=== PATIENT | male | born 1940 | race Caucasian/White ===

== ENCOUNTER 2018-03-11 15:58 | Emergency (ER) | payer OTHER ==
--- OUTSIDE RECORDS SUMMARY | 2018-03-11 16:00 | XMS REPORT | Clinical Summary ---
:1940 Author Organization [facility] Address [address] [place] [address] Care Team Providers Name Role Phone New Leong MD Primary Care Provider Allergies Active Allergy Reactions Severity Noted Date Comments Codeine GI Intolerance 09/21/2017 vomitting Current Medications Prescription Sig. Disp. Refills Start Date End Date Status finasteride Take 5 mg by 3 10/06/2016 Active (PROSCAR) 5 mg mouth daily. tablet therapeutic Take 1 tablet Active multivitamin by mouth (THERAGRAN) tablet daily. ZINC ACETATE ORAL Take 50 mg by Active mouth. ASCORBATE CALCIUM Take 1,000 mg Active (VITAMIN C ORAL) by mouth. ANTIOX.MV Take by Active NO.10/OMEG3S/LUT/AIMEE mouth. (I-CAPS ORAL) metoprolol succinate Take 1 tablet 90 tablet 3 05/15/2017 Active XL (TOPROL-XL) 50 mg (50 mg total) 24 hr tablet by mouth daily. pravastatin Take 1 tablet 90 tablet 3 05/15/2017 Active (PRAVACHOL) 20 MG (20 mg total) tablet by mouth daily. ZETIA 10 mg tablet Take 1 tablet 90 tablet 3 08/14/2017 Active (10 mg total) by mouth daily. tamsulosin (FLOMAX) Take 0.4 mg Active 0.4 mg by mouth capsule,extended daily. release 24hr ALPRAZolam (XANAX) 1 09/22/2017 Active MG tablet metoprolol succinate 10/12/2016 05/15/2017 Discontinued XL (TOPROL-XL) 50 mg 24 hr tablet pravastatin TAKE 1 3 07/31/2016 05/15/2017 Discontinued (PRAVACHOL) 20 MG TABLET(S) tablet EVERY DAY BY ORAL ROUTE. ZETIA 10 mg tablet TAKE 1 TABLET 3 10/06/2016 08/14/2017 Discontinued BY MOUTH EVERY DAY FOR 90 DAYS aspirin (ECOTRIN) 81 Take 81 mg by 10/18/2017 Discontinued MG enteric coated mouth 2 (two) tablet times a day. metroNIDAZOLE TAKE 1 TABLET 0 09/12/2017 10/18/2017 Discontinued (FLAGYL) 500 MG BY MOUTH tablet EVERY 6 HOURS. traMADol (ULTRAM) 50 Take 50 mg by 0 09/08/2017 10/18/2017 Discontinued mg tablet mouth every 4 (four) hours as needed. for pain traMADol (ULTRAM) 50 Take 1 tablet 60 tablet 0 10/18/2017 11/01/2017 mg tablet (50 mg total) by mouth every 4 (four) hours as needed (pain) for up to 14 days. for pain HYDROcodone-acetamin Take 2 10/18/2017 11/01/2017 ophen (NORCO) 10-325 tablets by mg per tablet mouth every 4 (four) hours as needed (pain) for up to 14 days. Max Daily Amount: 12 tablets carisoprodol (SOMA) Take 1 tablet 10/18/2017 11/01/2017 350 MG tablet (350 mg total) by mouth 4 (four) times a day as needed for muscle spasms for up to 14 days. Active Problems Problem Noted Date S/P laminectomy (T4-7) 10/17/2017 Anemia due to blood loss, acute 10/17/2017 Essential hypertension 10/17/2017 Type 2 diabetes mellitus with complication, without long-term current use 07/2017 of insulin Thrombocytopenia 10/17/2017 Thoracic spine tumor 10/16/2017 Schwannoma of spinal cord (S/P resection) 09/21/2017 Cervical spondylosis with myelopathy 09/21/2017 Spermatocele 09/21/2017 Paroxysmal atrial fibrillation 09/18/2017 Coronary artery disease involving little shell tribe coronary artery of little shell tribe heart 04/14 without angina pectoris Chronic coronary artery disease 10/14/2016 Dyspnea 10/14/2016 S/P CABG (coronary artery bypass graft) 10/14/2016 Encounters Date Type Specialty Care Team Description 10/29/2017 Office Visit Neurosurgery Oliver Eng Thoracic spine tumor ( Primary Dx); MD Brianna S/P laminectomy (T4-7); Encounter for removal of sutures 10/16/2017 - Hospital Encounter Neurosurgery Oliver Eng 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 Procedure Pass General Surgery 10/16/2017 Surgery General Surgery Oliver Eng THORACIC LAMINECTOMY MD Brianna FOR EXCISION OF TUMOR THORACIC 4 - THORACIC 7 10/15/2017 Anesthesia Event General Surgery Rosa Davis, PROCEDURES TECH 10/13/2017 Office Visit Cardiology Anish Garcia S/P CABG (coronary artery bypass graft) (Primary Dx); MD Talita Paroxysmal atrial fibrillation 10/07/2017 Orders Only Neurosurgery Franci Boyd, Spinal cord tumor SEA SHELL GATHERER (Primary Dx) 10/06/2017 Telephone Neurosurgery Franci Boyd, SEA SHELL GATHERER 09/30/2017 Hospital Encounter Radiology Oliver Eng Spinal cord tumor; MD Brianna Cervical spondylosis with myelopathy; Spermatocele 09/30/2017 Hospital Encounter Radiology Oliver Eng Spinal cord tumor; MD Brianna Cervical spondylosis with myelopathy; Spermatocele 09/22/2017 Procedure Pass Radiology 09/22/2017 Procedure Pass Radiology 09/22/2017 Orders Only Neurosurgery Linda Arreola Spinal cord tumor (Primary Dx); Cervical spondylosis with myelopathy; Spermatocele 09/21/2017 Hospital Encounter Radiology Oliver Eng MD 09/21/2017 Hospital Encounter Oliver Spear MD 09/21/2017 Pre-Admit Testing Pre-Admission Oliver Eng Preoperative testing Appointment Testing MD Brianna (Primary Dx) 09/21/2017 Hospital Encounter Radiology Olvier Eng Chronic coronary artery disease; MD Brianna Coronary artery disease involving little shell tribe coronary artery of little shell tribe heart without angina pectoris; Paroxysmal atrial fibrillation; Dyspnea, unspecified type; Spinal cord tumor; Cervical spondylosis with myelopathy; Spermatocele; S/P CABG (coronary artery bypass graft) 09/21/2017 Hospital Encounter Oliver Spear Chronic coronary artery disease; MD Brianna Coronary artery disease involving little shell tribe coronary artery of little shell tribe heart without angina pectoris; Paroxysmal atrial fibrillation; Dyspnea, unspecified type; Spinal cord tumor; Cervical spondylosis with myelopathy; Spermatocele; S/P CABG (coronary artery bypass graft) 09/21/2017 Hospital Encounter Radiology Oliver Eng Chronic coronary artery disease; MD Brianna Coronary artery disease involving little shell tribe coronary artery of little shell tribe heart without angina pectoris; Paroxysmal atrial fibrillation; Dyspnea, unspecified type; Spinal cord tumor; Cervical spondylosis with myelopathy; Spermatocele; S/P CABG (coronary artery bypass graft) 09/21/2017 Office Visit Neurosurgery Oliver Eng Cervical spondylosis with myelopathy (Primary Dx); MD Brianna Spinal cord tumor; Spermatocele 09/21/2017 Procedure Pass Radiology 09/21/2017 Procedure Pass Radiology 09/21/2017 Ancillary Orders Radiology Oliver Eng MD 09/21/2017 Orders Only Neurosurgery Linda Arreola Chronic coronary artery disease (Primary Dx); Coronary artery disease involving little shell tribe coronary artery of little shell tribe heart without angina pectoris; Paroxysmal atrial fibrillation; Dyspnea, unspecified type; Spinal cord tumor; Cervical spondylosis with myelopathy; Spermatocele; S/P CABG (coronary artery bypass graft) 08/14/2017 Refill Cardiology Mihir Farmer MA 05/15/2017 Orders Only Cardiology Janet Ziegler MA 05/15/2017 Orders Only Cardiology Janet Ziegler MA 04/14/2017 Office Visit Cardiology Anish Garcia Coronary artery disease involving little shell tribe coronary artery of little shell tribe heart without angina pectoris ( Primary Dx); MD Talita S/P CABG (coronary artery bypass graft) after 03/10/2017 Family History Medical History Relation Name Comments No Known Problems Father No Known Problems Mother Relation Name Status Comments Father Mother Social History Tobacco Use Types Packs/Day Years Used Date Former Smoker Smokeless Tobacco: Never Used Comments: 2 years in college Alcohol Use Drinks/Week oz/Week Comments Yes rarely Sex Assigned at Date Recorded Not on file Last Filed Vital Signs Vital Sign Reading Time Taken Blood Pressure 90/53 10/18/2017 8:05 AM CUPOLA REPAIRER Pulse 60 10/18/2017 8:05 AM CUPOLA REPAIRER Temperature 36 C (96.8 F) 10/18/2017 8:05 AM CUPOLA REPAIRER Respiratory Rate 19 10/18/2017 8:05 AM CUPOLA REPAIRER Oxygen Saturation 94% 10/18/2017 8:05 AM CUPOLA REPAIRER Inhaled Oxygen Concentration - - Weight 90.3 kg (199 lb) 10/13/2017 8:41 AM CUPOLA REPAIRER Height 185.4 cm (6' 1") 10/16/2017 10:36 AM CUPOLA REPAIRER Body Mass Index 26.25 10/13/2017 8:41 AM CUPOLA REPAIRER Plan of Treatment Date Type Specialty Care Team Description 04/13/2018 Office Visit Cardiology Anish Garcia MD [address] [employer] [address] [place] [address] Health Maintenance Due Date Last Done Comments FOOT EXAM 1951 OPHTHALMOLOGY EXAM 1950 URINE MICROALBUMIN 1951 SHINGRIX VACCINE (#1) 1991 ZOSTER VACCINE 2001 PNEUMOCOCCAL POLYSACCHARIDE VACCINE AGE 65 AND OVER 2006 PNEUMOCOCCAL-13 2006 INFLUENZA VACCINE 06/09/2018 Implants Implanted Type Area Director Oracle Database Device Expiration Model / Identifier Date Serial / Lot System Spine Selnt For Dural Selng Exact 5ml Duraseal - [id number] Cardiovascular N/A: INTEGRA 01/06/2019 [id number] / Implanted: Qty: 1 on 10/16/2017 by Oliver Eng MD Implants N/A LIFESCIENCE / NEURO [id number] Home Office Claims Examiner Clip Anastoclip Ves Clsr Sys 1.4mm Med - [id number] Medical Clips for N/A: LEMAITRE 10/06/2021 [id number] / Implanted: 10/16/2017 (Quantity not on file) Internal Use N/A VASCULAR / [id number] Kit Hemostatic Matrix W/Thrombin 8ml Surgiflo - [id number] Surgical N/A: ETHICON US-EH 01/06/2019 [id number] / Implanted: 10/16/2017 (Quantity not on file) Implants; N/A / Expanders; [id number] Extenders; Surgical Wires Matrix Hmstc Floseal 10ml W/ Humn F2 - [id number] Surgical N/A: AMBRIZ 04/2019 [id number] / Implanted: 10/16/2017 (Quantity not on file) Implants; N/A BIOSCIENCE / Expanders; [id number] Extenders; Surgical Wires Procedures Procedure Name Priority Date/Time Associated Diagnosis Comments INTRAOPERATIVE MONITORING Routine 10/19/2017 8:08 AM CUPOLA REPAIRER WI AN ELECTIVE Routine 10/16/2017 4:58 PM ENDOTRACHEAL AIRWAY CUPOLA REPAIRER Procedure Note - Aminah Staton, SENIOR GAME DEVELOPER - 10/16/2017 4:31 PM CUPOLA REPAIRER Airway Date/Time: 10/16/2017 4:31 PM Performed by: AMINAH STATON Authorized by: AMINAH STATON Location: OR Urgency: Elective Difficult Airway: No Resident/SENIOR GAME DEVELOPER/AA: AMINAH STATON Preoxygenated with 100% O2: Yes C-spine Precautions Maintained Throughout: Yes Mask Ventilation: Easy mask Final Airway Type: Endotracheal airway Final Endotracheal Airway: ETT Cuffed: Yes Technique Used: Direct laryngoscopy Devices/Methods Used in Placement: Intubating stylet Insertion Site: Oral Blade Type: Coffey Laryngoscope Blade/Videolaryngoscope Blade Size: 2 ETT Size (mm): 8.0 Cuff at minimum occlusion pressure: Yes Measured from: Teeth ETT to Teeth (cm): 23 Placement Verified by: CO2 detection, direct visualization and equal breath sounds Laryngoscopic view: Grade I - full view of glottis Rapid Sequence Induction (RSI): No Modified RSI: Yes Number of Attempts at Approach: 1 Atraumatic, lips and teeth intact and unchanged ARTERIAL LINE Routine 10/16/2017 4:33 PM CUPOLA REPAIRER Procedure Note - Aminah Staton SENIOR GAME DEVELOPER - 10/16/2017 4:32 PM CUPOLA REPAIRER Arterial line Performed by: EDER KRISHNAMURTHY Authorized by: EDER KRISHNAMURTHY Staff: Anesthesiologist: EDER KRISHNAMURTHY Pre-procedure: patient identified, IV checked, site and side verified, risks and benefits discussed, procedure verified, surgical consent complete, patient position confirmed, monitors and equipment checked and pre-op evaluation complete MSBT: antiseptic used, all elements of maximal sterile barrier technique followed, hand hygiene performed, cap/gown used by other personnel and solutions labeled Indications: Indications: hemodynamic monitoring Anesthesia: Anesthesia: General Procedure Details: Arterial Line placement: Placed post induction Line placement site: Radial Line placement side: Right Arterial line gauge: 20 G Number of attempts: 2 Post-procedure: Post procedure circulation, sensation, movement: Unchanged Patient tolerance: Patient tolerated the procedure well with no immediate complications THORACIC LAMINECTOMY FOR EXCISION 10/16/2017 12:00 PM CUPOLA REPAIRER 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 Component Value Ref Range POC glucose 153 (H) 65 - 99 mg/dL Comment: [facility] Notified RN Meter ID: [id number] Corporate Trainer: Jean Hopkins Specimen Performing Laboratory [facility] DEPARTMENT OF PATHOLOGY AND GENOMIC MEDICINE [address] [place] [id number] CBC hemogram (10/18/2017 3:50 AM) Component Value Ref Range WBC 18.49 (H) 4.50 - 11.00 k/uL RBC 4.58 4.40 - 6.00 m/uL HGB 13.4 (L) 14.0 - 18.0 g/dL HCT 40.7 (L) 41.0 - 51.0 % MCV 88.9 82.0 - 100.0 fL MCH 29.3 27.0 - 34.0 pg MCHC 32.9 31.0 - 37.0 g/dL RDW - SD 50.5 37.0 - 55.0 fL MPV 14.6 (H) 8.8 - 13.2 fL Platelet count 125 (L) 150 - 400 k/uL Nucleated RBC 0.00 /100 WBC Specimen Performing Laboratory Blood [facility] DEPARTMENT OF PATHOLOGY AND GENOMIC MEDICINE [address] [place] [id number] Estimated GFR (10/18/2017)Only the most recent of3 resultswithin the time period is included. Component Value Ref Range GFR Non Af Amer 82 mL/min/1.73 m2 GFR Af Amer >90 mL/min/1.73 m2 Comment: Chronic kidney disease: <60 mL/min/1.73m2 Kidney failure: <15 mL/min/1.73m2 The estimated GFR is calculated from the IDMS-traceable Modification of Diet in Renal Disease Equation. The accuracy of the calculation is poor when the creatinine is normal. Calculated values >90 mL/min/1.73m2 are not reported. This equation has not been validated in children (<18 years), women, the elderly (>70 years), or ethnic groups other than Caucasians and Americans. Specimen Performing Laboratory Plasma specimen [facility] DEPARTMENT OF PATHOLOGY AND GENOMIC MEDICINE [address] [place] [address] Phosphorus level (10/18/2017)Only the most recent of2 resultswithin the time period is included. Component Value Ref Range Phosphorus 2.6 2.4 - 4.5 mg/dL Specimen Performing Laboratory Plasma specimen [facility] DEPARTMENT OF PATHOLOGY AND [address] [address] Magnesium level (10/18/2017)Only the most recent of3 resultswithin the time period is included. Component Value Ref Range Magnesium 2.1 1.6 - 2.4 mg/dL Specimen Performing Laboratory Plasma specimen [address] [address] Ionized calcium (10/18/2017)Only the most recent of2 resultswithin the time period is included. Component Value Ref Range pH 7.54 Ionized calcium 1.10 (L) 1.11 - 1.32 mmol/L Specimen Performing Laboratory Plasma specimen [address] [address] Basic metabolic panel (10/18/2017)Only the most recent of3 resultswithin the time period is included. Component Value Ref Range Sodium 141 135 - 148 mEq/L Potassium 3.9 3.5 - 5.0 mEq/L Chloride 99 98 - 112 mEq/L CO2 22 (L) 24 - 31 mEq/L Anion gap 20 (H) 7 - 15 mEq/L Comment: Starting from February , anion gap calculation no longer incorporates potassium. Please note the change. BUN 20 8 - 23 mg/dL Creatinine 0.9 0.7 - 1.2 mg/dL Glucose 152 (H) 65 - 99 mg/dL Calcium 9.6 8.8 - 10.2 mg/dL Specimen Performing Laboratory Plasma specimen [facility] PATH[facility] [address] [address] ECG 12 lead (10/17/2017 5:15 AM)Only the most recent of3 resultswithin the time period is included. Component Value Ref Range Ventricular rate 57 Atrial rate 57 WI interval 200 QRSD interval 138 QT interval 490 QTC interval 476 P axis 1 19 QRS axis 1 14 T wave axis 28 EKG impression Sinus bradycardia with occasional and consecutive premature ventricular complexes-Right bundle branch block-Possible Inferior infarct , age undetermined-Abnormal ECG-In automated comparison with ECG of 21-SEP-2017 19:07,-fusion complexes are no longer present-Borderline criteria for Inferior infarct are now present- Specimen Performing Laboratory [facility] MUSE [address] [place] [address] XR Chest 1 Vw Portable (10/17/2017 5:03 AM) Specimen Performing Laboratory [facility] [address] [place] [address] Narrative EXAMINATION:XR CHEST 1 VW PORTABLE CLINICAL HISTORY: 76 years Male UVC line placementPost Operative [facility] COMPARISON: 05/23/2004 IMPRESSION: 1.Midline sternotomy wires. There is no central venous line visualized. Clinical correlation is necessary. 2.Cardiomediastinal silhouette is prominent with some broadening of the superior mediastinum, stable. Thoracic aorta tortuous. Central vasculature normal. 3.Lungs are hypoinflated. There is bibasilar atelectasis. They're otherwise clear. No pneumothorax. 4.Degenerative and postsurgical changes in the spine [facility]-[id number] Procedure Note Interface, Radiology Results Incoming - 10/17/2017 6:44 AM CUPOLA REPAIRER EXAMINATION: XR CHEST 1 VW PORTABLE CLINICAL HISTORY: 76 years Male UVC line placement Post Operative [facility] COMPARISON: 05/23/2004 IMPRESSION: 1. Midline sternotomy wires. There is no central venous line visualized. Clinical correlation is necessary. 2. Cardiomediastinal silhouette is prominent with some broadening of the superior mediastinum, stable. Thoracic aorta tortuous. Central vasculature normal. 3. Lungs are hypoinflated. There is bibasilar atelectasis. They're otherwise clear. No pneumothorax. 4. Degenerative and postsurgical changes in the spine [facility]-[id number] Partial thromboplastin time, activated (10/17/2017 2:25 AM) Component Value Ref Range PTT 27.0 23.0 - 36.0 sec Comment: PTT therapeutic range for unfractionated heparin is 61.0-112.0 seconds which corresponds to Anti-Xa 0.3-0.7 U/ml. Specimen Performing Laboratory Blood [facility] DEPARTMENT OF PATHOLOGY AND GENOMIC MEDICINE [address] [place] [address] Prothrombin time with INR (10/17/2017 2:25 AM) Component Value Ref Range Prothrombin time 15.2 (H) 12.0 - 15.0 sec INR 1.2 Comment: The International Normalized Ratio (INR) is a therapeutic monitoring tool for patients who are stable on oral anticoagulant therapy. An INR of 2.0-3.0 is suggested for deep vein thrombosis/pulmonary embolism. Specimen Performing Laboratory Blood [facility] DEPARTMENT OF PATHOLOGY AND GENOMIC MEDICINE [address] [place] [address] CBC with platelet and differential (10/17/2017 2:25 AM)Only the most recent of2 resultswithin the time period is included. Component Value Ref Range WBC 12.49 (H) 4.50 - 11.00 k/uL RBC 4.43 4.40 - 6.00 m/uL HGB 12.8 (L) 14.0 - 18.0 g/dL HCT 38.7 (L) 41.0 - 51.0 % MCV 87.4 82.0 - 100.0 fL MCH 28.9 27.0 - 34.0 pg MCHC 33.1 31.0 - 37.0 g/dL RDW - SD 49.3 37.0 - 55.0 fL MPV 13.5 (H) 8.8 - 13.2 fL Platelet count 94 (L) 150 - 400 k/uL Nucleated RBC 0.00 /100 WBC Neutrophils 89.8 (H) 39.0 - 69.0 % Lymphocytes 7.4 (L) 25.0 - 45.0 % Monocytes 2.1 0.0 - 10.0 % Eosinophils 0.0 0.0 - 5.0 % Basophils 0.2 0.0 - 1.0 % Immature granulocytes 0.5Comment: "Immature granulocytes" 0.0 - 1.0 % (promyelocytes, myelocytes, metamyelocytes) Specimen Performing Laboratory Blood [facility] DEPARTMENT OF PATHOLOGY AND GENOMIC MEDICINE [address] [place] [address] Surgical pathology request (10/16/2017 6:17 PM) Component Value Ref Range Surgical pathology report See link below for PDF Lab Report Result status This is Final Report to [id number] Specimen Performing Laboratory [facility] DEPARTMENT OF PATHOLOGY AND GENOMIC MEDICINE [address] [place] [address] XR Thoracic Spine 1 Vw (10/16/2017 5:19 PM) Specimen Performing Laboratory [address] [address] Narrative EXAMINATION: XR THORACIC SPINE 1 VW CLINICAL HISTORY: Intraoperative exam for localization COMPARISON:None IMPRESSION: Single intraoperative view of the chest shows an intubated patient. Hemostats is noted overlying the patient with the hemostat noted overlying the superior T5 vertebral body level. The tip of the hemostat is just under the fifth rib. The localization of the hemostat findings were discussed over the phone Dr. Eng at time of dictation. [facility]-[id number] Procedure Note Hm Interface, Radiology Results Incoming - 10/16/2017 5:29 PM CUPOLA REPAIRER EXAMINATION: XR THORACIC SPINE 1 VW CLINICAL HISTORY: Intraoperative exam for localization COMPARISON: None IMPRESSION: Single intraoperative view of the chest shows an intubated patient. Hemostats is noted overlying the patient with the hemostat noted overlying the superior T5 vertebral body level. The tip of the hemostat is just under the fifth rib. The localization of the hemostat findings were discussed over the phone Dr. Eng at time of dictation. [facility]-[id number] Type and screen (10/16/2017 3:40 PM) Component Value Ref Range ABO grouping O Rh type POS Antibody screen (gel) NEG Specimen Performing Laboratory [facility] DEPARTMENT OF PATHOLOGY [facility] [address] [place] [address] Sodium level, syringe (10/16/2017 3:35 PM) Component Value Ref Range Sodium, syringe 140 135 - 148 mEq/L Specimen Performing Laboratory Blood [facility] DEPARTMENT OF PATHOLOGY [address] [address] Potassium, syringe (10/16/2017 3:35 PM) Component Value Ref Range Potassium, syringe 3.9 3.5 - 5.0 mEq/L Specimen Performing Laboratory Blood [facility] DEPARTMENT OF PATHOLOGY [address] [address] Lactic acid, syringe (10/16/2017 3:35 PM) Component Value Ref Range Lactic acid, syringe 1.0 0.5 - 2.2 mmol/L Specimen Performing Laboratory Blood [facility] DEPARTMENT OF PATHOLOGY [facility] [address] [place] [address] Ionized calcium, arterial (10/16/2017 3:35 PM) Component Value Ref Range Ionized calcium, arterial 1.14 1.11 - 1.32 mmol/L Specimen Performing Laboratory Blood [facility] DEPARTMENT PATHOLOGY [address] [address] Hemoglobin, syringe (10/16/2017 3:35 PM) Component Value Ref Range Hemoglobin, syringe 13.9 (L) 14.0 - 18.0 g/dL Specimen Performing Laboratory Blood [facility] DEPARTMENT PATHOLOGY [facility] [address] [place] [address] Glucose level, syringe (10/16/2017 3:35 PM) Component Value Ref Range Glucose, syringe 102 (H) 65 - 99 mg/dL Specimen Performing Laboratory Blood [facility] DEPARTMENT OF PATHOLOGY AND GENOMIC MEDICINE [address] [place] [address] Arterial blood gas, corrected (10/16/2017 3:35 PM) Component Value Ref Range pH, arterial 7.40 7.35 - 7.45 pCO2, arterial 42 35 - 45 mmHg pO2, arterial 328 (H) 80 - 90 mmHg Temperature, Celsius 36.0 Degrees C O2 saturation, arterial 100 95 - 100 % pH, arterial corrected 7.42 pCO2, arterial corrected 40 mmHg pO2, arterial corrected 323 mmHg Base excess, arterial 1 -2 - 2 mEq/L Specimen Performing Laboratory Blood [facility] DEPARTMENT OF PATHOLOGY AND GENOMIC MEDICINE [address] [place] [address] MRI Cervical Spine W Wo Contrast (09/30/2017 9:23 AM) Specimen Performing Laboratory [facility] [address] [place] [address] Narrative EXAMINATION:MRI CERVICAL SPINE W WO CONTRAST CLINICAL HISTORY: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 Mild grade 1 anterolisthesis at C6-7, C7-T1 and T1-2. No suspicious focal bone marrow lesions. Visualized spinal cord is normal in appearance. No abnormal postcontrast enhancement. 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 Abnormal flow void in cervical left vertebral artery may be due to narrowing or occlusion. Correlate with vascular imaging. No definite abnormal postcontrast enhancement. C3-C6 anterior fusion with vertebral body screws, surgical plate and disc graft. C2-3: Posterior osteophyte disc complex causes moderate canal narrowing with some flattening of the ventricular surface of the cord. There is left greater than right foraminal narrowing. C3-4: No canal narrowing. Bilateral facet arthropathy and uncal arthrosis causes prominent bilateral foraminal narrowing. C4-5: No canal narrowing. Facet and uncal arthrosis causes mild left foraminal narrowing. C5-C6: No canal narrowing. Facet and uncal arthrosis causes mild left foraminal narrowing. C6-C7: No canal narrowing. Facet and uncal arthrosis causes mild left foraminal narrowing. C7-T1: No canal narrowing. Facet and uncal arthrosis causes moderate right foraminal narrowing. IMPRESSION: Motion artifact degrades evaluation especially of the foramina. C3-C6 anterior fusion. Moderate canal narrowing above the level of fusion of C2-3. Multilevel spondylotic foraminal narrowing. Abnormal left vertebral artery flow void may be due to narrowing or occlusion. Correlate with vascular imaging. 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 Mild grade 1 anterolisthesis at C6-7, C7-T1 and T1-2. No suspicious focal bone marrow lesions. Visualized spinal cord is normal in appearance. No abnormal postcontrast enhancement. 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 Abnormal flow void in cervical left vertebral artery may be due to narrowing or occlusion. Correlate with vascular imaging. No definite abnormal postcontrast enhancement. C3-C6 anterior fusion with vertebral body screws, surgical plate and disc graft. C2-3: Posterior osteophyte disc complex causes moderate canal narrowing with some flattening of the ventricular surface of the cord. There is left greater than right foraminal narrowing. C3-4: No canal narrowing. Bilateral facet arthropathy and uncal arthrosis causes prominent bilateral foraminal narrowing. C4-5: No canal narrowing. Facet and uncal arthrosis causes mild left foraminal narrowing. C5-C6: No canal narrowing. Facet and uncal arthrosis causes mild left foraminal narrowing. C6-C7: No canal narrowing. Facet and uncal arthrosis causes mild left foraminal narrowing. C7-T1: No canal narrowing. Facet and uncal arthrosis causes moderate right foraminal narrowing. IMPRESSION: Motion artifact degrades evaluation especially of the foramina. C3-C6 anterior fusion. Moderate canal narrowing above the level of fusion of C2-3. Multilevel spondylotic foraminal narrowing. Abnormal left vertebral artery flow void may be due to narrowing or occlusion. Correlate with vascular imaging. 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 FINDINGS: For the purposes of this report, 5 lumbar type vertebral bodies are assumed and numbered according to the lumbosacral and vertebral morphology. Vertebral body heights are maintained. Marked intervertebral disc space narrowing at L1-L2 and L5-S1 with mixed Modic type I and 2 endplate changes. Minimal retrolisthesis L1 on L2 and L3 on L4 measuring 2 to 3 mm. Grade 1 anterolisthesis L4 on L5 measuring 4 mm. Conus medullaris terminates at L1-L2. T2 hyperintense simple appearing renal cysts in the right kidney measuring 1.2 cm in transverse diameter. No pathologic enhancement. Axial images through the disc spaces demonstrate the following: L1-L2: No significant posterior disc disease or spinal canal stenosis. Mild bilateral facet arthrosis and endplate spurring resulting and mild left and severe right neural foraminal stenosis. Moderate right lateral recess stenosis. L2-L3: No significant posterior disc disease, spinal canal or neural foraminal stenosis. Mild bilateral facet hypertrophy with tiny left facet effusion. L3-L4: Mild posterior disc bulge and mild bilateral facet hypertrophy contributes to mild spinal canal narrowing and mild bilateral neural foraminal stenosis. L4-L5: Diffuse posterior pseudodisc bulge and severe bilateral facet arthrosis without significant spinal canal narrowing. Moderate right facet effusion. Moderate bilateral neural foraminal stenosis. L5-S1: Diffuse posterior disc bulge with possible superimposed small disc protrusion without significant spinal canal stenosis. Moderate left and mild right facet arthrosis with moderate left neural foraminal narrowing. Patent right neural foramen. No significant posterior disc disease, spinal canal or neural foraminal stenosis at other visualized levels. IMPRESSION: Overall no significant change compared with 09/16/2017. Multilevel degenerative changes of the lumbar spine with grade 1 anterolisthesis at L4-L5 and severe bilateral facet arthrosis at this level. No high-grade spinal canal stenosis. Severe right neural foraminal stenosis at L1-L2. Additional degenerative changes are detailed above. 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 FINDINGS: For the purposes of this report, 5 lumbar type vertebral bodies are assumed and numbered according to the lumbosacral and vertebral morphology. Vertebral body heights are maintained. Marked intervertebral disc space narrowing at L1-L2 and L5-S1 with mixed Modic type I and 2 endplate changes. Minimal retrolisthesis L1 on L2 and L3 on L4 measuring 2 to 3 mm. Grade 1 anterolisthesis L4 on L5 measuring 4 mm. Conus medullaris terminates at L1-L2. T2 hyperintense simple appearing renal cysts in the right kidney measuring 1.2 cm in transverse diameter. No pathologic enhancement. Axial images through the disc spaces demonstrate the following: L1-L2: No significant posterior disc disease or spinal canal stenosis. Mild bilateral facet arthrosis and endplate spurring resulting and mild left and severe right neural foraminal stenosis. Moderate right lateral recess stenosis. L2-L3: No significant posterior disc disease, spinal canal or neural foraminal stenosis. Mild bilateral facet hypertrophy with tiny left facet effusion. L3-L4: Mild posterior disc bulge and mild bilateral facet hypertrophy contributes to mild spinal canal narrowing and mild bilateral neural foraminal stenosis. L4-L5: Diffuse posterior pseudodisc bulge and severe bilateral facet arthrosis without significant spinal canal narrowing. Moderate right facet effusion. Moderate bilateral neural foraminal stenosis. L5-S1: Diffuse posterior disc bulge with possible superimposed small disc protrusion without significant spinal canal stenosis. Moderate left and mild right facet arthrosis with moderate left neural foraminal narrowing. Patent right neural foramen. No significant posterior disc disease, spinal canal or neural foraminal stenosis at other visualized levels. IMPRESSION: Overall no significant change compared with 09/16/2017. Multilevel degenerative changes of the lumbar spine with grade 1 anterolisthesis at L4-L5 and severe bilateral facet arthrosis at this level. No high-grade spinal canal stenosis. Severe right neural foraminal stenosis at L1-L2. Additional degenerative changes are detailed above. [id number] Smear review (09/21/2017 6:07 PM) Component Value Ref Range Platelet slide review Helen slt decr Anisocytosis Moderate Ovalocytes Moderate [place] cells Moderate (A) Enlarged platelets Moderate (A) Specimen Performing Laboratory [facility] DEPARTMENT OF PATHOLOGY AND GENOMIC MEDICINE [address] [place] [id number] Hemoglobin A1c (09/21/2017 6:07 PM) Component Value Ref Range Hemoglobin A1C 6.6 (H) 4.0 - 5.6 % Comment: HbA1c cutoffs for diagnosing diabetes: 4.0% - 5.6%=normal 5.7% - 6.4%=increased risk for diabetes (prediabetes) >=6.5%=diabetes Goals for glycemic control (ADA 2016) < 7.0%Target for non adults with diabetes. More or less stringent targets may be appropriate for individual patients. <7.5% Target for Children and adolescents with type 1 diabetes. Specimen Performing Laboratory [facility] DEPARTMENT OF PATHOLOGY AND GENOMIC MEDICINE [address] [place] [id number] XR Spine [place] 2-3 Views (09/21/2017 5:30 PM) [facility] [address] [place] [id number] Narrative EXAMINATION:XR SPINE SCOLIOSIS 2-3 VIEWS CLINICAL HISTORY:I25.10 Atherosclerotic heart disease of [place] coronary artery without angina pectoris, I25.10 Atherosclerotic heart disease of [place] coronary artery without angina pectoris, BACK PAINUNSPECIFIED, MYELOPATHYPAINFUL COMPARISON:None. Frontal and lateral views of entire spine was performed for scoliosis protocol. IMPRESSION: Fusion hardware is noted in the cervical spine from C3 through C6. There is broad-based leftward curvature measuring 13 degrees at T6. There is 16 degree rightward curvature at T11. There is 19 degrees leftward curvature L3: Mild leftward listhesis of L3. The femoral head heights are roughly symmetric. Lateral imaging shows exaggeration of thoracic kyphosis in the mid lower thoracic spine. Bones are osteopenic. There is anterolisthesis of L4. There is 11 cm positive sagittal balance. Soft tissues show calcifications throughout the abdominal aorta. Bowel gas pattern shows scattered air-fluid levels with no evidence of obstruction. There are some calcifications in the right abdomen which could represent gallstones. Median sternotomy wires are noted in the chest. Cardiac silhouette is upper normal. Lungs are clear. There are some degenerative changes of the bilateral hip joints. The bones are osteopenic with no definite acute compression deformity. [id number] Procedure Note Hm Interface, Radiology Results Incoming - 09/21/2017 6:21 PM [employer]A REPAIRER EXAMINATION: XR SPINE SCOLIOSIS 2-3 VIEWS CLINICAL HISTORY: I25.10 Atherosclerotic heart disease of [place] coronary artery without angina pectoris, I25.10 Atherosclerotic heart disease of [place] coronary artery without angina pectoris, BACK PAIN UNSPECIFIED, MYELOPATHY PAINFUL COMPARISON: None. Frontal and lateral views of entire spine was performed for scoliosis protocol. IMPRESSION: Fusion hardware is noted in the cervical spine from C3 through C6. There is broad-based leftward curvature measuring 13 degrees at T6. There is 16 degree rightward curvature at T11. There is 19 degrees leftward curvature L3: Mild leftward listhesis of L3. The femoral head heights are roughly symmetric. Lateral imaging shows exaggeration of thoracic kyphosis in the mid lower thoracic spine. Bones are osteopenic. There is anterolisthesis of L4. There is 11 cm positive sagittal balance. Soft tissues show calcifications throughout the abdominal aorta. Bowel gas pattern shows scattered air-fluid levels with no evidence of obstruction. There are some calcifications in the right abdomen which could represent gallstones. Median sternotomy wires are noted in the chest. Cardiac silhouette is upper normal. Lungs are clear. There are some degenerative changes of the bilateral hip joints. The bones are osteopenic with no definite acute compression deformity. [facility]-[id number] XR Lumbar Spine Complete W Flex and Ext (09/21/2017 5:30 PM) Specimen Performing Laboratory [facility] [address] [place] [address] Narrative Study:XR LUMBAR SPINE COMPLETE W FLEX & EXTEND History:I25.10 Atherosclerotic heart disease of [place] coronary artery without angina pectoris, I25.10 Atherosclerotic heart disease of [place] coronary artery without angina pectoris, BACK PAINUNSPECIFIED, LOW BACK PAIN AND OR RADICULOPATHYPATIENT CAN HAVE SURGERY INTERVENTION COMPARISON:None. IMPRESSION: 6 views of the lumbar spine performed to include flexion and extension. A focal left convex curvature of the lumbar spine is centered at L1 to. There is an approximately 8 and left lateral listhesis at L2-3. The lumbar lordosis is maintained. There is trace 6 murmur anterolisthesis at L4-5 stable on all views. No induced listhesis seen on flexion and extension. Severe disc space loss present at L5/ S1 and L1 to with some mild disc space loss in the remaining levels. Atherosclerotic calcifications of the abdominal aorta. Gallstones are seen layering in the right upper quadrant of the abdomen. [facility]-[id number] Procedure Note Interface, Radiology Results Incoming - 09/21/2017 6:45 PM CUPOLA REPAIRER Study:XR LUMBAR SPINE COMPLETE W FLEX & EXTEND History:I25.10 Atherosclerotic heart disease of [place] coronary artery without angina pectoris, I25.10 Atherosclerotic heart disease of [place] coronary artery without angina pectoris, BACK PAIN UNSPECIFIED, LOW BACK PAIN AND OR RADICULOPATHY PATIENT CAN HAVE SURGERY INTERVENTION COMPARISON:None. IMPRESSION: 6 views of the lumbar spine performed to include flexion and extension. A focal left convex curvature of the lumbar spine is centered at L1 to. There is an approximately 8 and left lateral listhesis at L2-3. The lumbar lordosis is maintained. There is trace 6 murmur anterolisthesis at L4-5 stable on all views. No induced listhesis seen on flexion and extension. Severe disc space loss present at L5/ S1 and L1 to with some mild disc space loss in the remaining levels. Atherosclerotic calcifications of the abdominal aorta. Gallstones are seen layering in the right upper quadrant of the abdomen. [facility]-[id number] XR Cervical Spine Complete w flex/ext (09/21/2017 5:30 PM) Specimen Performing Laboratory [facility] [address] [place] [address] Narrative EXAMINATION: XR CERVICAL SPINE COMPLETE W FLEX EXT CLINICAL HISTORY: I25.10 Atherosclerotic heart disease of [place] coronary artery without angina pectoris, I25.10 Atherosclerotic heart disease of [place] coronary artery without angina pectoris, C-SPINE TRAUMANEXUS CCR POSITIVE MYELOPATHY, NECK PAIN CERVICAL SPINE COMPARISON:None IMPRESSION: 7 views of cervical spine were obtained. Anterior plate and screws are noted from C3 through C7 with no evidence of hardware failure. Flexion-extension imaging shows widening of the anterior disc space at C2-3 on extension which narrows with flexion. Oblique images shows multilevel osseous foraminal stenosis most prominent on the right at C5-C6 and C7-T1 and on the left that C2-3, C4-5 and C5-6. Correlate for associated radiculopathies to determine clinical significance. C7 is not well-visualized on the lateral view due to shoulder attenuation. No acute osseous abnormality identified. Prevertebral soft tissues are within normal limits. Calcification are noted in the carotid bifurcations, bilaterally. [facility]-[id number] Procedure Note Hm Interface, Radiology Results Incoming - 09/21/2017 6:23 PM CUPOLA REPAIRER EXAMINATION: XR CERVICAL SPINE COMPLETE W FLEX EXT CLINICAL HISTORY: I25.10 Atherosclerotic heart disease of [place] coronary artery without angina pectoris, I25.10 Atherosclerotic heart disease of [place] coronary artery without angina pectoris, C-SPINE TRAUMA NEXUS CCR POSITIVE MYELOPATHY, NECK PAIN CERVICAL SPINE COMPARISON: None IMPRESSION: 7 views of cervical spine were obtained. Anterior plate and screws are noted from C3 through C7 with no evidence of hardware failure. Flexion-extension imaging shows widening of the anterior disc space at C2-3 on extension which narrows with flexion. Oblique images shows multilevel osseous foraminal stenosis most prominent on the right at C5-C6 and C7-T1 and on the left that C2-3, C4-5 and C5-6. Correlate for associated radiculopathies to determine clinical significance. C7 is not well-visualized on the lateral view due to shoulder attenuation. No acute osseous abnormality identified. Prevertebral soft tissues are within normal limits. Calcification are noted in the carotid bifurcations, bilaterally. [facility]-[id number] MRI Spine External Study (09/16/2017 8:12 AM)Only the most recent of2 resultswithin the time period is included. Specimen Performing Laboratory [facility] [address] [facility] [place] [address] Narrative This exam was not acquired at a [employer] facility and has not been interpreted by a [employer] Provider.The exam was imported into our imaging system for comparisons purposes. after 03/10/2017 Insurance Payer Benefit Plan / Group Subscriber ID Type Phone Address [employer] MED[employer]ARE AETNA MEDICARE HMO/PPO [facility] xxxxxxxx HMO Home: [address] [phone] [place], [place] [phone]
[2018-03-11] MEDS ORDERED: FENTANYL CITR 100 MCG/2 ML ONE (16:34)
[2018-03-11] MEDS ORDERED: ONDANSETRON 4 MG/2 ML VIAL ONE (16:34)
[2018-03-11] MEDS ORDERED: KETOROLAC 30 MG/ML INJ ONE (16:36)
[2018-03-11 16:52] LABS: Absolute Lymphocytes (CBC) 1.3 K/uL (0.7-4.9); Absolute Monocytes 1.4 K/uL (0.1-1.3); Absolute Neutrophil 9.7 K/uL (1.8-8.0); Basophils % 0.5 % (0-1.3); Eosinophils % 0.7 % (0-4.4); Hematocrit 48.2 % (39.6-49.0); Lymphocytes % 10.6 % (15.3-44.8); MCH 28.9 pg (27.0-35.0); Monocytes % 11.1 % (3.3-12.3); RBC Red Blood Cell Count 5.54 M/uL (4.33-5.43)
[2018-03-11 17:01] LABS: Potassium 4.3 mEq/L (3.6-5.0)
[2018-03-11 17:07] LABS: Albumin 4.4 g/dL (3.2-5.5); Bilirubin Direct 0.2 mg/dL (0-0.2); Bilirubin Total 1.5 mg/dL (0.3-1.2); Protein, Total 7.1 g/dL (6.0-8.3)
--- NOTE | 2018-03-11 17:08 | RAD REPORT ---
EXAM DESCRIPTION: CT - Abdomen Pelvis Wo Contrast - 03/11/2018 4:47 pm CLINICAL HISTORY: Abdominal pain. COMPARISON: 09/10/2017 TECHNIQUE: CT imaging of the abdomen and pelvis was performed without contrast. Solid organ, bowel a nd vascular assessment is limited due to lack of IV and oral contrast. All CT scans are performed using dose optimization technique as appropriate and may include automated exposure control or mA/KV adjustment according to patient size. FINDINGS: Linear subsegmental atelectasis is present in the lung bases. Noncontrast imaging of the liver demonstrates no focal mass or biliary dilatation. Small hiatal herni a is seen. The spleen, pancreas, adrenal glands are normal. Several gallstones are present in the gal lbladder. Mild right-sided hydronephrosis and hydroureter is present caused by a 4 mm calculus (550 HU) at the level of the right pelvic inlet. The mild left-sided hydronephrosis is also seen, without a stone vis ible. No bowel obstruction, free air, free fluid or abscess. Prominent diverticulosis of the distal descend ing colon and sigmoid colon is seen without evidence of acute diverticulitis. The appendix is normal. Mild to moderate lumbar degenerative changes. IMPRESSION: 4 mm calculus at the level the right pelvic inlet resulting mild right hydronephrosis. Mild left hydronephrosis is also present without obstructing calculus. Cholelithiasis. Sigmoid diverticulosis coli. No evidence of diverticulitis. A limited non-contrast examination was performed as detailed.
[2018-03-11] MEDS ORDERED: NA CHLORIDE 0.9% 500 ML ONE (17:45)
--- NOTE | 2018-03-11 18:10 | EDPHYS ---
Physician Documentation [facility] Name: Quintin Stauffer Age: 77 yrs Sex: Male : 1940 Arrival Date: 03/11/2018 Time: 16:01 Bed 15 Private MD: [place] ED Physician Jd Adams HPI: 03/11 17:47 This 77 yrs old Male presents to ER via Ambulatory with complaints of wa Abdominal Pain, Testicular Pain. 17:47 The patient presents with flank pain, of the right flank. Onset: The symptoms/episode wa began/occurred 3 day(s) ago. Modifying factors: The symptoms are alleviated by nothing, the symptoms are aggravated by nothing. Associated signs and symptoms: Pertinent positives: nausea, Pertinent negatives: diarrhea, dysuria, fever, vomiting. Severity of symptoms: At their worst the symptoms were moderate, in the emergency department the symptoms are actually worse, markedly. The patient has experienced similar episodes in the past, several times, h/o kidney stones. The patient has not recently seen a physician. c/o severe R flank pain that radiates to R testicle. denies vomit. admits to nausea. h/o kidney stones in the past. worse suddenly today. Historical: - Allergies: 16:17 Codeine; hj - Home Meds: 16:17 aspirin 81 mg Oral TbEC 1 tab once daily [Active]; pravastatin 20 mg oral tab 1 tab hj once daily [Active]; Zetia 10 mg Oral tab 1 tab once daily [Active]; Toprol XL 50 mg Oral Tb24 1 tab once daily [Active]; finasteride 5 mg oral tab 1 tab once daily [Active]; tamsulosin 0.4 mg oral cp24 1 cap once daily [Active]; - PMHx: 16:17 Hypertension; Hyperlipidemia; hj - PSHx: 16:17 hand; bypass; hj - Immunization history:: Adult Immunizations up to date. - Social history:: Smoking status: Patient/guardian denies using tobacco. ROS: 18:00 Constitutional: Negative for fever, chills, and weight loss, Eyes: Negative for injury, wa pain, redness, and discharge, ENT: Negative for injury, pain, and discharge, Neck: Negative for injury, pain, and swelling, Cardiovascular: Negative for chest pain, palpitations, and edema, Respiratory: Negative for shortness of breath, cough, wheezing, and pleuritic chest pain, Back: Negative for injury and pain, MS/Extremity: Negative for injury and deformity, Skin: Negative for injury, rash, and discoloration, Neuro: Negative for headache, weakness, numbness, tingling, and seizure, Psych: Negative for depression, anxiety, suicide ideation, homicidal ideation, and hallucinations. 18:00 Abdomen/GI: Positive for abdominal pain, nausea, of the R flank. 18:00 : Positive for flank pain, of the R flank. radiates to R testicle. 18:00 All other systems are negative. Exam: 18:02 Head/Face: Normocephalic, atraumatic. Eyes: Pupils equal round and reactive to light, wa extra-ocular motions intact. Lids and lashes normal. Conjunctiva and sclera are non-icteric and not injected. Cornea within normal limits. Periorbital areas with no swelling, redness, or edema. ENT: Nares patent. No nasal discharge, no septal abnormalities noted. Tympanic membranes are normal and external auditory canals are clear. Oropharynx with no redness, swelling, or masses, exudates, or evidence of obstruction, uvula midline. Mucous membranes moist. Neck: Trachea midline, no thyromegaly or masses palpated, and no cervical lymphadenopathy. Supple, full range of motion without nuchal rigidity, or vertebral point tenderness. No Meningismus. Chest/axilla: Normal chest wall appearance and motion. Nontender with no deformity. No lesions are appreciated. Cardiovascular: Regular rate and rhythm with a normal S1 and S2. No gallops, murmurs, or rubs. Normal PMI, no JVD. No pulse deficits. Respiratory: Lungs have equal breath sounds bilaterally, clear to auscultation and percussion. No rales, rhonchi or wheezes noted. No increased work of breathing, no retractions or nasal flaring. Back: No spinal tenderness. No costovertebral tenderness. Full range of motion. Male : Normal genitalia with no discharge or lesions. Skin: Warm, dry with normal turgor. Normal color with no rashes, no lesions, and no evidence of cellulitis. MS/ Extremity: Pulses equal, no cyanosis. Neurovascular intact. Full, normal range of motion. 18:02 Constitutional: The patient appears restless, uncomfortable, maoning with pain. distressed 18:02 Abdomen/GI: Inspection: abdomen appears normal, Bowel sounds: normal, in all quadrants, Palpation: abdomen is soft and non-tender, in all quadrants. 18:02 : CVA tenderness, is absent, Male external genitalia: normal. Vital Signs: 16:18 BP 137 / 75; Pulse 83; Resp 18; Temp 97.2(TE); Pulse Ox 99% on R/A; Weight 90.72 kg; hj Height 6 ft. 2 in. (187.96 cm); Pain 10/10; 16:50 BP 150 / 97; Pulse 79; Resp 20; Pulse Ox 99% on R/A; em 17:31 BP 141 / 96; Pulse 76; Resp 18; Pulse Ox 99% on R/A; em 18:10 BP 119 / 82; Pulse 84; Resp 16; Pulse Ox 99% on R/A; Pain 0/10; em 16:18 Body Mass Index 25.68 (90.72 kg, 187.96 cm) MDM: 16:25 Patient medically screened. cp 18:03 Differential diagnosis: pt in extremis with severe pain. suspect renal colic,. r/o AAA. wa r/o urinary retention. Data reviewed: vital signs, nurses notes. Test interpretation: by ED physician or midlevel provider: CT abd/pelvis: 4 mm R distal ureter stone with assoc hydronephrosis. UA noted for ketonuria. blood and LE. noted renal insufficiency. Response to treatment: the patient's symptoms have markedly improved after treatment. ED course: improved. will d/c with meds and f/u with urology. 03/11 16:26 Order name: Basic Metabolic Panel; Complete Time: 17:16 mi 03/11 16:26 Order name: CBC with Diff mi 03/11 16: Order name: Hepatic Function; Complete Time: 17:16 mi 03/11 16:26 Order name: Lipase; Complete Time: 17:03/11 16:26 Order name: Urine Microscopic Only mi 03/11 17:43 Order name: Urine Dipstick--Ancillary (enter results) 03/11 16:26 Order name: IV Saline Lock; Complete Time: 17:03/11 16:26 Order name: Labs collected and sent; Complete Time: 17: mi 03/11 16:26 Order name: Urine Dipstick-Ancillary (obtain specimen); Complete Time: 17:54 mi 03/11 16:28 Order name: CT Abd/Pelvis - Without Cont; Complete Time: 17:15 mi Administered Medications: 16:42 Drug: fentaNYL (PF) 100 mcg Route: IVP; Site: right forearm; iw 17:54 Follow up: Response: No adverse reaction; Pain is decreased em 16:42 Drug: Zofran 4 mg Route: IVP; Site: right forearm; iw 17:54 Follow up: Response: No adverse reaction; Nausea is decreased em 16:42 Drug: TORadol 30 mg Route: IVP; Site: right forearm; iw 17:54 Follow up: Response: No adverse reaction; Pain is decreased em 17:50 Drug: NS 0.9% 500 ml Route: IV; Rate: bolus; Site: right antecubital; em 18:39 Follow up: IV Status: Completed infusion; IV Intake: 500ml em Disposition: 03/11/18 18:09 Discharged to Home. Impression: Acute ureteral colic, renal insufficiency, dehydration. - Condition is Stable. - Discharge Instructions: Kidney Stones, [id number]. - Prescriptions for Augmentin 875- 125 mg Oral Tablet - take 1 tablet by ORAL route every 12 hours for 3 days; 6 tablet. ketorolac 10 mg Oral tablet - take 1 tablet by ORAL route every 8 hours As needed not to exceed 40 mg in 24hrs; 10 tablet. Zofran 4 mg Oral Tablet - take 1 tablet by ORAL route every 12 hours As needed; 20 tablet. - Medication Reconciliation Form, Thank You Letter, Antibiotic Education, Prescription Opioid Use form. - Follow up: Kt Encarnacion MD; When: 2 - 3 days; Reason: Re-evaluation by your physician. - Problem is new. - Symptoms have improved. - Notes: take your flomax as prescribed. return for severe pain. see the urologist for follow up was discussed Signatures: Dispatcher [employer] Rolando Naylor, OCCUPATIONAL THERAPY SUPERVISOR OCCUPATIONAL THERAPY SUPERVISOR em Jeanette Whitt RN RN iw Jorge Phelps RN RN hj Page, Corey, PA PA cp Appiah, William, MD MD wa Corrections: (The following items were deleted from the chart) 18:40 18:09 03/11/2018 18:09 Discharged to Home. Impression: Acute ureteral colic; renal em insufficiency; dehydration. Condition is Stable. Forms are Medication Reconciliation Form, Thank You Letter, Antibiotic Education, Prescription Opioid Use. Follow up: Kt Encarnacion; When: 2 - 3 days; Reason: Re-evaluation by your physician. Problem is new. Symptoms have improved. wa
--- NOTE | 2018-03-11 18:10 | ER ---
Nurse's Notes [facility] Name: Quintin Stauffer Age: 77 yrs Sex: Male : 1940 Arrival Date: 03/11/2018 Time: 16:01 Bed 15 Private MD: New Leong Diagnosis: Acute ureteral colic;renal insufficiency;dehydration Presentation: 03/11 16:13 Presenting complaint: states: he started hurting on my R lower flank pain, and now hj the pain moves to his testicle, hx of kidney stones; reports nausea and vomiting; denies blood in urine;. Transition of care: patient was not received from another setting of care. Onset of symptoms was March 11, 2018. Initial Sepsis Screen: Does the patient meet any 2 criteria? No. Patient's initial sepsis screen is negative. Does the patient have a suspected source of infection? No. Patient's initial sepsis screen is negative. Care prior to arrival: None. 16:13 Method Of Arrival: Ambulatory 16:13 Acuity: JIMMY 3 hj Triage Assessment: 16:17 General: Appears in no apparent distress. uncomfortable, Behavior is cooperative, hj appropriate for age, anxious, crying. Pain: Complains of pain in posterior aspect of right lateral abdomen. GI: Reports vomiting. Historical: - Allergies: 16:17 Codeine; hj - Home Meds: 16:17 aspirin 81 mg Oral TbEC 1 tab once daily [Active]; pravastatin 20 mg oral tab 1 tab hj once daily [Active]; Zetia 10 mg Oral tab 1 tab once daily [Active]; Toprol XL 50 mg Oral Tb24 1 tab once daily [Active]; finasteride 5 mg oral tab 1 tab once daily [Active]; tamsulosin 0.4 mg oral cp24 1 cap once daily [Active]; - PMHx: 16:17 Hypertension; Hyperlipidemia; hj - PSHx: 16:17 hand; bypass; hj - Immunization history:: Adult Immunizations up to date. - Social history:: Smoking status: Patient/guardian denies using tobacco. Screenin:55 Abuse screen: Denies threats or abuse. Nutritional screening: No deficits noted. em Tuberculosis screening: No symptoms or risk factors identified. Fall Risk None identified. Assessment: 16:18 GI: Bowel sounds present X 4 quads. Abd is soft Abdomen is tender to palpation. hj 16:25 General: Appears uncomfortable, Behavior is anxious. General:. General: Appears pt em lying on floor, denies falling, assisted back to bed, reports "It feels better on the cold floor." pt appears uncomfortable, at bedside. Pain: Complains of pain in posterior aspect of right lateral abdomen Pain currently is 10 out of 10 on a pain scale. Neuro: Level of Consciousness is awake, alert, Oriented to person, place, time, situation. Cardiovascular: Capillary refill < 3 seconds. Respiratory: Airway is patent Respiratory effort is even, unlabored, Respiratory pattern is regular, symmetrical. : Reports pain in testicles. EENT: No signs and/or symptoms were reported regarding the EENT system. Derm: Skin is intact, Skin is pink, warm \\T\\ dry. Musculoskeletal: Range of motion: intact in all extremities. 16:25 GI: Bowel sounds present X 4 quads. Abd is soft Abdomen is tender to palpation Reports em nausea, vomiting. 16:50 Reassessment: Patient appears in no apparent distress at this time. appears relaxed and em comfortable, pain level reports pain "on the lower end" Patient states feeling better. 17:00 Reassessment: Patient appears in no apparent distress at this time. I agree with the iw above assessment by Rolando Carter LVN. 17:27 Reassessment: Patient appears in no apparent distress at this time. pt ambulated to em restroom. 18:20 Reassessment: Patient appears in no apparent distress at this time. Patient and/or em family updated on plan of care and expected duration. Pain level reassessed. Patient is alert, oriented x 3, equal unlabored respirations, skin warm/dry/pink. Patient states feeling better. Patient states symptoms have improved. Vital Signs: 16:18 BP 137 / 75; Pulse 83; Resp 18; Temp 97.2(TE); Pulse Ox 99% on R/A; Weight 90.72 kg; hj Height 6 ft. 2 in. (187.96 cm); Pain 10/10; 16:50 BP 150 / 97; Pulse 79; Resp 20; Pulse Ox 99% on R/A; em 17:31 BP 141 / 96; Pulse 76; Resp 18; Pulse Ox 99% on R/A; em 18:10 BP 119 / 82; Pulse 84; Resp 16; Pulse Ox 99% on R/A; Pain 0/10; em 16:18 Body Mass Index 25.68 (90.72 kg, 187.96 cm) ED Course: 16:01 Patient arrived in ED. mr 16:01 eNw Leong MD is Private Physician. mr 16:15 Triage completed. hj 16:18 Arm band placed on right wrist. hj 16:24 Jorge L Garcia PA is PHCP. cp 16:24 Jd Adams MD is Attending Physician. cp 16:30 No provider procedures requiring assistance completed. Initial lab(s) drawn, by me, em sent to lab. Inserted saline lock: 20 gauge in right antecubital area, using aseptic technique. Blood collected. 16:37 Radiology exam delayed due to Pt wants meds prior to CT scan. vr 16:[address] via stretcher. nj 16:46 CT completed. Patient tolerated procedure well. Patient moved back from CT. nj 16:47 CT Abd/Pelvis - Without Cont In Process Unspecified. EDMS 16:50 Patient has correct armband on for positive identification. Placed in gown. Bed in low em position. Call light in reach. Side rails up X2. Adult w/ patient. 16:54 Rolando Carter LVN is Primary Nurse. em 18:07 Kt Encarnacion MD is Referral Physician. wa 18:38 IV discontinued, intact, bleeding controlled, No redness/swelling at site. Pressure em dressing applied. Administered Medications: 16:42 Drug: fentaNYL (PF) 100 mcg Route: IVP; Site: right forearm; iw 17:54 Follow up: Response: No adverse reaction; Pain is decreased em 16:42 Drug: Zofran 4 mg Route: IVP; Site: right forearm; iw 17:54 Follow up: Response: No adverse reaction; Nausea is decreased em 16:42 Drug: TORadol 30 mg Route: IVP; Site: right forearm; iw 17:54 Follow up: Response: No adverse reaction; Pain is decreased em 17:50 Drug: NS 0.9% 500 ml Route: IV; Rate: bolus; Site: right antecubital; em 18:39 Follow up: IV Status: Completed infusion; IV Intake: 500ml em Intake: 18:39 IV: 500ml; Total: 500ml. em Outcome: 18:09 Discharge ordered by . wa 18:38 Discharged to home ambulatory. em 18:38 Condition: good 18:38 Discharge instructions given to patient, Instructed on discharge instructions, follow up and referral plans. medication usage, Demonstrated understanding of instructions, follow-up care, medications, Prescriptions given X 4. 18:40 Patient left the ED. em Signatures: Dispatcher [employer] EDTN Jennifer Wolff, Rolando, LEGAL WRITING PROFESSOR LEGAL WRITING PROFESSOR em Jeanette Whitt, RN Cynthia Castaneda Henry, RN RN hj Page, Corey, Ayush Larsen cp, William, MD MD wa Corrections: (The following items were deleted from the chart) 16:22 16:18 Pulse 83bpm; Resp 18bpm; Pulse Ox 99% RA; Temp 97.2F Temporal; 90.72 kg; Height 6 hj ft. 2 in.; BMI: 25.6; Pain 10/10; 17:02 16:25 : No signs and/or symptoms were reported regarding the genitourinary system. em em 17:02 16:25 : Reports pain em em
[2018-03-11 19:07] LABS: Urine Amorphous Sediment 1+ /HPF (NONE SEEN); Urine Bacteria <20 /HPF (NONE SEEN); Urine Culture Reflex Order REFLEXED; Urine RBC <5 /HPF (NONE SEEN)
[2018-03-11 19:08] LABS: Urine Blood TRACE (NEG); Urine Glucose NEGATIVE (NEG); Urine Protein 1+ (NEG); Urine Specific Gravity 1.025 (1.005-1.030); Urine pH 5.5 (5.0-7.0)
[2018-03-11 20:38] LABS: Blood Morphology Comment NOT SEEN (NOT SEEN); Platelet Estimate DECR; Urine White Blood Cell Casts OK
== END 2018-03-11 18:40 | disposition home or self-care (01) ==
LOC: ER 15:58
DX: N23 Unspecified renal colic (principal); E86.0 Dehydration; N28.9 Disorder of kidney and ureter, unspecified; I10 Essential (primary) hypertension; E78.5 Hyperlipidemia, unspecified; Z79.82 Long term (current) use of aspirin; Z88.5 Allergy status to narcotic agent
CPT/HCPCS: 36415; 74176; 80048; 80076; 83690; 85025; 87086; 87088; 96361; 96374; 96375; 99284; J2405; J3010; 81003; 81015

== ENCOUNTER 2020-07-23 11:59 | Emergency (ER) | payer OTHER ==
--- OUTSIDE RECORDS SUMMARY | 2020-07-23 12:01 | XMS REPORT | Clinical Summary ---
:1940 Author Organization [facility] Address [address] [place] [address] Care Team Providers Name Role Phone MD Dang Primary Care Provider Allergies Active Allergy Reactions Severity Noted Date Comments Codeine GI Intolerance 09/21/2017 vomitting Medications Medication Sig Dispensed Refills Start Date End Date Status finasteride Take 5 mg by 3 10/06/2016 Acti ve (PROSCAR) 5 mg mouth daily. tablet therapeutic Take 1 0 Active multivitamin tablet by (THERAGRAN) tablet mouth daily. ZINC ACETATE ORAL Take 50 mg 0 A ctive by mouth. ASCORBATE CALCIUM Take 1,000 0 A ctive (VITAMIN C ORAL) mg by mouth. ANTIOX.MV Take by 0 Active NO.10/OMEG3S/LUT/Z mouth. EA (I-CAPS ORAL) tamsulosin Take 0.4 mg 0 Active (FLOMAX) 0.4 mg by mouth capsule,extended daily. release 24hr ALPRAZolam (XANAX) 0 09/22/2017 Active 1 MG tablet rivaroxaban Take 1 90 tablet 3 07/27/2019 Active (XARELTO) 20 mg tablet (20 tablet mg total) by mouth daily. amitriptyline Take 25 mg 0 01/24/2020 Acti ve (ELAVIL) 25 MG by mouth tablet nightly. vit A/C/E Take by 0 Active ac/ZnOx/cupric mouth. oxide (EYE VITAMIN AND MINERALS ORAL) metoprolol Take 1.5 135 tablet 3 04/03/2020 Active succinate XL tablets (75 (TOPROL-XL) 50 mg mg total) by 24 hr mouth daily. tabletIndications: Atrial fibrillation, unspecified type (HCC) pravastatin TAKE 1 90 tablet 0 05/24/2020 Active (PRAVACHOL) 20 MG TABLET BY tablet MOUTH EVERY DAY ezetimibe (ZETIA) TAKE 1 90 tablet 0 07/04/2020 A ctive 10 mg tablet TABLET BY MOUTH EVERY DAY metoprolol Take 1 90 tablet 3 09/21/2018 Disconti nued succinate XL tablet (50 9 (Reord er) (TOPROL-XL) 50 mg mg total) by 24 hr tablet mouth daily. ezetimibe (ZETIA) Take 1 90 tablet 3 01/31/2019 D iscontinued 10 mg tablet tablet (10 0 (Reord er) mg total) by mouth daily. pravastatin TAKE 1 90 tablet 0 04/08/2019 Discont inued (PRAVACHOL) 20 MG TABLET BY 9 (R eorder) tablet MOUTH EVERY DAY rivaroxaban Take 1 90 tablet 0 07/22/2019 Discont inued (XARELTO) 20 mg tablet (20 9 (Re order) tablet mg total) by mouth daily. rivaroxaban Take 1 90 tablet 3 07/27/2019 Discont inued (XARELTO) 20 mg tablet (20 9 (Re order) tablet mg total) by mouth daily. metoprolol TAKE 1 90 tablet 3 09/14/2019 Disconti nued succinate XL TABLET BY 0 (TOPROL-XL) 50 mg MOUTH EVERY 24 hr tablet DAY pravastatin TAKE 1 90 tablet 0 09/15/2019 Discont inued (PRAVACHOL) 20 MG TABLET BY 0 tablet MOUTH EVERY DAY pravastatin TAKE 1 90 tablet 0 12/08/2019 Discont inued (PRAVACHOL) 20 MG TABLET BY 0 tablet MOUTH EVERY DAY ezetimibe (ZETIA) Take 1 90 tablet 0 01/18/2020 D iscontinued 10 mg tablet tablet (10 0 mg total) by mouth daily. 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 09/02/2018 S/P laminectomy (T4-7) 10/17/2017 Anemia due to blood loss, acute 10/17/2017 Essential hypertension 10/17/2017 Type 2 diabetes mellitus with complication, without lo ng-term current use 10/17/2017 of insulin Thrombocytopenia 10/17/2017 Thoracic spine tumor 10/16/2017 Schwannoma of spinal cord (S/P resection) 09/21/2017 Cervical spondylosis with myelopathy 09/21/2017 Spermatocele 09/21/2017 Atrial fibrillation 09/18/2017 Coronary artery disease involving [place] coronary tommy ry of [place] heart 04/14/2017 without angina pectoris Chronic coronary artery disease 10/14/2016 SOB (shortness of breath) 10/14/2016 S/P CABG (coronary artery bypass graft) 10/14/2016 Encounters Date Type Specialty Care Team Description 07/04/2020 Refill Cardiology Anish Garcia MD Med Refi ll 05/24/2020 Refill Cardiology Anish Garcia MD Med Refi ll 04/12/2020 Refill Cardiology Anish Garcia MD Med Refi ll 04/03/2020 Office Visit Cardiology Anish Garcia MD Atrial f ibrillation, unspecified type (HCC) (Primary Dx); S/P CABG (coron leidy artery bypass graft) 04/03/2020 Travel 03/26/2020 Travel 03/02/2020 Refill Cardiology Anish Garcia MD Med Refi ll 01/18/2020 Orders Only Cardiology Zeus Mistry MA 12/08/2019 Refill Cardiology Anish Garcia MD Med Refi ll 09/27/2019 Office Visit Cardiology Anish Garcia MD S/P CABG (coronary artery bypass graft) (Primary Dx); Atrial fibrilla tion, unspecified type (HCC) 09/15/2019 Refill Cardiology Anish Garcia MD Med Refi ll 09/14/2019 Refill Cardiology Anish Garcia MD Med Refi ll 07/27/2019 Orders Only Cardiology Zeus Mistry MA 07/27/2019 Refill Cardiology Hannah Farmer MA Med Ref ill after 07/23/2019 Family History Medical History Relation Name Comments No Known Problems Father No Known Problems Mother Relation Name Status Comments Father Mother Social History Tobacco Use Types Packs/Day Years Used Date Former Smoker Smokeless Tobacco: Never Used Comments: 2 years in college Alcohol Use Drinks/Week oz/Week Comments Yes rarely Sex Assigned at Date Recorded Not on file Job Start Date Occupation Industry Not on file Not on file Not on file Travel History Travel Start Travel End No recent travel history available. Last Filed Vital Signs Vital Sign Reading Time Taken Comments Blood Pressure 128/67 04/03/2020 2:38 PM CDT Pulse 104 04/03/2020 2:38 PM CDT Temperature - - Respiratory Rate - - Oxygen Saturation - - Inhaled Oxygen Concentration - - Weight 102 kg (225 lb) 04/03/2020 2:38 PM CDT Height 185.4 cm (6' 1") 04/03/2020 2:38 PM CDT Body Mass Index 29.69 04/03/2020 2:38 PM CDT Plan of Treatment Date Type Specialty Care Team Description 09/25/2020 Office Visit Cardiology Anish Garcia MD [address] [facility] [address] [place], [place] [address] [phone] Health Maintenance Due Date Last Done Comments DIABETIC RETINAL EYE EXAM 1940 DIABETIC FOOT EXAM 1950 URINE MICROALBUMIN 1951 SHINGLES VACCINES (#1) 1991 65+ PNEUMOCOCCAL VACCINE (1 of 2 - PCV13) 2006 INFLUENZA VACCINE 08/09/2020 Implants Implanted Type Area Lipcoat Sprayer Device Shelf Model / Identifier Expiration Serial / Date Lot System Spine Selnt For Dural Selng Exact 5ml Duraseal - [id number] Cardiovascular N/A: INTEGRA [id number]/06/[id number] / Implanted: Qty: 1 on 10/16/2017 by Oliver Eng MD at [facility] Implants N/A LIFESCIENCE / NEURO [id number] Grounds Keeper Clip Anastoclip Ves Clsr Sys 1.4mm Med - [id number] M edical Clips for N/A: LEMAITRE 10/06/2021 [id number] / Implanted: 10/16/2017 at [facility] (Quantity not on file) Int ernal Use N/A VASCULAR / [id number] Kit Hemostatic Matrix W/Thrombin 8ml Surgiflo - [id number] Surgic al N/A: ETHICON US-EH 01/06/2019 [id number] / Implanted: 10/16/2017 at [facility] (Quantity not on file) Implants; N/A / Expanders; [id number] Extenders; Surgical Wires Matrix Hmstc Floseal 10ml W/ Humn F2 - [id number] Surgical N/A: AMBRIZ 12/15/2018 [id number] / Implanted: 10/16/2017 at [facility] (Quantity not on file) Imp lants; N/A BIOSCIENCE / Expanders; [id number] Extenders; Surgical Wires Procedures Procedure Name Priority Date/Time Associated Diagnosis Comme nts ECG 12-LEAD Routine 04/03/2020 1:34 PM Atrial fibrillation, Results for this CDT unspecified type (HCC) proce dure are in the results section. after 07/23/2019 Results ECG 12 lead (04/03/2020 1:34 PM CDT) Pathologist Sig nature Ventricular rate 86 [facility] Atrial rate 102 [facility] QRSD interval 152 [facility] QT interval 404 [facility] QTC interval 483 [facility] QRS axis 1 183 [facility] T wave axis 27 [facility] EKG impression Atrial [facility] fibrillation-Right bundle branch block-Abnormal ECG-In automated comparison with ECG of 31-AUG-2018 12:43,-No significant change was found- Specimen Narrative Performed At This result has an attachment that is no t available. Performing Organization Address City/State/Zipcode Phone Number [facility] [address] [place] [address] after 07/23/2019 Advance Directives For more information, please contact: [phone] Type Date Recorded Patient Nursery Hand Explanati on Advance Directives, Living Will and Medical Power of Electromechanical Equipment Assembler Code Status Date Activated Date Inactivated Comments Full Code 10/16/2017 8:04 PM 10/18/2017 3:23 PM Code Status decision reached by: Patient
--- OUTSIDE RECORDS SUMMARY | 2020-07-23 12:02 | XMS REPORT | Continuity of Care Document ---
:1940 Author Organization Formerly [facility] t Address [address] [place] [address] Care Team Providers Name Role Phone Dang BELTRAN Primary Care Physician Radha BELTRAN R. Attending Clinician Fidelia BELL Attending Clinician Unavailable Marleny BELL Attending Clinician Unavailable Payers Payer Name Policy Type Policy Number Effective Date Expiration Date S ource AETNA xxxxxxxx 2013 [place] MEDICAREAETNA 00:00:00 [place] MEDIC[facility] HMO[facility] Problems Condition Condition Condition Status Onset Resolution Last Treating Co mments Source Name Details Category Date Date Treatment Clinician Date Hyperlipid Hyperlipid Disease Active [place] emia emia 5-28 [facility] 00:00: st 00 Bilateral Bilateral Disease Active 2017-11 [facility] carotid carotid 0-29 [facility] bruits bruits 00:00: st 00 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 0-25 [facility] [place] itis of itis of 00:00: st right right 00 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 y y S/P S/P Disease Active 2016-11 [place] laminectom laminectom 2-09 [facility] y (T4-7) y (T4-7) 00:00: st 00 Anemia due Anemia due Disease Active 2016-11 [place] to blood to blood 2-09 [facility] i loss, loss, 00:00: st acute acute 00 Essential Essential Disease Active 2016-11 [facility] [facility] hypertensi hypertensi 2-09 [facility] [place] on on 00:00: st 00 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 2-09 [facility] i mellitus mellitus 00:00: st with with 00 complicati complicati on, on, without without long-term long-term current current use of use of insulin insulin Thrombocyt Thrombocyt Disease Active 2016-11 [place] openia openia 2 [facility] 00:00: st 00 Thoracic Thoracic Disease Active 2016-11 [place] spine spine 2 [facility] tumor tumor 00:00: st 00 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 [facility] 11-21 Meth katarzyna cord (S/P cord (S/P 00:00: st resection) resection) 00 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 [place] 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-21 [facility] s with s with 00:00: st myelopathy myelopathy 00 Spermatoce Spermatoce Disease Active 2016-11 [facility] [place] le le 11-21 Method[facility] 00:00: st 00 Atrial Atrial Disease Active 2016-11 [place] fibrillati fibrillati 1-10 [facility] on on 00:00: st 00 Coronary Coronary Disease Active [place] artery artery 6-06 [facility] disease disease 00:00: st involving involving 00 asa'[place] asa'[place] coronary coronary artery of artery of asa[place] asa[place] heart heart without without angina angina pectoris pectoris Chronic Chronic Disease Active 2015-11 [place] coronary coronary 2-06 [facility] i artery artery 00:00: st disease disease 00 SOB SOB Disease Active 2015-11 [place] (shortness (shortness 2-06 Me [facility] of breath) of breath) 00:00: st 00 S/P CABG S/P CABG Disease Active 2015-11 [place] (coronary (coronary 2-06 Meth katarzyna artery artery 00:00: st bypass bypass 00 graft) graft) Allergies, Adverse Reactions, Alerts Allergy Allergy Status Severity Reaction(s) Onset Inactive Treating Comm ents Source Name Type Date Date Clinician Tamy Zamora Active GI 2016-11 vomitting [place] to Intolerance 11-21 Meth[facility] di adverse 00:00: st reaction 00 s to drug Family History Family Member Diagnosis Comments Start Date Stop Date Source Natural father No Known Problems Rufino Vanegas Natural mother No Known Problems Rufino Vanegas Social History Social Habit Start Date Stop Date Quantity Comments Source Sex Assigned At [facility] ethodi Alcohol intake 2019-04-05 2019-04-05 Current drinker [place] 00:00:00 00:00:00 of alcohol (finding) Tobacco Comment 2017-09-21 2017-09-21 [facility] Alcohol Comment 2017-09-21 2017-09-21 [facility] Smoking Status Start Date Stop Date Source Former smoker 2019-04-05 00:00:00 2019-04-05 00:00:00 [place] Medications Ordered Filled Start Stop Current Ordering Indication Dosage Frequency Signature Comments Components Source Medication Medication Date Date Medication? Clinician (SIG) Name Name ezetimibe 2020-0 Yes TAKE 1 [place] (ZETIA) 10 8-26 TABLET BY [facility] katar[place]yna mg tablet 00:00: MOUTH st 00 EVERY DAY pravastatin 2020-0 Yes TAKE 1 [place] (PRAVACHOL) 7-16 TABLET BY Met hodi 20 MG 00:00: MOUTH st tablet 00 EVERY DAY ezetimibe 2020-0 2020- No TAKE 1 [place] (ZETIA) 10 6-04 08-26 TABLET BY Met hodi mg tablet 00:00: 00:[address] 00 :00 EVERY DAY vit A/C/E 2020-0 Yes Take by [place] ac/ZnOx/cup 5-26 mouth. Method i irene oxide 14:46: st (EYE 15 VITAMIN AND MINERALS ORAL) therapeutic 2020-0 Yes 1{tbl} QD Take 1 [place] multivitami 5-26 tablet by Met hodi n 14:39: mouth st (THERAGRAN) 34 daily. tablet ZINC 2020-0 Yes 50mg Take 50 mg [place] ACETATE 5-26 by mouth. [facility] ORAL 14:39: st 34 ASCORBATE 2020-0 Yes 1000mg Take 1,000 [place] CALCIUM 5-26 mg by [facility] (VITAMIN C 14:39: mouth. st ORAL) 34 ANTIOX.MV 2020-0 Yes Take by [place] NO.10/OMEG3 5-26 mouth. Method i S/LUT/AIMEE 14:39: st (I-CAPS 34 ORAL) tamsulosin 2020-0 Yes .4mg QD Take 0.4 [place] [facility] (FLOMAX) 5-26 mg by Methodi 0.4 mg 14:39: mouth st capsule,ext 34 daily. ended release 24hr metoprolol Yes Atrial 75mg QD Take 1.5 [place] succinate 5-26 fibrillatio tablets Methodi XL 00:00: n, ([address] (TOPROL-XL) 00 unspecified total) by 50 mg 24 hr type (HCC) mouth tablet daily. pravastatin 2019- No TAKE 1 [place] (PRAVACHOL) 4-24 07-16 TABLET BY Me thodi 20 MG 00:00: 00:[address] tablet 00 :00 EVERY DAY amitriptyli 2019- Yes 25mg QD Take 25 mg [place] ne (ELAVIL) 3-17 by mouth Meth katarzyna 25 MG 00:00: nightly. st tablet 00 ezetimibe 2019- No 10mg QD Take 1 [place] (ZETIA) 10 3-11 06-04 tablet (10 Me [facility] mg tablet 00:00: 00:00 mg total) st 00 :00 by mouth daily. pravastatin 2019- No TAKE 1 [place] (PRAVACHOL) 1-30 04-24 TABLET BY Me thodi 20 MG 00:00: 00:[address] tablet 00 :00 EVERY DAY pravastatin 2018-11- No TAKE 1 [place] (PRAVACHOL) 1-07 -30 TABLET BY Me th[facility] 20 MG 00:00: 00:[address] tablet 00 :00 EVERY DAY metoprolol 2018-11- No TAKE 1 [place] succinate 1-06 05-26 TABLET BY Meth k[place] XL 00:00: 00:[address] (TOPROL-XL) 00 :00 EVERY DAY 50 mg 24 hr tablet rivaroxaban Yes 20mg QD Take 1 [place] (XARELTO) 9-18 tablet (20 Meth katarzyna 20 mg 00:00: mg total) st tablet 00 by mouth daily. rivaroxaban 2018- No 20mg QD Take 1 [place] (XARELTO) 07-27-18 tablet (20 Met hodi 20 mg 00:00: 00:00 mg total) st tablet 00 :00 by mouth daily. rivaroxaban 2018- No 20mg QD Take 1 [place] (XARELTO) 07-22-18 tablet (20 Met hodi 20 mg 00:00: 00:00 mg total) st tablet 00 :00 by mouth daily. pravastatin 2018- No TAKE 1 [place] (PRAVACHOL) 04-08- TABLET BY Me thodi 20 MG 00:00: 00:[address] tablet 00 :00 EVERY DAY ezetimibe 2019- No 10mg QD Take 1 [place] (ZETIA) 10 01-31 03-11 tablet (10 Me [facility] mg tablet 00:00: 00:00 mg total) st 00 :00 by mouth daily. metoprolol 2017-11- No 50mg QD Take 1 [place] succinate 11-21 tablet (50 Met hodi XL 00:00: 00:00 mg total) st (TOPROL-XL) 00 :00 by mouth 50 mg 24 hr daily. tablet ALPRAZolam 2016-11 Yes [facility] (XANAX) 1 -14 Method[facility] MG tablet 00:00: st 00 finasteride 2015-11 Yes 5mg QD Take 5 mg [place] (PROSCAR) 5 12-06 by mouth Meth katarzyna mg tablet 00:00: daily. st 00 Vital Signs Vital Name Observation Time Observation Value Comments Source Systolic blood 2020-04-03 14:38:00 128 mm[Hg] [facility] [facility] pressure Diastolic blood 2020-04-03 14:38:00 67 mm[Hg] [place] pressure Heart rate 2020-04-03 14:38:00 104 /min Magan Vanegas Body height 2020-04-03 14:38:00 185.4 cm Magan Vanegas Body weight 2020-04-03 14:38:00 102.059 kg Magan Vanegas BMI 2020-04-03 14:38:00 29.69 kg/m2 Magan Vanegas Procedures Procedure Date / Time Performed Performing Clinician [facility] e ECG 12-LEAD 2020-04-03 13:34:59 Anish Garcia Meth odist Plan of Care Planned Activity Planned Date Details Comments Source Future Scheduled 2020-08-09 INFLUENZA VACCINE [facility] Test 00:00:00 [code = INFLUENZA VACCINE] Future Scheduled 2006 65+ PNEUMOCOCCAL [facility] Test 00:00:00 VACCINE (1 of 2 - PCV13) [code = 65+ PNEUMOCOCCAL VACCINE (1 of 2 - PCV13)] Future Scheduled 1991 SHINGLES VACCINES (#1) [place] [facility] Test 00:00:00 [code = SHINGLES VACCINES (#1)] Future Scheduled 1951 DIABETIC FOOT EXAM [place] [facility] Test 00:00:00 [code = DIABETIC FOOT EXAM] Future Scheduled 1951 URINE MICROALBUMIN [place] [facility] Test 00:00:00 [code = URINE MICROALBUMIN] Future Scheduled 1940 DIABETIC RETINAL EYE [facility] st[facility] Test 00:00:00 EXAM [code = DIABETIC RETINAL EYE EXAM] Encounters Start End Encounter Admission Attending Care Care Encounter Source Date/Time Date/Time Type Type Clinicians Facility Department ID 2020-04-03 2020-04-03 Outpatient [facility] [id number] Magan 00:00:00 00:00:[address] ANISH [address] Results Test Description Test Time Test Comments Results Result Comments Source ECG 12 lead 2020-04-03 20:13:04 Test Item Value Reference Range Interpretation Comme nts Ventricular rate (test code = 253) 86 Atrial rate (test code = 255) 102 QRSD interval (test code = 260) 152 QT interval (test code = 264) 404 QTC interval (test code = 265) 483 QRS axis 1 (test code = 268) 183 T wave axis (test code = 270) 27 EKG impression (test code = 273) Atrial fibrillation-Right bundle b ranch block-Abnormal ECG-In automated comparison with ECG of 31-AUG-2018 12:43,-No significant change was found- Magan Vanegas
[2020-07-23 12:59] LABS: Hematocrit 43.5 % (39.6-49.0); MPV 11.2 fL (7.6-11.3); RBC Red Blood Cell Count 5.08 M/uL (4.33-5.43)
[2020-07-23 13:00] LABS: Absolute Lymphocytes (CBC) 1.9 K/uL (0.7-4.9); Basophils % 0.6 % (0-1.3)
[2020-07-23 13:20] LABS: Albumin 3.8 g/dL (3.4-5.0); Bilirubin Total 1.7 mg/dL (0.2-1.0); Potassium 4.4 mmol/L (3.5-5.1); Protein, Total 7.3 g/dL (6.4-8.2)
[2020-07-23 13:22] LABS: Platelet Estimate DECR; Platelets, Giant NOTED; White Blood Cell Scan OK (OK)
[2020-07-23 13:23] LABS: Blood Morphology Comment NOT SEEN (NOT SEEN)
--- NOTE | 2020-07-23 13:25 | RAD REPORT ---
EXAM DESCRIPTION: RAD - Ankle Left 3 View - 07/23/2020 1:07 pm CLINICAL HISTORY: Pain;Swelling COMPARISON: Ankle Left 3 View dated 07/18/2020 FINDINGS: Soft tissue swelling is seen along the medial aspect of the ankle. No radiographic evidenc e of osteomyelitis. No acute fracture is present. Vascular calcification is evident.
[2020-07-23] MEDS ORDERED: TETANUS & DIPHTHERIA TOX,ADULT 0.5 ML VIAL ONE (13:44)
--- NOTE | 2020-07-23 13:45 | EDPHYS ---
Physician Documentation [facility] Name: Quintin Stauffer Age: 79 yrs Sex: Male : 1940 Arrival Date: 07/23/2020 Time: 12:00 Bed 20 Private MD: New Leong ED Physician Jorge L Valera HPI: 07/23 12:26 This 79 yrs old Male presents to ER via Wheelchair with complaints of Leg pm1 Pain. 12:26 The patient presents with pain, swelling. The complaints affect the left medial ankle. pm1 Context: resulted from laceration to left medial ankle and abrasion to lateral left knee, the patient can fully bear weight. Onset: The symptoms/episode began/occurred 1 week(s) ago. Modifying factors: The symptoms are alleviated by nothing. the symptoms are aggravated by weight bearing. Associated signs and symptoms: Pertinent negatives calf tenderness, fever, nausea, vomiting. Treatment prior to arrival includes: prescription medications, keflex, started by his PCP on 07/18/2020. Severity of symptoms: in the emergency department the symptoms are actually worse. Historical: - Allergies: 12:14 Codeine; ca1 - PMHx: 12:14 Hyperlipidemia; Hypertension; CAD; ca1 - PSHx: 12:14 hand; bypass; ca1 - Immunization history:: Adult Immunizations up to date, Last tetanus immunization: unknown. - Social history:: Smoking status: Patient denies any tobacco usage or history of. ROS: 12:26 Constitutional: Negative for fever, chills, and weight loss, Cardiovascular: Negative pm1 for chest pain, palpitations, and edema, Respiratory: Negative for shortness of breath, cough, wheezing, and pleuritic chest pain, Abdomen/GI: Negative for abdominal pain, nausea, vomiting, diarrhea, and constipation, Back: Negative for injury and pain. 12:26 Neuro: Negative for headache, weakness, numbness, tingling, and seizure. 12:26 MS/extremity: Positive for pain, swelling, of the left medial ankle. 12:26 Skin: Positive for cellulitis, swelling, of the left medial ankle. Exam: 12:26 Constitutional: This is a well developed, well nourished patient who is awake, alert, pm1 and in no acute distress. Head/Face: Normocephalic, atraumatic. 12:26 Cardiovascular: Exam negative for acute changes, Rate: normal, Rhythm: regular, Pulses: no pulse deficits are appreciated. 12:26 Respiratory: Exam negative for acute changes, respiratory distress, shortness of breath. 12:26 Skin: Appearance: normal except for affected area, cellulitis, that is moderate, on the left medial ankle. 12:26 Neuro: Exam negative for acute changes, Orientation: is normal, Mentation: is normal, Motor: is normal, moves all fours. Vital Signs: 12:09 BP 142 / 76; Pulse 86; Resp 19 S; Temp 97.5(TE); Pulse Ox 96% on R/A; Weight 106.59 kg; ca1 Height 6 ft. 1 in. (185.42 cm) (R); Pain 8/10; 12:09 Body Mass Index 31.00 (106.59 kg, 185.42 cm) ca1 MDM: 12:21 Patient medically screened. [facility] 12:50 Data reviewed: vital signs. Data interpreted: Pulse oximetry: on room air is 96 %. pm1 Interpretation: normal. 13:45 Refusal of service: The patient/guardian displays adequate decision making capability pm1 and despite a detailed discussion of alternatives, benefits, risks, and consequences refuses: Admission to the hospital for further work-up and treatment, Patient does not feel we are doing anything for him. Informed him that we are waiting for the results of the blood work and x-rays. I was planning to admit the patient for cellulitis, failed antibiotic therapy but the patient wants to go home against medical advice and walked out of the ER. 13:57 Physician consultation: Nwe Leong MD was contacted at 13:57, regarding patient's pm1 condition, and the patients decision to go home AMA. He is not surprised by the patient's behavior. He wanted the patient to get vancomyin IV prior to leaving but informed that the patient already left the building. his called me to see if I could give him any prescriptions. Dr. Leong and I decided that clindamycin 450mg QID would be best for the patient, given his AMA, and to follow up in the office tomorrow morning. I called the and informed her of the discussion with Dang. She will get him to the office tomorrow. 07/23 12:25 Order name: CBC with Diff; Complete Time: 13:31 pm1 07/23 12:25 Order name: CMP; Complete Time: 13:31 pm1 07/23 12:25 Order name: Procalcitonin; Complete Time: 13:54 pm1 07/23 12:25 Order name: Lactate; Complete Time: 13:31 pm1 07/23 12:25 Order name: Blood Culture Adult (2) pm1 07/23 13:02 Order name: CBC Smear Scan; Complete Time: 13:31 EDMN 07/23 12:25 Order name: IV Saline Lock; Complete Time: 13:42 pm1 07/23 12:26 Order name: Ankle Left 3 View XRAY; Complete Time: 13:31 pm1 Administered Medications: 13:20 Drug: Tetanus-Diphtheria Toxoid Adult 0.5 ml {Drug And Alcohol Treatment Specialist: ProZyme. Exp: aa5 12/29/2022. Lot #: [id number]. } Route: IM; Site: right deltoid; 13:30 Follow up: Response: No adverse reaction aa5 13:30 Follow up: Response: No adverse reaction aa5 Disposition: 07/24 08:21 Co-signature as Attending Physician, Jorge L Valera MD I agree with the assessment and [facility] plan of care. Disposition: 07/23/20 14:07 Patient has left against medical advice. - Patients states they are going to Home. - Condition is Stable. - Discharge Instructions: Cellulitis, Adult. - Prescriptions for clindamycin HCl 150 mg Oral capsule - take 3 capsules by ORAL route 4 times per day for 10 days; 120 capsule. Tramadol 50 mg Oral Tablet - take 1 tablet by ORAL route every 8 hours as needed; 12 tablet. - Problem is new. - Symptoms are unchanged. Signatures: Dispatcher [employer] Jorge L Limon MD MD cha Calderon, Audri RN RN aa5 Antony Beaver, ELECTRONIC GLUER ELECTRONIC GLUER pm1 Joelle Florez RN RN ca1 Corrections: (The following items were deleted from the chart) 07/23 14:07 13:44 07/23/2020 13:44 Patient left the facility after being seen by provider. Reason aa5 stated they are leaving due to (see nurse's notes). aa5 14:33 14:07 07/23/2020 14:07 Patients has left against medical advice. Patient states they pm1 are going to Home. Condition is Stable. aa5
--- NOTE | 2020-07-23 13:45 | ER ---
Nurse's Notes [facility] Name: Quintin Stauffer Age: 79 yrs Sex: Male : 1940 Arrival Date: 07/23/2020 Time: 12:00 Bed 20 Private MD: New Leong Diagnosis: Presentation: 07/23 12:09 Chief complaint: Spouse and/or significant other states: : On July 16, the deck ca1 of the tractor hit his L lower leg and created a laceration. Did not seek medical consult. On the , abx Cephalexin was started by his doctor. But he still having a lot of pain, drainage from the wound, redness, swelling. Denies fever. Coronavirus screen: Client denies travel out of the [place] in the last 14 days. At this time, the client does not indicate any symptoms associated with coronavirus-19. Ebola Screen: Patient negative for fever greater than or equal to 101.5 degrees Fahrenheit, and additional compatible Ebola Virus Disease symptoms Patient denies exposure to infectious person. Patient denies travel to an Ebola-affected area in the 21 days before illness onset. No symptoms or risks identified at this time. Initial Sepsis Screen: Does the patient meet any 2 criteria? No. Patient's initial sepsis screen is negative. Does the patient have a suspected source of infection? No. Patient's initial sepsis screen is negative. Risk Assessment: Do you want to hurt yourself or someone else? Patient reports no desire to harm self or others. Onset of symptoms was July 23, 2020. 12:09 Method Of Arrival: Wheelchair ca1 12:09 Acuity: JIMMY 3 ca1 Historical: - Allergies: 12:14 Codeine; ca1 - PMHx: 12:14 Hyperlipidemia; Hypertension; CAD; ca1 - PSHx: 12:14 hand; bypass; ca1 - Immunization history:: Adult Immunizations up to date, Last tetanus immunization: unknown. - Social history:: Smoking status: Patient denies any tobacco usage or history of. Assessment: 12:30 General: Appears comfortable, Behavior is calm, cooperative. Pain: Complains of pain in aa5 left medial ankle Pain currently is 8 out of 10 on a pain scale. Neuro: Level of Consciousness is awake, alert, obeys commands, Oriented to person, place, time, situation. Cardiovascular: Patient's skin is warm and dry. Respiratory: Airway is patent Respiratory effort is even, unlabored, Respiratory pattern is regular, symmetrical. GI: No signs and/or symptoms were reported involving the gastrointestinal system. : No signs and/or symptoms were reported regarding the genitourinary system. EENT: No signs and/or symptoms were reported regarding the EENT system. Derm: Skin is pink, warm \\T\\ dry. Redness noted to left medial ankle with healing wound that is scabbed. Abrasion noted to left lower leg. Musculoskeletal: Range of motion: intact in all extremities. 13:20 Reassessment: Pt came out of ER room 20 stating that he wants to go home, pt agrees to aa5 wait until I speak with provider about wanting to leave AMA. . 13:30 Reassessment: Patient is alert, oriented x 3, equal unlabored respirations, skin aa5 warm/dry/pink. Pt found in ER lobby with IV in. Pt states he wants to go home now. Pt's was contacted by ER registration for ride home, pt notified. . 13:30 Reassessment: Abrasion to left lower leg cleaned with saline and dressed with aa5 nonadherent dressing and Tegaderm. Encouraged pt to go back to ER room 20 and speak with provider before he leaves the ER, pt declined. Pt states "I just want to leave right now, I don't want to wait on the results" . 14:25 Reassessment: Provider spoke to Dr. Leong (pt's PCP) and pt is to follow-up tomorrow aa5 with him at the office. Clindamycin prescription and Tramadol prescription given to pt's . . Vital Signs: 12:09 BP 142 / 76; Pulse 86; Resp 19 S; Temp 97.5(TE); Pulse Ox 96% on R/A; Weight 106.59 kg; ca1 Height 6 ft. 1 in. (185.42 cm) (R); Pain 8/10; 12:09 Body Mass Index 31.00 (106.59 kg, 185.42 cm) ca1 ED Course: 12:00 Patient arrived in ED. ag5 12:01 New Leong MD is Private Physician. ag5 12:13 Triage completed. ca1 12:14 Arm band placed on right wrist. ca1 12:18 Antony Beaver NP is PHCP. pm1 12:18 Jorge L Valera MD is Attending Physician. pm1 12:18 Sandra Mtz, RN is Primary Nurse. aa5 12:30 Patient has correct armband on for positive identification. Bed in low position. Call aa5 light in reach. Side rails up X 1. 13:00 Inserted saline lock: 20 gauge in right antecubital area, using aseptic technique. dh4 Blood collected. 13:08 Ankle Left 3 View XRAY In Process Unspecified. EDMS 13:25 No provider procedures requiring assistance completed. aa5 13:30 IV discontinued, intact, bleeding controlled, No redness/swelling at site. Pressure aa5 dressing applied. 14:03 Primary Nurse role handed off by Sandra Mtz, RAFA pm1 Administered Medications: 13:20 Drug: Tetanus-Diphtheria Toxoid Adult 0.5 ml {Hardware Assembler: Adyen. Exp: aa5 12/29/2022. Lot #: [id number]. } Route: IM; Site: right deltoid; 13:30 Follow up: Response: No adverse reaction aa5 13:30 Follow up: Response: No adverse reaction aa5 Outcome: 13:30 Patient left the ED. aa5 13:30 AMA Left before signing form. aa5 13:30 Condition: unchanged aa5 Signatures: Dispatcher [employer] EDMS Sandra Mtz RN RN aa5 Antony Beaver NP ANIMAL PATHOLOGIST pm1 Joelle Florez RN RN ca1 Brent, Deepak Hugh Ron 4 Corrections: (The following items were deleted from the chart) 12:32 12:09 Acuity: JIMMY 4 ca1 ca1 14:50 13:44 Patient left the ED. aa5 aa5 14:50 14:07 Patient left the ED. aa5 aa5 14:50 14:33 Patient left the ED. pm1 aa5 19:28 13:25 IV discontinued, intact, bleeding controlled, No redness/swelling at site. aa5 Pressure dressing applied, aa5 19:29 13:40 Response: No adverse reaction aa5 aa5
[2020-07-23 14:10] VITALS: BP 142/76; TEMP 97.5; O2SAT 96
== END 2020-07-23 14:33 | disposition left against medical advice (07) ==
LOC: ER 11:59
DX: L03.116 Cellulitis of left lower limb (principal); I10 Essential (primary) hypertension; Z23 Encounter for immunization; Z88.5 Allergy status to narcotic agent
CPT/HCPCS: 36415; 80053; 83605; 84145; 85025; 87040; 90471; 90714; 99284

== ENCOUNTER 2021-02-18 17:09 | Emergency (ER) | payer OTHER ==
--- OUTSIDE RECORDS SUMMARY | 2021-02-18 17:12 | XMS REPORT | Continuity of Care Document ---
:1940 Author Organization [facility] t Address [address] [place] [address] Care Team Providers Name Role Phone Dang BELTRAN Primary Care Physician Radha BELTRAN R. Attending Clinician Marleny BELL Attending Clinician Unavailable Fidelia BELL Attending Clinician Unavailable Payers Payer Name Policy Type Policy Effective Date Expiration Date Sour ce Number AETNA MEDICAREAETNA [id number] 2013 [place] MEDICARE HMO/PPO 00:00:00 Methodis t [id number] -PresentHMO Problems Condition Condition Condition Status Onset Resolution Last Treating Co mments Source Name Details Category Date Date Treatment Clinician Date Hyperlipid Hyperlipid Disease Active [place] emia emia 5-28 [facility] 00:00: st 00 Bilateral Bilateral Disease Active 2017-11 Rufino orozco carotid carotid 0-29 [facility] bruits bruits 00:00: st 00 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 0-25 [facility] [place] itis of itis of 00:00: st right right 00 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 y y S/P S/P Disease Active 2016-11 [place] laminectom laminectom 2-09 [facility] y (T4-7) y (T4-7) 00:00: st 00 Anemia due Anemia due Disease Active 2016-11 [place] to blood to blood 2-09 Method i loss, loss, 00:00: st acute acute 00 Essential Essential Disease Active 2016-11 Rufino orozco hypertensi hypertensi 2-09 [facility] on on 00:00: st 00 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 2-09 [facility] i mellitus mellitus 00:00: st with with 00 complicati complicati on, on, without without long-term long-term current current use of use of insulin insulin Thrombocyt Thrombocyt Disease Active 2016-11 [facility] openia openia 2 [facility] 00:00: st 00 Thoracic Thoracic Disease Active 2016-11 [place] spine spine 208 [facility] tumor tumor 00:00: st 00 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 Active 2016-11 [place] of spinal of spinal 11-21 Meth katarzyna cord (S/P cord (S/P 00:00: st resection) resection) 00 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 [place] 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-21 [facility] s with s with 00:00: st myelopathy myelopathy 00 Spermatoce Spermatoce Disease Active 2016-11 [facility] le le 11-21 [facility] 00:00: st 00 Atrial Atrial Disease Active 2016-11 [place] fibrillati fibrillati 1-10 [facility] on on 00:00: st 00 Coronary Coronary Disease Active [place] artery artery 6-06 [facility] disease disease 00:00: st involving involving 00 [place] coronary coronary artery of artery of [place] heart heart without without angina angina pectoris pectoris Chronic Chronic Disease Active 2015-11 [place] coronary coronary 2-06 Method i artery artery 00:00: st disease disease 00 SOB SOB Disease Active 2015-11 [place] (shortness (shortness 2-06 Me [facility] of breath) [...] Start Date Stop Date Quantity Comments Source Tobacco use and 2019-04-05 2019-04-05 Never used [facility] ethodist exposure 00:00:00 00:00:00 Alcohol intake 2019-04-05 2019-04-05 Current drinker [place] [facility] 00:00:00 00:00:00 of alcohol (finding) Tobacco Comment 2017-09-21 2017-09-21 2 years in [facility] ethodist 00:00:00 00:00:00 college Alcohol Comment 2017-09-21 2017-09-21 rarely [facility] ethodist 00:00:00 00:00:00 Sex Ass[birth year] At [birth year] [facility] ethodist 00:00:00 00:00:00 Smoking Status Start Date Stop Date Source Former smoker 2019-04-05 00:00:00 2019-04-05 00:00:00 [place] [facility] Medications Ordered Filled Start Stop Current Ordering Indication Dosage Frequency Signature Comments Components Source Medication Medication Date Date Medication? Clinician (SIG) Name Name ezetimibe Yes TAKE 1 [place] (ZETIA) 10 3-15 TABLET BY Meth katarzyna mg tablet 00:00: MOUTH st 00 EVERY DAY pravastatin Yes TAKE 1 [place] (PRAVACHOL) 1-04 TABLET BY Met hodi 20 MG 00:00: MOUTH st tablet 00 EVERY DAY ezetimibe 2019-11- No TAKE 1 [place] (ZETIA) 10 2-22 03-15 TABLET BY Met hodi mg tablet 00:00: 00:[address] 00 :00 EVERY DAY metoprolol 2019-11 Yes 50mg QD Take 50 mg [place] succinate 1-17 by mouth Method i XL 13:16: daily. st (TOPROL-XL) 38 50 mg 24 hr tablet ANTIOX.MV 2019-11 Yes Take by [place] on NO.10/OMEG3 1-17 mouth. Method i S/LUT/AIMEE 13:12: st (I-CAPS 28 ORAL) tamsulosin 2019-11 Yes .4mg QD Take 0.4 [facility] ston (FLOMAX) 1-17 mg by Method[facility] 0.4 mg 13:12: mouth st capsule,ext 28 daily. ended release 24hr vit A/C/E 2019-11 Yes Take by [place] ac/ZnOx/cup 1-17 mouth. Method i irene oxide 13:12: st (EYE 28 VITAMIN AND MINERALS ORAL) therapeutic 2019-11 Yes 1{tbl} QD Take 1 [place] multivitami 1-17 tablet by Met hodi n 13:12: mouth st (THERAGRAN) 27 daily. tablet ZINC 2019-11 Yes 50mg Take 50 mg [place] ACETATE 1-17 by mouth. [facility] ORAL 13:12: st 27 ASCORBATE 2019-11 Yes 1000mg Take 1,000 [place] CALCIUM 1-17 mg by [facility] (VITAMIN C 13:12: mouth. st ORAL) 27 Xarelto 20 2019-11 Yes TAKE 1 [place] mg tablet 117 TABLET BY Metho di 00:00: MOUTH st 00 EVERY DAY rivaroxaban 2019-11- No 20mg QD Take 1 [facility] ston (Xarelto) 1-17 -17 tablet (20 Met hodi 20 mg 00:00: 00:00 mg total) st tablet 00 :00 by mouth daily. rivaroxaban 2019-11- No 20mg QD Take 1 [facility] ston (Xarelto) 1-02 -17 tablet (20 Met hodi 20 mg 00:00: 00:00 mg total) st tablet 00 :00 by mouth daily. metoprolol 2019-11- No Atrial 75mg QD Take 1.5 [place] succinate 0-04 10-17 fibrillatio tablets Methodi XL 00:00: 00:00 n, ([address] (TOPROL-XL) 00 :00 unspecified total) by 50 mg 24 hr type (HCC) mouth tablet daily. pravastatin 2019-11- No TAKE 1 [facility] ston (PRAVACHOL) 0-07 01-04 TABLET BY Me thodi 20 MG 00:00: 00:[address] tablet 00 :00 EVERY DAY ezetimibe 2019- No TAKE 1 [place] (ZETIA) 10 8- 12-22 TABLET BY Met hodi mg tablet 00:00: 00:[address] 00 :00 EVERY DAY pravastatin 2019- No TAKE 1 R[place] ston (PRAVACHOL) 7-16 10-07 TABLET BY Me thodi 20 MG 00:00: 00:[address] tablet 00 :00 EVERY DAY ezetimibe 2019- No TAKE 1 [place] (ZETIA) 10 6-04 08-26 TABLET BY Met hodi mg tablet 00:00: 00:[address] 00 :00 EVERY DAY metoprolol 2020- No Atrial 75mg QD Take 1.5 [place] succinate 5-26 10-26 fibrillatio tablets Method[facility] XL 00:00: 00:00 n, ([address] (TOPROL-XL) 00 :00 unspecified total) by 50 mg 24 hr type (HCC) mouth tablet daily. pravastatin 2019- No TAKE 1 [facility] ston (PRAVACHOL) 4-24 07-16 TABLET BY Me th[facility] 20 MG 00:00: 00:[address] tablet 00 :00 EVERY DAY amitriptyli Yes 25mg QD Take 25 mg [facility] [...] st tablet 00 :00 EVERY DAY metoprolol 2018-11 2020- No TAKE 1 [place] succinate 1-06 05-26 TABLET BY Meth katarzyna XL 00:00: 00:[address] (TOPROL-XL) 00 :00 EVERY DAY 50 mg 24 hr tablet rivaroxaban 2019- No 20mg QD Take 1 [facility] st[place] (XARELTO) 9-18 11-02 tablet (20 Met hodi 20 mg 00:00: 00:00 mg total) st tablet 00 :00 by mouth daily. ALPRAZolam 2016-11 Yes [place] (XANAX) 1 1-14 [facility] MG tablet 00:00: st 00 finasteride 2015-11 Yes 5mg QD Take 5 mg [facility] [place] (PROSCAR) 5 1-28 by mouth Meth katarzyna mg tablet 00:00: daily. st 00 Vital Signs Vital Name Observation Time Observation Value Comments Source Systolic blood 2020-09-25 13:10:00 168 mm[Hg] [place] [facility] pressure Diastolic blood 2020-09-25 13:10:00 82 mm[Hg] [place] [facility] pressure Body height 2020-09-25 13:10:00 185.4 cm Magan Vanegas Body weight 2020-09-25 13:10:00 103.42 kg Magan Vanegas BMI 2020-09-25 13:10:00 30.08 kg/m2 Magan Vanegas Heart rate 2020-04-03 14:38:00 104 /min Magan Vanegas Procedures Procedure Date / Time Performed Performing Clinician [facility] e ECG 12-LEAD 2020-04-03 13:34:59 Sonia Streeter Meth odist Plan of Care Planned Activity Planned Date Details Comments Source Future Scheduled 2021-06-09 INFLUENZA VACCINE [place] [facility] Test 00:00:00 [code = INFLUENZA VACCINE] Future Scheduled 1991 SHINGLES VACCINES (#1) [place] [facility] Test 00:00:00 [code = SHINGLES VACCINES (#1)] Future Scheduled 1959 Hepatitis C screening [place] [facility] Test 00:00:00 (procedure) [code = 305677473] Future Scheduled 1951 DIABETES: RETINAL EYE [place] [facility] Test 00:00:00 EXAM [code = DIABETES: RETINAL EYE EXAM] Future Scheduled 1951 DIABETIC FOOT EXAM [place] [facility] Test 00:00:00 [code = DIABETIC FOOT EXAM] Future Scheduled 1951 URINE MICROALBUMIN [place] [facility] Test 00:00:00 [code = URINE MICROALBUMIN] Future Scheduled 1947 65+ PNEUMOCOCCAL [place] [facility] Test 00:00:00 VACCINE (1 of 2 - PPSV23) [code = 65+ PNEUMOCOCCAL VACCINE (1 of 2 - PPSV23)] Encounters Start End Encounter Admission Attending Care Care Encounter Source Date/Time Date/Time Type Type Clinicians Facility Department ID 2020-09-25 [facility] [id number] [place] 00:00:00 00:00:[address] SONIA [address] 2020-04-03 2020[facility]04[facility] [facility] [facility] [id number] [place] 00:00:00 00:00:00 SONIA Simental[address] [facility] Results Test Description Test [...]
--- NOTE | 2021-02-18 18:31 | RAD REPORT ---
EXAM DESCRIPTION: Shoulder Right 2 View - 02/18/2021 6:18 pm CLINICAL HISTORY: PAIN, fall COMPARISON: Shoulder Right 2 View dated 08/17/2018 TECHNIQUE: Internal and external rotation views of the right shoulder were obtained. FINDINGS: There is no fracture or dislocation. AC joint degenerative changes are present. Spurring is seen along the superior margin of the AC joint. Acromial humeral joint space is slightly narrowed. Punctate calcification near the greater tuberosity could be degenerative tendon calcification. No pa thologic or destructive finding. IMPRESSION: Right shoulder degenerative change as detailed. No acute finding. No significant changes from the 2018 study.
--- NOTE | 2021-02-18 18:42 | EDPHYS ---
Physician Documentation [facility] Name: Quintin Stauffer Age: 80 yrs Sex: Male : 1940 Arrival Date: 02/18/2021 Time: 17:10 Bed 12 Private MD: [place] ED Physician Jorge L Valera HPI: 02/18 18:40 This 80 yrs old Male presents to ER via Ambulatory with complaints of Fall pm1 Injury, Shoulder Pain. 18:40 Details of fall: The patient fell from seated position, . Onset: The symptoms/episode pm1 began/occurred 2 hour(s) ago. Associated injuries: The patient sustained right shoulder, pain. Severity of symptoms: in the emergency department the symptoms are unchanged. It is unknown whether or not the patient has recently seen a physician. Patient was trying to sit on an uneven rock and then he lost his balance and fell on his right shoulder. No head injury, LOC, headache, neck pain. Historical: - Allergies: 17:50 Codeine; ca1 - Home Meds: 17:50 metoprolol succinate 50 mg oral Tb24 1 tab once daily [Active]; ezetimibe oral 10 mg ca1 oral 1 tab once daily [Active]; finasteride 5 mg Oral tab 1 tab once daily [Active]; Xarelto 20 mg oral tab 1 tab once daily [Active]; pravastatin 20 mg oral tab 1 tab once daily [Active]; tamsulosin 0.4 mg Oral cp24 1 cap once daily [Active]; amitriptyline 25 mg Oral tab 1 tab once daily [Active]; - PMHx: 17:50 CAD; Hyperlipidemia; Hypertension; Diabetes - NIDDM; ca1 - PSHx: 17:50 hand; bypass; CABG; ca1 - Immunization history:: Client reports receiving the 2nd dose of the Covid vaccine, Client reports receiving the 1st dose of the Covid vaccine, Flu vaccine is not up to date. - Social history:: Smoking status: Patient denies any tobacco usage or history of. ROS: 18:40 Constitutional: Negative for fever, chills, and weight loss, Neck: Negative for injury, pm1 pain, and swelling, Cardiovascular: Negative for chest pain, palpitations, and edema, Respiratory: Negative for shortness of breath, cough, wheezing, and pleuritic chest pain, Back: Negative for injury and pain. 18:40 Skin: Negative for injury, rash, and discoloration, Neuro: Negative for headache, weakness, numbness, tingling, and seizure. 18:40 MS/extremity: Positive for pain, of the right shoulder, Negative for deformity. Exam: 18:40 Constitutional: This is a well developed, well nourished patient who is awake, alert, pm1 and in no acute distress. Head/Face: Normocephalic, atraumatic. 18:40 Back: No spinal tenderness. No costovertebral tenderness. Full range of motion. Skin: Warm, dry with normal turgor. Normal color with no rashes, no lesions, and no evidence of cellulitis. 18:40 Cardiovascular: Exam negative for acute changes, Rate: normal, Rhythm: regular, Pulses: no pulse deficits are appreciated. 18:40 Respiratory: Exam negative for acute changes, respiratory distress, shortness of breath. 18:40 Musculoskeletal/extremity: Extremities: grossly normal except: noted in the right shoulder: 18:40 Neuro: Orientation: is normal, Motor: is normal, moves all fours. Vital Signs: 17:44 BP 137 / 88; Pulse 67; Resp 16 S; Temp 97.6(TE); Pulse Ox 96% on R/A; Weight 107.95 kg ca1 (R); Height 6 ft. 1 in. (185.42 cm) (R); Pain 8/10; 18:54 BP 126 / 81; Pulse 71; Resp 16 S; Pulse Ox 98% on R/A; ca1 17:44 Body Mass Index 31.40 (107.95 kg, 185.42 cm) ca1 MDM: 18:37 Patient medically screened. pm1 18:40 Data reviewed: vital signs. Data interpreted: Pulse oximetry: on room air is 96 %. pm1 Interpretation: normal. Counseling: I had a detailed discussion with the patient and/or guardian regarding: the historical points, exam findings, and any diagnostic results supporting the discharge/admit diagnosis, radiology results, the need for outpatient follow up, a orthopedic surgeon, to return to the emergency department if symptoms worsen or persist or if there are any questions or concerns that arise at home. 02/18 17:51 Order name: Shoulder Right (2 View) XRAY; Complete Time: 18:37 ca1 02/18 18:42 Order name: Sling; Complete Time: 18:54 pm1 Administered Medications: 18:42 Drug: traMADol 50 mg {Note: rass 0.} Route: PO; ca1 18:53 Follow up: Response: Medication administered at discharge. ca1 Disposition: 02/18/21 18:41 Discharged to Home. Impression: Contusion of right shoulder. - Condition is Stable. - Discharge Instructions: Shoulder Pain, How to Use a Sling. - Prescriptions for Tramadol 50 mg Oral Tablet - take 1 tablet by ORAL route every 8 hours as needed; 12 tablet. Diclofenac Sodium 75 mg Oral Tablet, Delayed Release (E.C.) - take 1 tablet by ORAL route 2 times per day As needed; 30 tablet. - Medication Reconciliation Form, Thank You Letter, Antibiotic Education, Prescription Opioid Use form. - Follow up: Emergency Department; When: As needed; Reason: Worsening of condition. Follow up: Private Physician; When: 2 - 3 days; Reason: Recheck today's complaints, Continuance of care, Re-evaluation by your physician. - Problem is new. - Symptoms have improved. Addendum: 02/20/2021 06:52 Co-signature as Attending Physician, Jorge L Valera MD I agree with the assessment and [place] plan of care. Signatures: Dispatcher [employer] EDMS Jorge L Valera MD MD cha Marinas, Patrick, WASHER OPERATOR WASHER OPERATOR pm1 Joelle Florez RN RN ca1 Corrections: (The following items were deleted from the chart) 02/18 18:55 18:41 02/18/2021 18:41 Discharged to Home. Impression: Contusion of right shoulder. ca1 Condition is Stable. Forms are Medication Reconciliation Form, Thank You Letter, Antibiotic Education, Prescription Opioid Use. Follow up: Emergency Department; When: As needed; Reason: Worsening of condition. Follow up: Private Physician; When: 2 - 3 days; Reason: Recheck today's complaints, Continuance of care, Re-evaluation by your physician. Problem is new. Symptoms have improved. pm1
--- NOTE | 2021-02-18 18:42 | ER ---
Nurse's Notes 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 Denies LOC. Coronavirus screen: Client denies travel out of the [place] in the last 14 days. At this time, the client does not indicate any symptoms associated with coronavirus-19. Ebola Screen: Patient negative for fever greater than or equal to 101.5 degrees Fahrenheit, and additional compatible Ebola Virus Disease symptoms Patient denies exposure to infectious person. Patient denies travel to an Ebola-affected area in the 21 days before illness onset. No symptoms or risks identified at this time. Initial Sepsis Screen: Does the patient meet any 2 criteria? No. Patient's initial sepsis screen is negative. Does the patient have a suspected source of infection? No. Patient's initial sepsis screen is negative. Risk Assessment: Do you want to hurt yourself or someone else? Patient reports no desire to harm self or others. Onset of symptoms was February 18, 2021. 17:44 Method Of Arrival: Ambulatory ca1 17:44 Acuity: JIMMY 4 ca1 Historical: - Allergies: 17:50 Codeine; ca1 - Home Meds: 17:50 metoprolol succinate 50 mg oral Tb24 1 tab once daily [Active]; ezetimibe oral 10 mg ca1 oral 1 tab once daily [Active]; finasteride 5 mg Oral tab 1 tab once daily [Active]; Xarelto 20 mg oral tab 1 tab once daily [Active]; pravastatin 20 mg oral tab 1 tab once daily [Active]; tamsulosin 0.4 mg Oral cp24 1 cap once daily [Active]; amitriptyline 25 mg Oral tab 1 tab once daily [Active]; - PMHx: 17:50 CAD; Hyperlipidemia; Hypertension; Diabetes - NIDDM; ca1 - PSHx: 17:50 hand; bypass; CABG; ca1 - Immunization history:: Client reports receiving the 2nd dose of the Covid vaccine, Client reports receiving the 1st dose of the Covid vaccine, Flu vaccine is not up to date. - Social history:: Smoking status: Patient denies any tobacco usage or history of. Screenin:38 Abuse screen: Denies threats or abuse. Denies injuries from another. Nutritional ca1 screening: No deficits noted. Tuberculosis screening: No symptoms or risk factors identified. Fall Risk Fall in past 12 months (25 points). Secondary diagnosis (15 points) dementia, Total Valle[place]illo Fall Scale indicates Low Risk Score (25-44 pts). Fall prevention measures have been instituted. Side Rails Up X 2. Assessment: 18:38 General: Appears in no apparent distress. comfortable, Behavior is calm, cooperative, ca1 appropriate for age. Pain: Complains of pain in anterior aspect of right shoulder Pain currently is 8 out of 10 on a pain scale. Pain began 3 hours ago. Neuro: Level of Consciousness is awake, alert, obeys commands, Oriented to person, place, time, situation, Appropriate for age. Derm: Skin is intact, is healthy with good turgor, Skin is pink, warm \T\ dry. Musculoskeletal: Circulation, motion, and sensation intact. Capillary refill < 3 seconds. Vital Signs: 17:44 BP 137 / 88; Pulse 67; Resp 16 S; Temp 97.6(TE); Pulse Ox 96% on R/A; Weight 107.95 kg ca1 (R); Height 6 ft. 1 in. (185.42 cm) (R); Pain 8/10; 18:54 BP 126 / 81; Pulse 71; Resp 16 S; Pulse Ox 98% on R/A; ca1 17:44 Body Mass Index 31.40 (107.95 kg, 185.42 cm) ca1 ED Course: 17:10 Patient arrived in ED. am2 17:10 New [place] MD is Private Physician. am2 17:47 Triage completed. ca1 17:50 Arm band placed on right wrist. ca1 18:18 Shoulder Right (2 View) XRAY In Process Unspecified. EDMS 18:37 Antony Beaver NP is PHCP. pm1 18:37 Jorge L Valera MD is Attending Physician. pm1 18:38 Joelle Florez, RN is Primary Nurse. ca1 18:38 Patient has correct armband on for positive identification. Call light in reach. Side ca1 rails up X 1. 18:38 No provider procedures requiring assistance completed. Patient did not have IV access ca1 during this emergency room visit. 18:54 Sling applied to right arm. ca1 Administered Medications: 18:42 Drug: traMADol 50 mg {Note: rass 0.} Route: PO; ca1 18:53 Follow up: Response: Medication administered at discharge. ca1 Outcome: 18:41 Discharge ordered by MD. pm1 18:54 Discharged to home ambulatory, with significant other. ca1 18:54 Condition: stable 18:54 Discharge instructions given to patient, significant other, Instructed on discharge instructions, follow up and referral plans. no drinking with medication, no driving heavy equipment, medication usage, Demonstrated understanding of instructions, follow-up care, medications, Prescriptions given X 2. 18:55 Patient left the ED. 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
[2021-02-18 19:00] VITALS: TEMP 97.6
[2021-02-18 19:01] VITALS: BP 126/81; O2SAT 98
[2021-02-18] MEDS ORDERED: TRAMADOL HCL 50 MG TAB ONE (19:01)
== END 2021-02-18 18:55 | disposition home or self-care (01) ==
LOC: ER 17:09
DX: S40.011A Contusion of right shoulder, initial encounter (principal); W18.39XA Other fall on same level, initial encounter; Y93.89 Activity, other specified; Y92.89 Other specified places as the place of occurrence of the external cause; Z79.01 Long term (current) use of anticoagulants; Z88.5 Allergy status to narcotic agent; Z95.1 Presence of aortocoronary bypass graft; I10 Essential (primary) hypertension; E78.5 Hyperlipidemia, unspecified; E11.9 Type 2 diabetes mellitus without complications
CPT/HCPCS: 99284

== ENCOUNTER 2021-09-03 09:58 | Day surgery (SDC) | payer OTHER ==
[2021-08-29 11:19] LABS: Protime INR 1.29
[2021-08-29 11:20] LABS: Absolute Lymphocytes (CBC) 1.8 K/uL (0.7-4.9); Basophils % 0.7 % (0-1.3); Hematocrit 43.4 % (39.6-49.0); Lymphocytes % 27.2 % (15.3-44.8); MPV 11.3 fL (7.6-11.3); RBC Red Blood Cell Count 5.07 M/uL (4.33-5.43)
[2021-08-29 11:24] LABS: Potassium 4.4 mmol/L (3.5-5.1)
--- NOTE | 2021-08-29 11:43 | RAD REPORT ---
EXAM DESCRIPTION: Alycia Argueta (2 Views)08/29/2021 11:23 am CLINICAL HISTORY: Preop for prostate surgery COMPARISON: None FINDINGS: The lungs appear clear of acute infiltrate. The heart is mildly enlarged. Postsurgical changes involve the chest IMPRESSION: No acute abnormalities displayed
[2021-08-29 12:01] LABS: Blood Morphology Comment NOT SEEN (NOT SEEN); Platelet Estimate DECR; Platelets, Giant FEW; White Blood Cell Scan OK (OK)
[2021-09-03] MEDS ORDERED: Gentamicin Inj 220 MG in NA CHLORIDE 0.9% 100 ML IVPB ONE (11:30)
[2021-09-03] MEDS ORDERED: AMPICILLIN SODIUM 2 GM in NA CHLORIDE 0.9% 100 ML IVPB ONE (11:30)
[2021-09-03] MEDS ORDERED: NA CHLORIDE 0.9% 1,000 ML ONE (11:36)
[2021-09-03] MEDS ORDERED: FENTANYL CITR 100 MCG/2 ML ONE ×2 (13:50→14:43)
[2021-09-03] MEDS ORDERED: MIDAZOLAM HCL 2 MG/2 ML INJ ONE (13:50)
[2021-09-03] MEDS ORDERED: propofoL 200 MG/20 ML VIAL IV ONE (13:50)
[2021-09-03] MEDS ORDERED: ROCURONIUM 50 MG/5 ML VIAL IV ONE (13:50)
[2021-09-03] MEDS ORDERED: LIDOCAINE 1% MPF 5 ML VIAL ONE (13:50)
[2021-09-03] MEDS ORDERED: ONDANSETRON 4 MG/2 ML VIAL ONE ×2 (14:26→15:55)
[2021-09-03] MEDS ORDERED: GLYCOPYRROLATE 0.2 MG/ML SYR ONE (14:51)
[2021-09-03] MEDS: HALOPERIDOL LACT 5 MG/ML INJ IV PRN ×4 (14:51→15:22)
[2021-09-03] MEDS ORDERED: NEOSTIGMINE 1 MG/ML -5 ML ONE (14:51)
[2021-09-03] MEDS ORDERED: PHENAZOPYRIDINE 100MG TAB PO ONE ×2 (15:06→17:16)
[2021-09-03] MEDS ORDERED: TRAMADOL 37.5mg/APAP 325mg PER TAB PO ONE (15:06)
[2021-09-03] MEDS: MORPHINE 4 MG/ML SYR ONE ×2 (15:26→15:37)
[2021-09-03] MEDS ORDERED: FUROSEMIDE 20 MG/ 2ML VIAL ONE ×2 (15:27)
[2021-09-03] MEDS ORDERED: ALBUTEROL 2.5 MG/3 ML NEB SOL ONE (15:27)
[2021-09-03] MEDS ORDERED: TRAMADOL HCL 50 MG TAB ONE (17:16)
[2021-09-03 18:18] VITALS: TEMP 97.6
[2021-09-03 18:22] VITALS: BP 108/60; O2SAT 94
--- NOTE | 2021-09-03 19:25 | OP ---
Date of Procedure: 09/03/2021 Surgeon: MARIANN ATKINS Preoperative Diagnoses: Benign prostatic hypertrophy with obstructive lower urinary tract symptoms a nd irritative symptoms. Postoperative Diagnoses: Benign prostatic hypertrophy with obstructive lower urinary tract symptoms and irritative symptoms. Principle Procedure: Bipolar transurethral resection of the prostate. Indication For Procedure: Mr. Stauffer is a 80-year-old gentleman with severe dementia, who presents wi th severe irritative urinary symptoms as recorded by his mostly. The patient was not cognizant of his symptoms to integrate to a great degree other than having to go void frequently and get up mul tiple times at night. After evaluation, the patient and his were counseled on management option s including bipolar transurethral resection of the prostate since he had been on maximal medical ther apy with Flomax 0.8 mg daily and finasteride for several years and no improvement. Procedure In Detail: The patient was consented in the preoperative holding area along with his and then transferred to operative suite where general anesthesia was induced. He was given antimicro bial prophylaxis including ampicillin 2 g and gentamicin 220 mg IV. Pneumoboots were provided for DV T prophylaxis. He was placed in the lithotomy position, padded and secured to the table appropriatel y. The case was begun using urethral sounds to dilate the meatus and fossa navicularis to 28-Tristanian. Then, using a visual obturator and the 26-Tristanian bipolar resectoscope, the resectoscope sheath was passed via the urethra and into his bladder with ease. The bladder was surveyed and there were no mu cosal lesions, foreign bodies, or stone noted throughout. The ureteral orifices were orthotopic in l ocation and there was a median lobe, which was growing beneath the bladder neck at the trigone and ab utting the ureteral orifices bilaterally. As a result, I began the case by resecting the median lobe as it abutted the ureteral orifices taking care to avoid injury to the ureteral orifices themselves. Once this was resected, I continued the resection to level the median lobe down to even with the bl adder neck. I then continued to resect the median bar down to the level of the verumontanum and then resected the left lateral lobe before returning and resecting the right lateral lobe. Any anterior overhanging tissue was similarly resected. I then turned my attention to the prostate bulging into t he urethra at the level of the verumontanum and I trimmed the tissue down there in order to create pa rallel lobes of tissue without them touching during cystoscopic inflow of fluid. As a result, once s ufficient tissue had been resected bilaterally and a beautiful trough was observed from the verumonta num into the bladder, careful fulguration of the entirety of the prostatic fossa was then undertaken in order to stop all venous ooze and arterial bleeding. Once this was done, I then decompressed his bladder removing all prostate urethral chips and using an Ellik evacuator to remove chips as well. A ny remaining chips after Ellik evacuation were removed under direct vision. I then slowly refilled h is bladder and with his bladder mostly decompressed search for any additional venous ooze. Any that was identified was carefully fulgurated. Then, with the prostatic fossa completely hemostatic, I aga in surveyed the bladder and confirmed the ureteral orifices were uninjured before filling the bladder and removing the resectoscope taking any prostate chips remaining with it. Then, I placed a 22-Fren ch 3-way Estrada catheter with ease into the bladder and placed 50 cc of sterile water into the balloon . The catheter was placed to moderate traction and slow drip CBI was initiated and the efflux of uri ne was completely clear. The patient was then taken out of the lithotomy position, awakened from gen eral anesthesia, transferred to a stretcher and then transferred to the recovery room in good conditi on. Complications: None. Discharge Disposition: He should follow up in the Urology Clinic in 3-5 days for urethral Estrada cath eter removal and active voiding trial. He will be discharged with a prescription for antimicrobial f or the next 5 days as well as recommendation to take azo for burning with urination starting the day the catheter schedule will be removed and recommended to take Tylenol alternated with Motrin and Advi l for any discomfort. We will attempt to avoid narcotics given his already severely demented status and desire to wish no additional trauma for his having to take care of him at home. SHANNAN/TONO Voice ID: [id number] Report ID: [id number]
== END 2021-09-03 17:43 | disposition home or self-care (01) ==
LOC: OR 09:58
PROVIDERS: ATTEND Urology
PROC: 0VT08ZZ Resection of Prostate, Via Natural or Artificial Opening Endoscopic (ICD-10-PCS; principal; 2021-09-03 11:30)
DX: N40.1 Benign prostatic hyperplasia with lower urinary tract symptoms (principal); Z20.822 Contact with and (suspected) exposure to COVID-19
CPT/HCPCS: 93005; 87088; 85025; 87086; 80048; 36415; 85610; 82947; 88305; 71046; 52601; U0002; J2704; J1940 ×2; J1630; J1580; J3010 ×2; J2710; J7030; J2405 ×2; J0290; J2250

== ENCOUNTER 2021-09-30 07:26 | Day surgery (SDC) | payer OTHER ==
[2021-09-27 11:59] LABS: Albumin 3.5 g/dL (3.4-5.0); Bilirubin Direct 0.2 mg/dL (0-0.2); Bilirubin Total 0.6 mg/dL (0.2-1.0); Protein, Total 6.7 g/dL (6.4-8.2)
[2021-09-30] MEDS ORDERED: CEFOXITIN/NS 1gm 1 GM/50 ML BAG ONE (07:44)
[2021-09-30] MEDS: NA CHLORIDE 0.9% 1,000 ML ONE (07:50)
[2021-09-30] MEDS ORDERED: FENTANYL CITR 100 MCG/2 ML ONE (08:08)
[2021-09-30] MEDS ORDERED: propofoL 200 MG/20 ML VIAL IV ONE (08:08)
[2021-09-30] MEDS ORDERED: LIDOCAINE 2% MPF 5 ML VIAL ONE (08:08)
[2021-09-30] MEDS ORDERED: GLYCOPYRROLATE 0.2 MG/ML SYR ONE ×2 (08:08→08:59)
[2021-09-30] MEDS ORDERED: ROCURONIUM 50 MG/5 ML VIAL IV ONE (08:10)
[2021-09-30] MEDS ORDERED: BUPIVACAINE 0.5% PF 10 ML VIAL ONE (08:16)
[2021-09-30] MEDS ORDERED: ACETAMINOPHEN 500 MG TAB ONE (08:18)
[2021-09-30] MEDS ORDERED: dexAMETHasone 10 MG/ML VIAL ONE (08:53)
[2021-09-30] MEDS ORDERED: ONDANSETRON 4 MG/2 ML VIAL ONE (08:53)
[2021-09-30] MEDS ORDERED: KETOROLAC 30 MG/ML INJ ONE (08:54)
[2021-09-30] MEDS ORDERED: NEOSTIGMINE 1 MG/ML -5 ML ONE (09:07)
--- NOTE | 2021-09-30 09:23 | P.BOP ---
Preoperative diagnosis: Acute cholecystitis, symptomatic cholelithiasis Postoperative diagnosis: same Primary procedure: Laparoscopic cholecystectomy Wood Machine Carver: Kailee Oliva (Tristin) Estimated blood loss: <10cc Specimen: gb Findings: as above Anesthesia: General Complications: None Transferred to: Recovery Room Condition: Good
[2021-09-30] MEDS: HALOPERIDOL LACT 5 MG/ML INJ ONE ×3 (09:26→09:59)
[2021-09-30] MEDS: FENTANYL CITR 100 MCG/2 ML ONE ×2 (09:30→09:37)
[2021-09-30 10:23] VITALS: TEMP 97.7; O2SAT 96
[2021-09-30] MEDS ORDERED: TRAMADOL 37.5mg/APAP 325mg PER TAB ONE (10:46)
--- NOTE | 2021-09-30 12:22 | DS ---
Diagnoses: Acute cholecystitis, symptomatic cholelithiasis. Procedure: Laparoscopic cholecystectomy. Disposition: Home. Activity: As tolerated. No heavy lifting. Plan: Follow up in my office in 1 week. Call for appointment at [phone]. Keep area dry for 48 divya rs, then may shower. Keep danish intact. Medications: Include Ultracet, he does not have any allergies that and that he is aware of and also Augmentin 875 p.o. q.12 due to evidence of acute cholecystitis. We will see the patient in 1 week in my office. Call for appointment at [phone]. OLGA/TONO Voice ID: [id number] Report ID: [id number]
--- NOTE | 2021-09-30 12:22 | OP ---
Date of Procedure: 09/30/2021 Surgeon: Jorge Woodruff MD Education Faculty Member: SAMANTHA Martinez. Preoperative Diagnoses: Acute cholecystitis, symptomatic cholelithiasis. Postoperative Diagnoses: Acute cholecystitis, symptomatic cholelithiasis. Procedure: Laparoscopic cholecystectomy. Estimated Blood Loss: Less than 10 cc. Specimen: Gallbladder. Anesthesia: General plus local. Indication: This is the case of a male, who comes to us with recurrent right upper quadrant epigastr ic pain, diagnosed with acute cholecystitis and symptomatic cholelithiasis. The benefits, alternativ es, and risks of laparoscopic possible open cholecystectomy fully explained to him and , which in clude, but not limited to infection, bleeding, damage to adjacent structures, anesthesia complication , choledocholithiasis, bile leak, pancreatitis, MD, and even . He also understands this may not relieve any symptoms. He might need more than one surgical intervention. He understood, signed a c onsent. Procedure In Detail: The patient was brought to the operating room, placed in supine position. Anes thesia was done without complication. Abdominal area was prepped and draped in usual sterile fashion . Marcaine 0.5% was injected for local anesthetic followed by sharp incision of the skin in the supr aumbilical region. Incision was carried down to fascia, which was opened under direct vision. Perit oneum was encountered, opened under direct vision. Vicryl #1 placed inside the fascia. Alyce troca r was carefully introduced. Pneumoperitoneum was obtained. I placed 3 more trocars, 5 mm each one o f them, 1 in epigastric area and 2 in the right upper quadrant using same technique, which consisted of local anesthetic, sharp incision of the skin, and introduction of the trocars under direct vision. This allowed to put a grasper in the fundus of the gallbladder. We have the patient with some omen mason adhesions to the gallbladder, so with help of Endo Heather and Bovie cauterizer, we proceeded to r emove those adhesions to visualize the gallbladder completely. We put a grasper in the fundus of the gallbladder, another grasper in the infundibulum retracting the gallbladder in the inferolateral fas hion, exposing the triangle of Calot, and obtaining critical view. The cystic duct and cystic artery were clearly isolated, free circumferentially and a connection between those and the gallbladder wer e clearly identified. I proceeded to ligate those by using at least 3 clips proximal, 1 clip distal, ligation in middle. Same was done with the cystic artery. No bile leak, no bleeding. The gallblad ira was removed from liver using Bovie cauterizer and removed from abdominal cavity using EndoCatch t hrough the umbilical incision. The area was inspected once again. No bile leak. No bleeding. At t hat moment, I proceeded to remove the trocars under direct vision and checked the area of adhesions b efore that and no bleeding. Removed the trocars under direct vision. Deflated pneumoperitoneum. Cl osed the fascia with #1 Vicryl. Irrigated the subcutaneous tissue, closed that with 3-0 chromic and skin with danish. Sponge count and instrument counts correct. The patient tolerated the procedure well. The patient was sent to recovery in stable condition. OLGA/TONO Voice ID: [id number] Report ID: [id number]
[2021-09-30 13:59] VITALS: BP 99/58
== END 2021-09-30 11:00 | disposition home or self-care (01) ==
LOC: OR 07:26
PROVIDERS: ATTEND Surgery
PROC: 0FT44ZZ Resection of Gallbladder, Percutaneous Endoscopic Approach (ICD-10-PCS; principal; 2021-09-30 08:30)
DX: K80.10 Calculus of gallbladder with chronic cholecystitis without obstruction (principal); F03.90 Unspecified dementia, unspecified severity, without behavioral disturbance, psychotic disturbance, mood disturbance, and anxiety; I10 Essential (primary) hypertension; E78.00 Pure hypercholesterolemia, unspecified; E11.9 Type 2 diabetes mellitus without complications; N40.0 Benign prostatic hyperplasia without lower urinary tract symptoms; I51.9 Heart disease, unspecified; Z95.5 Presence of coronary angioplasty implant and graft; F41.9 Anxiety disorder, unspecified; I48.91 Unspecified atrial fibrillation; Z20.822 Contact with and (suspected) exposure to COVID-19
CPT/HCPCS: 47562; 36415; 82150; 82947; 80076; 88304; 83690; U0003; J2704; J1630; J3010 ×2; J1100; J2710; J7030; J0694; J2405

== ENCOUNTER 2021-10-08 20:02 | Emergency (ER) | payer OTHER ==
--- OUTSIDE RECORDS SUMMARY | 2021-10-08 20:06 | XMS REPORT | Continuity of Care Document ---
:1940 Author Organization [facility] t Address [address] [place] [address] [address] [place] [address] Care Team Providers Name Role Phone SYL Attending Clinician Unavailable Problems This patient has no known problems. Allergies, Adverse Reactions, Alerts This patient has no known allergies or adverse reactions. Medications This patient has no known medications. Procedures This patient has no known procedures. Encounters Start End Encounter Admission Attending Care Care Encounter Source Date/Time Date/Time Type Type Clinicians Facility Department ID 2021-04-16 2021-04-16 Outpatient [facility] [id number] 00:00:00 00:00:00 S[facility] [address] 2020-09-25 2020-09-25 Outpatient [facility] [id number] 00:00:00 00:00:00 S[facility] [address] 2020-04-03 2020-04-03 Outpatient [facility] [id number] 00:00:00 00:00:00 [facility] [address] Results This patient has no known results.
[2021-10-08 20:37] LABS: Absolute Lymphocytes (CBC) 1.8 K/uL (0.7-4.9); Basophils % 0.6 % (0-1.3); Hematocrit 43.6 % (39.6-49.0); Lymphocytes % 13.7 % (15.3-44.8); MPV 11.2 fL (7.6-11.3)
[2021-10-08 20:55] LABS: Albumin 3.7 g/dL (3.4-5.0); Bilirubin Direct 0.2 mg/dL (0-0.2); Potassium 4.5 mmol/L (3.5-5.1); Protein, Total 7.2 g/dL (6.4-8.2)
[2021-10-08] MEDS ORDERED: ONDANSETRON 4 MG/2 ML VIAL ONE (21:00)
[2021-10-08] MEDS ORDERED: NA CHLORIDE 0.9% 1,000 ML ONE (21:00)
[2021-10-08] MEDS ORDERED: MEPERIDINE HCL 25 MG/ML SYR ONE ×2 (21:00→22:45)
[2021-10-09] MEDS ORDERED: CIPROFLOXACIN HCL 500 MG TAB ONE (00:03)
[2021-10-09] MEDS ORDERED: metroNIDAZOLE 500 MG TABLET ONE (00:03)
--- NOTE | 2021-10-09 00:05 | ER ---
Nurse's Notes [facility] Name: Quintin Stauffer Age: 80 yrs Sex: Male : 1940 Arrival Date: 10/08/2021 Time: 20:06 Bed 14 Private MD: Diagnosis: Diverticulitis of large intestine without perforation or abscess without bleeding Presentation: 10/08 20:14 Chief complaint: Patient states: I got my gallbladder out last Thursday. Pt c/o ABD pain ld1 all over. Coronavirus screen: At this time, the client does not indicate any symptoms associated with coronavirus-19. Ebola Screen: No symptoms or risks identified at this time. Initial Sepsis Screen: Does the patient meet any 2 criteria? No. Patient's initial sepsis screen is negative. Does the patient have a suspected source of infection? No. Patient's initial sepsis screen is negative. Risk Assessment: Do you want to hurt yourself or someone else? Patient reports no desire to harm self or others. Onset of symptoms was October 08, 2021. 20:14 Method Of Arrival: Ambulatory ld1 20:14 Acuity: JIMMY 3 ld1 Triage Assessment: 20:16 General: Appears in no apparent distress. comfortable, Behavior is calm, cooperative, ld1 appropriate for age. Pain: Complains of pain in abdomen Pain does not radiate. Pain currently is 8 out of 10 on a pain scale. Quality of pain is described as stabbing, Pain began suddenly, Is continuous. EENT: No signs and/or symptoms were reported regarding the EENT system. Neuro: Level of Consciousness is awake, alert, obeys commands, Oriented to person, place, time, situation. Cardiovascular: Capillary refill < 3 seconds Patient's skin is warm and dry. Respiratory: Airway is patent Respiratory effort is even, unlabored, Respiratory pattern is regular, symmetrical. GI: Abdomen is round non-distended. : No signs and/or symptoms were reported regarding the genitourinary system. Derm: No signs and/or symptoms reported regarding the dermatologic system. Musculoskeletal: No signs and/or symptoms reported regarding the musculoskeletal system. Historical: - Allergies: 20:16 Codeine; ld1 - Home Meds: 20:16 amitriptyline 25 mg Oral tab 1 tab once daily [Active]; ezetimibe 10 mg Oral 1 tab once ld1 daily [Active]; finasteride 5 mg Oral tab 1 tab once daily [Active]; metoprolol succinate 50 mg Oral Tb24 1 tab once daily [Active]; tamsulosin 0.4 mg Oral cp24 1 cap once daily [Active]; Xarelto 20 mg Oral tab 1 tab once daily [Active]; - PMHx: 20:16 CAD; Diabetes - NIDDM; Hyperlipidemia; Hypertension; ld1 20:18 Dementia; ld1 - PSHx: 20:16 Cholecystectomy; ld1 - Immunization history:: Adult Immunizations up to date, Client reports receiving the 2nd dose of the Covid vaccine. - Social history:: Smoking status: Patient denies any tobacco usage or history of. Patient/guardian denies using alcohol. - Family history:: not pertinent. - Hospitalizations: : No recent hospitalization is reported. Screenin:18 Abuse screen: Denies threats or abuse. Denies injuries from another. Nutritional kd3 screening: No deficits noted. Tuberculosis screening: No symptoms or risk factors identified. Fall Risk IV access (20 points). Assessment: 21:18 General: Appears in no apparent distress. Behavior is calm, cooperative, appropriate kd3 for age. Pain: Complains of pain in abdomen. Neuro: Level of Consciousness is awake, alert, Oriented to person, place, pt history of dementia, at baseline . Cardiovascular: Capillary refill < 3 seconds Patient's skin is warm and dry. Rhythm is atrial fibrillation. Respiratory: No deficits noted. Airway is patent. 21:25 GI: Bowel sounds present X 4 quads. hyperactive in right upper quadrant, left upper kd3 quadrant, right lower quadrant and left lower quadrant distended. 22:03 Reassessment: Patient and/or family updated on plan of care and expected duration. Pain kd3 level reassessed. Patient is alert, oriented x 3, equal unlabored respirations, skin warm/dry/pink. no s/s of distress. 23:14 Reassessment: No changes from previously documented assessment. kd3 10/09 00:12 Reassessment: Patient is alert, oriented x 3, equal unlabored respirations, skin kd3 warm/dry/pink. General: Appears in no apparent distress. Behavior is cooperative, appropriate for age, anxious. 00:12 Reassessment: pt refuses vital signs. kd3 Vital Signs: 10/08 20:14 BP 139 / 78; Pulse 89; Resp 18; Temp 98.3(TE); Pulse Ox 99% on R/A; Weight 93.44 kg; ld1 Height 6 ft. 1 in. (185.42 cm); Pain 8/10; 21:25 BP 160 / 96; Pulse 99; Resp 16; Pulse Ox 100% on R/A; kd3 22:20 BP 136 / 84; Pulse 83; Resp 16; Pulse Ox 98% on R/A; kd3 20:14 Body Mass Index 27.18 (93.44 kg, 185.42 cm) ld1 ED Course: 20:06 Patient arrived in ED. wm 20:16 Triage completed. ld1 20:16 Arm band placed on right wrist. ld1 20:26 Ry Adames MD is Attending Physician. rn 20:42 Katie Reynaga RN is Primary Nurse. kd3 21:18 Patient has correct armband on for positive identification. Placed in gown. Bed in low kd3 position. Call light in reach. Side rails up X 1. 23:06 Abdomen In Process Unspecified. EDMS 23:45 No provider procedures requiring assistance completed. IV discontinued, intact, kd3 bleeding controlled, No redness/swelling at site. Pressure dressing applied. 10/09 00:04 New Leong MD is Referral Physician. rn Administered Medications: 10/08 21:09 Drug: Zofran (Ondansetron) 4 mg Route: IVP; Site: left antecubital; kd3 10/09 00:14 Follow up: Response: No adverse reaction kd3 10/08 21:09 Drug: NS 0.9% 1000 ml Route: IV; Rate: 1000 ml; Site: left antecubital; kd3 10/09 00:14 Follow up: IV Status: Completed infusion; IV Intake: 1000ml kd3 10/08 21:09 Drug: Demerol (meperidine) 12.5 mg Route: IVP; Site: left antecubital; kd3 23:07 Follow up: Response: No adverse reaction; Pain is unchanged, physician notified; RASS: kd3 Alert and Calm (0) 23:07 Drug: Demerol (meperidine) 12.5 mg {Note: Rass 0.} Route: IVP; Site: left antecubital; kd3 10/09 00:14 Follow up: Response: No adverse reaction; Pain is decreased kd3 00:11 Drug: Cipro (ciprofloxacin) 500 mg Route: PO; kd3 00:14 Follow up: Response: No adverse reaction kd3 00:11 Drug: Flagyl (metroNIDAZOLE) 500 mg Route: PO; kd3 00:13 Follow up: Response: No adverse reaction kd3 Intake: 00:14 IV: 1000ml; Total: 1000ml. kd3 Outcome: 10/08 23:45 Discharged to home ambulatory, with family. kd3 Condition: stable Discharge instructions given to patient, family. 10/09 00:05 Discharge ordered by . rn 00:13 Patient left the ED. kd3 Signatures: Dispatcher [employer] EDRy Bradley MD MD rn Dibbern, Lauren RN RN ld1 Maria Victoria Abbasi Kyli, RN RN kd3 Corrections: (The following items were deleted from the chart) 00:12 10/08 23:39 Reassessment: Patient is alert, oriented x 3, equal unlabored respirations, kd3 skin warm/dry/pink. PT LEAVING AMA. PT REFUSING VITALS AT THIS TIME. PT NO DISTRESS. AT BASELINE. Patient states feeling better. Patient states symptoms have improved. kd3
--- NOTE | 2021-10-09 00:05 | EDPHYS ---
Physician Documentation [facility] Name: Quintin Stauffer Age: 80 yrs Sex: Male : 1940 Arrival Date: 10/08/2021 Time: 20:06 Bed 14 Private MD: ED Physician Ry Adames HPI: 10/08 20:40 This 80 yrs old Male presents to ER via Ambulatory with complaints of Abd rn Pain > 50 y/o, Kidney pain. 20:40 The patient presents with abdominal pain. rn 20:41 Onset: The symptoms/episode began/occurred 5 day(s) ago. The symptoms radiate to rn Associated signs and symptoms: Pertinent positives: nausea and vomiting, Pertinent negatives: diarrhea, dysuria, fever, hematuria, shortness of breath, vomiting blood. The symptoms are described as achy, crampy. Modifying factors: The symptoms are alleviated by nothing, the symptoms are aggravated by touching the area. Severity of pain: At its worst the pain was moderate in the emergency department the pain is unchanged. The patient has not experienced similar symptoms in the past. The patient has been recently seen by a physician:. states patient having abdominal pain for 5 days or so, had gallbladder removed by Dr. Woodruff last Thursday. Just seen at Dr. Woodruff's office yesterday for staple removal. Reports abdominal pain worse today. Seen by Dr. Leong and x-ray ordered for tomorrow but did not feel like he could wait. No trauma.. Historical: - Allergies: 20:16 Codeine; ld1 - Home Meds: 20:16 amitriptyline 25 mg Oral tab 1 tab once daily [Active]; ezetimibe 10 mg Oral 1 tab once ld1 daily [Active]; finasteride 5 mg Oral tab 1 tab once daily [Active]; metoprolol succinate 50 mg Oral Tb24 1 tab once daily [Active]; tamsulosin 0.4 mg Oral cp24 1 cap once daily [Active]; Xarelto 20 mg Oral tab 1 tab once daily [Active]; - PMHx: 20:16 CAD; Diabetes - NIDDM; Hyperlipidemia; Hypertension; ld1 20:18 Dementia; ld1 - PSHx: 20:16 Cholecystectomy; ld1 - Immunization history:: Adult Immunizations up to date, Client reports receiving the 2nd dose of the Covid vaccine. - Social history:: Smoking status: Patient denies any tobacco usage or history of. Patient/guardian denies using alcohol. - Family history:: not pertinent. - Hospitalizations: : No recent hospitalization is reported. ROS: 20:41 Constitutional: Negative for fever, chills, and weight loss, Eyes: Negative for injury, rn pain, redness, and discharge, Neck: Negative for injury, pain, and swelling, Cardiovascular: Negative for chest pain, palpitations, and edema, Respiratory: Negative for shortness of breath, cough, wheezing, and pleuritic chest pain, Abdomen/GI: Positive for abdominal pain and nausea : Negative for injury, bleeding, discharge, and swelling, MS/Extremity: Negative for injury and deformity, Skin: Negative for injury, rash, and discoloration, Neuro: Negative for headache, weakness, numbness, tingling, and seizure. 20:41 All other systems are negative. rn Exam: 20:41 Constitutional: This is a well developed, well nourished patient who is awake, alert, rn and in no acute distress. Holding emesis bag Head/Face: Normocephalic, atraumatic. Eyes: Periorbital areas with no swelling, redness, or edema. Cardiovascular: Regular rate and rhythm. No pulse deficits. Respiratory: No increased work of breathing, no retractions or nasal flaring. Abdomen/GI: Soft, tender epigastric and periumbilical region. No distention. Skin: Warm, dry MS/ Extremity: Pulses equal, no cyanosis. Neuro: Awake and alert, GCS 15 Vital Signs: 20:14 BP 139 / 78; Pulse 89; Resp 18; Temp 98.3(TE); Pulse Ox 99% on R/A; Weight 93.44 kg; ld1 Height 6 ft. 1 in. (185.42 cm); Pain 8/10; 21:25 BP 160 / 96; Pulse 99; Resp 16; Pulse Ox 100% on R/A; kd3 22:20 BP 136 / 84; Pulse 83; Resp 16; Pulse Ox 98% on R/A; kd3 20:14 Body Mass Index 27.18 (93.44 kg, 185.42 cm) ld1 MDM: 20:26 Patient medically screened. rn 10/09 00:03 Differential diagnosis: appendicitis, diverticulitis, non-specific abd pain, rn pancreatitis, Pyelonephritis, Ureterolithiasis, urinary tract infection. Data reviewed: vital signs, nurses notes, lab test result(s), radiologic studies, CT scan, and as a result, I will admit patient. Counseling: I had a detailed discussion with the patient and/or guardian regarding: the historical points, exam findings, and any diagnostic results supporting the discharge/admit diagnosis, lab results, radiology results, the need for further work-up and treatment in the hospital. Response to treatment: the patient's symptoms have mildly improved after treatment, and as a result, I will admit patient. ED course: CT shows mild acute diverticulitis without perforation or abscess. Given pain and elevated white blood cell count I recommended admission. states there is no way the patient is going to stay in the hospital could barely tolerate being in ER due to his dementia and restlessness. She understands our recommendation but is going to take her home. We will do oral antibiotics right now because patient demanded his IVP pulled out earlier and will discharge home with Zofran as needed and antibiotics. will take patient for follow-up with Dr. Leong.. 10/08 20:12 Order name: Basic Metabolic Panel; Complete Time: 22:58 ld1 10/08 20:12 Order name: CBC with Diff; Complete Time: 22:58 ld1 10/08 20:12 Order name: Hepatic Function; Complete Time: 22:58 ld1 10/08 20:12 Order name: Lipase; Complete Time: 22:58 ld1 10/08 20:41 Order name: Urine Microscopic Only rn 10/08 20:27 Order name: CT Abd/Pelvis - PO and IV Contrast rn 10/08 20:27 Order name: Abdomen EDDC 10/08 20:12 Order name: IV Saline Lock; Complete Time: 20:46 ld1 10/08 20:12 Order name: Labs collected and sent; Complete Time: 20:46 ld1 Administered Medications: 10/08 21:09 Drug: Zofran (Ondansetron) 4 mg Route: IVP; Site: left antecubital; kd3 10/09 00:14 Follow up: Response: No adverse reaction kd3 10/08 21:09 Drug: NS 0.9% 1000 ml Route: IV; Rate: 1000 ml; Site: left antecubital; kd3 10/09 00:14 Follow up: IV Status: Completed infusion; IV Intake: 1000ml kd3 10/08 21:09 Drug: Demerol (meperidine) 12.5 mg Route: IVP; Site: left antecubital; kd3 23:07 Follow up: Response: No adverse reaction; Pain is unchanged, physician notified; RASS: kd3 Alert and Calm (0) 23:07 Drug: Demerol (meperidine) 12.5 mg {Note: Rass 0.} Route: IVP; Site: left antecubital; kd3 10/09 00:14 Follow up: Response: No adverse reaction; Pain is decreased kd3 00:11 Drug: Cipro (ciprofloxacin) 500 mg Route: PO; kd3 00:14 Follow up: Response: No adverse reaction kd3 00:11 Drug: Flagyl (metroNIDAZOLE) 500 mg Route: PO; kd3 00:13 Follow up: Response: No adverse reaction kd3 Disposition Summary: 10/09/21 00:05 Discharge Ordered Location: Home rn Problem: new rn Symptoms: have improved rn Condition: Stable rn Diagnosis - Diverticulitis of large intestine without perforation or abscess without bleeding rn Followup: rn - With: New Leong MD - When: 2 - 3 days - Reason: Recheck today's complaints, Re-evaluation by your physician Discharge Instructions: - Discharge Summary Sheet rn - Diverticulitis rn Forms: - Medication Reconciliation Form rn - Thank You Letter rn - Antibiotic 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
[2021-10-09 00:17] VITALS: TEMP 98.3
[2021-10-09 00:20] VITALS: BP 136/84; O2SAT 98
--- NOTE | 2021-10-09 18:19 | RAD REPORT ---
EXAM DESCRIPTION: CT - Abdomen Pelvis W Contrast - 10/09/2021 6:13 am CLINICAL HISTORY: 80 years Male 1 week post cholecystectomy, abd pain;Abd pain COMPARISON: None TECHNIQUE: Images were obtained in axial, sagittal, and coronal planes. Intravenous contrast was adm inistered. Arterial and venous phase imaging was performed in the axial projection. Oral contrast als o administered. This exam was performed according to our departmental dose-optimization program which includes use of Automated Exposure Control, adjustment of the mA and/or kV according to patient size and/or use of iterative reconstruction technique. FINDINGS: Surgical clips portal region correlating with recent cholecystectomy. No abnormal fluid co llections right upper abdomen. No evidence for biliary leak, abscess, or hematoma. Unremarkable splee n, pancreas, and adrenal glands bilaterally. Elevation right hemidiaphragm. No obstructing renal or ureteral calculi bilaterally. No hydronephrosis bilaterally. Right renal cyst . Left peripelvic cysts. Punctate nonobstructing calcification right kidney. Unremarkable bladder. Appendix within normal limits. No bowel obstruction or perforation. Marked diverticulosis left colon mucosal thickening with mesenteric stranding distal descending colon suspicious for acute diverticuli tis. This finding is best identified on axial series 501 image [id number]. No abnormality portal vein. Calcification of abdominal aorta with no dilatation seen. No adenopathy. Airspace attenuation right lower lobe consistent with atelectatic change versus infiltrate. Prior med rashid sternotomy. Enlarged heart. No acute osseous abnormality. Marked degenerative change L1-2. Multilevel vacuum disc phenomenon. Mar ked degenerative change lower thoracic spine. IMPRESSION: 1. Findings consistent with recent cholecystectomy. No evidence for biliary leak, absc ess, or hematoma. 2. Suspected mild acute diverticulitis distal descending colon. No perforation or abscess. 3. 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 The interpreting radiologist is fully responsible for the content of the report.
== END 2021-10-09 00:13 | disposition home or self-care (01) ==
LOC: ER 20:02
DX: K57.32 Diverticulitis of large intestine without perforation or abscess without bleeding (principal); I25.10 Atherosclerotic heart disease of native coronary artery without angina pectoris; E11.9 Type 2 diabetes mellitus without complications; E78.5 Hyperlipidemia, unspecified; I10 Essential (primary) hypertension
CPT/HCPCS: 96361; 85025; 80048; 36415; 80076; 83690; 74177; 96375; 96374; 99284; Q9967; J2175 ×2; J7030; J2405

== ENCOUNTER 2022-02-14 14:51 | Emergency (ER) | payer OTHER ==
--- OUTSIDE RECORDS SUMMARY | 2022-02-14 14:55 | XMS REPORT | Continuity of Care Document ---
:1940 Author Organization [facility] t Address [address] [place] [address] [address]. [address] [place] [address] Care Team Providers Name Role Phone SYL Attending Clinician Unavailable Problems This patient has no known problems. Allergies, Adverse Reactions, Alerts This patient has no known allergies or adverse reactions. Medications This patient has no known medications. Procedures This patient has no known procedures. Encounters Start End Encounter Admission Attending Care Care Encounter Source Date/Time Date/Time Type Type Clinicians Facility Department ID 2021-10-15 2021-10-15 Outpatient [facility] [id number] [address] 00:00:00 00:00:00 SON[facility] [address] 2021-04-16 2021-04-[address] [id number] [address] 00[facility]00:00 00:00:00 SONIA [address] 2020-09-25 2020-09-25 [facility] [id number] [address] 00:00:00 00:00:00 SONIA [address] 2020-04-03 2020-04-03 Outpatient [facility] [id number] [address] 00:00:00 00:00:00 SON[facility] [address] Results This patient has no known results.
--- NOTE | 2022-02-14 15:45 | ER ---
Nurse's Notes [facility] Name: Quintin Stauffer Age: 81 yrs Sex: Male : 1940 Arrival Date: 02/14/2022 Time: 14:53 Bed Waiting Private MD: New Leong Diagnosis: ED Course: 02/14 14:53 Patient arrived in ED. mr 14:53 New Leong MD is Private Physician. mr Administered Medications: No medications were administered Outcome: 15:44 Patient left the ED. ab2 Signatures: Nicolle Wolff mr Octavio Pierce ab2
== END 2022-02-14 15:44 | disposition left against medical advice (07) ==
LOC: ER 14:51
DX: Z02.9 Encounter for administrative examinations, unspecified (principal)

== ENCOUNTER 2023-06-30 03:07 | Emergency (ER) | payer OTHER ==
--- OUTSIDE RECORDS SUMMARY | 2023-06-30 03:12 | XMS REPORT | Continuity of Care Document ---
:1940 Author Organization [facility] t Address [address] [place] [address] Josiah. [address] [place] [address] Care Team Providers Name Role Phone New Leong MD Primary Care Physician New Leong Attending Clinician Unavailable Jacquelin Aguila MA Attending Clinician Unavailable Syl BELTRAN, Sonia Sanon Attending Clinician Hannah Farmer MA Attending Clinician Unavailable Payers Payer Name Policy Type Policy Number Effective Date Expiration Date S ource Problems Condition Condition Condition Status Onset Resolution Last Treating Co mments Source Name Details Category Date Date Treatment Clinician Date History of History of Disease Active 2022-0 M [facility]i coronary coronary 6-06 st artery artery 00:00: Hospita stent stent 00 l placement placement Hyperlipid Hyperlipid Disease Active 2018-0 M ethodi emia emia 5-28 st 00:00: Hospita 00 l Bilateral Bilateral Disease Active 2017-11 [facility] carotid carotid 0-29 st bruits bruits 00:00: Hospita 00 l 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: Hospita right right 00 l 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 y y S/P S/P Disease Active 2016-11 [facility] laminectom laminectom 2-09 st y (T4-7) y (T4-7) 00:00: Hospit a 00 l Anemia due Anemia due Disease Active 2016-11 M ethodi to blood to blood 2-09 st loss, loss, 00:00: Hospita acute acute 00 l Essential Essential Disease Active 2016-11 [facility] hypertensi hypertensi 2 st on on 00:00: Hospita 00 l 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 00:00: Hospit a with with 00 l complicati complicati on, on, without without long-term long-term current current use of use of insulin insulin 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 12-18 st 00:00: Hospita 00 l Thoracic Thoracic Disease Active 2016-11 [facility] spine spine 2 st tumor tumor 00:00: Hospita 00 l 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 Active 2016-11 M ethodi of spinal of spinal 11-21 st cord (S/P cord (S/P 00:00: Hosp enoc resection) resection) 00 l 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 [facility] 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-21 st s with s with 00:00: Hospita myelopathy myelopathy 00 l Spermatoce Spermatoce Disease Active 2016-11 M ethodi le le 11-21 st 00:00: Hospita 00 l Atrial Atrial Disease Active 2016-11 [facility] fibrillati fibrillati [address] on on 00:00: Hospita 00 l 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 00:00: Hospita involving involving 00 l [place] coronary coronary artery of artery of [place] heart heart without without angina angina pectoris pectoris 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 00:00: Hospita involving involving 00 l [place] coronary coronary artery of artery of [place] heart heart without without angina angina pectoris pectoris Chronic Chronic Disease Active 2015-11 [facility] coronary coronary 2-06 st artery artery 00:00: Hospita disease disease 00 l Chronic Chronic Disease Active 2015-11 [facility] coronary coronary 2-06 st artery artery 00:00: Hospita disease disease 00 l SOB SOB Disease Active 2015-11 [facility] (shortness (shortness 2-06 st of breath) of breath) 00:00: Ho spita 00 l S/P CABG S/P CABG Disease Active 2015-11 [facility] (coronary (coronary 2-06 st artery artery 00:00: Hospita bypass bypass 00 l graft) graft) Allergies, Adverse Reactions, Alerts Allergy Allergy Status Severity Reaction(s) Onset Inactive Treating Comm ents Source Name Type Date Date Clinician Tamy Zamora Active GI 2016-11 vomitting [facility] ty to Intolerance 11-21 st adverse 00:00: Hospita reaction 00 l s to drug Family History Family Member Diagnosis Comments Start Date Stop Date Source Natural father No Known Problems Met [facility] Natural mother No Known Problems Met [facility] Social History Social Habit Start Date Stop Date Quantity Comments Source History of tobacco Current smoker [facility] History of Social 2023-01-14 2023-01-[address] function 00:00:00 00:00:00 Hospital Alcohol intake 2019-04-05 2019-04-05 Current drinker [facility] 00:00:00 00:00:00 of [facility] (finding) Tobacco use and 2017-09-21 2017-09-21 Smokeless [facility] exposure 00:00:00 00:00:00 tobacco non-user Hospital Tobacco Comment 2017-09-21 2017-09-21 2 years in [facility] 00:00:00 00:00:00 [facility] Alcohol Comment 2017-09-21 2017-09-21 rarely [facility] 00:00:00 00:00:00 [facility] Sex Assigned At [birth year] [facility] 00:00:00 00:00:00 [facility] Smoking Status Start Date Stop Date Source Ex-smoker 2017-09-21 00:00:00 2017-09-21 00:00:00 [facility] Medications Ordered Filled Start Stop Current Ordering Indication Dosage Frequency Signature Comments Components Source Medication Medication Date Date Medication? Clinician (SIG) Name Name pravastatin Yes TAKE 1 [facility] (PRAVACHOL) 8-[address] 20 MG 00:00: MOUTH Hospita tablet 00 EVERY DAY l therapeutic Yes 1{tbl} QD Take 1 [facility] multivitami 6-[address] n 08:19: mouth Hospita (THERAGRAN) 57 daily. l tablet ZINC Yes 50mg Take 50 mg [facility] ACETATE 6-[address] ORAL 08:19: Hospita 57 l ASCORBATE 2022-0 Yes 1000mg Take 1,000 [facility] CALCIUM 6-[address] (VITAMIN C 08:19: mouth. Hospi ta ORAL) 57 l vit A/C/E Yes Take by [facility] ac/ZnOx/cup 6-[address] irene oxide 08:19: Hospita (EYE 57 l VITAMIN AND MINERALS ORAL) rivaroxaban 0 Yes 20mg QD Take 1 [facility] (Xarelto) 6-06 tablet (20 st 20 mg 00:00: mg total) Hospita tablet 00 by mouth l daily. metoprolol 0 Yes 100mg QD Take 1 [facility] succinate 6-[address] XL 00:00: (100 mg Hospita (TOPROL-XL) 00 total) by l 100 mg 24 mouth hr tablet daily. ezetimibe Yes 10mg QD Take 1 [facility] i (ZETIA) 10 6-06 tablet (10 st mg tablet 00:00: mg total) Hos collin 00 by mouth l daily. Klor-Con 10 Yes TAKE 1 [facility] 10 mEq CR 5-[address] tablet 00:00: MOUTH Hospita 00 EVERY DAY l furosemide 0 Yes TAKE 1 [facility] (LASIX) 40 5-[address] mg tablet 00:00: MOUTH Hospita 00 EVERY DAY l pravastatin 2022-0 2022- No TAKE 1 [facility] (PRAVACHOL) 5-16 08-[address] 20 MG 00:00: 00:00 MOUTH Hospita tablet 00 :00 EVERY DAY l ezetimibe 2022-0 2022- No TAKE 1 [facility] (ZETIA) 10 5-16 06-[address] mg tablet 00:00: 00:00 MOUTH Hospit a 00 :00 EVERY DAY l Xarelto 20 2022-0 2022- No TAKE 1 [facility] mg tablet 5-16 06-[address] 00:00: 00:00 MOUTH Hospita 00 :00 EVERY DAY l ezetimibe 2022-0 2022- No TAKE 1 [facility] (ZETIA) 10 2- 05-[address] mg tablet 00:00: 00:00 MOUTH Hospit a 00 :00 EVERY DAY l pravastatin 2022-0 2022- No TAKE 1 [facility] (PRAVACHOL) 2- 05-[address] 20 MG 00:00: 00:00 MOUTH [facility]ospita tablet 00 :00 EVERY DAY l Xarelto 20 0 Yes TAKE 1 [facility] mg tablet 1-[address] 00:00: MOUTH Hospita 00 EVERY DAY l Xarelto 20 2022-0 2022- No TAKE 1 [facility] mg tablet 1-16 05-[address] 00:00: 00:00 MOUTH Hospita 00 :00 EVERY DAY l ezetimibe 2021-11 Yes TAKE 1 [facility] i (ZETIA) 10 2-[address] mg tablet 00:00: MOUTH Hospita 00 EVERY DAY l ezetimibe 2021-11 Yes TAKE 1 [facility] (ZETIA) 10 2-[address] mg tablet 00:00: MOUTH [facility]ospita 00 EVERY DAY l ezetimibe 2021-11 Yes TAKE 1 [facility] (ZETIA) 10 2-[address] mg tablet 00:00: MOUTH Hospita 00 EVERY DAY l ezetimibe 2021-11 Yes TAKE 1 [facility] (ZETIA) 10 2-[address] mg tablet 00:00: MOUTH Hospita 00 EVERY DAY l ezetimibe 2021-11 Yes TAKE 1 [facility] (ZETIA) 10 2-[address] mg tablet 00:00: MOUTH Hospita 00 EVERY DAY l ezetimibe 2021-11- No TAKE 1 [facility] (ZETIA) 10 2-30 02-[address] mg tablet 00:00: 00:00 MOUTH Hospit a 00 :00 EVERY DAY l pravastatin 2021-11 Yes TAKE 1 [facility] (PRAVACHOL) 2-[address] 20 MG 00:00: MOUTH Hospita tablet 00 EVERY DAY l pravastatin 2021-11 Yes TAKE 1 [facility] (PRAVACHOL) 2-[address] 20 MG 00:00: MOUTH [facility]ospita tablet 00 EVERY DAY l pravastatin 2021-11 Yes TAKE 1 [facility] (PRAVACHOL) 2-[address] 20 MG 00:00: MOUTH [facility]ospita tablet 00 EVERY DAY l pravastatin 2021-11 Yes TAKE 1 [facility] (PRAVACHOL) 2-[address] 20 MG 00:00: MOUTH [facility]ospita tablet 00 EVERY DAY l pravastatin 2021-11 Yes TAKE 1 [facility] (PRAVACHOL) 2-[address] 20 MG 00:00: MOUTH [facility]ospita tablet 00 EVERY DAY l pravastatin 2021-11- No TAKE 1 [facility] (PRAVACHOL) 212-[address] 20 MG 00:00: 00:00 MOUTH Hospita tablet 00 :00 EVERY DAY l therapeutic 2021-11 Yes 1{tbl} QD Take 1 [facility] multivitami 2-[address] n 10:01: mouth Hospita (THERAGRAN) 49 daily. l tablet ZINC 2021-11 Yes 50mg Take 50 mg [facility] ACETATE 2-[address] ORAL 10:01: Hospita 49 l ASCORBATE 2021-11 Yes 1000mg Take 1,000 [facility] CALCIUM 2-[address] (VITAMIN C 10:01: mouth. Hospi ta ORAL) 49 l vit A/C/E 2021-11 Yes Take by [facility] ac/ZnOx/cup 2-[address] irene oxide 10:01: Hospita (EYE 49 l VITAMIN AND MINERALS ORAL) therapeutic 2021-11 Yes 1{tbl} QD Take 1 [facility] multivitami 2-[address] n 10:01: mouth Hospita (THERAGRAN) 49 daily. l tablet ZINC 2021-11 Yes 50mg Take 50 mg [facility] ACETATE 2-[address] ORAL 10:01: Hospita 49 l ASCORBATE 2021-11 Yes 1000mg Take 1,000 [facility] CALCIUM 2-[address] (VITAMIN C 10:01: mouth. Hospi ta ORAL) 49 l vit A/C/E 2021-11 Yes Take by [facility] ac/ZnOx/cup 2-[address] irene oxide 10:01: Hospita (EYE 49 l VITAMIN AND MINERALS ORAL) therapeutic 2021-11 Yes 1{tbl} QD Take 1 [facility] multivitami 2-[address] n 10:01: mouth Hospita (THERAGRAN) 49 daily. l tablet ZINC 2021-11 Yes 50mg Take 50 mg [facility] ACETATE 2-[address] ORAL 10:01: Hospita 49 l ASCORBATE 2021-11 Yes 1000mg Take 1,000 [facility] CALCIUM 2-[address] (VITAMIN C 10:01: mouth. Hospi ta ORAL) 49 l vit A/C/E 2021-11 Yes Take by [facility] ac/ZnOx/cup 2-[address] irene oxide 10:01: Hospita (EYE 49 l VITAMIN AND MINERALS ORAL) therapeutic 2021-11 Yes 1{tbl} QD Take 1 [facility] multivitami 2-[address] n 10:01: mouth Hospita (THERAGRAN) 49 daily. l tablet ZINC 2021-11 Yes 50mg Take 50 mg [facility] ACETATE 2-[address] ORAL 10:01: Hospita 49 l ASCORBATE 2021-11 Yes 1000mg Take 1,000 [facility] CALCIUM 2-[address] (VITAMIN C 10:01: mouth. Hospi ta ORAL) 49 l vit A/C/E 2021-11 Yes Take by [facility] ac/ZnOx/cup 2-[address] irene oxide 10:01: Hospita (EYE 49 l VITAMIN AND MINERALS ORAL) therapeutic 2021-11 Yes 1{tbl} QD Take 1 [facility] multivitami 2-[address] n 10:01: mouth Hospita (THERAGRAN) 49 daily. l tablet ZINC 2021-11 Yes 50mg Take 50 mg [facility] ACETATE 2-[address] ORAL 10:01: Hospita 49 l ASCORBATE 2021-11 Yes 1000mg Take 1,000 [facility] CALCIUM 2-[address] (VITAMIN C 10:01: mouth. Hospi ta ORAL) 49 l vit A/C/E 2021-11 Yes Take by [facility] ac/ZnOx/cup 2-[address] irene oxide 10:01: Hospita (EYE 49 l VITAMIN AND MINERALS ORAL) metoprolol 2021-11 Yes 100mg QD Take 1 [facility] succinate 2-[address] XL 00:00: (100 mg Hospita (TOPROL-XL) 00 total) by l 100 mg 24 mouth hr tablet daily. metoprolol 2021-11 Yes 100mg QD Take 1 [facility] succinate 2-[address] XL 00:00: (100 mg Hospita (TOPROL-XL) 00 total) by l 100 mg 24 mouth hr tablet daily. metoprolol 2021-11 Yes 100mg QD Take 1 [facility] succinate 2-[address] XL 00:00: (100 mg Hospita (TOPROL-XL) 00 total) by l 100 mg 24 mouth hr tablet daily. metoprolol 2021-11 Yes 100mg QD Take 1 [facility] succinate 2-[address] XL 00:00: (100 mg Hospita (TOPROL-XL) 00 total) by l 100 mg 24 mouth hr tablet daily. metoprolol 2021-11 Yes 100mg QD Take 1 [facility] succinate 2-[address] XL 00:00: (100 mg Hospita (TOPROL-XL) 00 total) by l 100 mg 24 mouth hr tablet daily. metoprolol 2021-11 No 100mg QD Take 1 [facility] succinate 2-06 06-[address] XL 00:00: 00:00 (100 mg Hospita (TOPROL-XL) 00 :00 total) by l 100 mg 24 mouth hr tablet daily. escitalopra 2021-11 Yes 20mg QD Take 1 [facility] m (LEXAPRO) 1-15 tablet (20 st 20 MG 00:00: mg total) Hospita tablet 00 by mouth l daily. escitalopra 2021-11 Yes 20mg QD Take 1 [facility] m (LEXAPRO) 1-15 tablet (20 st 20 MG 00:00: mg total) Hospita tablet 00 by mouth l daily. escitalopra 2021-11 Yes 20mg QD Take 1 [facility] m (LEXAPRO) 1-15 tablet (20 st 20 MG 00:00: mg total) Hospita tablet 00 by mouth l daily. escitalopra 2021-11 Yes 20mg QD Take 1 [facility] m (LEXAPRO) 1-15 tablet (20 st 20 MG 00:00: mg total) Hospita tablet 00 by mouth l daily. escitalopra 2021-11 Yes 20mg QD Take 1 [facility] m (LEXAPRO) 1-15 tablet (20 st 20 MG 00:00: mg total) Hospita tablet 00 by mouth l daily. escitalopra 2021-11 Yes 20mg QD Take 1 [facility] m (LEXAPRO) 1-15 tablet (20 st 20 MG 00:00: mg total) Hospita tablet 00 by mouth l daily. glipiZIDE 2021-11 Yes 5mg QD Take 1 [facility] (GLUCOTROL) 1-06 tablet (5 st 5 MG tablet 00:00: mg total) H ospita 00 by mouth l daily. glipiZIDE 2021-11 Yes 5mg QD Take 1 [facility] (GLUCOTROL) 1-06 tablet (5 st 5 MG tablet 00:00: mg total) H ospita 00 by mouth l daily. glipiZIDE 2021-11 Yes 5mg QD Take 1 [facility] (GLUCOTROL) 1-06 tablet (5 st 5 MG tablet 00:00: mg total) H ospita 00 by mouth l daily. glipiZIDE 2021-11 Yes 5mg QD Take 1 [facility] (GLUCOTROL) 1-06 tablet (5 st 5 MG tablet 00:00: mg total) H ospita 00 by mouth l daily. glipiZIDE 2021-11 Yes 5mg QD Take 1 [facility] (GLUCOTROL) 1-06 tablet (5 st 5 MG tablet 00:00: mg total) H ospita 00 by mouth l daily. glipiZIDE 2021-11 Yes 5mg QD Take 1 [facility] (GLUCOTROL) 1-06 tablet (5 st 5 MG tablet 00:00: mg total) H ospita 00 by mouth l daily. ezetimibe 2021-11- No TAKE 1 [facility] (ZETIA) 10 0-03 12-[address] mg tablet 00:00: 00:00 MOUTH Hospit a 00 :00 EVERY DAY l ezetimibe 2021-11- No TAKE 1 [facility] (ZETIA) 10 0-03 12-[address] mg tablet 00:00: 00:00 MOUTH Hospit a 00 :00 EVERY DAY l ezetimibe 2021-11- No TAKE 1 [facility] (ZETIA) 10 0-03 12-[address] mg tablet 00:00: 00:00 MOUTH Hospit a 00 :00 EVERY DAY l ezetimibe 2021-11- No TAKE 1 [facility] (ZETIA) 10 0-03 12-[address] mg tablet 00:00: 00:00 MOUTH Hospit a 00 :00 EVERY DAY l ezetimibe 2021-11- No TAKE 1 [facility] (ZETIA) 10 0-03 12-[address] mg tablet 00:00: 00:00 MOUTH Hospit a 00 :00 EVERY DAY l ezetimibe 2021-11- No TAKE 1 [facility] (ZETIA) 10 0-03 12-[address] mg tablet 00:00: 00:00 MOUTH Hospit a 00 :00 EVERY DAY l pravastatin 2021- No TAKE 1 [facility] (PRAVACHOL) 08-[address] 20 MG 00:00: 00:00 MOUTH Hospita tablet 00 :00 EVERY DAY l pravastatin 0 2021- No TAKE 1 [facility] (PRAVACHOL) 08-[address] 20 MG 00:00: 00:00 MOUTH Hospita tablet 00 :00 EVERY DAY l pravastatin 2021- No TAKE 1 [facility] (PRAVACHOL) 08-[address] 20 MG 00:00: 00:00 MOUTH [facility]ospita tablet 00 :00 EVERY DAY l pravastatin 2021- No TAKE 1 [facility] (PRAVACHOL) 08-[address] 20 MG 00:00: 00:00 MOUTH [facility]ospita tablet 00 :00 EVERY DAY l pravastatin 0 2021- No TAKE 1 [facility] (PRAVACHOL) 08-[address] 20 MG 00:00: 00:00 MOUTH [facility]ospita tablet 00 :00 EVERY DAY l pravastatin 2021- No TAKE 1 [facility] (PRAVACHOL) 08-[address] 20 MG 00:00: 00:00 MOUTH [facility]ospita tablet 00 :00 EVERY DAY l Xarelto 20 2021-0 Yes TAKE 1 [facility] mg tablet 7-[address] 00:00: MOUTH [facility]ospita 00 EVERY DAY l Xarelto 20 2021-0 Yes TAKE 1 [facility] mg tablet 7-[address] 00:00: MOUTH [facility]ospita 00 EVERY DAY l Xarelto 20 2021-0 Yes TAKE 1 [facility] mg tablet 7-[address] 00:00: MOUTH [facility]ospita 00 EVERY DAY l Xarelto 20 2021-0 Yes TAKE 1 [facility] mg tablet 7-[address] 00:00: MOUTH [facility]ospita 00 EVERY DAY l Xarelto 20 2021-0 2022- No TAKE 1 [facility] mg tablet 7-14 01-[address] 00:00: 00:00 MOUTH [facility]ospita 00 :00 EVERY DAY l Xarelto 20 2021-0 2022- No TAKE 1 [facility] mg tablet 05-[address] 00:00: 00:00 MOUTH [facility]ospita 00 :00 EVERY DAY l metoprolol 2-0 2022- No 50mg QD Take 50 mg [facility] succinate 05-[address] XL 09:02: 00:00 daily. Hospita (TOPROL-XL) 44 :00 l 50 mg 24 hr tablet metoprolol 2021-0 2022- No 50mg QD Take 50 mg [facility] succinate 05-[address] XL 09:02: 00:00 daily. Hospita (TOPROL-XL) 44 :00 l 50 mg 24 hr tablet metoprolol 2021-0 2022- No 50mg QD Take 50 mg [facility] succinate 05-[address] XL 09:02: 00:00 daily. Hospita (TOPROL-XL) 44 :00 l 50 mg 24 hr tablet metoprolol 2021-0 2022- No 50mg QD Take 50 mg [facility] succinate 05-[address] XL 09:02: 00:00 daily. Hospita (TOPROL-XL) 44 :00 l 50 mg 24 hr tablet metoprolol 2021-0 2022- No 50mg QD Take 50 mg [facility] succinate 05-[address] XL 09:02: 00:00 daily. Hospita (TOPROL-XL) 44 :00 l 50 mg 24 hr tablet metoprolol 2-0 2022- No 50mg QD Take 1 [facility] succinate 05-15 tablet (50 st XL 00:00: 00:00 mg total) Hospita (TOPROL-XL) 00 :00 by mouth l 50 mg 24 hr daily. tablet metoprolol 2-0 2022- No 50mg QD Take 1 [facility] succinate 05-15 tablet (50 st XL 00:00: 00:00 mg total) [facility]ospita (TOPROL-XL) 00 :00 by mouth l 50 mg 24 hr daily. tablet metoprolol 2022-0 2022- No 50mg QD Take 1 [facility] succinate 05-15 tablet (50 st XL 00:00: 00:00 mg total) [facility]ospita (TOPROL-XL) 00 :00 by mouth l 50 mg 24 hr daily. tablet metoprolol 2022-0 2022- No 50mg QD Take 1 [facility] succinate 05-15 tablet (50 st XL 00:00: 00:00 mg total) [facility]ospita (TOPROL-XL) 00 :00 by mouth l 50 mg 24 hr daily. tablet metoprolol 2021- No 50mg QD Take 1 [facility] succinate 05-15 tablet (50 st XL 00:00: 00:00 mg total) Hospita (TOPROL-XL) 00 :00 by mouth l 50 mg 24 hr daily. tablet metoprolol No 50mg QD Take 1 [facility] succinate 05-15 tablet (50 st XL 00:00: 00:00 mg total) Hospita (TOPROL-XL) 00 :00 by mouth l 50 mg 24 hr daily. tablet ezetimibe 2021- No TAKE 1 [facility] (ZETIA) 10 05-13- TABLET BY st mg tablet 00:00: 00:00 MOUTH Hospit a 00 :00 EVERY DAY l ezetimibe 2021- No TAKE 1 [facility] (ZETIA) 10 05-13- TABLET BY st mg tablet 00:00: 00:00 MOUTH Hospit a 00 :00 EVERY DAY l ezetimibe 2021-2021- No TAKE 1 [facility] (ZETIA) 10 05-13- TABLET BY st mg tablet 00:00: 00:00 MOUTH Hospit a 00 :00 EVERY DAY l ezetimibe 2021- No TAKE 1 [facility] (ZETIA) 10 05-13- TABLET BY st mg tablet 00:00: 00:00 MOUTH Hospit a 00 :00 EVERY DAY l ezetimibe 0 2021- No TAKE 1 [facility] (ZETIA) 10 05-13 10-[address] mg tablet 00:00: 00:00 MOUTH Hospit a 00 :00 EVERY DAY l ezetimibe 2021-0 2021- No TAKE 1 [facility] (ZETIA) 10 05-13 10- TABLET BY st mg tablet 00:00: 00:00 MOUTH Hospit a 00 :00 EVERY DAY l pravastatin 2021- No TAKE 1 [facility] (PRAVACHOL) 6-27 09-[address] 20 MG 00:00: 00:00 MOUTH [facility]ospita tablet 00 :00 EVERY DAY l pravastatin 2021- No TAKE 1 [facility] (PRAVACHOL) 05-[address] 20 MG 00:00: 00:00 MOUTH [facility]ospita tablet 00 :00 EVERY DAY l pravastatin 2021- No TAKE 1 [facility] (PRAVACHOL) 05-[address] 20 MG 00:00: 00:00 MOUTH [facility]ospita tablet 00 :00 EVERY DAY l pravastatin 2021- No TAKE 1 [facility] (PRAVACHOL) 05-[address] 20 MG 00:00: 00:00 MOUTH [facility]ospita tablet 00 :00 EVERY DAY l pravastatin 2021- No TAKE 1 [facility] (PRAVACHOL) 05-[address] 20 MG 00:00: 00:00 MOUTH [facility]ospita tablet 00 :00 EVERY DAY l pravastatin 2021- No TAKE 1 [facility] (PRAVACHOL) 05-[address] 20 MG 00:00: 00:00 MOUTH [facility]ospita tablet 00 :00 EVERY DAY l tamsulosin 2021-2021- No .4mg QD Take 0.4 [facility] (FLOMAX) 6- 06-[address] 0.4 mg 10:55: 00:00 mouth Hospita capsule,ext 35 :00 daily. l ended Going to release stop soon 24hr tamsulosin 2021-0 2021- No .4mg QD Take 0.4 [facility] (FLOMAX) 6- 06-[address] 0.4 mg 10:55: 00:00 mouth [facility]ospita capsule,ext 35 :00 daily. l ended Going to release stop soon 24hr tamsulosin 2021-0 2021- No .4mg QD Take 0.4 [facility] (FLOMAX) 6-07 06-[address] 0.4 mg 10:55: 00:00 mouth [facility]ospita capsule,ext 35 :00 daily. l ended Going to release stop soon 24hr tamsulosin 2021-0 2021- No .4mg QD Take 0.4 [facility] (FLOMAX) 6-07 06-[address] 0.4 mg 10:55: 00:00 mouth [facility]ospita capsule,ext 35 :00 daily. l ended Going to release stop soon 24hr tamsulosin 2021- No .4mg QD Take 0.4 [facility] (FLOMAX) 04-[address] 0.4 mg 10:55: 00:00 mouth Hospita capsule,ext 35 :00 daily. l ended Going to release stop soon 24hr [email or web address] 2021- No Take by [facility] NO.10/OMEG3 04-[address] S/LUT/AIMEE 10:55: 00:00 Hospita (I-CAPS 14 :00 l ORAL) [email or web address] 2021- No Take by [facility] NO.10/OMEG3 04-[address] S/LUT/AIMEE 10:55: 00:00 Hospita (I-CAPS 14 :00 l ORAL) [email or web address] 2021- No Take by [facility] NO.10/OMEG3 04-[address] S/LUT/AIMEE 10:55: 00:00 Hospita (I-CAPS 14 :00 l ORAL) [email or web address] 2021- No Take by [facility] NO.10/OMEG3 04-[address] S/LUT/AIMEE 10:55: 00:00 Hospita (I-CAPS 14 :00 l ORAL) [email or web address] 2021- No Take by [facility] NO.10/OMEG3 04-[address] S/LUT/AIMEE 10:55: 00:00 Hospita (I-CAPS 14 :00 l ORAL) furosemide 2022- No 40mg QD Take 1 [facility] (LASIX) 40 04-15 tablet (40 st mg tablet 00:00: 04:59 mg total) Ho spita 00 :00 by mouth l daily. potassium 2022- No 10meq QD Take 1 [facility] chloride 04-15 tablet (10 st (KLOR-CON) 00:00: 04:59 mEq total) Hospita 10 MEQ CR 00 :00 by mouth l tablet daily. furosemide 2021-0 2022- No 40mg QD Take 1 [facility] (LASIX) 40 04-15 06-08 tablet (40 st mg tablet 00:00: 04:59 mg total) Ho spita 00 :00 by mouth l daily. potassium 2021-0 2022- No 10meq QD Take 1 [facility] chloride 04-15 06-08 tablet (10 st (KLOR-CON) 00:00: 04:59 mEq total) Hospita 10 MEQ CR 00 :00 by mouth l tablet daily. furosemide 2021-0 2022- No 40mg QD Take 1 [facility] (LASIX) 40 04-15 06-08 tablet (40 st mg tablet 00:00: 04:59 mg total) Ho spita 00 :00 by mouth l daily. potassium 2021-0 2022- No 10meq QD Take 1 [facility] chloride 04-15-08 tablet (10 st (KLOR-CON) 00:00: 04:59 mEq total) Hospita 10 MEQ CR 00 :00 by mouth l tablet daily. furosemide 2021-0 2022- No 40mg QD Take 1 [facility] (LASIX) 40 04-15-08 tablet (40 st mg tablet 00:00: 04:59 mg total) Ho spita 00 :00 by mouth l daily. potassium 2021-0 2022- No 10meq QD Take 1 [facility] chloride 04-15-08 tablet (10 st (KLOR-CON) 00:00: 04:59 mEq total) Hospita 10 MEQ CR 00 :00 by mouth l tablet daily. furosemide 2021-2022- No 40mg QD Take 1 [facility] (LASIX) 40 04-15 06-08 tablet (40 st mg tablet 00:00: 04:59 mg total) Ho spita 00 :00 by mouth l daily. potassium 2021-0 3- No 10meq QD Take 1 [facility] chloride 04-15 06-08 tablet (10 st (KLOR-CON) 00:00: 04:59 mEq total) Hospita 10 MEQ CR 00 :00 by mouth l tablet daily. furosemide 2021-0 2022- No 40mg QD Take 1 [facility] (LASIX) 40 - 05-16 tablet (40 st mg tablet 00:00: 00:00 mg total) Ho spita 00 :00 by mouth l daily. potassium 2022- No 10meq QD Take 1 [facility] chloride 04-15 05-16 tablet (10 st (KLOR-CON) 00:00: 00:00 mEq total) Hospita 10 MEQ CR 00 :00 by mouth l tablet daily. ezetimibe 2021- No TAKE 1 [facility] (ZETIA) 10 02-07-[address] mg tablet 00:00: 00:00 MOUTH Hospit a 00 :00 EVERY DAY l ezetimibe 2021- No TAKE 1 Metho di (ZETIA) 10 02-07-[address] [facility] tablet 00:00: 00:00 [facility] 00 :00 EVERY DAY l ezetimibe 2021- No TAKE 1 Metho di (ZETIA) 10 02-07-[address] mg tablet 00:00: 00:00 [facility] 00 :00 EVERY DAY l ezetimibe 2021- No TAKE 1 Metho di (ZETIA) 10 02-07-[address] mg tablet 00:00: 00:00 [facility]OU[facility] 00 :00 EVERY DAY l ezetimibe 2021-0 2021- No TAKE 1 Metho di (ZETIA) 10 02-07-[address] [facility] tablet 00:00: 00:00 [facility] 00 :00 EVERY DAY l pravastatin 2021- No TAKE 1 [facility] (PRAVACHOL) 02-[address] 20 MG 00:00: 00:00 MOUTH [facility] tablet 00 :00 EVERY DAY l pravastatin 2021-0 2021- No TAKE 1 [facility] (PRAVACHOL) 02-[address] 20 MG 00:00: 00:00 MOUTH [facility] tablet 00 :00 EVERY DAY l pravastatin 2021-0 2021- No TAKE 1 [facility] (PRAVACHOL) 02-[address] 20 MG 00:00: 00:00 MOUTH [facility] tablet 00 :00 EVERY DAY l pravastatin 2021-0 2021- No TAKE 1 [facility] (PRAVACHOL) 02-[address] 20 MG 00:00: 00:00 MOUTH [facility] tablet 00 :00 EVERY DAY l pravastatin 0 2021- No TAKE 1 [facility] (PRAVACHOL) 02-[address] 20 MG 00:00: 00:[facility] tablet 00 :00 EVERY DAY l Xarelto 20 2021-0 2021- No TAKE 1 [facility] tablet 11-[address] 00:00: 00:[facility] 00 :00 EVERY DAY l Xarelto 20 0 2021- No TAKE 1 [facility] tablet 11-[address] 00:00: 00:[facility] 00 :00 EVERY DAY l Xarelto 20 0 2021- No TAKE 1 [facility] tablet 11-[address] 00:00: 00:00 [facility] 00 :00 EVERY DAY l Xarelto 20 2021-0 2021- No TAKE 1 [facility] tablet 11-[address] 00:00: 00:00 [facility] 00 :00 EVERY DAY l Xarelto 20 2021-0 2021- No TAKE 1 [facility] tablet 11-[address] 00:00: 00:00 [facility] 00 :00 EVERY DAY l pravastatin 2021-0 2021- No TAKE 1 [facility] (PRAVACHOL) 11-[address] 20 MG 00:00: 00:00 [facility] tablet 00 :00 EVERY DAY l pravastatin 2021-0 2021- No TAKE 1 [facility] (PRAVACHOL) 11-[address] 20 MG 00:00: 00:00 [facility] tablet 00 :00 EVERY DAY l pravastatin 2021-0 2021- No TAKE 1 [facility] (PRAVACHOL) 11-[address] 20 MG 00:00: 00:00 [facility] tablet 00 :00 EVERY DAY l pravastatin 2021-0 2021- No TAKE 1 [facility] (PRAVACHOL) 11-[address] 20 MG 00:00: 00:00 [facility] tablet 00 :00 EVERY DAY l pravastatin 2021-0 2021- No TAKE 1 [facility] (PRAVACHOL) 11-[address] 20 MG 00:00: 00:00 [facility] tablet 00 :00 EVERY DAY l metroNIDAZO 2020-11- No [facility] (FLAGYL) 12-10 st 500 MG 00:00: 00:00 [facility]ospita tablet 00 :00 l traMADoL 2020-11- No [facility] (ULTRAM) 50 12-10 st mg tablet 00:00: 00:00 Hospita 00 :00 l metroNIDAZO 2020-11- No [facility] (FLAGYL) 12-10 st 500 MG 00:00: 00:00 [facility]ospita tablet 00 :00 l traMADoL 2020-11- No [facility] (ULTRAM) 50 12-10 st mg tablet 00:00: 00:00 Hospita 00 :00 l metroNIDAZO 2020-11- No [facility] (FLAGYL) 12-10 st 500 MG 00:00: 00:00 [facility]ospita tablet 00 :00 l traMADoL 2020-11- No [facility] (ULTRAM) 50 12-10 st mg tablet 00:00: 00:00 Hospita 00 :00 l metroNIDAZO 2020-11- No [facility] (FLAGYL) 12-10 st 500 MG 00:00: 00:00 [facility]ospita tablet 00 :00 l traMADoL 2020-11- No [facility] (ULTRAM) 50 12-10 st mg tablet 00:00: 00:00 Hospita 00 :00 l metroNIDAZO 2020-11- No [facility] (FLAGYL) 12-10 st 500 MG 00:00: 00:00 [facility]ospita tablet 00 :00 l traMADoL 2020-11- No [facility] (ULTRAM) 50 12-10 06- st mg tablet 00:00: 00:00 Hospita 00 :00 l escitalopra 2020-11 Yes [facility] (LEXAPRO) 1-17 st 10 MG 00:00: Hospita tablet 00 l escitalopra 2020-11 Yes [facility] (LEXAPRO) 1-17 st 10 MG 00:00: Hospita tablet 00 l escitalopra 2020-11 Yes [facility] (LEXAPRO) 11-25 st 10 MG 00:00: Hospita tablet 00 l escitalopra 2020-11 Yes [facility] (LEXAPRO) 11-25 st 10 MG 00:00: Hospita tablet 00 l escitalopra 2020-11 Yes [facility] (LEXAPRO) 11-25 st 10 MG 00:00: Hospita tablet 00 l escitalopra 2020-11- No [facility] di m (LEXAPRO) 11-25- st 10 MG 00:00: 00:00 [facility]ospita tablet 00 :00 l LORAZepam 2020-11- No [facility] (ATIVAN) 11-25-07 st 0.5 MG 00:00: 00:00 [facility]ospita tablet 00 :00 l LORAZepam 2020-11- No [facility] (ATIVAN) 11-25-07 st 0.5 MG 00:00: 00:00 [facility]ospita tablet 00 :00 l LORAZepam 2020-11- No [facility] (ATIVAN) 11-25-07 st 0.5 MG 00:00: 00:00 [facility]ospita tablet 00 :00 l LORAZepam 2020-11- No [facility] (ATIVAN) 11-25 06-07 st 0.5 MG 00:00: 00:00 [facility]ospita tablet 00 :00 l LORAZepam 2020-11- No [facility] (ATIVAN) 11-25-07 st 0.5 MG 00:00: 00:00 [facility]ospita tablet 00 :00 l pioglitazon 2020-11- No [facility] e (ACTOS) 0- st 15 MG 00:00: 00:00 [facility]ospita tablet 00 :00 l pioglitazon 2020-11- No [facility] e (ACTOS) 0- st 15 MG 00:00: 00:00 [facility]ospita tablet 00 :00 l pioglitazon 2020-11- No [facility] (ACTOS) 0-07 st 15 MG 00:00: 00:00 [facility]ospita tablet 00 :00 l pioglitazon 2020-11- No [facility] (ACTOS) 0- st 15 MG 00:00: 00:00 [facility]ospita tablet 00 :00 l pioglitazon 2020-11- No [facility] (ACTOS) 0-04-15 st 15 MG 00:00: 00:00 [facility]ospita tablet 00 :00 l pravastatin 2020-11- No TAKE 1 [facility] (PRAVACHOL) [address] 20 MG 00:00: 00:00 [facility] tablet 00 :00 EVERY DAY l pravastatin 2020-11- No TAKE 1 [facility] (PRAVACHOL) 011-[address] 20 MG 00:00: 00:00 [facility] tablet 00 :00 EVERY DAY l metFORMIN Yes 1000mg Q.5D Take 2 [facility] (GLUCOPHAGE 9-[address] ) 500 mg 00:00: (1,000 mg Hosp enoc tablet 00 total) by l mouth 2 (two) times a day. metFORMIN Yes 1000mg Q.5D Take 2 [facility] (GLUCOPHAGE 9-[address] ) 500 mg 00:00: (1,000 mg [facility]osp [facility] tablet 00 total) by l mouth 2 (two) times a day. metFORMIN Yes 1000mg Q.5D Take 2 [facility] (GLUCOPHAGE 9-[address] ) 500 mg 00:00: (1,000 mg Hosp enoc tablet 00 total) by l mouth 2 (two) times a day. metFORMIN Yes 1000mg Q.5D Take 2 [facility] (GLUCOPHAGE 9-[address] ) 500 mg 00:00: (1,000 mg Hosp enoc tablet 00 total) by l mouth 2 (two) times a day. metFORMIN 0 Yes 1000mg Q.5D Take 2 [facility] (GLUCOPHAGE 9-[address] ) 500 mg 00:00: (1,000 mg Hosp en[facility] tablet 00 total) by l mouth 2 (two) times a day. metFORMIN 0 Yes 1000mg Q.5D Take 2 [facility] (GLUCOPHAGE 9-[address] ) 500 mg 00:00: (1,000 mg [facility]osp [facility] tablet 00 total) by l mouth 2 (two) times a day. Xarelto 20 2021- No TAKE 1 [facility] mg tablet 811-[address] 00:00: 00:00 [facility] 00 :00 EVERY DAY l Xarelto 20 0 2021- No TAKE 1 [facility] mg tablet 07-[address] 00:00: 00:00 [facility] 00 :00 EVERY DAY l Xarelto 20 0 2021- No TAKE 1 [facility] tablet 07-[address] 00:00: 00:00 [facility] 00 :00 EVERY DAY l Xarelto 20 2021- No TAKE 1 [facility] mg tablet 07-[address] 00:00: 00:00 [facility] 00 :00 EVERY DAY l Xarelto 20 2021- No TAKE 1 [facility] mg tablet 07-[address] 00:00: 00:00 [facility] 00 :00 EVERY DAY l ezetimibe 0 2021- No TAKE 1 Metho di (ZETIA) 10 01-21- TABLET BY st mg tablet 00:00: 00:00 [facility]OUTH Hospit a 00 :00 EVERY DAY l ezetimibe 2020-0 2021- No TAKE 1 [facility] di (ZETIA) 10 01-21- TABLET BY st mg tablet 00:00: 00:00 MOUTH Hospit a 00 :00 EVERY DAY l ezetimibe 2020-0 2021- No TAKE 1 [facility] di (ZETIA) 10 01-21- TABLET BY st mg tablet 00:00: 00:00 MOUTH Hospit a 00 :00 EVERY DAY l ezetimibe 2020-0 2021- No TAKE 1 [facility] di (ZETIA) 10 01-21- TABLET BY st mg tablet 00:00: 00:00 MOUTH Hospit a 00 :00 EVERY DAY l ezetimibe 2020-0 2021- No TAKE 1 [facility] di (ZETIA) 10 01-21- TABLET BY st mg tablet 00:00: 00:00 MOUTH Hospit a 00 :00 EVERY DAY l amitriptyli 2020-0 Yes 25mg QD Take 25 mg [facility] ne (ELAVIL) -[address] 25 MG 00:00: nightly. Hospita tablet 00 l amitriptyli 2020-0 Yes 25mg QD Take 25 mg [facility] (ELAVIL) 3-[address] 25 MG 00:00: nightly. [facility]ospita tablet 00 l amitriptyli 2020-0 Yes 25mg QD Take 25 mg [facility] (ELAVIL) 3-[address] 25 MG 00:00: nightly. [facility]ospita tablet 00 l amitriptyli 2020-0 Yes 25mg QD Take 25 mg [facility] (ELAVIL) 3-[address] 25 MG 00:00: nightly. [facility]ospita tablet 00 l amitriptyli 2020-0 Yes 25mg QD Take 25 mg [facility] (ELAVIL) 3-[address] 25 MG 00:00: nightly. [facility]ospita tablet 00 l amitriptyli 2020-0 Yes 25mg QD Take 1 [facility] ne (ELAVIL) 3-17 tablet (25 st 25 MG 00:00: mg total) Hospita tablet 00 by mouth l nightly. ALPRAZolam 2016-11- No [facility] (XANAX) 1 11-22- st MG tablet 00:00: 00:00 Hospita 00 :00 l ALPRAZolam 2016-11- No [facility] (XANAX) 1 11-22-07 st MG tablet 00:00: 00:00 Hospita 00 :00 l ALPRAZolam 2016-11- No [facility] (XANAX) 1 11-22- st MG tablet 00:00: 00:00 Hospita 00 :00 l ALPRAZolam 2016-11- No [facility] (XANAX) 1 11-22- st MG tablet 00:00: 00:00 Hospita 00 :00 l ALPRAZolam 2016-11- No [facility] (XANAX) 1 11-22-07 st MG tablet 00:00: 00:00 Hospita 00 :00 l finasteride 2015-11- No 5mg QD Take 5 mg [facility] (PROSCAR) 5 12-[address] mg tablet 00:00: 00:00 daily. Hospi ta 00 :00 l finasteride 2015-11- No 5mg QD Take 5 mg [facility] (PROSCAR) 5 12-[address] mg tablet 00:00: 00:00 daily. Hospi ta 00 :00 l finasteride 2015-11- No 5mg QD Take 5 mg [facility] (PROSCAR) 5 12-[address] mg tablet 00:00: 00:00 daily. Hospi ta 00 :00 l finasteride 2015-11- No 5mg QD Take 5 mg [facility] (PROSCAR) 5 12-[address] mg tablet 00:00: 00:00 daily. Hospi ta 00 :00 l finasteride 2015-11- No 5mg QD Take 5 mg [facility] (PROSCAR) 5 12-[address] mg tablet 00:00: 00:00 daily. Hospi ta 00 :00 l Vital Signs Vital Name Observation Time Observation Value Comments Source Systolic blood 2023-04-14 13:17:00 146 mm[Hg] [facility] pressure Diastolic blood 2023-04-14 13:17:00 76 mm[Hg] [facility] pressure Heart rate 2023-04-14 13:17:00 140 /min [facility] Body height 2023-04-14 13:17:00 185.4 cm [facility] Body weight 2023-04-14 13:17:00 103.874 kg [facility] BMI 2023-04-14 13:17:00 30.21 kg/m2 [facility] Systolic blood 2022-10-14 15:59:00 162 mm[Hg] [facility] pressure Diastolic blood 2022-10-14 15:59:00 78 mm[Hg] [facility] pressure Heart rate 2022-10-14 15:59:00 105 /min [facility] Body height 2022-10-14 15:59:00 185.4 cm [facility] Body weight 2022-10-14 15:59:00 103.42 kg [facility] BMI 2022-10-14 15:59:00 30.08 kg/m2 [facility] Procedures Procedure Date / Time Performed Performing Clinician [facility] e ECG 12-LEAD 2022-10-14 17:05:37 Sonia Garcia Plan of Care Planned Activity Planned Date Details Comments Source Future Scheduled 2023-06-29 65+ [facility] Test 08:51:48 VACCINE (1 - PCV) [code = 65+ PNEUMOCOCCAL VACCINE (1 - PCV)] Future Scheduled 2023-06-29 DIABETES: RETINAL [facility] 08:51:48 EXAM [code = DIABETES: RETINAL EYE EXAM] Future Scheduled 2023-06-29 DIABETIC FOOT EXAM [facility] 08:51:48 [code = DIABETIC FOOT EXAM] Future Scheduled 2023-06-29 URINE MICROALBUMIN [facility] Test 08:51:48 [code = URINE MICROALBUMIN] Future Scheduled 2023-06-29 SHINGLES VACCINES (1 [facility] 08:51:48 of 2) [code = SHINGLES VACCINES (1 of 2)] Future Scheduled 2023-06-29 COVID-19 VACCINE (3 - [facility] Test 08:51:48 Pfizer series) [code = COVID-19 VACCINE (3 - Pfizer series)] Future Scheduled 2023-06-29 INFLUENZA VACCINE [facility] 08:51:48 [code = INFLUENZA VACCINE] Future Scheduled 2022-11-24 65+ [facility] Test 08:05:58 VACCINE (1 - PCV) [code = 65+ PNEUMOCOCCAL VACCINE (1 - PCV)] Future Scheduled 2022-11-24 DIABETES: RETINAL EYE [facility] Test 08:05:58 EXAM [code = DIABETES: RETINAL EYE EXAM] Future Scheduled 2022-11-24 DIABETIC FOOT EXAM [facility] Test 08:05:58 [code = DIABETIC FOOT EXAM] Future Scheduled 2022-11-24 URINE MICROALBUMIN [facility] Test 08:05:58 [code = URINE MICROALBUMIN] Future Scheduled 2022-11-24 SHINGLES VACCINES (1 [facility] Test 08:05:58 of 2) [code = SHINGLES VACCINES (1 of 2)] Future Scheduled 2022-11-24 COVID-19 VACCINE (3 - [facility] Test 08:05:58 Booster for Pfizer series) [code = COVID-19 VACCINE (3 - Booster for Pfizer series)] Future Scheduled 2022-11-24 INFLUENZA VACCINE [facility] 08:05:58 [code = INFLUENZA VACCINE] Future Scheduled 2022-11-23 65+ [facility] Test 10:38:01 VACCINE (1 - PCV) [code = 65+ PNEUMOCOCCAL VACCINE (1 - PCV)] Future Scheduled 2022-11-23 DIABETES: RETINAL EYE [facility] Test 10:38:01 EXAM [code = DIABETES: RETINAL EYE EXAM] Future Scheduled 2022-11-23 DIABETIC FOOT EXAM [facility] Test 10:38:01 [code = DIABETIC FOOT EXAM] Future Scheduled 2022-11-23 URINE MICROALBUMIN [facility] Test 10:38:01 [code = URINE MICROALBUMIN] Future Scheduled 2022-11-23 SHINGLES VACCINES (1 [facility] Test 10:38:01 of 2) [code = SHINGLES VACCINES (1 of 2)] Future Scheduled 2022-11-23 COVID-19 VACCINE (3 - [facility] Test 10:38:01 Booster for Pfizer series) [code = COVID-19 VACCINE (3 - Booster for Pfizer series)] Future Scheduled 2022-11-23 INFLUENZA VACCINE [facility] Test 10:38:01 [code = INFLUENZA VACCINE] Future Scheduled 2022-11-07 65+ [facility]OC[facility] Test 08:39:13 VACCINE (1 - PCV) [code = 65+ PNEUMOCOCCAL VACCINE (1 - PCV)] Future Scheduled 2022-11-07 DIABETES: RETINAL EYE [facility] Test 08:39:13 EXAM [code = DIABETES: RETINAL EYE EXAM] Future Scheduled 2022-11-07 DIABETIC FOOT EXAM [facility] Test 08:39:13 [code = DIABETIC FOOT EXAM] Future Scheduled 2022-11-07 URINE MICROALBUMIN [facility] Test 08:39:13 [code = URINE MICROALBUMIN] Future Scheduled 2022-11-07 SHINGLES VACCINES (1 [facility] Test 08:39:13 of 2) [code = SHINGLES VACCINES (1 of 2)] Future Scheduled 2022-11-07 COVID-19 VACCINE (3 - [facility] Test 08:39:13 Booster for Pfizer series) [code = COVID-19 VACCINE (3 - Booster for Pfizer series)] Future Scheduled 2022-11-07 INFLUENZA VACCINE [facility] Test 08:39:13 [code = INFLUENZA VACCINE] Future Scheduled 2022-11-07 65+ [facility] Test 08:39:13 VACCINE (1 - PCV) [code = 65+ PNEUMOCOCCAL VACCINE (1 - PCV)] Future Scheduled 2022-11-07 DIABETES: RETINAL EYE [facility] Test 08:39:13 EXAM [code = DIABETES: RETINAL EYE EXAM] Future Scheduled 2022-11-07 DIABETIC FOOT EXAM [facility] Test 08:39:13 [code = DIABETIC FOOT EXAM] Future Scheduled 2022-11-07 URINE MICROALBUMIN [facility] Test 08:39:13 [code = URINE MICROALBUMIN] Future Scheduled 2022-11-07 SHINGLES VACCINES (1 [facility] Test 08:39:13 of 2) [code = SHINGLES VACCINES (1 of 2)] Future Scheduled 2022-11-07 COVID-19 VACCINE (3 - [facility] Test 08:39:13 Booster for Pfizer series) [code = COVID-19 VACCINE (3 - Booster for Pfizer series)] Future Scheduled 2022-11-07 INFLUENZA VACCINE [facility] Test 08:39:13 [code = INFLUENZA VACCINE] Future Scheduled 2022-11-07 65+ [facility] Test 08:39:13 VACCINE (1 - PCV) [code = 65+ PNEUMOCOCCAL VACCINE (1 - PCV)] Future Scheduled 2022-11-07 DIABETES: RETINAL EYE [facility] Test 08:39:13 EXAM [code = DIABETES: RETINAL EYE EXAM] Future Scheduled 2022-11-07 DIABETIC FOOT EXAM [facility] Test 08:39:13 [code = DIABETIC FOOT EXAM] Future Scheduled 2022-11-07 URINE MICROALBUMIN [facility] Test 08:39:13 [code = URINE MICROALBUMIN] Future Scheduled 2022-11-07 SHINGLES VACCINES (1 [facility] Test 08:39:13 of 2) [code = SHINGLES VACCINES (1 of 2)] Future Scheduled 2022-11-07 COVID-19 VACCINE (3 - [facility] Test 08:39:13 Booster for Pfizer series) [code = COVID-19 VACCINE (3 - Booster for Pfizer series)] Future Scheduled 2022-11-07 INFLUENZA VACCINE [facility] Test 08:39:13 [code = INFLUENZA VACCINE] Encounters Start End Encounter Admission Attending Care Care Encounter Source Date/Time Date/Time Type Type Clinicians Facility Department ID 2023-01-23 Outpatient Dang [facility] [id number] 2 Common 11:16:01 New [id number] [facility] 2023-06-29 2023-06-29 Telephone Ayla, 1.2.840.1 [id number] [facility] 00:00:00 00:00:[address] 3.430.2.7 Hospit a .3.339438 l .8 2023-06-20 2023-06-20 Refill Syl, 1.2.840.1 [id number] [facility] 00:00:00 00:00:00 S[address]29[address] 3.430.2.7 Hospit a .3.612873 l .8 2023-04-14 2023-04-14 Office Syl, 1.2.840.1 [id number] [facility] 08:20:00 12:05:07 Visit Sonia Sanon 78819.1.[address] 3.430.2.7 Hospit a .3.245160 l .8 2023-04-14 2023-04-14 Outpatient [facility] [id number] 00:00:00 00:00:00 SONIA [address] 2023-04-14 2023-04-14 Travel 1.2.840.1 1.2.729.561 [id number] [facility] 00:00:00 00:00:[address] 3.430.2.7 0.2.7.3.698 spita .3.044457 084.8 l .8 2023-03-26 2023-03-26 Telephone Syl, 1.2.840.1 [id number] [facility] 00:00:00 00:00:00 Sonia [address] 3.430.2.7 Hospit a .3.982823 l .8 2023-03-23 2023-03-23 Refill Syl, 1.2.840.1 [id number] [facility] 00:00:00 00:00:00 S[address] 3.430.2.7 Hospit a .3.614752 l .8 2022-12-09 2022-12-09 Refill Garcia, 1.2.840.1 [id number] [facility] 00:00:00 00:00:00 S[address] 3.430.2.7 Hospit a .3.370587 l .8 2022-11-23 2022-11-23 Refill Garcia, 1.2.840.1 [id number] [facility]i 00:00:00 00:00:00 S[address] 3.430.2.7 Hospit a .3.889812 l .8 2022-11-23 2022-11-23 Refill Garcia, 1.2.840.1 [id number] [facility]i 00:00:00 00:00:00 S[address] 3.430.2.7 Hospit a .3.589979 l .8 2022-11-07 2022-11-07 Refill Garcia, 1.2.840.1 [id number] Methodi 00:00:00 00:00:00 Sonia [address] 3.430.2.7 Hospit a .3.389740 l .8 2022-11-07 2022-11-07 Refill Garcia, 1.2.840.1 [id number] Methodi 00:00:00 00:00:00 S[address] 3.430.2.7 Hospit a .3.458962 l .8 2022-10-31 2022-10-31 Refill Garcia, 1.2.840.1 [id number] Methodi 00:00:00 00:00:00 S[address] 3.430.2.7 Hospit a .3.895411 l .8 2022-10-31 2022-10-31 Refill Garcia, 1.2.840.1 [id number] [facility]i 00:00:00 00:00:00 Sonia [address] 3.430.2.7 Hospit a .3.948415 l .8 2022-10-14 2022-10-14 Office Garcia, 1.2.840.1 [id number] Methodi 09:50:00 15:11:36 Visit Sonia R. 88411.1.[address] 3.430.2.7 Hospit a .3.162152 l .8 2022-10-14 2022-10-14 Office Garcia, 1.2.840.1 [id number] Methodi 09:50:00 15:11:36 Visit Sonia R. 80684.1.[address] 3.430.2.7 Hospit a .3.418893 l .8 2022-10-14 2022-10-14 Travel 1.2.840.1 1.2.239.370 [id number] [facility] 00:00:00 00:00:[address] 3.430.2.7 0.2.7.3.698 Ho spita .3.950981 084.8 l .8 2022-10-14 2022-10-14 Travel 1.2.840.1 1.2.033.814 [id number] Methodi 00:00:00 00:00:[address] 3.430.2.7 0.2.7.3.698 Ho spita .3.095793 084.8 l .8 2022-08-10 2022-08-10 Refill Garcia, 1.2.840.1 [id number] Methodi 00:00:00 00:00:00 S[address] 3.430.2.7 Hospit a .3.387063 l .8 2022-08-10 2022-08-10 Refill Garcia, 1.2.840.1 [id number] Methodi 00:00:00 00:00:00 S[address] 3.430.2.7 Hospit a .3.618490 l .8 2022-08-02 2022-08-02 Refill Syl, 1.2.840.1 [id number] Methodi 00:00:00 00:00:00 S[address] 3.430.2.7 Hospit a .3.326033 l .8 2022-08-02 2022-08-02 Refill Syl, 1.2.840.1 [id number] Methodi 00:00:00 00:00:00 S[address] 3.430.2.7 Hospit a .3.996487 l .8 2022-05-22 2022-05-22 Refill Syl, 1.2.840.1 [id number] Methodi 00:00:00 00:00:00 S[address] 3.430.2.7 Hospit a .3.362581 l .8 2022-05-15 2022-05-15 Refill Marleny, 1.2.840.1 [id number] Methodi 00:00:00 00:00:[address] 3.430.2.7 Hospit a .3.643829 l .8 2022-05-10 2022-05-10 Refill Syl, 1.2.840.1 [id number] Methodi 00:00:00 00:00:00 S[address] 3.430.2.7 Hospit a .3.252064 l .8 2022-05-05 2022-05-05 Refill Syl, 1.2.840.1 [id number] Methodi 00:00:00 00:00:00 S[address] 3.430.2.7 Hospit a .3.750070 l .8 2022-04-15 2022-04-15 Thang Garcia, 1.2.840.1 [id number] Methodi 09:45:00 14:59:36 Visit Sonia R. 70768.1.[address] 3.430.2.7 Hospit a .3.925081 l .8 2022-04-15 2022-04-15 Travel 1.2.840.1 1.2.116.294 [id number] Methodi 00:00:00 00:00:[address] 3.430.2.7 0.2.7.3.698 Ho spita .3.394858 084.8 l .8 2022-02-07 2022-02-07 Refill Syl, 1.2.840.1 [id number] Methodi 00:00:00 00:00:00 Sonia [address] 3.430.2.7 Hospit a .3.614801 l .8 2022-02-04 2022-02-04 Refill Syl, 1.2.840.1 [id number] [facility]i 00:00:00 00:00:00 S[address] 3.430.2.7 Hospit a .3.667845 l .8 2021-11-25 2021-11-25 Refill Garcia, 1.2.840.1 [id number] Methodi 00:00:00 00:00:00 S[address] 3.430.2.7 Hospit a .3.221023 l .8 2021-11-12 2021-11-12 Refill Syl, 1.2.840.1 [id number] Methodi 00:00:00 00:00:00 S[address] 3.430.2.7 Hospit a .3.785090 l .8 2021-10-15 2021-10-15 Outpatient [facility] [id number] [address] [place] [address] 00:00:00 00:00:00 SONIA [address] 2021-04-16 2021-04-16 Outpatient [facility] [id number] 00:00:00 00:00:00 SONIA [address] 2020-09-25 2020-09-25 Outpatient [facility] [id number] 00:00:00 00:00:00 SONIA [address] 2020-04-03 2020-04-03 Outpatient [facility] [id number] 00:00:00 00:00:00 SONIA [address] Results Test Description Test Time Test Comments Results Result Comments Source ECG 12 lead 2022-10-14 16:42:37 Test Item Value Reference Range Interpretation Comme nts Ventricular rate (test code = 253) 97 Atrial rate (test code = 255) 98 QRSD interval (test code = 260) 150 QT interval (test code = 264) 396 QTC interval (test code = 265) 502 QRS axis 1 (test code = 268) -40 T wave axis (test code = 270) 15 EKG impression (test code = 273) Atrial fibrillation with premature ventricular or aberrantly conducted complexes-Left axis deviation-Right bundle branch block-Possible Inferior infarct , age undetermined-Abnormal ECG-In automated comparison with ECG of 16-APR-2021 14:14,-QRS axis shifted left- [address]2022-12-06 16:42:37 Test Item Value Reference Range Interpretation Comments Ventricular rate (test code = 253) Atrial rate (test code = 255) QRSD interval (test code = 260) QT interval (test code = 264) QTC interval (test code = 265) QRS axis 1 (test code = 268) T wave axis (test code = 270) EKG impression (test Atrial fibrillation code = 273) with premature ventricular or aberrantly conducted complexes-Left axis deviation-Right bundle branch block-Possible Inferior infarct , age undetermined-Abnormal ECG-In automated comparison with ECG of 16-APR-2021 14:14,-QRS axis shifted left- [address]2022-12-06 16:42:37 Test Item Value Reference Range Interpretation Comments Ventricular rate (test code = 253) Atrial rate (test code = 255) QRSD interval (test code = 260) QT interval (test code = 264) QTC interval (test code = 265) QRS axis 1 (test code = 268) T wave axis (test code = 270) EKG impression (test Atrial fibrillation code = 273) with premature ventricular or aberrantly conducted complexes-Left axis deviation-Right bundle branch block-Possible Inferior infarct , age undetermined-Abnormal ECG-In automated comparison with ECG of 16-APR-2021 14:14,-QRS axis shifted left- [address]2022-12-06 16:42:37 Test Item Value Reference Range Interpretation Comments Ventricular rate (test code = 253) Atrial rate (test code = 255) QRSD interval (test code = 260) QT interval (test code = 264) QTC interval (test code = 265) QRS axis 1 (test code = 268) T wave axis (test code = 270) EKG impression (test Atrial fibrillation code = 273) with premature ventricular or aberrantly conducted complexes-Left axis deviation-Right bundle branch block-Possible Inferior infarct , age undetermined-Abnormal ECG-In automated comparison with ECG of 16-APR-2021 14:14,-QRS axis shifted left- [address]2022-12-06 16:42:37 Test Item Value Reference Range Interpretation Comments Ventricular rate (test code = 253) Atrial rate (test code = 255) QRSD interval (test code = 260) QT interval (test code = 264) QTC interval (test code = 265) QRS axis 1 (test code = 268) T wave axis (test code = 270) EKG impression (test Atrial fibrillation code = 273) with premature ventricular or aberrantly conducted complexes-Left axis deviation-Right bundle branch block-Possible Inferior infarct , age undetermined-Abnormal ECG-In automated comparison with ECG of 16-APR-2021 14:14,-QRS axis shifted left- [address]2022-12-06 16:42:37 Test Item Value Reference Range Interpretation Comments Ventricular rate (test code = 253) Atrial rate (test code = 255) QRSD interval (test code = 260) QT interval (test code = 264) QTC interval (test code = 265) QRS axis 1 (test code = 268) T wave axis (test code = 270) EKG impression (test Atrial fibrillation code = 273) with premature ventricular or aberrantly conducted complexes-Left axis deviation-Right bundle branch block-Possible Inferior infarct , age undetermined-Abnormal ECG-In automated comparison with ECG of 16-APR-2021 14:14,-QRS axis shifted left- [facility]
[2023-06-30 03:49] LABS: Absolute Lymphocytes (CBC) 2.5 K/uL (0.7-4.9); Lymphocytes % 15.3 % (15.3-44.8); MCV 86.4 fL (80-100); MPV 11.6 fL (7.6-11.3); Platelets 95 thou/uL (152-406); Protime INR 2.62; RBC Red Blood Cell Count 4.97 M/uL (4.33-5.43)
[2023-06-30 04:04] LABS: Albumin 3.7 g/dL (3.4-5.0); Bilirubin Direct 0.5 mg/dL (0-0.2)
[2023-06-30 04:21] LABS: Bilirubin Indirect, Calculated 1.4 mg/dL (0.2-0.8); Bilirubin Total 1.9 mg/dL (0.2-1.0); Troponin High Sensitivity 7.9 pg/mL (<58.9)
[2023-06-30 04:41] LABS: Blood Morphology Comment NOT SEEN (NOT SEEN); Platelet Estimate DECR; White Blood Cell Scan OK (OK)
--- NOTE | 2023-06-30 05:07 | ER ---
Nurse's Notes [facility] Name: Quintin Stauffer Age: 82 yrs Sex: Male : 1940 Arrival Date: 06/30/2023 Time: 03:07 Bed 3 Private MD: Diagnosis: Fall, abdominal contusion/ecchymosis Presentation: 06/30 03:16 Chief complaint: EMS states: toned out for same level fall. abrasion noted to right lg3 hip. BGL [address] FORMER. Pt AAOX2 baseline. denies pain at this time. Coronavirus screen: Client denies travel out of the [place] in the last 14 days. At this time, the client does not indicate any symptoms associated with coronavirus-19. Ebola Screen: No symptoms or risks identified at this time. Initial Sepsis Screen: Does the patient meet any 2 criteria? No. Patient's initial sepsis screen is negative. Does the patient have a suspected source of infection? No. Patient's initial sepsis screen is negative. Risk Assessment: Do you want to hurt yourself or someone else? Patient reports no desire to harm self or others. Onset of symptoms was June 30, 2023. 03:16 Method Of Arrival: EMS: [facility] lg3 03:16 Acuity: JIMMY 3 lg3 Triage Assessment: 03:22 General: Appears in no apparent distress. comfortable, Behavior is calm, cooperative. lg3 Pain: Denies pain. EENT: No deficits noted. No signs and/or symptoms were reported regarding the EENT system. Neuro: No deficits noted. Martinez Agitation-Sedation Scale (RASS): 0 - Alert and Calm Level of Consciousness is awake, alert, obeys commands, Oriented to person. Cardiovascular: No deficits noted. Denies chest pain, shortness of breath, Capillary refill < 3 seconds Clubbing of nail beds is absent JVD is absent Patient's skin is warm and dry. Rhythm is atrial fibrillation. Respiratory: No deficits noted. Airway is patent Respiratory effort is even, unlabored, Respiratory pattern is regular, symmetrical. GI: No deficits noted. No signs and/or symptoms were reported involving the gastrointestinal system. Abdomen is round non-distended. : No deficits noted. No signs and/or symptoms were reported regarding the genitourinary system. Derm: Skin is intact, is healthy with good turgor, Skin is dry, Skin is normal, Skin temperature is warm Wound noted abrasion noted to right hip with bruising. Musculoskeletal: No signs and/or symptoms reported regarding the musculoskeletal system. Circulation, motion, and sensation intact. Range of motion: intact in all extremities. Historical: - Allergies: 03: Codeine; lg3 - Home Meds: 03: metoprolol succinate 100 mg oral Tablet, Extended Release 24 hr [Active]; ezetimibe 10 lg3 mg Oral 1 tab once daily [Active]; Xarelto 20 mg Oral tab 1 tab once daily [Active]; pravastatin 20 mg oral tablet daily [Active]; glipizide 5 mg Oral tablet daily [Active]; metformin 500 mg Oral tablet daily [Active]; furosemide 40 mg Oral tablet daily [Active]; Klor-Con 10 10 mEq Oral tablet, extended release daily [Active]; escitalopram oxalate 20 mg oral tablet daily [Active]; temazepam 30 mg Oral capsule every day at bedtime [Active]; - PMHx: : CAD; Dementia; Diabetes - NIDDM; Hyperlipidemia; Hypertension; afib; lg3 - PSHx: : Cholecystectomy; lg3 - Immunization history:: Adult Immunizations up to date, Client reports receiving the 2nd dose of the Covid vaccine, Flu vaccine is up to date. - Social history:: Smoking status: Patient denies any tobacco usage or history of. Patient/guardian denies using alcohol, street drugs. Screenin:27 [facility] ED Fall Risk Assessment (Adult) History of falling in the last 3 months, lg3 including since admission Yes- single mechanical fall (1 pt) Confusion or Disorientation Yes (5 pts) Intoxicated or Sedated No (0 pts) Impaired Gait Yes (1 pt) Mobility Assist Device Used Yes (1 pt) Altered Elimination No (0 pt) Score/Fall Risk Level 3 or more points = High Risk Oriented to surroundings, Maintained a safe environment, Educated pt \\T\\ family on fall prevention, incl call for assistance when getting out of bed, Assessed \\T\\ reinforced patient's understanding of fall precautions, Provided non-skid footwear, Utilized family, sitter, or virtual process mechanic as indicated. Abuse screen: Denies threats or abuse. Denies injuries from another. Nutritional screening: No deficits noted. Tuberculosis screening: No symptoms or risk factors identified. Assessment: 03:27 General: see triage assessment . lg3 04:32 General: Pt's stated that the patient was asking to go home so she felt it would kd3 be best to wait in the waiting room. When asked if the patient would try to stand up from the stretcher, His stated "He might. He is trying to pull himself up now." Pt moved closer to nursing station. . Neuro: Level of Consciousness is awake, alert, obeys commands, Oriented to person. Cardiovascular: Patient's skin is warm and dry. Respiratory: Airway is patent Trachea midline Respiratory effort is even, unlabored, Respiratory pattern is regular, symmetrical. 04:33 Reassessment: Patient appears in no apparent distress at this time. No changes from lg3 previously documented assessment. Patient and/or family updated on plan of care and expected duration. Pain level reassessed. Patient is alert, oriented x 3, equal unlabored respirations, skin warm/dry/pink. Vital Signs: 03:16 BP 126 / 93; Pulse 87; Resp 15 S; Temp 97.8(O); Pulse Ox 93% on R/A; Weight 103 kg (M); lg3 Height 5 ft. 9 in. (R); 04:32 BP 99 / 56; Pulse 86; Resp 18 S; Pulse Ox 97% ; kd3 03:16 Body Mass Index 33.53 (103.00 kg, 175.26 cm) lg3 ED Course: 03:10 Patient arrived in ED. kl 03:11 Cynthia Ross MD is Attending Physician. sp3 03:15 Katie Reynaga, RN is Primary Nurse. kd3 03:15 Inserted saline lock: 20 gauge in right antecubital area, using aseptic technique. kd3 Blood collected. 03:22 Triage completed. lg3 03:22 Basic Metabolic Panel Sent. jw7 03:22 CBC with Diff Sent. jw7 03:22 Type And Screen Sent. jw7 03:22 LFT's Sent. jw7 03:22 PT-INR Sent. jw7 03:22 Troponin High Sensitivity Sent. jw7 03:22 Arm band placed on right wrist. lg3 03:23 EKG done, by ED staff, reviewed by Cynthia Ross MD. jw7 03:27 Patient has correct armband on for positive identification. Placed in gown. Bed in low lg3 position. Call light in reach. Side rails up X2. Client placed on continuous cardiac and pulse oximetry monitoring. NIBP monitoring applied. patient monitor on. Door closed. Noise minimized. Warm blanket given. Family accompanied patient. 04:18 CT Traumagram (Head C Spine CAP W Con) In Process Unspecified. EDMS 04:32 No provider procedures requiring assistance completed. kd3 04:32 Provided Education on: fall precautions . kd3 05:31 IV discontinued, intact, bleeding controlled, No redness/swelling at site. Pressure kd3 dressing applied. Administered Medications: No medications were administered Medication: 04:32 VIS not applicable for this client. kd3 Outcome: 05:06 Discharge ordered by . sp3 05:31 Discharged to home via wheelchair. kd3 05:31 Condition: stable 05:31 Discharge instructions given to patient, family, Instructed on discharge instructions, follow up and referral plans. Demonstrated understanding of instructions, follow-up care. 05:32 Patient left the ED. kd3 Signatures: Dispatcher [employer] EDIN Mary Beth Mercer, RN RN Estee Best RN RN lg3 Cynthia Ross MD MD sp3 Katie Reynaga RN RN kd3 Kayla Choe, RN RN jw7
--- NOTE | 2023-06-30 05:07 | EDPHYS ---
Physician Documentation [facility] Name: Quintin Stauffer Age: 82 yrs Sex: Male : 1940 Arrival Date: 06/30/2023 Time: 03:07 Bed 3 Private MD: ED Physician Cynthia Ross HPI: 06/30 03:44 This 82 yrs old Male presents to ER via EMS with complaints of Fall, abdominal bruising.sp3 03:44 82-year-old male with history of dementia, CAD, diabetes, hyperlipidemia, hypertension, sp3 atrial fibrillation currently on Xarelto now presents to the ED with chief complaint unwitnessed fall and abdominal bruising. Patient's states that he stepped outside to get some air and then he yelled out her name due to him falling. She does not suspect significant head injury but is concerned that he "may have had a stroke". There are no changes to his baseline orientation of person but not time or place. Patient has no complaints and is speaking in full sentences. Blood sugar 189 for EMS. No focal deficits for them. ROS is limited secondary to dementia.. Historical: - Allergies: 03:22 Codeine; lg3 - Home Meds: 03:22 metoprolol succinate 100 mg oral Tablet, Extended Release 24 hr [Active]; ezetimibe 10 lg3 mg Oral 1 tab once daily [Active]; Xarelto 20 mg Oral tab 1 tab once daily [Active]; pravastatin 20 mg oral tablet daily [Active]; glipizide 5 mg Oral tablet daily [Active]; metformin 500 mg Oral tablet daily [Active]; furosemide 40 mg Oral tablet daily [Active]; Klor-Con 10 10 mEq Oral tablet, extended release daily [Active]; escitalopram oxalate 20 mg oral tablet daily [Active]; temazepam 30 mg Oral capsule every day at bedtime [Active]; - PMHx: 03:22 CAD; Dementia; Diabetes - NIDDM; Hyperlipidemia; Hypertension; afib; lg3 - PSHx: 03:22 Cholecystectomy; lg3 - Immunization history:: Adult Immunizations up to date, Client reports receiving the 2nd dose of the Covid vaccine, Flu vaccine is up to date. - Social history:: Smoking status: Patient denies any tobacco usage or history of. Patient/guardian denies using alcohol, street drugs. ROS: 03:46 Unable to obtain ROS due to baseline dementia. sp3 Exam: 03:47 Constitutional: This is a well developed, well nourished patient who is awake, alert, sp3 and in no acute distress. Head/Face: Normocephalic, atraumatic. Eyes: Pupils equal round and reactive to light, extra-ocular motions intact. Lids and lashes normal. Conjunctiva and sclera are non-icteric and not injected. Cornea within normal limits. Periorbital areas with no swelling, redness, or edema. ENT: Nares patent. No nasal discharge, no septal abnormalities noted. External auditory canals are clear. Oropharynx with no redness, swelling, or masses, exudates, or evidence of obstruction, uvula midline. Mucous membranes moist. Neck: Trachea midline, no thyromegaly or masses palpated, and no cervical lymphadenopathy. Supple, full range of motion without nuchal rigidity, or vertebral point tenderness. No Meningismus. Chest/axilla: Normal chest wall appearance and motion. Nontender with no deformity. No lesions are appreciated. Cardiovascular: Regular rate and rhythm with a normal S1 and S2. No gallops, murmurs, or rubs. Normal PMI, no JVD. No pulse deficits. Respiratory: Lungs have equal breath sounds bilaterally, clear to auscultation and percussion. No rales, rhonchi or wheezes noted. No increased work of breathing, no retractions or nasal flaring. Back: No spinal tenderness. No costovertebral tenderness. Full range of motion. Skin: Warm, dry with normal turgor. Normal color with no rashes, no lesions, and no evidence of cellulitis. MS/ Extremity: Pulses equal, no cyanosis. Neurovascular intact. Full, normal range of motion. Psych: Awake, alert, with orientation to person, place and time. Behavior, mood, and affect are within normal limits. 03:47 Abdomen/GI: There is some bruising in the right lower quadrant with no peritoneal signs, rebound or guarding noted.. 03:47 Neuro: No focal deficits noted.. 03:48 ECG was reviewed by the Attending Physician. EKG demonstrates atrial fibrillation at 89 sp3 bpm with multiple PVCs, right bundle branch block, nonspecific diffuse ST/T changes without evidence of acute ischemia. Vital Signs: 03:16 BP 126 / 93; Pulse 87; Resp 15 S; Temp 97.8(O); Pulse Ox 93% on R/A; Weight 103 kg (M); lg3 Height 5 ft. 9 in. (R); 04:32 BP 99 / 56; Pulse 86; Resp 18 S; Pulse Ox 97% ; kd3 03:16 Body Mass Index 33.53 (103.00 kg, 175.26 cm) lg3 MDM: 03:11 Patient medically screened. sp3 03:47 Data reviewed: vital signs, nurses notes, EMS record, lab test result(s), EKG, sp3 radiologic studies. ED course: 82-year-old male with ground-level fall with low likelihood of significant head injury or other injury. Patient is on Xarelto and has right lower quadrant abdominal bruising. We will obtain traumagram here head, C-spine, chest abdomen and pelvis. Vital signs are normal. There are no other signs of significant traumatic injury. Patient's neurological status is at baseline. No focal deficits noted. If work-up is negative, we will safely discharge patient home. I am also not suspecting any infection, acute coronary syndrome, PE, CVA, or any other concerning pathological process.. 05:05 ED course: Traumagram demonstrates no significant acute abnormality. In determinate age sp3 type II odontoid fracture noted however states that this is old and he has already had repair with anterior surgical approach. Patient has no neck pain, neurological symptoms or any other neck related pathology clinically or on radiographic examination. Laboratory values within normal limits. Mild leukocytosis without evidence of acute infection noted. We will safely discharge patient home at this time.. 06/30 03:13 Order name: Basic Metabolic Panel; Complete Time: 05:00 sp3 06/30 03:13 Order name: CBC with Diff; Complete Time: 05:00 sp3 06/30 03:13 Order name: Type And Screen sp3 06/30 03:13 Order name: Troponin High Sensitivity; Complete Time: 05:00 sp3 06/30 03:13 Order name: PT-INR; Complete Time: 05:00 sp3 06/30 03:13 Order name: LFT's; Complete Time: 05:00 sp3 06/30 03:25 Order name: Glucose, Ancillary Testing; Complete Time: 05:00 EDMS 06/30 03:56 Order name: CBC Smear Scan; Complete Time: 05:00 EDMS 06/30 04:34 Order name: CREATININE WHOLE BLOOD; Complete Time: 05:00 EDMS 06/30 03:13 Order name: CT Traumagram (Head C Spine CAP W Con) sp3 06/30 03:13 Order name: EKG; Complete Time: 03:14 sp3 06/30 03:13 Order name: Labs collected and sent; Complete Time: 03:22 sp3 06/30 03:13 Order name: EKG - Nurse/Tech; Complete Time: 03:22 sp3 06/30 03:13 Order name: NPO; Complete Time: 03:23 sp3 Administered Medications: No medications were administered Disposition Summary: 06/30/23 05:06 Discharge Ordered Location: Home sp3 Condition: Stable sp3 Diagnosis - Fall, abdominal contusion/ecchymosis sp3 Discharge Instructions: - Discharge Summary Sheet sp3 - Fall Prevention in the Home, Adult sp3 Forms: - Medication Reconciliation Form sp3 - Thank You Letter sp3 - Antibiotic Education sp3 - Prescription Opioid Use sp3 - Patient Portal Instructions sp3 - Leadership Thank You Letter sp3 Signatures: Dispatcher [employer] Estee Kelly RN RN lg3 Cynthia Ross MD MD sp3
[2023-06-30 05:50] VITALS: TEMP 97.8
[2023-06-30 05:55] VITALS: BP 99/56; O2SAT 97
--- NOTE | 2023-06-30 11:03 | RAD REPORT ---
EXAM DESCRIPTION: CT - Head C Spine Cap W Con - 06/30/2023 6:10 am CLINICAL HISTORY: TRAUMA, FALL COMPARISON: 01/23/2023 TECHNIQUE: Axial CT of the head obtained from the skull apex to the skull base without contrast. Axi al CT images of the cervical spine obtained from the skull base through the thoracic inlet. Sagittal and coronal reformatted images available. CT of the chest, abdomen, and pelvis obtained following the intravenous administration of iodinated contrast. This exam was performed according to our [facility] dose-optimization program, which includes automated exposure control, adjustment of the mA and/or kV according to patient size and/or use of iterative reconstruction technique. FINDINGS: CT head: No acute intracranial hemorrhage identified. No mass, mass effect, shift of the midline, abnormal ext ra-axial fluid collection or CT evidence of acute ischemic change identified. The ventricular system and sulcal spaces are mildly enlarged compatible with mild cerebral atrophy. Scattered areas of hyp odensity throughout the supratentorial white matter are nonspecific and may be related to chronic sma ll vessel ischemic change. The visualized paranasal sinuses and mastoid air cells are well aerated. No skull fracture identifi ed. Visualized orbits and globes are unremarkable. Atherosclerotic calcification of the intracranial internal carotid arteries. Cervical CT: Age-indeterminate type II odontoid process fracture. Minimal retrolisthesis odontoid process relative to the body of C2 vertebrae. ACDF at C3-C6. Osteopenia. Minimal anterolisthesis of C7 over T1 1 is l ikely degenerative. The atlantoaxial, atlantodental, and occipitoatlantal intervals are preserved. No fracture identified. Vertebral body height preserved. Prevertebral soft tissues are unremarkable . Severe disc height narrowing at C2/3 and C6/7. Multilevel endplate spondylosis, uncovertebral spurrin g and facet arthropathy. Visualized skull base is intact. No fracture of the visualized facial bones. Visualized mastoid air c ells and paranasal sinuses are well aerated. No cervical lymphadenopathy. Chest: Thyroid: No abnormalities of the visualized thyroid. Great Vessels: Great vessels have normal anatomic configuration. Thoracic Aorta: Atherosclerotic calcification of thoracic aorta. Pulmonary arteries: No central filling defects. Heart: Coronary artery atherosclerosis. Cardiomegaly. Prior median sternotomy. Lymph Nodes: No enlarged mediastinal lymph nodes identified. Esophagus: No abnormalities of the esophagus identified Other: No additional findings. Lungs: Respiratory motion artifact. Bilateral dependent atelectasis. No confluent airspace consolidat ion. Pleura: No pleural effusion or pneumothorax. Trachea/Airways: No abnormalities of the visualized trachea or airways. Abdomen: Liver: The liver has normal size and decreased density. No intrahepatic mass or biliary dilatation. Gallbladder: Prior cholecystectomy. Spleen, Pancreas, and Adrenal Glands: The spleen, pancreas, and adrenal glands are unremarkable. Kidneys: Stable mild prominence of the left renal collecting system. No right-sided hydronephrosis. Right renal cyst. No follow-up imaging for this structure recommended. Vasculature: Aortoiliac atherosclerosis. IVC is unremarkable. The portal vein is patent. The proxim al visceral and renal arteries are patent. Stomach: The stomach and duodenum have normal course. Other: No free intraperitoneal air. No free fluid or lymphadenopathy. Pelvis: Bladder: Urinary bladder is unremarkable. Bowel: No dilated loops of large or small bowel. Scattered diverticula of the colon. Moderate amoun t stool.. Appendix: Normal appendix. Pelvis: Prostate is not enlarged. Bones: Multilevel degenerative endplate spondylosis, disc height narrowing, and facet arthropathy. IMPRESSION: 1. No acute intracranial abnormality. 2. Age-indeterminate type II odontoid process fracture. Minimal retrolisthesis of C2 relative to th e body of C2. MRI could provide additional characterization. 3. No acute traumatic process identified in the chest, abdomen, or pelvis. 4. Hepatic steatosis. 5. Diverticulosis without evidence of acute diverticulitis. 6. Cardiomegaly with coronary artery atherosclerosis. Electronically signed by: Reinaldo Arboleda 06/30/2023 5:00 AM CDT Due to temporary technical issues with the PACS/Fluency reporting system, reports are being signed by the in house radiologists without review as a courtesy to insure prompt reporting. The interpreting radiologist is fully responsible for the content of the report.
--- NOTE | 2023-06-30 15:50 | EKG ---
Test Date: 2023-06-30 Test Time: 03:18:48 Aquatics Coordinator: CHACHA MEASUREMENT RESULTS: Intervals: Rate: 89 CA: QRSD: 148 QT: 404 QTc: 491 [place]: P: CA: QRS: 86 T: 5 INTERPRETIVE STATEMENTS: Atrial fibrillation with premature ventricular or aberrantly conducted complexes Right bundle branch block Abnormal ECG Compared to ECG 08/29/2021 09:40:38 No significant changes Electronically Signed On 06-30-23 15:50:11 CDT by Venkat Centeno
== END 2023-06-30 05:32 | disposition home or self-care (01) ==
LOC: ER 03:07
DX: S30.1XXA Contusion of abdominal wall, initial encounter (principal); W18.30XA Fall on same level, unspecified, initial encounter; I48.91 Unspecified atrial fibrillation; Z79.01 Long term (current) use of anticoagulants; E11.9 Type 2 diabetes mellitus without complications; I10 Essential (primary) hypertension; F03.90 Unspecified dementia, unspecified severity, without behavioral disturbance, psychotic disturbance, mood disturbance, and anxiety; Z88.5 Allergy status to narcotic agent
CPT/HCPCS: 93005; 85025; 80048; 36415; 86900; 86850; 85610; 82565; 86901; 82947; 80076; 84484; 70450; 72125; 71260; 74177; 99284; Q9967

== ENCOUNTER 2023-10-02 16:44 | Emergency (ER) | payer OTHER ==
--- OUTSIDE RECORDS SUMMARY | 2023-10-02 16:48 | XMS REPORT | Continuity of Care Document ---
:[address] [facility] t Address 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 00:00: Hospit a with with 00 l complicati complicati on, on, without without long-term long-term current current use of use of insulin insulin 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 2 st 00:00: Hospita 00 l 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 00:00: Hospita 00 l [...] Atrial Disease Active 2016-11 [facility]i fibrillati fibrillati 1-10 st on on 00:00: Hospita 00 l 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 00:00: Hospita involving involving 00 l [place] coronary coronary artery of artery of [place] heart heart without without angina angina pectoris pectoris 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 00:00: Hospita involving involving 00 l [place] coronary coronary artery of artery of [place] heart heart without without angina angina pectoris [...] Disease Active 2015-11 Metho di (coronary (coronary 2- st artery artery 00:00: Hospita bypass bypass 00 l graft) graft) [id number] Calculus Problem Commo n of kidney [facility] [id number] Scrotal Problem Common anomaly [facility] [id number] Left Problem Commo n [id number] inguinal Spirit pain [facility] [id number] History of Problem Co mmon nephrolith Spirit iasis [facility] [id number] History of Problem C ommon [id number] [facility]icul 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 [facility] obs/LUTS [facility] [id number] LLQ Problem Common abdominal [facility] Allergies, Adverse Reactions, Alerts Allergy Allergy Status Severity Reaction(s) Onset Inactive Treating Comm ents Source Name Type Date Date Clinician Tamy Zamora Active GI 2016-11 vomitting Meth katarzyna ty to Intolerance 11-21 st adverse 00:00: Hospita reaction 00 l s to drug Family History Family Member Diagnosis Comments Start Date Stop Date Source Natural father No Known Problems Met [facility] Natural mother No Known Problems Met [facility] Social History Social Habit Start Date Stop Date Quantity Comments Source Gender identity [facility] Sexual orientation [facility] History of Tobacco [facility] - Use [facility] History of Social 2019-06-28 2019-06-[address] function 00:00:00 00:00:00 Hospital Alcohol intake 2019-04-05 2019-04-05 Current drinker [facility]o dist 00:00:00 00:00:00 [facility] (finding) Tobacco use and 2017-09-21 2017-09-21 Smokeless [facility] exposure 00:00:00 00:00:00 tobacco non-user Hospital Tobacco Comment 2017-09-21 2017-09-21 2 years in [facility] 00:00:00 00:00:00 [facility] Alcohol Comment 2017-09-21 2017-09-21 rarely Mosque 00:00:00 00:00:00 Hospital Sex Ass[birth year] At [birth year] [facility] 00:00:00 00:00:00 Hospital Smoking Status Start Date Stop Date Source Never Smoker [facility] Ex-smoker 2017-09-21 00:00:00 2017-09-21 00:00:00 [facility] Medications Ordered Filled Start Stop Current Ordering Indication Dosage Frequency Signature Comments Components Source Medication Medication Date Date Medication? Clinician (SIG) Name Name pravastatin 2022-11 Yes TAKE 1 Meth katarzyna (PRAVACHOL) 1-[address] 20 MG 00:00: MOUTH Hospita tablet 00 EVERY DAY l pravastatin 0 Yes TAKE 1 Meth katarzyna (PRAVACHOL) 8-[address] 20 MG 00:00: MOUTH Hospita tablet 00 EVERY DAY l pravastatin 2022-0 2022- No TAKE 1 Met hodi (PRAVACHOL) 8-14 -[address] 20 MG 00:00: 00:00 MOUTH Hospita tablet 00 :00 EVERY DAY l therapeutic 2022-0 Yes 1{tbl} QD Take 1 Me thodi multivitami 6-[address] n 08:19: mouth Hospita (THERAGRAN) 57 daily. l tablet ZINC 2022-0 Yes 50mg Take 50 mg Methodi ACETATE 6-[address] ORAL 08:19: Hospita 57 l ASCORBATE 3-0 Yes 1000mg Take 1,000 Methodi CALCIUM 6-[address] (VITAMIN C 08:19: mouth. Hospi ta ORAL) 57 l vit A/C/E 2022-0 Yes Take by Metho di ac/ZnOx/cup 6-[address] irene oxide 08:19: Hospita (EYE 57 l VITAMIN AND MINERALS ORAL) therapeutic 2022-0 Yes 1{tbl} QD Take 1 Me thodi multivitami 6-[address] n 08:19: mouth Hospita (THERAGRAN) 57 daily. l tablet ZINC 3-0 Yes 50mg Take 50 mg [facility] ACETATE 6-[address] ORAL 08:19: Hospita 57 l ASCORBATE 2023-0 Yes 1000mg Take 1,000 [facility] CALCIUM 6-[address] (VITAMIN C 08:19: mouth. Hospi ta ORAL) 57 l vit A/C/E 3-0 Yes Take by Metho di ac/ZnOx/cup 6-[address] irene oxide 08:19: Hospita (EYE 57 l VITAMIN AND MINERALS ORAL) rivaroxaban 2022-0 Yes 20mg QD Take 1 Meth katarzyna (Xarelto) 6-06 tablet (20 st 20 mg 00:00: mg total) Hospita tablet 00 by mouth l daily. metoprolol 2023-0 Yes 100mg QD Take 1 Meth katarzyna succinate 6-[address] XL 00:00: (100 mg Hospita (TOPROL-XL) 00 total) by l 100 mg 24 mouth hr tablet daily. ezetimibe 2022-0 Yes 10mg QD Take 1 Method i (ZETIA) 10 6-06 tablet (10 st mg tablet 00:00: mg total) Hos collin 00 by mouth l daily. rivaroxaban 2022-0 Yes 20mg QD Take 1 Meth katarzyna (Xarelto) 6-06 tablet (20 st 20 mg 00:00: mg total) Hospita tablet 00 by mouth l daily. metoprolol 2022-0 Yes 100mg QD Take 1 Meth katarzyna succinate 6-[address] XL 00:00: (100 mg Hospita (TOPROL-XL) 00 total) by l 100 mg 24 mouth hr tablet daily. ezetimibe 2022-0 Yes 10mg QD Take 1 Method i (ZETIA) 10 6-06 tablet (10 st mg tablet 00:00: mg total) Hos collin 00 by mouth l daily. Klor-Con 10 Yes TAKE 1 Meth katarzyna 10 mEq CR 5-[address] tablet 00:00: MOUTH Hospita 00 EVERY DAY l furosemide 2022-0 Yes TAKE 1 Metho di (LASIX) 40 5-[address] mg tablet 00:00: MOUTH Hospita 00 EVERY DAY l Klor-Con 10 2022-0 Yes TAKE 1 Meth katarzyna 10 mEq CR 5-[address] tablet 00:00: MOUTH Hospita 00 EVERY DAY l furosemide 2022-0 Yes TAKE 1 Metho di (LASIX) 40 5-[address] mg tablet 00:00: MOUTH Hospita 00 EVERY DAY l pravastatin 2022-0 2022- No TAKE 1 Met hodi (PRAVACHOL) 5-16 08-[address] 20 MG 00:00: 00:00 MOUTH Hospita tablet 00 :00 EVERY DAY l pravastatin 2022-0 2022- No TAKE 1 Met hodi (PRAVACHOL) 03-24 08-[address] 20 MG 00:00: 00:00 MOUTH Hospita tablet 00 :00 EVERY DAY l ezetimibe 2022-0 2022- No TAKE 1 Metho di (ZETIA) 10 03-24- TABLET BY st mg tablet 00:00: 00:00 MOUTH Hospit a 00 :00 EVERY DAY l Xarelto 20 2022-0 2022- No TAKE 1 Meth katarzyna mg tablet 03-[address] 00:00: 00:00 MOUTH Hospita 00 :00 EVERY DAY l ezetimibe 2022-0 2022- No TAKE 1 Metho di (ZETIA) 10 03-[address] mg tablet 00:00: 00:00 MOUTH Hospit a 00 :00 EVERY DAY l Xarelto 20 2022-0 2022- No TAKE 1 Meth katarzyna mg tablet 03-[address] 00:00: 00:00 MOUTH Hospita 00 :00 EVERY DAY l Cephalexin Cephalexin 2022-0 No 1{capsu Cephalexin 500 MG 500 MG 3-17 le} 500 MG 00:00: 00 Cephalexin Cephalexin 2022-0 No 1{capsu Cephalexin 500 MG 500 MG 3-17 le} 500 MG 00:00: 00 ezetimibe 2022-0 2022- No TAKE 1 Metho di (ZETIA) 10 12-10-[address] mg tablet 00:00: 00:00 MOUTH Hospit a 00 :00 EVERY DAY l pravastatin 2022-0 2022- No TAKE 1 Met hodi (PRAVACHOL) 12-10-[address] 20 MG 00:00: 00:00 MOUTH Hospita tablet 00 :00 EVERY DAY l ezetimibe 2022-0 2022- No TAKE 1 Metho di (ZETIA) 10 12-10 05-[address] mg tablet 00:00: 00:00 MOUTH Hospit a 00 :00 EVERY DAY l pravastatin 2022-0 2022- No TAKE 1 Met hodi (PRAVACHOL) 12-10-[address] 20 MG 00:00: 00:00 MOUTH Hospita tablet 00 :00 EVERY DAY l Xarelto 20 2023-0 Yes TAKE 1 Metho di mg tablet 1-[address] 00:00: MOUTH Hospita 00 EVERY DAY l Xarelto 20 0 2022- No TAKE 1 Meth katarzyna mg tablet 1-16 05-[address] 00:00: 00:00 MOUTH Hospita 00 :00 EVERY DAY l Xarelto 20 0 2022- No TAKE 1 Meth katarzyna mg [...] 2021-11- No TAKE 1 Met hodi (PRAVACHOL) 2-01 01- TABLET BY st 20 MG 00:00: 00:00 MOUTH Hospita tablet 00 :00 EVERY DAY l pravastatin 2021-11- No TAKE 1 Met hodi (PRAVACHOL) 2-12-[address] 20 MG 00:00: 00:00 [...] 2021-11 Yes 100mg QD Take 1 Meth ktaarzyna succinate 2-[address] XL 00:00: (100 [...] mg 24 mouth hr tablet daily. metoprolol 2021-11- No 100mg QD Take 1 Met hodi [...] No TAKE 1 Meth katarzyna mg tablet 05-22- TABLET BY st 00:00: 00:00 MOUTH Hospita 00 :00 EVERY DAY l Xarelto 20 2021-0 2022- No TAKE 1 Meth katarzyna mg tablet 05-22- TABLET BY st 00:00: 00:00 MOUTH Hospita 00 :00 EVERY DAY l metoprolol 2021-0 2021- No 50mg QD Take 50 mg Methodi [...] TAKE 1 Metho di (ZETIA) 10 05-[address] mg tablet 00:00: 00:00 MOUTH Hospit a 00 :00 EVERY DAY l ezetimibe 2021-2021- No TAKE 1 Metho di (ZETIA) 10 05-[address] mg tablet 00:00: 00:00 MOUTH Hospit a 00 :00 EVERY DAY l ezetimibe 2021-2021- No TAKE 1 Metho di (ZETIA) 10 05-[address] mg tablet 00:00: 00:00 MOUTH Hospit a 00 :00 EVERY DAY l ezetimibe 2021-2021- No TAKE 1 Metho di (ZETIA) 10 05-[address] mg tablet 00:00: 00:00 MOUTH Hospit a 00 :00 EVERY DAY l ezetimibe 2021-0 2021- No TAKE 1 Metho di (ZETIA) 10 05-[address] mg tablet 00:00: 00:00 MOUTH Hospit a 00 :00 EVERY DAY l ezetimibe 2021-0 2021- No TAKE 1 Metho di (ZETIA) 10 05-[address] mg tablet 00:00: 00:00 [...] tablet 00 :00 EVERY DAY l pravastatin 2021-2021- No TAKE 1 Met hodi (PRAVACHOL) 05-[address] 20 MG 00:00: 00:00 MOUTH Hospita tablet 00 :00 EVERY DAY l pravastatin 2021-2021- No TAKE 1 Met hodi (PRAVACHOL) 05-[address] 20 MG 00:00: 00:00 MOUTH Hospita tablet 00 :00 EVERY DAY l tamsulosin 2021-0 2021- No .4mg QD Take 0.4 Me thodi (FLOMAX) 6- 06-[address] 0.4 mg 10:55: 00:00 mouth Hospita capsule,ext 35 :00 daily. l ended Going to release stop soon 24hr tamsulosin 2-0 2- No .4mg QD Take 0.4 Me thodi (FLOMAX) 6- 06-[address] 0.4 mg 10:55: 00:00 mouth Hospita capsule,ext 35 :00 daily. l ended Going to release stop soon 24hr tamsulosin 2-0 2022- No .4mg QD Take 0.4 Me thodi (FLOMAX) 6-07 06-[address] 0.4 mg 10:55: 00:00 mouth Hospita capsule,ext 35 :00 daily. l ended Going to release stop soon 24hr tamsulosin 2-0 2022- No .4mg QD Take 0.4 Me thodi (FLOMAX) 6- 06-[address] 0.4 mg 10:55: 00:00 mouth Hospita capsule,ext 35 :00 daily. l ended Going to release stop soon 24hr tamsulosin 2021- No .4mg QD Take 0.4 Me thodi (FLOMAX) 04-[address] 0.4 mg 10:55: 00:00 [...] :00 by mouth l tablet daily. furosemide 2022- No 40mg QD Take 1 Meth katarzyna (LASIX) 40 - 06-08 tablet (40 st mg tablet 00:00: 04:59 mg total) Ho spita 00 :00 by mouth l daily. potassium 2021-0 2022- No 10meq QD Take 1 Meth katarzyna chloride 6-08 tablet (10 st (KLOR-CON) 00:00: 04:59 mEq total) Hospita 10 MEQ CR 00 :00 by mouth l tablet daily. furosemide 2021-2022- No 40mg QD Take 1 Meth katarzyna (LASIX) 40 04-15 06-08 tablet (40 st mg tablet 00:00: 04:59 mg total) Ho spita 00 :00 by mouth l daily. potassium 2021-2022- No 10meq QD Take 1 Meth katarzyna [...] 10meq QD Take 1 Meth katarzyna chloride 6 06-08 tablet (10 st (KLOR-CON) 00:00: 04:59 [...] :00 by mouth l tablet daily. furosemide 2022- No 40mg QD Take 1 Meth katarzyna (LASIX) 40 04-15 05-16 tablet (40 st mg tablet 00:00: 00:00 mg total) Ho spita 00 :00 by mouth l daily. potassium No 10meq QD Take 1 Meth katarzyna chloride 04-15 05-16 tablet (10 st (KLOR-CON) 00:00: 00:00 mEq total) Hospita 10 MEQ CR 00 :00 by mouth l tablet daily. ezetimibe 2021- No TAKE 1 Metho di (ZETIA) 10 02-07-[address] mg tablet 00:00: 00:00 MOUTH Hospit a 00 :00 EVERY DAY l ezetimibe 2021- No TAKE 1 Metho di (ZETIA) 10 02-07 07-[address] mg tablet 00:00: 00:00 MOUTH Hospit a 00 :00 EVERY DAY l ezetimibe 2021- No TAKE 1 Metho di (ZETIA) 10 02-07 07-[address] mg tablet 00:00: 00:00 MOUTH Hospit a 00 :00 EVERY DAY l ezetimibe 2021- No TAKE 1 Metho di (ZETIA) 10 02-07-[address] mg tablet 00:00: 00:00 MOUTH Hospit a 00 :00 EVERY DAY l ezetimibe 2021- No TAKE 1 Metho di (ZETIA) 10 02-07 07-[address] mg tablet 00:00: 00:00 [...] Hospita 00 :00 EVERY DAY l pravastatin 0 [...] l traMADoL 2020-11- No Methodi (ULTRAM) 50 12-10- st mg tablet 00:00: 00:00 Hospita 00 :00 l metroNIDAZO 2020-11- No Metho di LE (FLAGYL) 12-10 st 500 MG 00:00: 00:00 Hospita tablet 00 :00 l traMADoL 2020-11- No Methodi (ULTRAM) 50 12-10 st mg tablet 00:00: 00:00 Hospita 00 :00 l metroNIDAZO 2020-11- No Metho di LE (FLAGYL) 12-10- st 500 MG 00:00: 00:00 Hospita tablet 00 :00 l traMADoL 2020-11- No Methodi (ULTRAM) 50 12-10- st mg tablet 00:00: 00:00 Hospita 00 :00 l metroNIDAZO 2020-11- No Metho di LE (FLAGYL) 12-10- st 500 MG 00:00: 00:00 Hospita tablet 00 :00 l traMADoL 2020-11- No Methodi (ULTRAM) 50 2 06-07 st mg tablet 00:00: 00:00 Hospita 00 :00 l escitalopra 2020-11 Yes Method i m (LEXAPRO) 11-25 st 10 MG 00:00: Hospita tablet 00 l escitalopra 2020-11 Yes Method i m (LEXAPRO) 17 st 10 MG 00:00: Hospita tablet 00 l escitalopra 2020-11 Yes Method i m (LEXAPRO) 17 st 10 MG 00:00: Hospita tablet 00 l escitalopra 2020-11 Yes Method i m (LEXAPRO) 11-25 st 10 MG 00:00: Hospita tablet 00 l escitalopra 2020-11 Yes Method i m (LEXAPRO) 11-25 st 10 MG 00:00: Hospita tablet 00 l escitalopra 2020-11- No Metho di m (LEXAPRO) 11-25- st 10 MG 00:00: 00:00 Hospita tablet 00 :00 l escitalopra 2020-11- No Metho di m (LEXAPRO) 11-25-06 st 10 MG 00:00: 00:00 Hospita tablet [...] pioglitazon 2020-11- No Metho di e (ACTOS) 004-15 st 15 MG 00:00: 00:00 Hospita tablet 00 :00 l pioglitazon 2020-11- No Metho di e (ACTOS) 004-15 st 15 MG 00:00: 00:00 Hospita tablet 00 :00 l pioglitazon 2020-11- No Metho di e (ACTOS) 004-15 st 15 MG 00:00: 00:00 Hospita tablet 00 :00 l pravastatin 2020-11- No TAKE 1 Met hodi (PRAVACHOL) 0-[address] 20 MG 00:00: 00:00 MOUTH Hospita tablet 00 :00 EVERY DAY l pravastatin 2020-11- No TAKE 1 Met hodi (PRAVACHOL) 0-[address] 20 MG 00:00: 00:00 MOUTH Hospita tablet 00 :00 EVERY DAY l metFORMIN 2020-0 Yes 1000mg Q.5D Take 2 Meth katarzyna (GLUCOPHAGE 9-[address] ) 500 mg 00:00: (1,000 mg Hosp enoc tablet 00 total) by l mouth 2 (two) times a day. metFORMIN 0 Yes 1000mg Q.5D Take 2 Meth katarzyna (GLUCOPHAGE 9-[address] ) 500 mg 00:00: (1,000 mg Hosp enoc tablet 00 total) by l mouth 2 (two) times a day. metFORMIN 2020-0 Yes 1000mg Q.5D Take 2 Meth katarzyna (GLUCOPHAGE 9-[address] ) 500 mg 00:00: (1,000 mg Hosp enoc tablet 00 total) by l mouth 2 (two) times a day. metFORMIN 2020-0 Yes 1000mg Q.5D Take 2 Meth katarzyna (GLUCOPHAGE 9-[address] ) 500 mg 00:00: (1,000 mg Hosp enoc tablet 00 total) by l mouth 2 (two) times a day. metFORMIN 2020-0 Yes 1000mg Q.5D Take 2 Meth katarzyna (GLUCOPHAGE 9-[address] ) 500 mg 00:00: (1,000 mg Hosp enoc tablet 00 total) by l mouth 2 (two) times a day. metFORMIN 2020-0 Yes 1000mg Q.5D Take 2 Meth katarzyna (GLUCOPHAGE 9-[address] ) 500 mg 00:00: (1,000 mg Hosp enoc tablet 00 total) by l mouth 2 (two) times a day. metFORMIN 2020-0 Yes 1000mg Q.5D Take 2 Meth katarzyna (GLUCOPHAGE 9-[address] ) 500 mg 00:00: (1,000 mg Hosp enoc tablet 00 total) by l mouth 2 (two) times a day. Xarelto 20 2020-0 2021- No TAKE 1 Meth katarzyna mg tablet 07-[address] 00:00: 00:00 MOUTH Hospita 00 :00 EVERY DAY l Xarelto 20 2020-0 2021- No TAKE 1 Meth katarzyna mg tablet 07-[address] 00:00: 00:00 MOUTH Hospita 00 :00 EVERY DAY l Xarelto 20 2020-0 2021- No TAKE 1 Meth katarzyna mg tablet 07-[address] 00:00: 00:00 MOUTH Hospita 00 :00 EVERY DAY l Xarelto 20 2020-0 2021- No TAKE 1 Meth katarzyna mg tablet 07-[address] 00:00: 00:00 MOUTH Hospita 00 :00 EVERY DAY l Xarelto 20 2020-0 2021- No TAKE 1 Meth katarzyna mg tablet 07-[address] 00:00: 00:00 MOUTH Hospita 00 :00 EVERY DAY l ezetimibe 2020-0 2021- No TAKE 1 Metho di (ZETIA) 10 3-21 02- TABLET BY st mg tablet 00:00: 00:00 MOUTH Hospit a 00 :00 EVERY DAY l ezetimibe 2020-0 2021- No TAKE 1 Metho di (ZETIA) 10 3-15 04-[address] mg tablet 00:00: 00:00 MOUTH Hospit a 00 :00 EVERY DAY l ezetimibe 2021- No TAKE 1 Metho di (ZETIA) 10 15 - TABLET BY st mg tablet 00:00: 00:00 MOUTH Hospit a 00 :00 EVERY DAY l ezetimibe 2021- No TAKE 1 Metho di (ZETIA) 10 15 - TABLET BY st mg tablet 00:00: 00:00 MOUTH Hospit a 00 :00 EVERY DAY l ezetimibe 2021- No TAKE 1 Metho di (ZETIA) 10 01-[address] mg tablet 00:00: 00:00 [...] Hospita tablet 00 by mouth l nightly. amitriptyli 2020-0 Yes 25mg QD Take 25 mg Methodi ne (ELAVIL) 3-[address] 25 MG 00:00: nightly. Hospita tablet 00 l amitriptyli 2020-0 Yes 25mg QD Take 1 Meth katarzyna ne (ELAVIL) 3-17 tablet (25 st 25 MG 00:00: mg total) Hospita tablet 00 by mouth l nightly. ALPRAZolam 2016-11- No Method i (XANAX) 1 11-22 06-07 st MG tablet 00:00: 00:00 Hospita 00 :00 l ALPRAZolam 2016-11- No Method i (XANAX) 1 11-22 st MG tablet 00:00: 00:00 Hospita 00 : l ALPRAZolam 2016-11- No Method i (XANAX) 1 11-22 st MG tablet 00:00: 00:00 Hospita 00 l ALPRAZolam 2016-11- No Method i (XANAX) 1 11-22 st MG tablet 00:00: 00:00 Hospita 00 :00 l ALPRAZolam 2016-11- No Method i (XANAX) 1 11-22 st MG tablet 00:00: 00:00 Hospita 00 [...] 00:00 daily. Hospi ta 00 :00 l Flomax 0.4 Flomax 0.4 No 1{capsu QD Flomax 0.4 MG MG le} MG Stool Stool No Stool Softener Softener Softener Klor-Con 10 Klor-Con 10 No 1{table BID Klor-Con 10 MEQ 10 MEQ t_with_ 10 10 MEQ food} Tylenol Tylenol No Tylenol Probiotic Probiotic No Probiotic Finasteride Finasteride No 1{table QD Finasterid 5 MG 5 MG t} e 5 MG Escitalopra Escitalopra No 1{table QD Escitalopr m Oxalate m Oxalate t} am Oxalate 20 MG 20 MG 20 MG Jardiance Jardiance No 1{table QD Jardiance 25 MG 25 MG t} 25 MG Ezetimibe Ezetimibe No 1{table QD Ezetimibe 10 MG 10 MG t} 10 MG metFORMIN metFORMIN No 1{table QD metFORMIN HCl 500 MG HCl 500 MG t_with_ HCl 500 MG a_meal} amitriptyli amitriptyli No amitriptyl ne 25 mg ne 25 mg ine 25 mg Pravastatin Pravastatin No 1{table QD Pravastati Sodium 20 Sodium 20 t} n Sodium MG MG 20 MG Multivitami Multivitami No 1{table QD Multivitam n - n - t} in - Zinc 30 MG Zinc 30 MG No 1{table QD Zinc 30 MG t} glipiZIDE 5 glipiZIDE 5 No QD glipiZIDE MG MG 5 MG Melatonin Melatonin No Melatonin Xarelto 20 Xarelto 20 No 1{table QD Xarelto 20 MG MG t_with_ MG food} Furosemide Furosemide No 1{table QD Furosemide 40 MG 40 MG t} 40 MG Metoprolol Metoprolol No 1{capsu QD Metoprolol Succinate Succinate le} Succinate 100 MG 100 MG 100 MG Flomax 0.4 Flomax 0.4 No 1{capsu QD Flomax 0.4 MG MG le} MG Stool Stool No Stool Softener Softener Softener Klor-Con 10 Klor-Con 10 No 1{table BID Klor-Con 10 MEQ 10 MEQ t_with_ 10 10 MEQ food} Tylenol Tylenol No Tylenol Probiotic Probiotic No Probiotic Finasteride Finasteride No 1{table QD Finasterid 5 MG 5 MG t} e 5 MG Escitalopra Escitalopra No 1{table QD Escitalopr m Oxalate m Oxalate t} am Oxalate 20 MG 20 MG 20 MG Jardiance Jardiance No 1{table QD Jardiance 25 MG 25 MG t} 25 MG Ezetimibe Ezetimibe No 1{table QD Ezetimibe 10 MG 10 MG t} 10 MG metFORMIN metFORMIN No 1{table QD metFORMIN HCl 500 MG HCl 500 MG t_with_ HCl 500 MG a_meal} amitriptyli amitriptyli No amitriptyl ne 25 mg ne 25 mg ine 25 mg Pravastatin Pravastatin No 1{table QD Pravastati Sodium 20 Sodium 20 t} n Sodium MG MG 20 MG Multivitami Multivitami No 1{table QD Multivitam n - n - t} in - Zinc 30 MG Zinc 30 MG No 1{table QD Zinc 30 MG t} glipiZIDE 5 glipiZIDE 5 No QD glipiZIDE MG MG 5 MG Melatonin Melatonin No Melatonin Xarelto 20 Xarelto 20 No 1{table QD Xarelto 20 MG MG t_with_ MG food} Furosemide Furosemide No 1{table QD Furosemide 40 MG 40 MG t} 40 MG Metoprolol Metoprolol No 1{capsu QD Metoprolol Succinate Succinate le} Succinate 100 MG 100 MG 100 MG Vital Signs Vital Name Observation Time Observation Value Comments Source height 2023-01-23 12:15:00 71 [in_i] [facility] weight 2023-01-23 12:15:00 230.2 [lb_av] [facility] temperature 2023-01-23 12:15:00 98.2 [degF] [facility] bmi 2023-01-23 12:15:00 32.1 kg/m2 [facility] oximetry 2023-01-23 12:15:00 94 % [facility] respiratory rate 2023-01-23 12:15:00 18 /min Comm on [facility] blood pressure 2023-01-23 12:15:00 122 mm[Hg] Common [facility] - systolic [facility] blood pressure 2023-01-23 12:15:00 69 mm[Hg] [facility] - diastolic [facility] Systolic blood 2023-04-14 13:17:00 146 mm[Hg] [facility] pressure Diastolic blood 2023-04-14 13:17:00 76 mm[Hg] [facility] pressure Heart rate 2023-04-14 13:17:00 140 /min [facility] Body height 2023-04-14 13:17:00 185.4 cm [facility] Body weight 2023-04-14 13:17:00 103.874 kg [facility] BMI 2023-04-14 13:17:00 30.21 kg/m2 [facility] Systolic blood 2022-10-14 15:59:00 162 mm[Hg] Method [facility] pressure Diastolic blood 2022-10-14 15:59:00 78 mm[facility]Hg[facility] pressure Heart rate 2022-10-14 15:59:00 105 /min [facility] Body height 2022-10-14 15:59:00 185.4 cm [facility] Body weight 2022-10-14 15:59:00 103.42 kg [facility] BMI 2022-10-14 15:59:00 30.08 kg/m2 [facility] Procedures Procedure Date / Time Performed Performing Clinician [facility] e ECG 12-LEAD 2022-10-14 17:05:37 Sonia Garcia Plan of Care Planned Activity Planned Date Details Comments Source Future Scheduled 2023-09-17 COVID-19 VACCINE (3 - [facility] Test 13:11:30 season) [code = COVID-19 VACCINE (3 - season)] Future Scheduled 2023-09-17 INFLUENZA VACCINE (#1) [facility] Test 13:11:30 [code = INFLUENZA VACCINE (#1)] Future Scheduled 2023-09-17 65+ [facility]AL [facility] Test 13:11:30 VACCINE (1 - PCV) [code = 65+ PNEUMOCOCCAL VACCINE (1 - PCV)] Future Scheduled 2023-09-17 DIABETES: RETINAL EYE [facility] Test 13:11:30 EXAM [code = DIABETES: RETINAL EYE EXAM] Future Scheduled 2023-09-17 DIABETIC [facility]OT [facility]AM [facility] Test 13:11:30 [code = DIABETIC FOOT EXAM] Future Scheduled 2023-09-17 [facility] Test 13:11:30 [code = URINE MICROALBUMIN] Future Scheduled 2023-09-17 SHINGLES VACCINES (1 Met [facility] Test 13:11:30 of 2) [code = SHINGLES VACCINES (1 of 2)] Future Scheduled 2023-06-29 65+ PNEUMOCOCCAL Methodi st [...] Clinicians Facility Department ID 2023-01-23 Outpatient Dang [facility] [id number] 2 Common 11:16:01 New [id number] [facility] 2023-09-17 2023-09-17 Refill Garcia, 1.2.840.1 [id number] Methodi 00:00:00 00:00:[address] 3.430.2.7 Hospit a .3.529924 l .8 2023-06-29 2023-06-29 Telephone Ayla, 1.2.840.1 [id number] Methodi 00:00:00 00:00:[address] 3.430.2.7 Hospit a .3.959230 l .8 2023-06-29 2023-06-29 Telephone Ayla, 1.2.840.1 [id number] Methodi 00:00:00 00:00:[address] 3.430.2.7 Hospit a .3.948220 l .8 2023-06-20 2023-06-20 Refill Garcia, 1.2.840.1 [id number] Methodi 00:00:00 00:00:00 Snoia [address] 3.430.2.7 Hospit a .3.549351 l .8 2023-06-20 2023-06-20 Refill Garcia, 1.2.840.1 [id number] [id number] Methodi 00:00:00 00:00:[address] Sonia [address]1.[address] 3.430.2.7 Hospit a .3.181477 l .8 2023-04-14 2023-04-14 Office Garcia, 1.2.840.1 [id number] 6965 Methodi 08:20:00 12:05:07 Visit Sonia R. 49077.1.[address] 3.430.2.7 Hospit a .3.955057 l .8 2023-04-14 2023-04-14 Office Garcia, 1.2.840.1 [id number] 2856 Methodi 08:20:00 12:05:07 Visit Sonia R. 64816.1.[address] 3.430.2.7 Hospit a .3.661764 l .8 2023-04-14 2023-04-14 Travel 1.2.840.1 1.2.411.765 4682 [id number] Methodi 00:00:00 00:00:[address] 3.430.2.7 0.2.7.3.698 Ho spita .3.753855 084.8 l .8 2023-04-14 2023-04-14 Travel 1.2.840.1 1.2.568.462 1848 [id number] Methodi 00:00:00 00:00:[address] 3.430.2.7 0.2.7.3.698 Ho spita .3.833907 084.8 l .8 2023-03-26 2023-03-26 Telephone Syl, 1.2.840.1 [id number] 2099 [id number] Methodi 00:00:00 00:00:00 Sonia [address]375.1.[address] 3.430.2.7 Hospit a .3.410170 l .8 2023-03-26 2023-03-26 Telephone Syl, 1.2.840.1 [id number] 2099 [id number] Methodi 00:00:00 00:00:[address] 3.430.2.7 Hospit a .3.315714 l .8 2023-03-23 2023-03-23 Refill Syl, 1.2.840.1 [id number] 9304 Methodi 00:00:00 00:00:00 [address]991.1.[address] 3.430.2.7 Hospit a .3.248159 l .8 2023-03-23 2023-03-23 Refill Syl, 1.2.840.1 [id number] 6292 Methodi 00:00:00 00:00:[address] 3.430.2.7 Hospit a .3.704815 l .8 2023-01-23 2023-01-23 (TEL) STLMLC STLMLC [id number] Co mmon 00:00:00 00:00:00 Spirit - [facility] 2023-01-23 2023-01-23 OFFICE STLMLC STLMLC [id number] Co mmon 00:00:00 00:00:00 VISIT Spirit ESTAB PT - [facility] LEVEL 5 [facility] 2022-12-09 2022-12-09 Refill Syl, 1.2.840.1 [id number] 5405 Methodi 00:00:00 00:00:[address] S[address] 3.430.2.7 Hospit a .3.445873 l .8 2022-12-09 2022-12-09 Refill Syl, 1.2.840.1 [id number] 5767 Methodi 00:00:00 00:00:[address] 3.430.2.7 Hospit a .3.078281 l .8 2022-11-23 2022-11-23 Refill Syl, 1.2.840.1 [id number] 9032 Methodi 00:00:00 00:00:00 S[address]016.1.[address] 3.430.2.7 Hospit a .3.212100 l .8 2022-11-23 2022-11-23 Refill Syl, 1.2.840.1 [id number] 4408 Methodi 00:00:00 00:00:00 Sonia [address]61.1.[address] 3.430.2.7 Hospit a .3.132825 l .8 2022-11-07 2022-11-07 Refill Syl, 1.2.840.1 [id number] 8875 Methodi 00:00:00 00:00:[address] 3.430.2.7 Hospit a .3.265013 l .8 2022-11-07 2022-11-07 Refill Garcia, 1.2.840.1 [id number] 0299 Methodi 00:00:00 00:00:00 Sonia [address]442.1.[address] 3.430.2.7 Hospit a .3.440655 l .8 2022-10-31 2022-10-31 Refill Garcia, 1.2.840.1 [id number] 8425 Methodi 00:00:00 00:00:00 Sonia [address]019.1.[address] 3.430.2.7 Hospit a .3.763223 l .8 2022-10-31 2022-10-31 Refill Garcia, 1.2.840.1 [id number] 0220 Methodi 00:00:00 00:00:[address] Sonia [address] 3.430.2.7 Hospit a .3.459960 l .8 2022-10-14 2022-10-14 Office Garcia, 1.2.840.1 [id number] 3565 Methodi 09:50:00 15:11:36 Visit Sonia R. 99429.1.[address] 3.430.2.7 Hospit a .3.867878 l .8 2022-10-14 2022-10-14 Office Garcia, 1.2.840.1 [id number] 0771 Methodi 09:50:00 15:11:36 Visit Sonia R. 66894.1.[address] 3.430.2.7 Hospit a .3.068380 l .8 2022-10-14 2022-10-14 Travel 1.2.840.1 1.2.536.117 7882 [id number] Methodi 00:00:00 00:00:[address] 3.430.2.7 0.2.7.3.698 Ho spita .3.988987 084.8 l .8 2022-10-14 2022-10-14 Travel 1.2.840.1 1.2.496.356 7914 914207 Methodi 00:00:00 00:00:[address] 3.430.2.7 0.2.7.3.698 Ho spita .3.621722 084.8 l .8 2022-08-10 2022-08-10 Refill Syl, 1.2.840.1 [id number] 0886 Methodi 00:00:00 00:00:00 Sonia [address]75.1.[address] 3.430.2.7 Hospit a .3.822278 l .8 2022-08-02 2022-08-02 Refill Syl, 1.2.840.1 [id number] 2560 Methodi 00:00:00 00:00:[address] 3.430.2.7 Hospit a .3.542782 l .8 2022-05-22 2022-05-22 Refill Syl, 1.2.840.1 [id number] 6074 Methodi 00:00:00 00:00:[address] 3.430.2.7 Hospit a .3.518140 l .8 2022-05-15 2022-05-15 Refill Marleny, 1.2.840.1 [id number] 011 [id number] Methodi 00:00:00 00:00:[address] 3.430.2.7 Hospit a .3.179592 l .8 2022-05-10 2022-05-10 Refill Syl, 1.2.840.1 [id number] 5027 Methodi 00:00:00 00:00:[address] 3.430.2.7 Hospit a .3.848999 l .8 2022-05-05 2022-05-05 Refill Syl, 1.2.840.1 [id number] 8567 Methodi 00:00:00 00:00:00 Sonia [address] 3.430.2.7 Hospit a .3.247156 l .8 2022-04-15 2022-04-15 Office Garcia, 1.2.840.1 [id number] 0569 Methodi 09:45:00 14:59:36 Visit Sonia RNatanael 61786.1.[address] 3.430.2.7 Hospit a .3.374891 l .8 2022-04-15 2022-04-15 Travel 1.2.840.1 1.2.326.673 1746 407315 Methodi 00:00:00 00:00:[address] 3.430.2.7 0.2.7.3.698 Ho spita .3.076599 084.8 l .8 2022-02-07 2022-02-07 Refill Syl, 1.2.840.1 [id number] 6934 Methodi 00:00:00 00:00:[address]el [address] 3.430.2.7 Hospit a .3.169586 l .8 2022-02-04 2022-02-04 Refill Syl, 1.2.840.1 [id number] 0719 Methodi 00:00:00 00:00:[address] 3.430.2.7 Hospit a .3.703799 l .8 2021-11-25 2021-11-25 Refill Syl, 1.2.840.1 [id number] [id number] 8631 Methodi 00:00:00 00:00:[address] 3.430.2.7 Hospit a .3.437066 l .8 2021-11-12 2021-11-12 Refill Syl, 1.2.840.1 [id number] 1250 Methodi 00:00:00 00:00:[address] 3.430.2.7 Hospit a .3.067612 l .8 2021-10-15 2021-10-15 [facility] [id number] [address] [place] [address] 00:00:00 00:00:00 SONIA [address] 2021-04-16 2021-04-16 Outpatient SYL, [facility] [id number] [address] [place] 00:00:00 00:00:00 SONIA [address] 2020-09-25 2020-09-25 Outpatient SYL, [facility] [id number] [address] [place] 00:00:00 00:00:00 SONIA [address] 2020-04-03 2020-04-03 Outpatient SYL, [facility] [id number] [address] [place] 00:00:00 00:00:00 SONIA [address] Results Test Description Test Time Test Comments Results Result Comments Source ECG 12 lead 2022-10-14 16:42:37 Test Item Value Reference Range Interpretation Comme nts Ventricular rate (test code = 253) Atrial rate (test code = 255) QRSD interval (test code = 260) QT interval (test code = 264) QTC interval (test code = 265) QRS axis 1 (test code = 268) T wave axis (test code = 270) EKG impression (test code = 273) Atrial fibrillation with premature ventricular or aberrantly conducted complexes-Left axis deviation-Right bundle branch block-Possible Inferior infarct , age undetermined-Abnormal ECG-In automated comparison with ECG of 16-APR-2021 14:14,-QRS axis shifted left- [address]2022-12-06 16:42:37 Test Item Value Reference Range [...] ECG of 16-APR-2021 14:14,-QRS axis shifted left- [address]2022-12-06 16:42:37 Test Item Value Reference Range [...] ECG of 16-APR-2021 14:14,-QRS axis shifted left- [address]2022-12-06 16:42:37 Test Item Value Reference Range [...] ECG of 16-APR-2021 14:14,-QRS axis shifted left- [address]2022-12-06 16:42:37 Test Item Value Reference Range [...] ECG of 16-APR-2021 14:14,-QRS axis shifted left- [address]2022-12-06 16:42:37 Test Item Value Reference Range Interpretation Comments Ventricular rate (test 97 code = 253) Atrial rate (test code 98 = 255) QRSD interval (test 150 code = 260) QT interval (test code 396 = 264) QTC interval (test 502 code = 265) QRS axis 1 (test code -40 = 268) T wave axis (test code 15 = 270) EKG impression (test Atrial fibrillation code = 273) with premature ventricular or aberrantly conducted complexes-Left axis deviation-Right bundle branch block-Possible Inferior infarct , age undetermined-Abnormal ECG-In automated comparison with ECG of 16-APR-2021 14:14,-QRS axis shifted left- [address]2022-12-06 16:42:37 Test Item Value Reference Range Interpretation Comments Ventricular rate (test 97 code = 253) Atrial rate (test code 98 = 255) QRSD interval (test 150 code = 260) QT interval (test code 396 = 264) QTC interval (test 502 code = 265) QRS axis 1 (test code -40 = 268) T wave axis (test code 15 = 270) EKG impression (test Atrial fibrillation code = 273) with premature ventricular or aberrantly conducted complexes-Left axis deviation-Right bundle branch block-Possible Inferior infarct , age undetermined-Abnormal ECG-In automated comparison with ECG of 16-APR-2021 14:14,-QRS axis shifted left- [facility]
[2023-10-02 17:34] LABS: Absolute Lymphocytes (CBC) 2.6 K/uL (0.7-4.9); Hematocrit 42.8 % (39.6-49.0); Lymphocytes % 29.1 % (15.3-44.8); MCV 86.9 fL (80-100); MPV 11.1 fL (7.6-11.3); Platelets 91 thou/uL (152-406); RBC Red Blood Cell Count 4.93 M/uL (4.33-5.43)
[2023-10-02 17:51] LABS: Albumin 3.7 g/dL (3.4-5.0); Bilirubin Total 1.2 mg/dL (0.2-1.0); Protein, Total 7.2 g/dL (6.4-8.2)
[2023-10-02 17:52] LABS: Potassium 4.3 mEq/L (3.5-5.1)
[2023-10-02 17:56] LABS: Blood Morphology Comment NOT SEEN (NOT SEEN); Platelet Estimate DECR; White Blood Cell Scan OK (OK)
--- NOTE | 2023-10-02 18:41 | RAD REPORT ---
EXAM DESCRIPTION: CT - Abdomen Pelvis W Contrast - 10/02/2023 6:19 pm CLINICAL HISTORY: Abdominal pain COMPARISON: 01/2023 TECHNIQUE: Computed axial tomography of the abdomen pelvis was obtained. 100 cc Isovue-300 was admin istered intravenously. Oral contrast was not requested which limits evaluation of bowel and appendix All CT scans are performed using dose optimization technique as appropriate and may include automated exposure control or mA/KV adjustment according to patient size. FINDINGS: Cholecystectomy. The liver, spleen, pancreas, and adrenals appear unremarkable. Small renal cysts The appendix is normal caliber. Diverticula stem from the colon without evidence of diverticulitis. A tiny umbilical hernia contains fat. The prostate gland is mildly enlarged. Spondylosis lumbar spine IMPRESSION: No acute abnormality is displayed.
[2023-10-02 19:10] LABS: Specific Gravity 1.018 (1.005-1.030); Urine Bacteria <20 /HPF (<20); Urine Bilirubin NEGATIVE (Negative); Urine Blood Trace (Negative); Urine Clarity Clear (Clear); Urine Color Light-Yellow (Yellow); Urine Glucose NEGATIVE (Negative); Urine Protein NEGATIVE (Negative); Urine Urobilinogen Normal (Normal)
--- NOTE | 2023-10-02 19:14 | ER ---
Nurse's Notes [facility] Name: Quintin Stauffer Age: 82 yrs Sex: Male : 1940 Arrival Date: 10/02/2023 Time: 16:44 Bed 20 Private MD: Diagnosis: Lower abdominal pain, unspecified;Thrombocytopenia, unspecified Presentation: 10/02 16:55 Chief complaint: EMS states: toned out to home for RLQ and right hip pain that started eh3 24 hours ago. Diarrhea this AM, denies N/V. Coronavirus screen: Vaccine status: Patient reports receiving the 2nd dose of the covid vaccine. Ebola Screen: No symptoms or risks identified at this time. Initial Sepsis Screen: Does the patient meet any 2 criteria? No. Patient's initial sepsis screen is negative. Does the patient have a suspected source of infection? No. Patient's initial sepsis screen is negative. Risk Assessment: Do you want to hurt yourself or someone else? Patient reports no desire to harm self or others. Onset of symptoms was October 02, 2023. 16:55 Method Of Arrival: EMS: [place] [address] 16:55 Acuity: JIMMY 3 eh3 Triage Assessment: 16:55 General: Appears in no apparent distress. uncomfortable, Behavior is cooperative. Pain: eh3 Complains of pain in right hip. Neuro: Level of Consciousness is awake, alert, obeys commands, Oriented to person, place. Cardiovascular: Capillary refill < 3 seconds Patient's skin is warm and dry. Respiratory: Airway is patent Respiratory effort is even, unlabored, Respiratory pattern is regular, symmetrical. GI: Abdomen is round non-distended, Abd is soft and non tender X 4 quads. Derm: Skin is pink, warm \T\ dry. Musculoskeletal: Circulation, motion, and sensation intact. Historical: - Allergies: 16:55 Codeine; eh3 - PMHx: 16:55 AFIB; CAD; Dementia; Diabetes - NIDDM; Hyperlipidemia; Hypertension; eh3 - PSHx: 16:55 Cholecystectomy; eh3 - Immunization history:: Adult Immunizations up to date. - Social history:: Smoking status: unknown. Screenin:55 [facility] ED Fall Risk Assessment (Adult) Score/Fall Risk Level 0 - 2 = Low Risk. Abuse eh3 screen: Denies threats or abuse. Denies injuries from another. Nutritional screening: No deficits noted. Tuberculosis screening: No symptoms or risk factors identified. Assessment: 16:55 Reassessment: No changes from previously documented assessment. See triage assessment. [facility] 17:30 Reassessment: Patient appears in no apparent distress at this time. Patient and/or eh3 family updated on plan of care and expected duration. Pain level reassessed. Patient is alert, oriented x 3, equal unlabored respirations, skin warm/dry/pink. 18:30 Reassessment: Patient appears in no apparent distress at this time. Patient and/or eh3 family updated on plan of care and expected duration. Pain level reassessed. Patient is alert, oriented x 3, equal unlabored respirations, skin warm/dry/pink. Vital Signs: 16:55 BP 174 / 80; Pulse 69; Resp 18; Temp 97.9(O); Pulse Ox 95% on R/A; Weight 99.79 kg; 3 Height 6 ft. 0 in. ; 17:30 BP 140 / 92; Pulse 56; Resp 16; Pulse Ox 96% on R/A; 3 18:30 BP 143 / 92; Pulse 106; Resp 16; Pulse Ox 95% on R/A; 3 19:00 BP 138 / 93; Pulse 87; Resp 16; Pulse Ox 95% on R/A; 3 16:55 Body Mass Index 29.84 (99.79 kg, 182.88 cm) [facility] ED Course: 16:52 Patient arrived in ED. sp3 16:52 Cynthia Ross MD is Attending Physician. 3 16:55 Arm band placed on. 3 16:55 Patient has correct armband on for positive identification. Bed in low position. Call [facility] light in reach. Side rails up X2. Adult w/ patient. Provided Education on: use of call gar. Client placed on continuous cardiac and pulse oximetry monitoring. NIBP monitoring applied. 17:21 Coral White, RN is Primary Nurse. 3 17:23 Triage completed. 3 17:52 Attending Physician role handed off by Cynthia Ross MD sp3 17:52 Jacob Cedeno DO is Attending Physician. sp3 18:21 CT Abd/Pelvis - IV Contrast Only In Process Unspecified. EDMS 19:03 Coud inserted, using sterile technique, 14 Fr. Returned clear yellow urine. Urine 3 specimen collected. Patient tolerated well. 19:25 No provider procedures requiring assistance completed. IV discontinued, intact, eh3 bleeding controlled, No redness/swelling at site. Pressure dressing applied. Administered Medications: No medications were administered Medication: 19:25 VIS not applicable for this client. eh3 Outcome: 19:13 Discharge ordered by . ms3 19:25 Discharged to home via wheelchair, with significant other, [facility] 19:25 Condition: stable 19:25 Discharge instructions given to patient, significant other, Instructed on discharge instructions, follow up and referral plans. Demonstrated understanding of instructions, follow-up care, 19:26 Patient left the ED. 3 Signatures: Dispatcher [employer] EDMS Jacob Cedeno DO DO ms3 Cynthia Ross MD MD sp3 Coral White RN RN eh3
--- NOTE | 2023-10-02 19:14 | EDPHYS ---
Physician Documentation [facility] Name: Quintin Stauffer Age: 82 yrs Sex: Male : 1940 Arrival Date: 10/02/2023 Time: 16:44 Bed 20 Private MD: ED Physician Jacob Cedeno HPI: 10/02 17:21 This 82 yrs old Male presents to ER via Unassigned with complaints of abdominal pain. sp3 17:21 82-year-old male with a history of dementia, atrial fibrillation currently on Xarelto, sp3 hypertension presents to the ED with chief complaint of lower abdominal pain as reported by his . Patient denies any pain however he has dementia history. Patient has had diverticulitis in the past with last episode in February. Most of the history is per and EMS. No fever, chest pain, shortness of breath, syncope, diarrhea, vomiting or any other history is reported. ROS, history and physical limited secondary to dementia.. Historical: - Allergies: 16:55 Codeine; eh3 - PMHx: 16:55 AFIB; CAD; Dementia; Diabetes - NIDDM; Hyperlipidemia; Hypertension; eh3 - PSHx: 16:55 Cholecystectomy; eh3 - Immunization history:: Adult Immunizations up to date. - Social history:: Smoking status: unknown. ROS: 17:26 Constitutional: Negative for fever, chills, and weight loss, sp3 17:26 Unable to obtain ROS due to baseline dementia, Exam: 17:26 Constitutional: This is a well developed, well nourished patient who is awake, alert, sp3 and in no acute distress. Head/Face: Normocephalic, atraumatic. Eyes: Pupils equal round and reactive to light, extra-ocular motions intact. Lids and lashes normal. Conjunctiva and sclera are non-icteric and not injected. Cornea within normal limits. Periorbital areas with no swelling, redness, or edema. Neck: Trachea midline, no thyromegaly or masses palpated, and no cervical lymphadenopathy. Supple, full range of motion without nuchal rigidity, or vertebral point tenderness. No Meningismus. Chest/axilla: Normal chest wall appearance and motion. Nontender with no deformity. No lesions are appreciated. Cardiovascular: Regular rate and rhythm with a normal S1 and S2. No gallops, murmurs, or rubs. Normal PMI, no JVD. No pulse deficits. Respiratory: Lungs have equal breath sounds bilaterally, clear to auscultation and percussion. No rales, rhonchi or wheezes noted. No increased work of breathing, no retractions or nasal flaring. Abdomen/GI: Soft, non-tender, with normal bowel sounds. No distension or tympany. No guarding or rebound. No evidence of tenderness throughout. Back: No spinal tenderness. No costovertebral tenderness. Full range of motion. Skin: Warm, dry with normal turgor. Normal color with no rashes, no lesions, and no evidence of cellulitis. MS/ Extremity: Pulses equal, no cyanosis. Neurovascular intact. Full, normal range of motion. Vital Signs: 16:55 BP 174 / 80; Pulse 69; Resp 18; Temp 97.9(O); Pulse Ox 95% on R/A; Weight 99.79 kg; eh3 Height 6 ft. 0 in. ; 17:30 BP 140 / 92; Pulse 56; Resp 16; Pulse Ox 96% on R/A; eh3 18:30 BP 143 / 92; Pulse 106; Resp 16; Pulse Ox 95% on R/A; eh3 19:00 BP 138 / 93; Pulse 87; Resp 16; Pulse Ox 95% on R/A; eh3 16:55 Body Mass Index 29.84 (99.79 kg, 182.88 cm) 3 MDM: 16:54 Patient medically screened. sp3 17:27 Data reviewed: vital signs, nurses notes, old medical records, lab test result(s), sp3 radiologic studies. ED course: 82-year-old male with reported lower abdominal pain which is not currently being reported. Consider diverticulitis versus constipation versus functional abdominal pain. I am not highly suspicious for sepsis, shock, acute coronary syndrome, vascular pathology including aortic dissection and aneurysm, mesenteric ischemia, bowel obstruction, or any other critical process at this time. Will obtain laboratory values and CT scan of the abdomen pelvis with IV contrast and if work-up is negative, we will safely discharge patient home. Vital signs remained stable and patient is in no acute distress laughing and joking with staff. I discussed all of this with the . Patient will be signed out to evening physician Dr. Cedeno he will follow-up with the patient regarding final imaging.. 19:17 Differential diagnosis: diverticulitis, non-specific abd pain, pancreatitis. Historians ms3 other than the Patient: Spouse/Significant Other: Patient's . Counseling: I had a detailed discussion with the patient and/or guardian regarding the historical points, exam findings, and any diagnostic results supporting the discharge/admit diagnosis, lab results, radiology results, the need for outpatient follow up, to return to the emergency department if symptoms worsen or persist or if there are any questions or concerns that arise at home. Special discussion: Based on the patient's Hx, exam, and Dx evaluation, there is no indication for emergent surgery or inpatient Tx. It is understood by the patient/guardian that if the Sx's persist or worsen they need to return immediately for re-evaluation. ED course: Discussed labs, CT scan with patient's . Patient's abdomen benign at this time. Patient to follow-up with primary care physician in 2 to 3 days. Patient's understands and agrees with plan. All questions were answered. Return precautions discussed include worsening symptoms, or any other concerns. 10/02 16:53 Order name: CBC with Diff; Complete Time: 18:44 sp3 10/02 16:53 Order name: CMP; Complete Time: 18:44 sp3 10/02 16:53 Order name: Lipase; Complete Time: 18:44 sp3 10/02 16:53 Order name: Urinalysis w/ reflexes; Complete Time: 19:12 sp3 10/02 17:56 Order name: CBC Smear Scan; Complete Time: 18:44 EDMS 10/02 16:53 Order name: CT Abd/Pelvis - IV Contrast Only; Complete Time: 18:44 sp3 10/02 16:53 Order name: IV Saline Lock; Complete Time: 17:26 sp3 10/02 16:53 Order name: Labs collected and sent; Complete Time: 17:26 sp3 10/02 16:54 Order name: NPO; Complete Time: 17: sp3 10/02 18:44 Order name: Straight Cath - Urine; Complete Time: 19:03 ms3 Administered Medications: No medications were administered Disposition Summary: 10/02/23 19:13 Discharge Ordered Notes: Location: Home ms3 Condition: Stable ms3 Diagnosis - Lower abdominal pain, unspecified ms3 - Thrombocytopenia, unspecified ms3 Followup: ms3 - With: Private Physician - When: 2 - 3 days - Reason: Recheck today's complaints Discharge Instructions: - Discharge Summary Sheet ms3 - Abdominal Pain, Adult ms3 - Thrombocytopenia, Bqcu-to-Jfaj ms3 Forms: - Medication Reconciliation Form ms3 - Thank You Letter ms3 - Antibiotic Education ms3 - Prescription Opioid Use ms3 - Patient Portal Instructions ms3 - Leadership Thank You Letter ms3 Signatures: Dispatcher [employer] EDMS Jacob Cedeno, DO ms3 Cynthia Ross MD MD sp3 Coral White RN RN eh3
[2023-10-02 21:55] VITALS: TEMP 97.9
[2023-10-02 21:57] VITALS: O2SAT 95
[2023-10-02 21:58] VITALS: BP 138/93
== END 2023-10-02 19:26 | disposition home or self-care (01) ==
LOC: ER 16:44
DX: R10.30 Lower abdominal pain, unspecified (principal); D69.6 Thrombocytopenia, unspecified; I48.91 Unspecified atrial fibrillation; Z79.01 Long term (current) use of anticoagulants; I10 Essential (primary) hypertension; F03.90 Unspecified dementia, unspecified severity, without behavioral disturbance, psychotic disturbance, mood disturbance, and anxiety; Z88.5 Allergy status to narcotic agent
CPT/HCPCS: 85025; 81001; 36415; 83690; 80053; 74177; 99284; Q9967

== ENCOUNTER → 2024-01-24 | Emergency (ER) | payer OTHER ==
[~2024-01-24] MED LIST: FENTANYL CITR 100 MCG/2 ML ONE; NA CHLORIDE 0.9% 1,000 ML ONE; NA CHLORIDE 0.9% 100 ML ONE; NA CHLORIDE 0.9% 250 ML ONE; PIPERACIL/TAZO 3.375 GM VIAL IV ONE; VANCOMYCIN 1 GM/VIAL ONE; dilTIAZem HCL 25 MG/5 ML VIAL IV ONE
[2024-01-24 03:25] LABS: Absolute Basophils 0.1 K/uL (0-0.5); Absolute Lymphocytes (CBC) 0.5 K/uL (0.7-4.9); Absolute Neutrophil 36.3 K/uL (1.8-8.0); Basophils % 0.3 % (0-1.3); Eosinophils % 0.1 % (0-4.4); Hematocrit 38.5 % (39.6-49.0); Hemoglobin 12.9 g/dL (13.6-17.9); Lymphocytes % 1.2 % (15.3-44.8); MCH 30.1 pg (27.0-35.0); MCHC 33.6 g/dL (32.0-36.0); MCV 89.5 fL (80-100); MPV 11.6 fL (7.6-11.3); Monocytes % 7.5 % (3.3-12.3); Neutrophils % 90.9 % (41.7-73.7); Platelets 90 thou/uL (152-406); Red Cell Distribution Width 16.5 % (12.1-15.2)
[2024-01-24 03:46] LABS: Anion Gap 15.4 mEq/L (5.0-15.0); Potassium 4.4 mEq/L (3.5-5.1); Troponin High Sensitivity 49.9 pg/mL (<58.9)
[2024-01-24 03:59] LABS: Differential Total Cells Count 100; Lymphocytes 8 % (15-42); Segmented Neutrophils 81 % (40-80)
[2024-01-24 04:00] LABS: Monocytes 11 % (0-10)
[2024-01-24 04:01] LABS: Toxic Granulation 1+
[2024-01-24 04:02] LABS: Blood Morphology Comment NOT SEEN (NOT SEEN); Platelet Estimate DECR
[2024-01-24 06:44] LABS: Albumin 3.6 g/dL (3.4-5.0); Albumin/Globulin Ratio 1.1 (1.1-1.8); Bilirubin Direct 0.5 mg/dL (0-0.2); Bilirubin Total 2.5 mg/dL (0.2-1.0); Globulin 3.4 g/dL (2.3-3.5)
--- NOTE | 2024-01-24 06:47 | ER ---
Nurse's Notes [facility] Name: Quintin Stauffer Age: 83 yrs Sex: Male : 1940 Arrival Date: 01/24/2024 Time: 02:41 Bed 2 Private MD: Diagnosis: SEPSIS;ATRIAL FIBRILLATION WITH RVR;DEMENTIA Presentation: 01/23 02:54 Chief complaint: EMS states: Family called due to pt being more confused than normal. jb4 Pt sugar was lower than normal [employer] of EMS so gave him juice, BGL was 299 for EMS. Pt was noted to be in A-fib RVR, was given 5mg of metoprolol IV and HR decreased to 100. Coronavirus screen: At this time, the client does not indicate any symptoms associated with coronavirus-19. Ebola Screen: No symptoms or risks identified at this time. Initial Sepsis Screen: Does the patient meet any 2 criteria? HR > 90 bpm. Yes Does the patient have a suspected source of infection? No. Patient's initial sepsis screen is negative. Risk Assessment: Do you want to hurt yourself or someone else? Patient reports no desire to harm self or others. Onset of symptoms was January 24, 2024. Transition of care: patient was not received from another setting of care. 02:54 Method Of Arrival: EMS: [facility] jb4 02:54 Acuity: JIMMY 3 jb4 Triage Assessment: 03:01 General: Appears in no apparent distress. comfortable, Behavior is calm, cooperative. jb4 Pain: Unable to use pain scale. Patient is disoriented. EENT: No signs and/or symptoms were reported regarding the EENT system. Neuro: Level of Consciousness is awake, obeys commands, confused, Oriented to none report sometimes pt can give his name, sometimes cannot due to dementia . Cardiovascular: Patient's skin is warm and dry. Respiratory: Airway is patent Respiratory effort is even, labored, Respiratory pattern is symmetrical, tachypnea. GI: No signs and/or symptoms were reported involving the gastrointestinal system. : No signs and/or symptoms were reported regarding the genitourinary system. Derm: Skin is intact, Skin is pink, warm \T\ dry. Musculoskeletal: Circulation, motion, and sensation intact. Range of motion: intact in all extremities. Historical: - Allergies: 03:01 Codeine; jb4 - PMHx: 03:01 AFIB; Hyperlipidemia; Diabetes - NIDDM; Hypertension; CAD; Dementia; jb4 - PSHx: 03:01 Cholecystectomy; jb4 - Immunization history:: Adult Immunizations up to date. - Social history:: Smoking status: Patient denies any tobacco usage or history of. Screenin:03 [facility] ED Fall Risk Assessment (Adult) History of falling in the last 3 months, jb4 including since admission No falls in past 3 months (0 pts) Confusion or Disorientation Yes (5 pts) Intoxicated or Sedated No (0 pts) Impaired Gait Yes (1 pt) Mobility Assist Device Used No (0 pt) Altered Elimination Yes (1 pt) Score/Fall Risk Level 3 or more points = High Risk Oriented to surroundings, Maintained a safe environment, Educated pt \T\ family on fall prevention, incl call for assistance when getting out of bed, Provided non-skid footwear. Abuse screen: Denies threats or abuse. Nutritional screening: No deficits noted. Tuberculosis screening: No symptoms or risk factors identified. Assessment: 03:03 Reassessment: see triage note. jb4 04:00 Reassessment: Provider notified, pt continues to have elevated HR in the 120, no new jb4 orders at this time. 04:52 Reassessment: Patient appears in no apparent distress at this time. No changes from jb4 previously documented assessment. Patient and/or family updated on plan of care and expected duration. Pain level reassessed. 04:52 Reassessment: attempted to cath pt twice. Failed both attempts, provider notified, jb4 instructed not to do further attempts. 06:00 Reassessment: Pt's O2 sat decreased to 87% on RA. Patient placed on 2L via NC. Provider cm10 made aware. 06:18 Reassessment: Pt remains A\T\Ox0. respirations remain labored and tachypneic. HR has jb4 begun to decrease. 06:30 Reassessment: Provider notified pt respirations continue to stay in the 30's, provider jb4 ordered ABG. 07:00 Reassessment: RECD REPORT FROM TALHA CRAGI. 83YO WM P/W AMS. CARDIZEM DRIP INFUSING AT bp 5MG/MIN. 08:30 Reassessment: PT STATES UNABLE TO URINATE. ER PROVIDER AND HOSPITALIST NOTIFIED. bp 09:23 Reassessment: PT EVALUATED BY HOSPITALIST. PT CONTINUES TO ENDORSE URINARY RETENTION. bp 11:35 Reassessment: REPORT TO MARLY CRAIG AT [facility] ER. bp Vital Signs: 02:54 BP 109 / 65; Pulse 122; Resp 22; Temp 98.4(O); Pulse Ox 92% on R/A; Weight 102.51 kg jb4 (M); 03:52 BP 109 / 63; Pulse 124; Resp 22; Pulse Ox 92% on R/A; cm10 04:00 BP 111 / 60; Pulse 122; Resp 25; Pulse Ox 92% on R/A; cm10 04:30 BP 130 / 84; Pulse 121; Resp 25; Pulse Ox 91% on R/A; cm10 04:52 BP 124 / 69; Pulse 148; Resp 33; Pulse Ox 94% on R/A; jb4 05:30 BP 120 / 76; Pulse 133; Resp 25; Pulse Ox 91% on R/A; cm10 05:45 BP 133 / 69; Pulse 152; Resp 25; Pulse Ox 94% on R/A; cm10 06:07 BP 124 / 59; Pulse 113; Resp 25; Pulse Ox 94% on 2 lpm NC; cm10 07:00 BP 110 / 64; Pulse 100; Resp 29; Pulse Ox 95% ; bp 08:00 BP 109 / 67; Pulse 110; Resp 22; Pulse Ox 95% ; bp 09:00 BP 110 / 62; Pulse 100; Resp 24; Pulse Ox 96% ; bp 04:52 Provider notified of HR. No new orders jb4 ED Course: 02:49 Patient arrived in ED. jb4 03:01 Triage completed. jb4 03:01 Arm band placed on right wrist. jb4 03:03 Patient has correct armband on for positive identification. Bed in low position. Call jb4 light in reach. Side rails up X 1. Client placed on continuous cardiac and pulse oximetry monitoring. NIBP monitoring applied. cardiac monitor on. 03:15 Maintain EMS IV. Dressing intact. Good blood return noted. Site clean \T\ dry. Gauge \T\ don 4 site: 20g RFA. IV is patent, is intact, with good blood return, Flushed right forearm with 5 ml normal saline. 03:17 Jhon Madrid MD is Attending Physician. sp4 03:18 Basic Metabolic Panel Sent. jb4 03:18 CBC with Diff Sent. jb4 03:18 Troponin HS Sent. jb4 03:20 EKG done, by ED staff, reviewed by Jhon Madrid MD. jb4 03:30 Inserted saline lock: 18 gauge in left antecubital area, using aseptic technique. Blood jb4 collected. 03:30 First set of blood cultures drawn by me. jb4 03:40 Second set of blood cultures drawn by me. jb4 03:[address] via stretcher. cm10 03:[address] moved back from CT. cm10 04:05 XRAY Chest (1 view) In Process Unspecified. EDMS 04:06 CT Head Brain wo Cont In Process Unspecified. EDMS 04:29 Extremity Venous Uni Ltd US In Process Unspecified. EDMS 04:53 Anup Claudio, RN is Primary Nurse. jb4 05:29 CT Chest, Abdomen, Pelvis - W/Contrast In Process Unspecified. EDMS 06:18 Provided Education on: Family on plan of care. Door closed. Noise minimized. Warm jb4 blanket given. Head of bed elevated. Repositioned patient. Cleaned of incontinence. Linen changed. 06:22 One-on-one care X 15 minutes. cm10 06:44 SARS RAPID Sent. jb4 06:44 Influenza Screen (a \T\ B) Sent. jb4 06:45 Andrés Adames MD is Hospitalizing Provider. sp4 07:20 Primary Nurse role handed off by Anup Claudio, RN bp 07:20 Harish Lu, RN is Primary Nurse. bp 09:27 No provider procedures requiring assistance completed. bp 10:50 External catheter placed and attached to suction. ds4 11:14 1032 called [facility] to start transfer- Talked to Kimi Garber 1043 Dr. Kiara Meehan sp accepted pt to the ED [phone]. 11:35 Patient transferred, IV remains in place. bp 11:46 called [facility] for transfer talked to Luis. sp Administered Medications: 04:00 Drug: Piperacillin-Tazobactam IVPB 3.375 grams IVPB once over 60 mins; (mix in NS 100 jb4 mL) Route: IVPB; Infused Over: 60 mins; Site: left antecubital; 08:06 Follow up: IV Status: Completed infusion; IV Intake: 100ml bp 04:08 Drug: vancoMYCIN IVPB 1 grams IVPB once over 2 hrs Route: IVPB; Infused Over: 2 hrs; jb4 Site: right forearm; 08:06 Follow up: IV Status: Completed infusion; IV Intake: 250ml bp 04:08 Drug: NS 0.9% IV 1000 ml IV at 125 ml/hr continuous Route: IV; Rate: 125 ml/hr; Site: [facility] right forearm; 05:58 Drug: fentaNYL (PF) IVP 25 mcg IVP once Route: IVP; Site: right forearm; jb4 08:05 Follow up: Response: No adverse reaction bp 05:58 Drug: Diltiazem IVP 20 mg IVP once; Over 2 minutes Route: IVP; Site: right forearm; jb4 08:05 Follow up: Response: No adverse reaction bp 06:15 Drug: NS 0.9% IV 1000 ml IV at 1 bolus Per protocol; 1000 mL bolus Route: IV; Rate: 1 cm10 bolus; Site: right hand; 08:06 Follow up: IV Status: Completed infusion; IV Intake: 1000ml bp 06:18 Drug: Diltiazem IV 5 mg/hr IV at calculated rate See Administration Instructions; cm10 (standard dilution 125 mg diltiazem mixed in 125 mL NS; final concentration 1mg/mL). Recommended max rate 15 mg/hr; Titrate 5 mg/hr as often as every 15 minutes to achieve goal (see titration policy); Goal parameter HR less than 100 bpm Route: IV; Rate: calculated rate; Site: right hand; 07:10 Drug: vancoMYCIN IVPB 1 grams IVPB once over 2 hrs Route: IVPB; Infused Over: 2 hrs; jb4 Site: left antecubital; 10:13 Follow up: IV Status: Completed infusion; IV Intake: 250ml bp 08:05 Drug: fentaNYL (PF) IVP 50 mcg IVP once Route: IVP; Site: left forearm; bp 10:13 Follow up: Response: No adverse reaction bp Medication: 03:03 VIS not applicable for this client. jb4 Intake: 08:06 IV: 1000ml; Total: 1000ml. bp 08:06 IV: 100ml; Total: 1100ml. bp 08:06 IV: 250ml; Total: 1350ml. bp 10:13 IV: 250ml; Total: 1600ml. bp Outcome: 06:46 Decision to Hospitalize by Provider. sp4 10:04 ER care complete, transfer ordered by . cp3 11:36 Transferred by ground EMS Note: [facility] ER bp 11:36 Condition: stable 11:36 Instructed on the need for transfer, 12:33 Patient left the ED. bp Signatures: Dispatcher [employer] EDMayra Velázquez MD MD cp3 Enid Renner Donovan ds4 Anup Claudio, RAFA RN jb4 Harish Lu RN RN bp Jhon Madrid MD MD sp4 Tana Woodruff RN RN cm10 Keiko Aj f Corrections: (The following items were deleted from the chart) 03:22 02:54 BP 109 / 65; Pulse 122bpm; Resp 18bpm; Pulse Ox 92% RA; Temp 98.4F Oral; 102.51 jb4 kg Measured; jb4 05:01 04:52 BP 124 / 69; Pulse 148bpm; Resp 33bpm; Pulse Ox 94% RA; Provider notified of HR.; jb4 jb4 06:20 03:01 Neuro: Level of Consciousness is awake, alert, obeys commands, Oriented to jb4 report sometimes pt can give his name, sometimes cannot due to dementia . jb4 06:20 03:01 Respiratory: Airway is patent Respiratory effort is even, unlabored, Respiratory jb4 pattern is regular, symmetrical, jb4 06:23 06:18 Door closed. Noise minimized. Warm blanket given. Head of bed elevated. jb4 cm10 06:23 06:18 Bath given. Linen changed. jb4 cm10 10:53 10:50 External catheter placed and attached to suction. kmf ds4
--- NOTE | 2024-01-24 06:47 | EDPHYS ---
Physician Documentation [facility] Name: Quintin Stauffer Age: 83 yrs Sex: Male : 1940 Arrival Date: 01/24/2024 Time: 02:41 Bed 2 Private MD: ED Physician Jhon Madrid HPI: 01/23 03:17 This 83 yrs old Male presents to ER via EMS with complaints of altered mental sp4 status. 05:09 84-year-old male with past medical history of atrial fibrillation, hyperlipidemia, sp4 diabetes, not insulin-dependent, hypertension, coronary artery disease dementia presents with acute onset of altered mental status nonverbal status, generalized weakness, and also some hypoglycemia as reported at home. Patient has right lower extremity which is cellulitic. 05:23 ProbablePatient's medications include metoprolol succinate 50 mg daily, ezetimibe 10 mg sp4 daily, Xarelto 20 mg daily, pravastatin 20 mg daily, metformin 1000 mg daily, amitriptyline 25 mg as needed, escitalopram 10 mg daily, adequate daily, stool softener daily, melatonin 12 mg daily, furosemide 40 mg daily, potassium supplement 10 units daily. Historical: - Allergies: 03:01 Codeine; jb4 - PMHx: 03:01 AFIB; Hyperlipidemia; Diabetes - NIDDM; Hypertension; CAD; Dementia; jb4 - PSHx: 03:01 Cholecystectomy; jb4 - Immunization history:: Adult Immunizations up to date. - Social history:: Smoking status: Patient denies any tobacco usage or history of. ROS: 05:20 Constitutional: ROS not available secondary to nonverbal status sp4 05:20 All other systems are negative, 05:20 Unable to obtain ROS due to altered mental status, Exam: 05:17 Constitutional: This is a frail elderly male, some abdominal distention, nonverbal at sp4 this time, not able to speak his name, signs of moderate dementia, ill-appearing but nontoxic. Tachycardic on arrival Head/Face: Normocephalic, atraumatic. Eyes: Pupils equal round and reactive to light, extra-ocular motions intact. Lids and lashes normal. Conjunctiva and sclera are not injected. Cornea within normal limits. Periorbital areas with no swelling, redness, or edema. ENT: Nares patent. No nasal discharge, no septal abnormalities noted. Tympanic membranes are normal and external auditory canals are clear. Oropharynx with no redness, swelling, or masses, exudates, or evidence of obstruction, uvula midline. Mucous membranes moist. Neck: Trachea midline, no thyromegaly or masses palpated, and no cervical lymphadenopathy. Supple, full range of motion without nuchal rigidity, or vertebral point tenderness. Chest/axilla: Normal chest wall appearance and motion. Nontender with no deformity. No lesions are appreciated. Cardiovascular: Irregularly irregular tachycardia, no gallops, murmurs, or rubs. Normal PMI, no JVD. No pulse deficits. Respiratory: Lungs have equal breath sounds bilaterally, clear to auscultation and percussion. No rales, rhonchi or wheezes noted. No increased work of breathing, no retractions or nasal flaring. Abdomen/GI: Soft, with normal bowel sounds. Positive abdominal distention and generalized discomfort to palpation Back: No spinal tenderness. No costovertebral tenderness. Male : Normal genitalia with no discharge or lesions. Skin: Warm, dry with normal turgor. Normal color with no rashes, no lesions, and no evidence of cellulitis. MS/ Extremity: Pulses equal, no cyanosis. Neurovascular intact. Full, normal range of motion. Bilateral mild trace edema also right lower extremity redness consistent with cellulitis also blistering skin lesion posterior right lower extremity. Neuro: Awake and alert, nonverbal at this time and able to follow basic commands but remains nonverbal. Moves all extremities, grossly no lateralizing deficits 05:17 ECG was reviewed by the Attending Physician. Time 0 224, atrial fibrillation with RVR at the rate of 114. Right bundle branch block. No ST elevation or depression Vital Signs: 02:54 BP 109 / 65; Pulse 122; Resp 22; Temp 98.4(O); Pulse Ox 92% on R/A; Weight 102.51 kg jb4 (M); 03:52 BP 109 / 63; Pulse 124; Resp 22; Pulse Ox 92% on R/A; cm10 04:00 BP 111 / 60; Pulse 122; Resp 25; Pulse Ox 92% on R/A; cm10 04:30 BP 130 / 84; Pulse 121; Resp 25; Pulse Ox 91% on R/A; cm10 04:52 BP 124 / 69; Pulse 148; Resp 33; Pulse Ox 94% on R/A; jb4 05:30 BP 120 / 76; Pulse 133; Resp 25; Pulse Ox 91% on R/A; cm10 05:45 BP 133 / 69; Pulse 152; Resp 25; Pulse Ox 94% on R/A; cm10 06:07 BP 124 / 59; Pulse 113; Resp 25; Pulse Ox 94% on 2 lpm NC; cm10 07:00 BP 110 / 64; Pulse 100; Resp 29; Pulse Ox 95% ; bp 08:00 BP 109 / 67; Pulse 110; Resp 22; Pulse Ox 95% ; bp 09:00 BP 110 / 62; Pulse 100; Resp 24; Pulse Ox 96% ; bp 04:52 Provider notified of HR. No new orders jb4 MDM: 03:19 Patient medically screened. sp4 05:16 ED course: EXAM DESCRIPTION: Head Brain Wo Cont RadLex: CT HEAD WITHOUT IV CONTRAST sp4 CLINICAL HISTORY: 83 years Male; AMS; Bed Name: 2 TECHNIQUE: Noncontrast CT head. All CT scans at this facility use dose modulation, iterative reconstruction, and/or weight based dosing when appropriate to reduce radiation dose to as low as reasonably achievable. COMPARISON: CT head 06/30/2023 FINDINGS: Parenchyma: No acute hemorrhage, large territorial infarction, or mass effect. Scattered hypodense lesions are present in the white matter, likely chronic small vessel ischemic changes. Unchanged hypodensity in the left cerebellum, likely remote lacunar infarct. Moderate global cerebral volume loss. Ventricles and extra-axial spaces: Appropriate for age and degree of volume loss. Visualized paranasal sinuses: Mild scattered mucosal thickening. Mastoid air cells: Clear. Bones: No focal abnormality. Additional comment: Intracranial atherosclerosis. Bilateral lens replacement. IMPRESSION: 1. No acute intracranial findings. 2. Chronic microvascular ischemic changes. Remote left cerebellar lacunar infarct. If clinical concern for acute infarct exists, recommend dedicated MRI. . 05:17 ED course: EXAM DESCRIPTION: Chest Single View CLINICAL HISTORY: PALPITATIONS sp4 COMPARISON: None TECHNIQUE: Single AP view of the chest. FINDINGS: Median sternotomy changes noted. Lung volumes diminished. Bronchovascular crowding. Cardiac silhouette is normal in size. No pneumothorax. No large pleural effusion. No focal consolidation. Bibasilar reticular opacities, likely atelectasis. No acute bony finding. Partially visualized cervical spine hardware. IMPRESSION: 1. No acute cardiopulmonary findings. 2. Low lung volumes with associated hypoventilatory changes. 05:36 ED course: CLINICAL HISTORY: redness, swelling COMPARISON: None. TECHNIQUE: US sp4 EXTREMITYVEINS UNILATERAL 01/24/2024 3:35 AM CDT FINDINGS: Right common femoral, femoral and popliteal veins are normally compressible. Flow and augmentation. Visualized calf veins are patent. IMPRESSION: No DVT.. 06:44 Differential Diagnosis altered mental status, sepsis, flu. Data reviewed: vital signs, sp4 nurses notes, EMS record, old medical records, lab test result(s), EKG, radiologic studies, CT scan, plain films, ultrasound. Consideration of Admission/Observation Patient was admitted/placed on observation. Escalation of care including admission/observation considered. Management of patient was discussed with the following: Hospitalist: Admit team . ED course: CLINICAL HISTORY: ABDOMINAL DISTENTION COMPARISON: 06/30/2023 and 10/02/2023. TECHNIQUE: CT CHESTABDOMEN PELVIS WITH IV CONTRAST on 01/24/2024 4:23 AM CDT. MIPS reconstructions were generated. This exam was performed according to our departmental dose-optimization program, which includes automated exposure control, adjustment of the mA and/or kV according to patient size and/or use of iterative reconstruction technique. FINDINGS: Vascular: Thoracic aorta is normal in course and caliber without aneurysm or dissection. Pulmonary arteries are suboptimally opacified. Abdominal aorta is densely calcified without aneurysm. Pelvic arteries are patent without aneurysm or occlusion. Chest: The heart is moderately enlarged. Sternotomy was performed. There is no pericardial effusion. Intrathoracic lymph nodes are not enlarged. There is no pleural effusion, pleural thickening or pneumothorax. Central airways are patent. There is bibasilar atelectasis and scarring. Enhancing mass in the left lobe of the liver measures 2 cm. Abdomen: The liver is normal in appearance. There is no biliary dilatation. Cholecystectomy was performed. There is a small hiatal hernia. The pancreas and spleen are normal in appearance. The adrenal glands and kidneys are unremarkable. There is no free air. There is no retroperitoneal adenopathy. Pelvis: There is mild diverticulosis of the distal colon. Urinary bladder is unremarkable. There is no free fluid. Appendix is normal. Skeleton: There are no acute osseous findings. No suspicious bony lesions. There are severe degenerative changes throughout the thoracolumbar spine. IMPRESSION: No definite acute process. Indeterminate enhancing left hepatic lobe mass. Recommend nonemergent MRI. . ED course: Patient is ill-appearing, exam is an workup does not reveal source of infection. I will pursue admission to ICU for IV antibiotics. Cardizem infusion for rapid atrial fibrillation.. 06:46 Post IV fluid administration reassessment for Sepsis: Client not prescribed the 30 sp4 mL/kg IVF due to: concern for fluid overload. concern related to heart failure. Neuro: Other Remains hypoactive delirium. 01/23 03:13 Order name: Basic Metabolic Panel; Complete Time: 04:23 4 01/23 03:13 Order name: CBC with Diff; Complete Time: 04:23 4 01/23 03:13 Order name: Troponin HS; Complete Time: 04:23 4 01/23 03:18 Order name: LFT's; Complete Time: 09:24 4 01/23 03:18 Order name: Blood Culture Adult (2) 4 01/23 03:31 Order name: Manual Differential; Complete Time: 04:23 EDMS 01/23 05:30 Order name: BNP; Complete Time: 09:24 sp4 01/23 06:21 Order name: Influenza Screen (a \T\ B); Complete Time: 09:24 sp4 01/23 06:21 Order name: SARS RAPID; Complete Time: 09:24 sp4 01/23 06:41 Order name: ABG; Complete Time: 09:24 4 01/23 10:13 Order name: Lactate w/ 2H reflex if indic. bp 01/23 10:28 Order name: AMMONIA cp3 01/23 03:13 Order name: XRAY Chest (1 view) 4 01/23 03:18 Order name: CT Head Brain wo Cont sp4 01/23 03:35 Order name: Extremity Venous Uni Ltd US 4 01/23 04:23 Order name: CT Chest, Abdomen, Pelvis - W/Contrast 4 01/23 03:13 Order name: EKG; Complete Time: 03:13 4 01/23 03:13 Order name: Cardiac monitoring; Complete Time: 03:13 4 01/23 03:13 Order name: EKG - Nurse/Tech; Complete Time: 04:54 4 01/23 03:13 Order name: IV Saline Lock; Complete Time: 03:18 jb4 01/23 03:13 Order name: Labs collected and sent; Complete Time: :18 jb4 01/23 03:13 Order name: O2 Per Protocol; Complete Time: 03: 4 01/23 03:13 Order name: O2 Sat Monitoring; Complete Time: : EC:17 Rate is 114 beats/min. Rhythm is irregularly irregular, A fib with Rapid ventricular sp4 response. QRS [place] is Normal. QRS interval is prolonged. QT interval is normal. No ST changes noted. Clinical impression: No evidence of ischemia. Interpreted by me. Reviewed by me. Administered Medications: 04:00 Drug: Piperacillin-Tazobactam IVPB 3.375 grams IVPB once over 60 mins; (mix in NS 100 jb4 mL) Route: IVPB; Infused Over: 60 mins; Site: left antecubital; 08:06 Follow up: IV Status: Completed infusion; IV Intake: 100ml bp 04:08 Drug: vancoMYCIN IVPB 1 grams IVPB once over 2 hrs Route: IVPB; Infused Over: 2 hrs; [facility] Site: right forearm; 08:06 Follow up: IV Status: Completed infusion; IV Intake: 250ml bp 04:08 Drug: NS 0.9% IV 1000 ml IV at 125 ml/hr continuous Route: IV; Rate: 125 ml/hr; Site: [facility] right forearm; 05:58 Drug: fentaNYL (PF) IVP 25 mcg IVP once Route: IVP; Site: right forearm; [facility] 08:05 Follow up: Response: No adverse reaction bp 05:58 Drug: Diltiazem IVP 20 mg IVP once; Over 2 minutes Route: IVP; Site: right forearm; [facility] 08:05 Follow up: Response: No adverse reaction bp 06:15 Drug: NS 0.9% IV 1000 ml IV at 1 bolus Per protocol; 1000 mL bolus Route: IV; Rate: 1 cm10 bolus; Site: right hand; 08:06 Follow up: IV Status: Completed infusion; IV Intake: 1000ml bp 06:18 Drug: Diltiazem IV 5 mg/hr IV at calculated rate See Administration Instructions; cm10 (standard dilution 125 mg diltiazem mixed in 125 mL NS; final concentration 1mg/mL). Recommended max rate 15 mg/hr; Titrate 5 mg/hr as often as every 15 minutes to achieve goal (see titration policy); Goal parameter HR less than 100 bpm Route: IV; Rate: calculated rate; Site: right hand; 07:10 Drug: vancoMYCIN IVPB 1 grams IVPB once over 2 hrs Route: IVPB; Infused Over: 2 hrs; jb4 Site: left antecubital; 10:13 Follow up: IV Status: Completed infusion; IV Intake: 250ml bp 08:05 Drug: fentaNYL (PF) IVP 50 mcg IVP once Route: IVP; Site: left forearm; bp 10:13 Follow up: Response: No adverse reaction bp Disposition Summary: 01/24/24 10:04 Transfer Ordered Notes: Transfer Location: Other Acute Care Facility cp3 Reason: Higher level of care cp3 Condition: Serious(01/24/24 10:04) cp3 Problem: an acute exacerbation(01/24/24 10:04) cp3 Symptoms: have worsened(01/24/24 10:04) cp3 Accepting Physician: PENDING(01/24/24 12:33) bp Diagnosis - SEPSIS cp3 - ATRIAL FIBRILLATION WITH RVR cp3 - DEMENTIA cp3 Forms: - Medication Reconciliation Form cp3 - SBAR form cp3 Critical care time excluding procedures: 06:47 Critical care time: Bedside Care: 36 minutes, Consultation: 12 minutes, Family sp4 Intervention: 12 minutes. Total time: 60 minutes Signatures: Dispatcher [employer] Mayra Ballesteros MD MD cp3 Sandra Mtz, RN RN aa5 Anup Claudio RN RN jb4 Harish Lu RN RN Jhon Prieto MD MD sp4 Tana Woodruff, RN RN cm10 Corrections: (The following items were deleted from the chart) 06:29 03:34 Estrada ordered. sp4 jb4 07:55 06:46 Intensive Care Unit sp4 aa5 07:55 06:46 sp4 aa5 10:02 06:46 Inpatient Admission sp4 cp3 10:02 06:46 Andrés Adames sp4 cp3 10:02 06:46 Serious sp4 cp3 10:02 06:46 new sp4 cp3 10:02 06:46 have improved sp4 cp3 10:02 06:46 Standard sp4 cp3 10:02 06:46 Persistent atrial fibrillation sp4 cp3 10:02 06:46 Sepsis without septic shock, atrial fibrillation with RVR, acute hypoactive cp3 delirium, right lower extremity cellulitis sp4 10: 07:55 [facility] ER HOLD aa5 cp3 10: 07:55 ERHOLD- aa5 cp3 12:33 10:04 PENDING cp3 bp
[2024-01-24 07:03] LABS: SARS-CoV-2 Antigen CONTROL BLUE LINE VIS/BG OK; SARS-CoV-2 Antigen Rapid Res Negative (Negative)
[2024-01-24 07:09] LABS: Arterial Blood Carboxyhemoglob 1.7 % (0-1.5); Blood Gas Oxyhemoglobin 88.8 % (94-97); Blood Gas THB 12.3 g/dl (12-18); Blood O2 Saturation 91.9 % (92-98.5)
[2024-01-24 12:48] VITALS: TEMP 98.4
[2024-01-24 13:24] VITALS: BP 110/62; O2SAT 96
--- NOTE | 2024-01-25 10:35 | RAD REPORT ---
EXAM DESCRIPTION: CT - Chest Abdomen Pelvis W Cont - 01/24/2024 6:42 am CLINICAL HISTORY: ABDOMINAL DISTENTION COMPARISON: 06/30/2023 and 10/02/2023. TECHNIQUE: CT CHEST ABDOMEN PELVIS WITH IV CONTRAST on 01/24/2024 4:23 AM CDT. MIPS reconstructions w ere generated. This exam was performed according to our departmental dose-optimization program, which includes autom ated exposure control, adjustment of the mA and/or kV according to patient size and/or use of iterati ve reconstruction technique. FINDINGS: Vascular: Thoracic aorta is normal in course and caliber without aneurysm or dissection. P ulmonary arteries are suboptimally opacified. Abdominal aorta is densely calcified without aneurysm. Pelvic arteries are patent without aneurysm or occlusion. Chest: The heart is moderately enlarged. Sternotomy was performed. There is no pericardial effusion. Intrathoracic lymph nodes are not enlarged. There is no pleural effusion, pleural thickening or pneumothorax. Central airways are patent. There i s bibasilar atelectasis and scarring. Enhancing mass in the left lobe of the liver measures 2 cm. Abdomen: The liver is normal in appearance. There is no biliary dilatation. Cholecystectomy was perfo rmed. There is a small hiatal hernia. The pancreas and spleen are normal in appearance. The adrenal g lands and kidneys are unremarkable. There is no free air. There is no retroperitoneal adenopathy. Pelvis: There is mild diverticulosis of the distal colon. Urinary bladder is unremarkable. There is n o free fluid. Appendix is normal. Skeleton: There are no acute osseous findings. No suspicious bony lesions. There are severe degenerat colby changes throughout the thoracolumbar spine. IMPRESSION: No definite acute process. Indeterminate enhancing left hepatic lobe mass. Recommend nonemergent MRI. Electronically signed by: Gerson Roberts MD 01/24/2024 06:20 AM CDT Due to temporary technical issues with the PACS/Fluency reporting system, reports are being signed by the in house radiologist without review as a courtesy to ensure prompt reporting. The interpreting r adiologist is fully responsible for the content of the report.
--- NOTE | 2024-01-25 10:40 | RAD REPORT ---
EXAM DESCRIPTION: US - Extremity Venous Uni Ltd - 01/24/2024 4:27 am CLINICAL HISTORY: Redness, swelling COMPARISON: None. TECHNIQUE: US EXTREMITY VEINS UNILATERAL 01/24/2024 3:35 AM CDT FINDINGS: Right common femoral, femoral and popliteal veins are normally compressible. Flow and augm entation. Visualized calf veins are patent. IMPRESSION: No DVT. Electronically signed by: Gerson Roberts MD 01/24/2024 05:21 AM CDT Due to temporary technical issues with the PACS/Fluency reporting system, reports are being signed by the in house radiologist without review as a courtesy to ensure prompt reporting. The interpreting r adiologist is fully responsible for the content of the report.
--- NOTE | 2024-01-25 10:41 | RAD REPORT ---
EXAM DESCRIPTION: RAD - Chest Single View - 01/24/2024 4:03 am CLINICAL HISTORY: PALPITATIONS COMPARISON: None TECHNIQUE: Single AP view of the chest. FINDINGS: Median sternotomy changes noted. Lung volumes diminished. Bronchovascular crowding. Cardiac silhouette is normal in size. No pneumothorax. No large pleural effusion. No focal consolidation. Bibasilar reticular opacities, likely atelectasis. No acute bony finding. Partially visualized cervical spine hardware. IMPRESSION: 1. No acute cardiopulmonary findings. 2. Low lung volumes with associated hypoventilatory changes. Electronically signed by: Chantel Lance MD 01/24/2024 04:26 AM CDT Due to temporary technical issues with the PACS/Fluency reporting system, reports are being signed by the in house radiologist without review as a courtesy to ensure prompt reporting. The interpreting r adiologist is fully responsible for the content of the report.
--- NOTE | 2024-01-25 10:56 | RAD REPORT ---
EXAM DESCRIPTION: CT - Head Brain Wo Cont - 01/24/2024 6:41 am CLINICAL HISTORY: 83 years Male; AMS; Bed Name: 2 TECHNIQUE: Noncontrast CT head. All CT scans at this facility use dose modulation, iterative reconstruction, and/or weight based dosi ng when appropriate to reduce radiation dose to as low as reasonably achievable. COMPARISON: CT head 06/30/2023 FINDINGS: Parenchyma: No acute hemorrhage, large territorial infarction, or mass effect. Scattered h ypodense lesions are present in the white matter, likely chronic small vessel ischemic changes. Uncha nged hypodensity in the left cerebellum, likely remote lacunar infarct. Moderate global cerebral volu me loss. Ventricles and extra-axial spaces: Appropriate for age and degree of volume loss. Visualized paranasal sinuses: Mild scattered mucosal thickening. Mastoid air cells: Clear. Bones: No focal abnormality. Additional comment: Intracranial atherosclerosis. Bilateral lens replacement. IMPRESSION: 1. No acute intracranial findings. 2. Chronic microvascular ischemic changes. Remote left cerebellar lacunar infarct. If clinical conc samy for acute infarct exists, recommend dedicated MRI. Electronically signed by: Chantel Lance MD 01/24/2024 04:48 AM CDT Due to temporary technical issues with the PACS/Fluency reporting system, reports are being signed by the in house radiologist without review as a courtesy to ensure prompt reporting. The interpreting r adiologist is fully responsible for the content of the report.
--- NOTE | 2024-01-26 14:13 | EKG ---
Test Date: 2024-01-24 Test Time: 02:24:47 Intern Brand: DAWSON MEASUREMENT RESULTS: Intervals: Rate: 114 [place]: QRSD: 140 QT: 376 QTc: 518 [place]: P: [place]: QRS: 137 T: 21 INTERPRETIVE STATEMENTS: Atrial fibrillation with premature ventricular or aberrantly conducted complexes Right bundle branch block Abnormal ECG Compared to ECG 06/30/2023 03:18:48 No significant changes Electronically Signed On 01-26-24 14:07:13 CDT by Venkat Centeon
== END ==
LOC: ER 02:41
DX: I48.20 Chronic atrial fibrillation, unspecified (principal); A41.9 Sepsis, unspecified organism; F03.90 Unspecified dementia, unspecified severity, without behavioral disturbance, psychotic disturbance, mood disturbance, and anxiety; E11.9 Type 2 diabetes mellitus without complications; I10 Essential (primary) hypertension; Z88.5 Allergy status to narcotic agent; Z11.52 Encounter for screening for COVID-19
CPT/HCPCS: 93005; 87040 ×2; 85025; 80048; 36415; 82140; 80076; 83605; 84484; 83880; 87804 ×2; 70450; 71260; 74177; 71045; 93971; 82805; 87811; 36600; J2543; J3010 ×2; J7050 ×2; J7030 ×2; 99285

== ENCOUNTER 2024-02-06 02:06 | Emergency (ER) | payer OTHER ==
[2024-02-06 02:47] LABS: Specific Gravity 1.017 (1.005-1.030); Sqamous Epithelial None Seen /HPF (None Seen); Urine Bacteria None Seen /HPF (<20); Urine Bilirubin NEGATIVE (Negative); Urine Blood 3+ (OVER) (Negative); Urine Clarity Extremely Turbid (Clear); Urine Color Light-Orange (Yellow); Urine Culture Reflex Order REFLEXED; Urine Glucose NEGATIVE (Negative); Urine Ketones NEGATIVE (Negative); Urine Micro Reflex YN NO BILL MICROSCOPIC; Urine Nitrite NEGATIVE (Negative); Urine Protein TRACE (Negative); Urine RBC >50 /HPF (None Seen); Urine Urobilinogen Normal (Normal); Urine WBC 20-50 /HPF (<5)
--- NOTE | 2024-02-06 03:40 | EDPHYS ---
Physician Documentation [facility] Name: Quintin Stauffer Age: 83 yrs Sex: Male : 1940 Arrival Date: 02/06/2024 Time: 02:06 Bed 5 Private MD: ED Physician Marquise Guallpa HPI: 02/05 04:23 This 83 yrs old Male presents to ER via EMS with complaints of Needs Urinary Catheter rt Replacement. 04:23 Patient presents to the ED following traumatic Estrada catheter removal. History is rt limited patient with advanced dementia. Patient initially had bleeding, reportedly it stopped. Denies other acute complaints, symptoms are mild in severity, no other aggravating or alleviating factors.. Historical: - Allergies: 02: Codeine; cm10 - PMHx: : AFIB; Dementia; CAD; Hyperlipidemia; Diabetes - NIDDM; Hypertension; cm10 - PSHx: 02: Cholecystectomy; cm10 - Immunization history:: Adult Immunizations up to date. - Social history:: Smoking status: Patient denies any tobacco usage or history of. ROS: 04:23 Unable to obtain ROS due to baseline dementia, rt Exam: 04:23 Constitutional: This is a well developed, well nourished patient who is awake, alert, rt and in no acute distress. Head/Face: Normocephalic, atraumatic. Chest/axilla: Normal chest wall appearance and motion. Nontender with no deformity. No lesions are appreciated. Cardiovascular: Regular rate and rhythm with a normal S1 and S2. No gallops, murmurs, or rubs. Normal PMI, no JVD. No pulse deficits. Respiratory: Lungs have equal breath sounds bilaterally, clear to auscultation and percussion. No rales, rhonchi or wheezes noted. No increased work of breathing, no retractions or nasal flaring. Abdomen/GI: Soft, non-tender, with normal bowel sounds. No distension or tympany. No guarding or rebound. No evidence of tenderness throughout. Skin: Warm, dry with normal turgor. Normal color with no rashes, no lesions, and no evidence of cellulitis. Vital Signs: 02:08 Height 5 ft. 11 in. ; Pain 0/10; pf1 02:21 BP 114 / 65; Pulse 89; Resp 18; Temp 97.6(O); Pulse Ox 94% on R/A; Weight 93.44 kg; oe Height 6 ft. 1 in. ; 02:21 Body Mass Index 27.18 (93.44 kg, 185.42 cm) oe 02:08 Pain Scale: Adult pf1 MDM: 02:08 Patient medically screened. rt 04:23 Differential Diagnosis Traumatic catheter removal, UTI. Data reviewed: vital signs, rt nurses notes, lab test result(s). Test considered but Not performed: CT: Estrada catheter placed, good flow of urine, CT scan is not indicated. Care significantly affected by the following chronic conditions: Advanced dementia. ED course: The is requesting trazodone prescription. I did discuss risks and benefits to include sundowning, worsening status, still elects to have trazodone prescription, will prescribe short course of a small amount.. 02/05 02:09 Order name: BALBIR; Complete Time: 03:37 rt 02/05 02:50 Order name: Urine Culture EDWY 02/05 02:09 Order name: Sean; Complete Time: 02:51 rt Administered Medications: No medications were administered Disposition Summary: 02/06/24 03:39 Discharge Ordered Notes: Location: Home rt Problem: new rt Symptoms: have improved rt Condition: Stable rt Diagnosis - Traumatic Estrada catheter removal rt Followup: rt - With: Private Physician - When: 2 - 3 days - Reason: Discharge Instructions: - Discharge Summary Sheet rt - Indwelling Urinary Catheter Care, Adult rt - Indwelling Urinary Catheter Insertion rt Forms: - Medication Reconciliation Form rt - Thank You Letter rt - Antibiotic Education rt - Prescription Opioid Use rt - Patient Portal Instructions rt - Leadership Thank You Letter rt Prescriptions: - trazodone 50 mg Oral tablet - take 0.5 tablet ORAL route every day at bedtime as needed for insomnia; 6 rt tablet; Refills: 0, Product Selection Permitted - Cephalexin 250 mg Oral Capsule - take 1 capsule ORAL route every 8 hours for 10 days; 30 capsule; Refills: 0, rt Product Selection Permitted Signatures: Dispatcher [employer] Marquise Benavides MD MD rt Tana Woodruff, RN RN cm10
--- NOTE | 2024-02-06 03:40 | ER ---
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 Patient pf1 from [facility], history of dementia. 02:08 Coronavirus screen: Client denies travel out of the [place] in the last 14 days. At this pf1 time, the client does not indicate any symptoms associated with coronavirus-19. Ebola Screen: Patient negative for fever greater than or equal to 101.5 degrees Fahrenheit, and additional compatible Ebola Virus Disease symptoms. Initial Sepsis Screen: Does the patient meet any 2 criteria? No. Patient's initial sepsis screen is negative. Does the patient have a suspected source of infection? No. Patient's initial sepsis screen is negative. Risk Assessment: Do you want to hurt yourself or someone else? Unable to obtain. Onset of symptoms was February 06, 2024. 02:08 Method Of Arrival: EMS: [facility] pf1 02:08 Acuity: JIMMY 4 pf1 Triage Assessment: 02:08 General: Appears in no apparent distress. comfortable, well groomed, Behavior is calm, pf1 cooperative, appropriate for age, quiet. 02:08 Pain: Unable to use pain scale. Does not appear to understand pain scale. 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 Historical: - Allergies: 02:23 Codeine; cm10 - PMHx: 02:23 AFIB; Dementia; CAD; Hyperlipidemia; Diabetes - NIDDM; Hypertension; cm10 - PSHx: 02:23 Cholecystectomy; cm10 - Immunization history:: Adult Immunizations up to date. - Social history:: Smoking status: Patient denies any tobacco usage or history of. Screenin:52 [facility] ED Fall Risk Assessment (Adult) History of falling in the last 3 months, rv including since admission No falls in past 3 months (0 pts) Score/Fall Risk Level 0 - 2 = Low Risk Oriented to surroundings, Maintained a safe environment, Educated pt \T\ family on fall prevention, incl call for assistance when getting out of bed, Assessed \T\ reinforced patient's understanding of fall precautions. Abuse screen: Denies threats or abuse. Denies injuries from another. Nutritional screening: No deficits noted. Tuberculosis screening: No symptoms or risk factors identified. Assessment: 02:30 General: Appears comfortable. rv 02:30 Neuro: Level of Consciousness is awake, alert, confused. Cardiovascular: Capillary rv refill < 3 seconds Patient's skin is warm and dry. Respiratory: Airway is patent Respiratory effort is even, unlabored. GI: No signs and/or symptoms were reported involving the gastrointestinal system. : bleeding, pulled out IFC. Derm: Skin is intact. 03:42 Reassessment: [facility] called and Sabrina states that she will call back when she has cm10 an ETA for transportation. 03:45 Reassessment: Pt's states that she will take him to [facility] by POV. cm10 Vital Signs: 02:08 Height 5 ft. 11 in. ; Pain 0/10; pf1 02:21 BP 114 / 65; Pulse 89; Resp 18; Temp 97.6(O); Pulse Ox 94% on R/A; Weight 93.44 kg; oe Height 6 ft. 1 in. ; 02:21 Body Mass Index 27.18 (93.44 kg, 185.42 cm) oe 02:08 Pain Scale: Adult pf1 ED Course: 02:08 Patient arrived in ED. ty 02:08 Marquise Guallpa MD is Attending Physician. rt 02:22 Pillow given. oe 02:25 Triage completed. pf1 02:40 No provider procedures requiring assistance completed. Byrd cath inserted, using rv sterile technique, 16 Fr., by me, balloon inflated, urine specimen collected. Patient did not have IV access during this emergency room visit. 02:52 Patient has correct armband on for positive identification. Client placed on continuous rv cardiac and pulse oximetry monitoring. NIBP monitoring applied. 02:52 Arm band placed on right wrist. rv Administered Medications: No medications were administered Medication: 02:52 VIS not applicable for this client. rv Outcome: 03:39 Discharge ordered by . rt 03:54 Discharged to correction. family transported the pt back to [facility] rv 03:54 Condition: good 03:54 Discharge instructions given to family, Instructed on discharge instructions, follow up and referral plans. medication usage, Demonstrated understanding of instructions, follow-up care, medications, Prescriptions given X 2, 03:55 Patient left the ED. rv Signatures: Sai Hurtado Ronaldo, RN RN rv Marquise Guallpa MD MD rt Finley, Pamala, RN RN pf1 Tana Woodruff RN RN cm10 Florin Messer
[2024-02-06 04:19] VITALS: BP 114/65; TEMP 97.6; O2SAT 94
== END 2024-02-06 03:55 | disposition home or self-care (01) ==
LOC: ER 02:06
DX: T83.028A Displacement of other urinary catheter, initial encounter (principal)
CPT/HCPCS: 51702; 81001; 87086; 87088; 99284

== ENCOUNTER 2024-02-15 10:51 | Emergency (ER) | payer OTHER ==
[2024-02-15 12:17] LABS: Absolute Basophils 0.1 K/uL (0-0.5); Absolute Eosinophils 0.2 K/uL (0-0.5); Absolute Lymphocytes (CBC) 1.4 K/uL (0.7-4.9); Absolute Monocytes 0.7 K/uL (0.1-1.3); Absolute Neutrophil 3.8 K/uL (1.8-8.0); Basophils % 1.1 % (0-1.3); Eosinophils % 3.5 % (0-4.4); Hematocrit 40.5 % (39.6-49.0); Hemoglobin 13.7 g/dL (13.6-17.9); Lymphocytes % 21.8 % (15.3-44.8); MCH 30.3 pg (27.0-35.0); MCHC 33.8 g/dL (32.0-36.0); MCV 89.5 fL (80-100); MPV 11.8 fL (7.6-11.3); Monocytes % 11.9 % (3.3-12.3); Neutrophils % 61.7 % (41.7-73.7); Nucleated Red Blood Cells % 0.1 % (0-0); Platelets 169 thou/uL (152-406); RBC Red Blood Cell Count 4.52 M/uL (4.33-5.43); Red Cell Distribution Width 16.5 % (12.1-15.2)
[2024-02-15 12:20] LABS: Albumin 3.3 g/dL (3.4-5.0); Albumin/Globulin Ratio 0.8 (1.1-1.8); Anion Gap 9.2 mEq/L (5.0-15.0); Bilirubin Total 1.1 mg/dL (0.2-1.0); Potassium 4.2 mEq/L (3.5-5.1); Protein, Total 7.3 g/dL (6.4-8.2)
[2024-02-15] MEDS ORDERED: NA CHLORIDE 0.9% 1,000 ML ONE (12:25)
--- NOTE | 2024-02-15 12:50 | RAD REPORT ---
EXAM DESCRIPTION: CTAbdomen Pelvis W Contrast - 02/15/2024 12:39 pm CLINICAL HISTORY: Abdominal pain. ABD PAIN COMPARISON: Abdomen Pelvis W Contrast dated 10/02/2023; Abdomen Pelvis W Contrast dated 10/08/20 21; Abdomen Pelvis W Contrast dated 09/02/2017; Chest Abdomen Pelvis W Cont dated 01/24/2024 TECHNIQUE: Biphasic CT imaging of the abdomen and pelvis was performed with 100 ml non-ionic IV cont rast. All CT scans are performed using dose optimization technique as appropriate and may include automated exposure control or mA/KV adjustment according to patient size. FINDINGS: Mild linear atelectasis is present in both lung bases. Small hiatal hernia. Mild fatty liver seen. Poorly defined partially enhancing mass lesion is seen in the left lobe of the liver posteriorly. This proximally measures 6-7 cm and is indeterminate. Follow-up liver MRI on a no nemergent basis would be recommended. Cholecystectomy. Spleen, pancreas, adrenal glands kidneys are within normal limits. Small bilateral renal cysts. No bowel obstruction, free air, free fluid or abscess. Moderate stool is retained throughout the colo n. Prominent sigmoid diverticulosis without diverticulitis. The appendix is normal. No evidence of s ignificant lymphadenopathy. Aortoiliac atherosclerosis. Moderate lumbar degenerative changes. IMPRESSION: Prominent sigmoid diverticulosis coli without diverticulitis. Poorly defined 6-7 cm internally enhancing mass in the left lobe liver posteriorly warrants followup nonemergent MRI liver protocol assessment.
[2024-02-15 13:49] LABS: Band Neutrophils 2 % (0-1); Blood Morphology Comment NOT SEEN (NOT SEEN); Differential Total Cells Count 100; Eosinophils 2 % (0-3); Lymphocytes 27 % (15-42); Monocytes 13 % (0-10); Platelet Estimate ADEQ; Segmented Neutrophils 56 % (40-80); Toxic Granulation 1+
--- NOTE | 2024-02-15 14:47 | EDPHYS ---
Physician Documentation [facility] Name: Quintin Stauffer Age: 83 yrs Sex: Male : 1940 Arrival Date: 02/15/2024 Time: 10:51 Bed 13 Private MD: ED Physician Jacob Cedeno HPI: 02/14 11:16 This 83 yrs old Male presents to ER via EMS with complaints of Abdominal pain. ms3 11:16 83-year-old male with past medical history of atrial fibrillation, dementia, ms3 hypertension, coronary artery disease, diabetes, hyperlipidemia presents to the emergency department via [facility] for abdominal pain that began on Thursday. Patient's states patient has been complaining of pain and had 1 episode of emesis on Thursday. Patient denies complaints. HPI is limited secondary to patient's history of dementia. Historical: - Allergies: 11:04 Codeine; rs5 - PMHx: 11:04 AFIB; Dementia; Hypertension; CAD; Diabetes - NIDDM; Hyperlipidemia; rs5 - PSHx: 11:04 Cholecystectomy; rs5 - Immunization history:: Adult Immunizations up to date. - Infectious Disease History:: Denies. - Social history:: Smoking status: Patient denies any tobacco usage or history of. ROS: 11:16 Constitutional: Negative for fever, and chills. Neck: Negative for injury, pain, and ms3 swelling, Cardiovascular: Negative for chest pain, and palpitations. Respiratory: Negative for shortness of breath, cough, wheezing, and pleuritic chest pain, Abdomen/GI: Negative for abdominal pain, nausea, vomiting, diarrhea, and constipation, MS/Extremity: Negative for injury and deformity, Skin: Negative for injury, rash, and discoloration, Exam: 11:16 Constitutional: This is a well developed, well nourished patient who is awake, alert, ms3 and in no acute distress. Head/Face: Normocephalic, atraumatic. Neck: Trachea midline, no cervical lymphadenopathy. Supple, full range of motion without nuchal rigidity, or vertebral point tenderness. No Meningismus. Chest/axilla: Normal chest wall appearance and motion. Nontender with no deformity. Cardiovascular: Regular rate and rhythm with a normal S1 and S2. No gallops, murmurs, or rubs. Normal PMI, no JVD. No pulse deficits. Respiratory: Lungs have equal breath sounds bilaterally, clear to auscultation and percussion. No rales, rhonchi or wheezes noted. No increased work of breathing, no retractions or nasal flaring. Abdomen/GI: Soft, non-tender, with normal bowel sounds. No distension or tympany. No guarding or rebound. No evidence of tenderness throughout. Skin: Warm, dry with normal turgor. Normal color with no rashes, no lesions, and no evidence of cellulitis. MS/ Extremity: Pulses equal, no cyanosis. Neurovascular intact. Full, normal range of motion. Vital Signs: 11:03 BP 105 / 61; Pulse 65; Resp 18; Pulse Ox 98% on R/A; rs5 11:07 BP 97 / 69; Pulse 66; Resp 18; Pulse Ox 98% on R/A; rs5 11:50 BP 101 / 59; Pulse 61; Resp 18; Pulse Ox 97% on R/A; rs5 12:22 BP 96 / 57; Pulse 63; Resp 18; Pulse Ox 99% on R/A; rs5 14:05 BP 100 / 63; Pulse 66; Resp 18; Pulse Ox 99% on R/A; rs5 14:45 BP 107 / 67; Pulse 68; Resp 18; Pulse Ox 99% on R/A; rs5 MDM: 11:07 Patient medically screened. ms3 14:47 Differential diagnosis: diverticulitis, non-specific abd pain. Data reviewed: vital ms3 signs, nurses notes, lab test result(s), radiologic studies, and as a result, I will discharge patient. I considered the following discharge prescriptions or medication management in the emergency department Medications were administered in the Emergency Department. See MAR. Historians other than the Patient: Spouse/Significant Other: Patient's . Care significantly affected by the following chronic conditions: Hypertension, HLD, DM. Counseling: I had a detailed discussion with the patient and/or guardian regarding the historical points, exam findings, and any diagnostic results supporting the discharge/admit diagnosis, lab results, radiology results, the need for outpatient follow up, to return to the emergency department if symptoms worsen or persist or if there are any questions or concerns that arise at home. Special discussion: Based on the patient's Hx, exam, and Dx evaluation, there is no indication for emergent surgery or inpatient Tx. It is understood by the patient/guardian that if the Sx's persist or worsen they need to return immediately for re-evaluation. ED course: Discussed CT findings of liver mass with patient's . Patient to follow-up with primary care physician for further care regarding mass. Patient's understands and agrees with plan. All questions were answered. Return precautions discussed include worsening symptoms, or any other concerns. On re-evaluation patient is alert, in nad, non-toxic appearing.. 02/14 11:07 Order name: CBC with Diff; Complete Time: 13:49 ms3 02/14 11:07 Order name: CMP; Complete Time: 12:21 ms3 02/14 11:07 Order name: Lipase; Complete Time: 12:21 ms3 02/14 12:21 Order name: Manual Differential; Complete Time: 13:49 EDMS 02/14 11:07 Order name: CT Abd/Pelvis - IV Contrast Only; Complete Time: 12:53 ms3 02/14 11:07 Order name: IV Saline Lock; Complete Time: 11:28 ms3 02/14 11:07 Order name: Labs collected and sent; Complete Time: 11:28 ms3 Administered Medications: 12:25 Drug: NS 0.9% IV 1000 ml IV at 1 bolus Per protocol; 1000 mL bolus Route: IV; Rate: 1 rs5 bolus; Site: left antecubital; 13:05 Follow up: Response: No adverse reaction; IV Status: Completed infusion rs5 Disposition Summary: 02/15/24 14:47 Discharge Ordered Notes: Location: Home ms3 Condition: Stable ms3 Diagnosis - Abdominal pain, unspecified ms3 Followup: ms3 - With: Private Physician - When: 2 - 3 days - Reason: Recheck today's complaints Discharge Instructions: - Discharge Summary Sheet ms3 - Abdominal Pain, Adult ms3 Forms: - Medication Reconciliation Form ms3 - Thank You Letter ms3 - Antibiotic Education ms3 - Prescription Opioid Use ms3 - Patient Portal Instructions ms3 - Leadership Thank You Letter ms3 Signatures: Dispatcher [employer] EDMS Jacob Cedeno DO DO ms3 Dallas Weber RN RN rs5 Corrections: (The following items were deleted from the chart) 11:08 11:08 Abdomen Pelvis W Con+CT.RAD.BRZ ordered. EDMS EDMS 11:19 11:16 Constitutional: Negative for fever, and chills. Neck: Negative for injury, pain, ms3 and swelling, Cardiovascular: Negative for chest pain, and palpitations. Respiratory: Negative for shortness of breath, cough, wheezing, and pleuritic chest pain, Abdomen/GI: Negative for abdominal pain, nausea, vomiting, diarrhea, and constipation, MS/Extremity: Negative for injury and deformity, ms3 11:19 11:16 All other systems are negative, ms3 ms3 14:49 14:47 ED course: Discussed CT findings of liver mass with patient's . Patient to ms3 follow-up with primary care physician for further care regarding mass. Patient's understands and agrees with plan. All questions were answered. Return precautions discussed include worsening symptoms, or any other concerns. ms3
--- NOTE | 2024-02-15 14:47 | ER ---
Nurse's Notes [facility] Name: Quintin Stauffer Age: 83 yrs Sex: Male : 1940 Arrival Date: 02/15/2024 Time: 10:51 Bed 13 Private MD: Diagnosis: Abdominal pain, unspecified Presentation: 02/14 11:03 Chief complaint: EMS states: Abdominal pain x1 week. Coronavirus screen: At this time, rs5 the client does not indicate any symptoms associated with coronavirus-19. Ebola Screen: No symptoms or risks identified at this time. Initial Sepsis Screen: Does the patient meet any 2 criteria? No. Patient's initial sepsis screen is negative. Does the patient have a suspected source of infection? No. Patient's initial sepsis screen is negative. Risk Assessment: Do you want to hurt yourself or someone else? Patient reports no desire to harm self or others. Onset of symptoms was February 15, 2024. 11:03 Method Of Arrival: EMS: [facility] rs5 11:03 Acuity: JIMMY 3 rs5 Historical: - Allergies: 11:04 Codeine; rs5 - PMHx: 11:04 AFIB; Dementia; Hypertension; CAD; Diabetes - NIDDM; Hyperlipidemia; rs5 - PSHx: 11:04 Cholecystectomy; rs5 - Immunization history:: Adult Immunizations up to date. - Infectious Disease History:: Denies. - Social history:: Smoking status: Patient denies any tobacco usage or history of. Screenin:05 [facility] ED Fall Risk Assessment (Adult) History of falling in the last 3 months, rs5 including since admission No falls in past 3 months (0 pts) Confusion or Disorientation No (0 pts) Intoxicated or Sedated No (0 pts) Impaired Gait No (0 pts) Mobility Assist Device Used No (0 pt) Altered Elimination No (0 pt) Score/Fall Risk Level 0 - 2 = Low Risk Oriented to surroundings, Maintained a safe environment. Abuse screen: Denies threats or abuse. Nutritional screening: No deficits noted. Tuberculosis screening: No symptoms or risk factors identified. Assessment: 11:05 General: Appears in no apparent distress. uncomfortable, Behavior is calm, cooperative. rs5 Pain: Complains of pain in abdomen Pain currently is 3 out of 10 on a pain scale. Quality of pain is described as aching. Neuro: Level of Consciousness is awake, alert, obeys commands, Oriented to person, place. Cardiovascular: Patient's skin is warm and dry. Rhythm is regular. Respiratory: Airway is patent Respiratory effort is even, unlabored, Respiratory pattern is regular, symmetrical. GI: Abdomen is round non-distended, Abd is soft and non tender X 4 quads. : No signs and/or symptoms were reported regarding the genitourinary system. EENT: No signs and/or symptoms were reported regarding the EENT system. Derm: Skin is intact, Skin is pink, warm \T\ dry. Musculoskeletal: Range of motion: intact in all extremities. 12:10 Reassessment: No changes from previously documented assessment. rs5 13:05 Reassessment: Patient and/or family updated on plan of care and expected duration. Pain rs5 level reassessed. Respiratory: Respiratory effort is even, unlabored, Respiratory pattern is regular, symmetrical. Derm: Skin is pink, warm \T\ dry. 13:05 Cardiovascular: Rhythm is regular. rs5 14:05 Reassessment: No changes from previously documented assessment. rs5 14:45 Reassessment: Patient and/or family updated on plan of care and expected duration. Pain rs5 level reassessed. Patient is alert, oriented x 3, equal unlabored respirations, skin warm/dry/pink. Vital Signs: 11:03 BP 105 / 61; Pulse 65; Resp 18; Pulse Ox 98% on R/A; rs5 11:07 BP 97 / 69; Pulse 66; Resp 18; Pulse Ox 98% on R/A; rs5 11:50 BP 101 / 59; Pulse 61; Resp 18; Pulse Ox 97% on R/A; rs5 12:22 BP 96 / 57; Pulse 63; Resp 18; Pulse Ox 99% on R/A; rs5 14:05 BP 100 / 63; Pulse 66; Resp 18; Pulse Ox 99% on R/A; rs5 14:45 BP 107 / 67; Pulse 68; Resp 18; Pulse Ox 99% on R/A; rs5 ED Course: 11:03 Patient arrived in ED. rs5 11:04 Triage completed. rs5 11:05 Jacob Cedeno DO is Attending Physician. ms3 11:05 Patient has correct armband on for positive identification. Placed in gown. Bed in low rs5 position. Call light in reach. Side rails up X2. 11:05 No provider procedures requiring assistance completed. rs5 11:12 Dallas Weber, RN is Primary Nurse. rs5 11:20 Inserted saline lock: 20 gauge in right antecubital area, using aseptic technique. rs5 12:41 CT Abd/Pelvis - IV Contrast Only In Process Unspecified. EDMS 15:02 IV discontinued, intact, bleeding controlled, No redness/swelling at site. Pressure rs5 dressing applied. Administered Medications: 12:25 Drug: NS 0.9% IV 1000 ml IV at 1 bolus Per protocol; 1000 mL bolus Route: IV; Rate: 1 rs5 bolus; Site: left antecubital; 13:05 Follow up: Response: No adverse reaction; IV Status: Completed infusion rs5 Medication: 11:33 VIS not applicable for this client. rs5 Outcome: 14:47 Discharge ordered by MD. ms3 15:02 Discharged to home ambulatory, rs5 15:02 Condition: stable 15:02 Discharge instructions given to patient, family, Instructed on discharge instructions, follow up and referral plans. Demonstrated understanding of instructions, follow-up care, 15:05 Patient left the ED. rs5 Signatures: Dispatcher [employer] EDMS Jacob Cedeno DO DO ms3 Dallas Weber, RN RN rs5 Corrections: (The following items were deleted from the chart) 11:51 11:01 BP 97 / 69; Pulse 66bpm; Resp 18bpm; Pulse Ox 98% RA; rs5 rs5 11:52 11:03 BP 145 / 98; Pulse 65bpm; Resp 18bpm; Pulse Ox 98% RA; rs5 rs5
[2024-02-15 19:05] VITALS: BP 100/63; O2SAT 99
== END 2024-02-15 15:05 | disposition home or self-care (01) ==
LOC: ER 10:51
DX: R10.9 Unspecified abdominal pain (principal); R16.0 Hepatomegaly, not elsewhere classified; Z88.5 Allergy status to narcotic agent
CPT/HCPCS: 85025; 36415; 83690; 80053; 74177; 96360; 99284; Q9967; J7030

== ENCOUNTER 2024-09-14 00:14 | Inpatient (IN) | payer OTHER ==
[2024-09-14 00:50] LABS: Absolute Eosinophils 0.3 K/uL (0-0.5); Absolute Lymphocytes (CBC) 1.1 K/uL (0.7-4.9); Absolute Monocytes 1.6 K/uL (0.1-1.3); Absolute Neutrophil 25.8 K/uL (1.8-8.0); Basophils % 0.2 % (0-1.3); Hematocrit 36.8 % (39.6-49.0); Hemoglobin 12.2 g/dL (13.6-17.9); MCH 30.7 pg (27.0-35.0); MCHC 33.1 g/dL (32.0-36.0); MCV 92.7 fL (80-100); MPV 11.9 fL (7.6-11.3); Monocytes % 5.6 % (3.3-12.3); Neutrophils % 89.2 % (41.7-73.7); Platelets 141 thou/uL (152-406); RBC Red Blood Cell Count 3.96 M/uL (4.33-5.43); Red Cell Distribution Width 17.1 % (12.1-15.2)
[2024-09-14 00:50] LABS: Arterial Blood Carboxyhemoglob 1.4 % (0-1.5); Blood Gas Oxyhemoglobin 91.3 % (94-97); Blood Gas THB 12.3 g/dl (12-18); Blood O2 Saturation 94.4 % (92-98.5)
[2024-09-14 00:52] LABS: PT Prothrombin Time 40.8 SECONDS (9.4-12.5); PTT, Activated Partial Thromb 42.3 SECONDS (24.3-36.9); Protime INR 3.79
[2024-09-14] MEDS ORDERED: NA CHLORIDE 0.9% 3,000 ML ONE (01:08)
[2024-09-14 01:15] LABS: Albumin 3.7 g/dL (3.4-5.0); Albumin/Globulin Ratio 1.2 (1.1-1.8); Anion Gap 9.2 mEq/L (5.0-15.0); Bilirubin Total 2.2 mg/dL (0.2-1.0); Globulin 3.1 g/dL (2.3-3.5); Potassium 4.2 mEq/L (3.5-5.1); Protein, Total 6.8 g/dL (6.4-8.2)
[2024-09-14] MEDS ORDERED: NA CHLORIDE 0.9% 100 ML ONE (01:25)
[2024-09-14] MEDS ORDERED: CEFEPIME 2 GM VIAL ONE (01:25)
[2024-09-14 01:32] LABS: Band Neutrophils 1 % (0-1); Differential Total Cells Count 100; Eosinophils 1 % (0-3); Lymphocytes 6 % (15-42); Monocytes 7 % (0-10); Segmented Neutrophils 85 % (40-80)
[2024-09-14 01:33] LABS: Blood Morphology Comment NOTED (NOT SEEN); Platelet Estimate ADEQ
[2024-09-14] MEDS ORDERED: ONDANSETRON 4 MG/2 ML VIAL ONE (01:56)
[2024-09-14] MEDS ORDERED: VANCOMYCIN 1 GM/VIAL ONE (01:56)
[2024-09-14] MEDS ORDERED: ACETAMINOPHEN 500 MG TAB ONE (01:56)
[2024-09-14] MEDS ORDERED: NA CHLORIDE 0.9% 500 ML ONE (01:57)
--- NOTE | 2024-09-14 03:56 | RAD REPORT ---
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 COMPARISON: CT Chest Abdomen Pelvis 01/24/2024. PROCEDURE: Axial images through the chest, abdomen and pelvis were generated utilizing 2 mm slice thickness at 2 mm interval reconstruction without the administration of IV contrast. In addition multiplanar reformats in the coronal and sagittal plane were obtained and reviewed. An individualized dose optimization technique, Automated Exposure Control, was utilized for the perfo rmed procedure. FINDINGS: CHEST: Lower neck: Visualized thyroid gland and soft tissues are normal. No adenopathy. Lungs: The lung parenchyma demonstrate slight decreased lung volume with minimal compressive atelecta tic changes lung bases especially along the right posterior CP angle due to patient positioning. No focal areas of consolidations. No significant pulmonary nodules and/or masses. Airways: The trachea mainstem bronchus demonstrate to be unremarkable. Pleural: There are no pleural effusion. No evidence for pneumothorax. Hemidiaphragms are normally pos itioned. Mediastinum and lymph nodes: No significant mediastinal and/or hilar lymphadenopathy. The axillary re gions demonstrate to be clear. Heart: Mildly enlarged. No pericardial thickening or effusion. 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 Aorta: There is mild intimal aortic arch calcification Pulmonary arteries: The pulmonary arteries were not evaluated due to lack of IV contrast. Osseous structures and chest wall: There is anterior spondylosis within the mid/lower thoracic spine. ABDOMEN AND PELVIS: Liver: Grossly the unopacified liver demonstrates to be normal, no focal lesions are identified. Gallbladder: Surgical clips within the gallbladder fossa corresponding to previous cholecystectomy. N o significant biliary duct dilatation. Adrenal glands: The adrenal glands demonstrate to be normal. Pancreas: Grossly the unopacified pancreas demonstrate to be unremarkable. Spleen: Grossly the unopacified spleen demonstrate to be unremarkable. Kidneys: The kidneys demonstrate normal uptake of contrast media. Grossly the unopacified kidneys d emonstrate to be within normal limits. There is no evidence for nephrolithiasis and/or hydronephrosis. GI: Grossly the unopacified stomach, small bowel and large bowel demonstrate to be within normal limi ts. No evidence for bowel dilatation and/or free air. The appendix was not visualized. The left-sided colon/sigmoid colon demonstrates presence of diverticulosis. : The urinary bladder demonstrate to be unremarkable. Genitalia: The prostate gland is normal. Abdominal aorta: The aorta demonstrated presence of minimal atherosclerotic disease extending into th e aortic bifurcation and iliac arteries. Retroperitoneum: There is no retroperitoneal lymphadenopathy. There is no evidence for ascites and/or abnormal fluid collections. Bones: The bony structures demonstrate to be within normal limits. No evidence for compression deform ity and/or significant skeletal lesions. Soft tissues: The soft tissues demonstrate to be unremarkable. IMPRESSION: Slight decreased lung volume with minimal compressive atelectatic changes lung bases especially along the right posterior CP angle due to patient positioning. Mild cardiomegaly. Status post cholecystectomy. Diverticulosis. No evidence for acute intra-abdominal process. Electronically signed by: Santino Parnell MD 09/14/2024 03:47 AM [facility] Due to temporary technical issues with the PACS/Doodle reporting system, reports are being talha d by the in-house radiologist without review as a courtesy to ensure prompt reporting the interpreting radiologist is fully responsible for the content of the report. Transcribed Date/Time: 09/14/2024 3:56 AM
--- NOTE | 2024-09-14 03:56 | RAD REPORT ---
EXAM DESCRIPTION: Head Brain Wo Cont RadLex: CT HEAD WITHOUT IV CONTRAST CLINICAL HISTORY: 83 years Male; delirium; Bed Name: 18 TECHNIQUE: Noncontrast CT head. All CT scans at this facility use dose modulation, iterative reconstruction, and/or weight based dosi ng when appropriate to reduce radiation dose to as low as reasonably achievable. COMPARISON: None. FINDINGS: Limited assessment of the posterior fossa and skull base secondary to beam hardening. Parenchyma: No acute hemorrhage, large territorial infarction, or mass effect. Ventricles and extra-axial spaces: Appropriate for age. Visualized paranasal sinuses: Mild to moderate scattered mucosal thickening, most pronounced in the b ilateral ethmoid sinuses. Mastoid air cells: Clear. Bones: No acute focal abnormality. Additional comment: Intracranial atherosclerosis. Bilateral lens replacement. IMPRESSION: No acute intracranial findings. Electronically signed by: Chantel Lance MD 09/14/2024 03:19 AM [facility] Due to temporary technical issues with the PACS/Raiseworks reporting system, reports are being talha d by the in-house radiologist without review as a courtesy to ensure prompt reporting the interpreting radiologist is fully responsible for the content of the report. Transcribed Date/Time: 09/14/2024 3:56 AM
[2024-09-14] MEDS ORDERED: ZIPRASIDONE MESYLA 20 MG/VIAL IM ONE (04:57)
--- NOTE | 2024-09-14 04:57 | RAD REPORT ---
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 COMPARISON: CT Chest abdomen pelvis 01/24/2024 (report only). FINDINGS: 1 view of the chest (AP portable projection) was obtained. No prior films are available at this [facility] e for comparison. There is slight decreased lung volume. Mediastinum: The cardiomediastinal silhouette appears normal in size and shape. Sternotomy wires sugg est previous cardiothoracic surgery. Lungs: No areas of consolidations or masses are identified. Heart: The heart is prominent. Thoracic aorta: The thoracic aorta demonstrate to be normal. Pulmonary vasculature: The pulmonary vasculature is normal in distribution. Pleura: The costophrenic angles demonstrate to be sharp. Elevation of the right hemidiaphragm. Osseous structures: The bony structures demonstrate plate fixation device lower cervical spine. Other: None. IMPRESSION: Slight decreased lung volume. Cardiomegaly. Status post cardiothoracic surgery. Electronically signed by: Santino Parnell MD 09/14/2024 02:05 AM CORPORATE COUNSELOR Due to temporary technical issues with the PACS/Shippable reporting system, reports are being talha d by the in-house radiologist without review as a courtesy to ensure prompt reporting the interpreting radiologist is fully responsible for the content of the report. Transcribed Date/Time: 09/14/2024 4:56 AM
[2024-09-14] MEDS ORDERED: WATER FOR INJ,STERILE 10 ML ONE (04:58)
[2024-09-14] MEDS ORDERED: MORPHINE 4 MG/ML SYR ONE (04:58)
--- NOTE | 2024-09-14 05:09 | EDPHYS ---
Physician Documentation [facility] Name: Quintin Stauffer Age: 83 yrs Sex: Male : 1940 Arrival Date: 09/14/2024 Time: 00:14 Bed 18 Private MD: ED Physician Jhon Madrid HPI: 09/14 00:24 This 83 yrs old Male presents to ER via Unassigned with complaints of General sp4 Weakness, Nausea/Vomiting. 05:09 83-year-old male presents with acute complaint of generalized weakness and tremors at [facility] home. Patient has got moderate dementia and cannot provide any history. . Historical: - Allergies: 00:25 Codeine; kj2 - PMHx: 00:27 AFIB; CAD; Dementia; Diabetes - NIDDM; Hyperlipidemia; Hypertension; kj2 - Immunization history:: Adult Immunizations unknown. - Infectious Disease History:: Denies. - Social history:: Smoking status: unknown. - Family history:: not pertinent. ROS: 05:09 Constitutional: Negative for fever, chills, and weight loss, positive for acute sp4 weakness, nausea vomiting and tremors 05:09 All other systems are negative, Exam: 05:09 Constitutional: This is a well developed, well nourished patient who is awake, sp4 patient is having moderate dementia and is poorly cooperative. Prefers to lay on the right side. Moderate physical deconditioning, Head/Face: Normocephalic, atraumatic. Eyes: Pupils equal round and reactive to light, extra-ocular motions intact. Lids and lashes normal. Conjunctiva and sclera are not injected. Cornea within normal limits. Periorbital areas with no swelling, redness, or edema. ENT: Nares patent. No nasal discharge, no septal abnormalities noted. Tympanic membranes are normal and external auditory canals are clear. Oropharynx with no redness, swelling, or masses, exudates, or evidence of obstruction, uvula midline. Mucous membranes moist. Neck: Trachea midline, no thyromegaly or masses palpated, and no cervical lymphadenopathy. Supple, full range of motion without nuchal rigidity, or vertebral point tenderness. Chest/axilla: Normal chest wall appearance and motion. Nontender with no deformity. No lesions are appreciated. Cardiovascular: Regular rate and rhythm with a normal S1 and S2. No gallops, murmurs, or rubs. Normal PMI, no JVD. No pulse deficits. Respiratory: Lungs have equal breath sounds bilaterally, clear to auscultation and percussion. No rales, rhonchi or wheezes noted. No increased work of breathing, no retractions or nasal flaring. Abdomen/GI: Soft, with normal bowel sounds. No distension or tympany. No guarding or rebound. No evidence of tenderness throughout. Back: No spinal tenderness. No costovertebral tenderness. Male : Normal genitalia with no discharge or lesions. Skin: Warm, dry with normal turgor. Normal color with no rashes, no lesions, and no evidence of cellulitis. MS/ Extremity: Pulses equal, no cyanosis. Neurovascular intact. Full, normal range of motion. Neuro: Awake and alert, GCS 15, oriented to person, place, time, and situation. Cranial nerves II-XII grossly intact. Motor strength 5/5 in all extremities. Sensory grossly intact. Psych: Awake, alert, with orientation to person, place and time. Behavior, mood, and affect are within normal limits 05:09 ECG was reviewed by the Attending Physician. EKG at 0030 EKG reveals atrial fibrillation at the rate of 105, right bundle branch block Vital Signs: 00:15 BP 107 / 68; Pulse 113; Resp 18; Temp 98.6; Pulse Ox 92% on R/A; kj2 00:33 BP 107 / 68; Pulse 113; Resp 20; Temp 98.6; Pulse Ox 100% ; Weight 99.79 kg; Height 6 kj2 ft. 2 in. ; 00:34 Pulse Ox 96% on 3 lpm NC; kj2 01:30 BP 166 / 133; Pulse 91; Resp 18; Pulse Ox 100% ; kj2 03:19 BP 98 / 70; Pulse 91; Resp 18; Pulse Ox 98% on 3 lpm NC; kj2 06:32 BP 93 / 55; Pulse 88; Resp 18; Pulse Ox 97% on 3 lpm NC; kj2 07:28 BP 100 / 69; Pulse 84; Resp 17; Pulse Ox 95% on 3 lpm NC; rs5 07:41 BP 105 / 72; Pulse 86; Resp 17; Pulse Ox 96% 3 lpm ; rs5 00:33 Body Mass Index 28.25 (99.79 kg, 187.96 cm) kj2 [place] Coma Score: 05:09 Eye Response: spontaneous(4). Motor Response: localizes pain(5). Verbal Response: sp4 inappropriate words(3). Total: 12. 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 COMPARISON: CT Chest abdomen pelvis 01/24/2024 (report only). FINDINGS: 1 view of the chest (AP portable projection) was obtained. No prior films are available at this time for comparison. There is slight decreased lung volume. Mediastinum: The cardiomediastinal silhouette appears normal in size and shape. Sternotomy wires suggest previous cardiothoracic surgery. Lungs: No areas of consolidations or masses are identified. Heart: The heart is prominent. Thoracic aorta: The thoracic aorta demonstrate to be normal. Pulmonary vasculature: The pulmonary vasculature is normal in distribution. Pleura: The costophrenic angles demonstrate to be sharp. Elevation of the right hemidiaphragm. Osseous structures: The bony structures demonstrate plate fixation device lower cervical spine. Other: None. IMPRESSION: Slight decreased lung volume. Cardiomegaly. Status post cardiothoracic surgery. . 04:42 ED course: EXAM DESCRIPTION: CT CHESTABDOMEN PELVIS WITHOUT IV CONTRAST 09/14/2024 3:15 sp4 AM FORCE ADJUSTMENT SUPERVISOR CLINICAL HISTORY: 83 years, Male, Chest pain. COMPARISON: CT Chest Abdomen Pelvis 01/24/2024. PROCEDURE: Axial images through the chest, abdomen and pelvis were generated utilizing 2 mm slice thickness at 2 mm interval reconstruction without the administration of IV contrast. In addition multiplanar reformats in the coronal and sagittal plane were obtained and reviewed. An individualized dose optimization technique, Automated Exposure Control, was utilized for the performed procedure. FINDINGS: CHEST: Lower neck: Visualized thyroid gland and soft tissues are normal. No adenopathy. Lungs: The lung parenchyma demonstrate slight decreased lung volume with minimal compressive atelectatic changes lung bases especially along the right posterior CP angle due to patient positioning. No focal areas of consolidations. No significant pulmonary nodules and/or masses. Airways: The trachea mainstem bronchus demonstrate to be unremarkable. Pleural: There are no pleural effusion. No evidence for pneumothorax. Hemidiaphragms are normally positioned. Mediastinum and lymph nodes: No significant mediastinal and/or hilar lymphadenopathy. The axillary regions demonstrate to be clear. Heart: Mildly enlarged. No pericardial thickening or effusion. 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 Aorta: There is mild intimal aortic arch calcification Pulmonary arteries: The pulmonary arteries were not evaluated due to lack of IV contrast. Osseous structures and chest wall: There is anterior spondylosis within the mid/lower thoracic spine. ABDOMEN AND PELVIS: Liver: Grossly the unopacified liver demonstrates to be normal, no focal lesions are identified. Gallbladder: Surgical clips within the gallbladder fossa corresponding to previous cholecystectomy. No significant biliary duct dilatation. Adrenal glands: The adrenal glands demonstrate to be normal. Pancreas: Grossly the unopacified pancreas demonstrate to be unremarkable. Spleen: Grossly the unopacified spleen demonstrate to be unremarkable. Kidneys: The kidneys demonstrate normal uptake of contrast media. Grossly the unopacified kidneys demonstrate to be within normal limits. There is no evidence for nephrolithiasis and/or hydronephrosis. GI: Grossly the unopacified stomach, small bowel and large bowel demonstrate to be within normal limits. No evidence for bowel dilatation and/or free air. The appendix was not visualized. The left-sided colon/sigmoid colon demonstrates presence of diverticulosis. : The urinary bladder demonstrate to be unremarkable. Genitalia: The prostate gland is normal. Abdominal aorta: The aorta demonstrated presence of minimal atherosclerotic disease extending into the aortic bifurcation and iliac arteries. Retroperitoneum:There is no retroperitoneal lymphadenopathy. There is no evidence for ascites and/or abnormal fluid collections. Bones: The bony structures demonstrate to be within normal limits. No evidence for compression deformity and/or significant skeletal lesions. Soft tissues: The soft tissues demonstrate to be unremarkable. IMPRESSION: Slight decreased lung volume with minimal compressive atelectatic changes lung bases especially along the right posterior CP angle due to patient positioning. Mild cardiomegaly. Status post cholecystectomy. Diverticulosis. No evidence for acute intra-abdominal process. Electronically signed by: Santino Parnell MD 09/14/2024. ED course: EXAM DESCRIPTION: Head Brain Wo Cont RadLex: CT HEAD WITHOUT IV CONTRAST CLINICAL HISTORY: 83 years Male; delirium; Bed Name: 18 TECHNIQUE: Noncontrast CT head. All CT scans at this facility use dose modulation, iterative reconstruction, and/or weight based dosing when appropriate to reduce radiation dose to as low as reasonably achievable. COMPARISON: None. FINDINGS: Limited assessment of the posterior fossa and skull base secondary to beam hardening. Parenchyma: No acute hemorrhage, large territorial infarction, or mass effect. Ventricles and extra-axial spaces: Appropriate for age. Visualized paranasal sinuses: Mild to moderate scattered mucosal thickening, most pronounced in the bilateral ethmoid sinuses. Mastoid air cells: Clear. Bones: No acute focal abnormality. Additional comment: Intracranial atherosclerosis. Bilateral lens replacement. IMPRESSION: No acute intracranial findings. Electronically signed by: Chantel Lance MD. 05:16 Differential diagnosis: Nonspecific abd pain, gastritis, cholecystitis, viral sp4 gastroenteritis, gastroenteritis. Data reviewed: vital signs, nurses notes, lab test result(s), EKG, radiologic studies, CT scan, plain films. Consideration of Admission/Observation Patient was admitted/placed on observation. Escalation of care including admission/observation considered. Management of patient was discussed with the following: Hospitalist: Wil BELTRAN . 09/14 00:22 Order name: Blood Culture Adult (2) sp4 09/14 00:22 Order name: CBC with Diff; Complete Time: 02:25 sp4 09/14 00:22 Order name: CMP; Complete Time: : sp4 09/14 00:22 Order name: Lactate w/ 2H reflex if indic.; Complete Time: 02:25 sp4 09/14 00:22 Order name: Protime (+inr); Complete Time: :16 sp4 09/14 00:22 Order name: Ptt, Activated; Complete Time: :16 sp4 09/14 00:22 Order name: Urinalysis w/ reflexes; Complete Time: 06:44 sp4 09/14 00:22 Order name: ABG; Complete Time: 01:16 sp4 09/14 00:54 Order name: Manual Differential; Complete Time: 02:25 EDMS 09/14 05:34 Order name: Urinalysis w/ reflexes EDMS 09/14 05:34 Order name: CBC with Automated Diff EDMS 09/14 05:34 Order name: CBC with Automated Diff EDMS 09/14 05:34 Order name: Comprehensive Metabolic Panel EDMS 09/14 05:34 Order name: Comprehensive Metabolic Panel EDMS 09/14 00:22 Order name: Chest Single View XRAY 4 09/14 01:16 Order name: CT Head Brain wo Cont; Complete Time: 04:43 sp4 09/14 01:16 Order name: CT Chest Abdomen Pelvis W/O Contrast; Complete Time: 04:43 sp4 09/14 00:22 Order name: EKG; Complete Time: 00:24 sp4 09/14 00:22 Order name: Accucheck; Complete Time: 05:59 sp4 09/14 00:22 Order name: Cardiac monitoring; Complete Time: 00:40 sp4 09/14 00:22 Order name: EKG - Nurse/Tech; Complete Time: 00:40 sp4 09/14 00:22 Order name: IV Saline Lock - Large Bore; Complete Time: 00:51 sp4 09/14 00:22 Order name: Labs collected and sent; Complete Time: 00:40 sp4 09/14 00:22 Order name: O2 Per Protocol; Complete Time: 00:51 sp4 09/14 00:22 Order name: O2 Sat Monitoring; Complete Time: 00:51 sp4 09/14 00:22 Order name: Vital Signs; Complete Time: 00:51 sp4 EC:09 Rate is 105 beats/min. Rhythm is irregularly irregular, A fib with Occasional PVCs. QRS sp4 [place] is Normal. QRS interval is prolonged. QT interval is normal. No Q waves. T waves are Normal. No ST changes noted. Clinical impression: No evidence of ischemia. Interpreted by me. Reviewed by me. Administered Medications: 01:08 Drug: NS 0.9% IV (30 ml/kg) 30 ml/kg IV at bolus once; Sepsis Protocol; to be given as kj2 a bolus over 90 minutes {Note: right forearm.} Route: IV; Rate: bolus; Site: left antecubital; 03:00 Follow up: IV Status: Completed infusion rs5 01:20 Drug: Cefepime IVPB 2 grams IVPB at 200 ml/hr once over 30 mins; (mix in NS 100 mL) kj2 Route: IVPB; Rate: 200 ml/hr; Infused Over: 30 mins; Site: left antecubital; 01:50 Follow up: Response: No adverse reaction kj2 02:14 Follow up: IV Status: Completed infusion; IV Intake: 100ml kj2 02:13 Drug: vancoMYCIN IVPB 2 grams IVPB at calculated rate once Route: IVPB; Rate: kj2 calculated rate; Site: left antecubital; 03:17 Follow up: IV Status: Completed infusion; IV Intake: 500ml kj2 02:13 Drug: Ondansetron IVP 4 mg IVP once; over 2 minutes Route: IVP; Site: right forearm; kj2 03:31 Follow up: Response: No adverse reaction; Nausea is decreased kj2 03:30 Drug: Acetaminophen PO 1000 mg PO once Route: PO; kj2 05:13 Follow up: Response: No adverse reaction; Pain is decreased kj2 05:12 Drug: Geodon IM 20 mg IM once Route: IM; Site: left vastus lateralis; kj2 05:59 Follow up: Response: No adverse reaction kj2 05:13 Drug: morphine IVP or IV 4 mg IVP once over 4 mins Route: IVP; Infused Over: 4 mins; kj2 Site: right forearm; 05:59 Follow up: Response: No adverse reaction; Pain is decreased kj2 06:32 CANCELLED (Physician Discretion): [id number] grams 100 ml IVPB once; (Note: Albumin 25% sp4 concentration) 07:28 Drug: Albumin IVPB 25 grams 100 ml IVPB once; (Note: Albumin 25% concentration) Volume: rs5 100 ml; Route: IVPB; Site: right antecubital; 07:41 Follow up: Response: No adverse reaction rs5 Disposition Summary: 09/14/24 05:08 Hospitalization Ordered Notes: Hospitalization Status: Inpatient Admission sp4 Provider: Ethan De La Torre Location: Telemetry/[facility] (Inpatient) sp4 Condition: Stable sp4 Problem: new sp4 Symptoms: have improved sp4 Bed/Room Type: Standard 4 Room Assignment: [facility](09/14/24 05:38) [facility] Diagnosis - Severe sepsis without septic shock sp4 Forms: - Medication Reconciliation Form sp4 - SBAR form sp4 - Leadership Thank You Letter sp4 Critical care time excluding procedures: 05:08 Critical care time: Bedside Care: 36 minutes, Consultation: 12 minutes, Family sp4 Intervention: 12 minutes. Total time: 60 minutes Signatures: Dispatcher [employer] Dallas Watters RN RN rs5 Jhon Madrid MD MD sp4 Keiko Aj [facility] Jyotsna Koch RN RN kj2 Corrections: (The following items were deleted from the chart) 00:24 00:23 BLOOD CULTURE*+BA.LAB.BRZ ordered. EDMS EDMS 00: 00:23 CBC+H.LAB.BRZ ordered. EDMS EDMS 00: 00:23 COMPREHENSIVE METABOLIC PANEL+C.LAB.BRZ ordered. EDMS EDMS 00: 00:23 LACTATE+C.LAB.BRZ ordered. EDMS EDMS 00: 00:23 PROTIME (+INR)+COAG.LAB.BRZ ordered. EDMS EDMS 00: 00:23 PTT, ACTIVATED+COAG.LAB.BRZ ordered. EDMS EDMS 00: 00:23 Urinalysis+U.LAB.BRZ ordered. EDMS EDMS 05:38 05:08 sp4 kmf 06:32 06:29 Albumin IVPB 25 grams 100 ml IVPB once; (Note: Albumin 25% concentration) sp4 ordered. sp4
--- NOTE | 2024-09-14 05:09 | ER ---
Nurse's Notes [facility] Name: Quintin Stauffer Age: 83 yrs Sex: Male : 1940 Arrival Date: 09/14/2024 Time: 00:14 Bed 18 Private MD: Diagnosis: Severe sepsis without septic shock Presentation: 09/14 00:23 Chief complaint: EMS states: tachycardia ranging 116-120, weakness, nausea and kj2 vomiting. Coronavirus screen: At this time, the client does not indicate any symptoms associated with coronavirus-19. Ebola Screen: No symptoms or risks identified at this time. Initial Sepsis Screen: Does the patient meet any 2 criteria? No. Patient's initial sepsis screen is negative. Does the patient have a suspected source of infection? No. Patient's initial sepsis screen is negative. Risk Assessment: Do you want to hurt yourself or someone else? Patient reports no desire to harm self or others. Onset of symptoms was September 14, 2024. 00:23 Method Of Arrival: EMS: [facility] kj2 00:23 Acuity: JIMMY 3 kj2 Triage Assessment: 00:31 GI: Reports nausea, vomiting. kj2 02:16 General: Appears in no apparent distress. Behavior is anxious. kj2 Historical: - Allergies: 00:25 Codeine; kj2 - PMHx: 00:27 AFIB; CAD; Dementia; Diabetes - NIDDM; Hyperlipidemia; Hypertension; kj2 - Immunization history:: Adult Immunizations unknown. - Infectious Disease History:: Denies. - Social history:: Smoking status: unknown. - Family history:: not pertinent. Screenin:15 [facility] ED Fall Risk Assessment (Adult) History of falling in the last 3 months, kj2 including since admission No falls in past 3 months (0 pts) Confusion or Disorientation Yes (5 pts) Intoxicated or Sedated No (0 pts) Impaired Gait Yes (1 pt) Mobility Assist Device Used Yes (1 pt) Altered Elimination No (0 pt) Score/Fall Risk Level 3 or more points = High Risk Maintained a safe environment, Educated pt \T\ family on fall prevention, incl call for assistance when getting out of bed, Hourly rounding (assess needs \T\ fall precautionary measures) done, Utilized family, sitter, or virtual car lubricator as indicated. Abuse screen: Denies threats or abuse. Denies injuries from another. Nutritional screening: No deficits noted. Tuberculosis screening: No symptoms or risk factors identified. Assessment: 00:27 General: SEE TRIAGE ASSESSMENT. kj2 01:30 Reassessment: Patient appears in no apparent distress at this time. Patient and/or kj2 family updated on plan of care and expected duration. Pain level reassessed. Patient is alert, oriented x 3, equal unlabored respirations, skin warm/dry/pink. GI: Abdomen is non-distended. 03:20 Reassessment: Patient appears in no apparent distress at this time. Patient and/or kj2 family updated on plan of care and expected duration. Pain level reassessed. Patient is alert, oriented x 3, equal unlabored respirations, skin warm/dry/pink. 05:20 Reassessment: Patient appears in no apparent distress at this time. Patient and/or kj2 family updated on plan of care and expected duration. Pain level reassessed. Patient is alert, oriented x 3, equal unlabored respirations, skin warm/dry/pink. 06:33 Reassessment: Patient appears in no apparent distress at this time. Patient and/or kj2 family updated on plan of care and expected duration. Pain level reassessed. Patient is alert, oriented x 3, equal unlabored respirations, skin warm/dry/pink. 07:41 Reassessment: Patient and/or family updated on plan of care and expected duration. Pain rs5 level reassessed. Patient is alert, oriented x 3, equal unlabored respirations, skin warm/dry/pink. Vital Signs: 00:15 BP 107 / 68; Pulse 113; Resp 18; Temp 98.6; Pulse Ox 92% on R/A; kj2 00:33 BP 107 / 68; Pulse 113; Resp 20; Temp 98.6; Pulse Ox 100% ; Weight 99.79 kg; Height 6 kj2 ft. 2 in. ; 00:34 Pulse Ox 96% on 3 lpm NC; kj2 01:30 BP 166 / 133; Pulse 91; Resp 18; Pulse Ox 100% ; kj2 03:19 BP 98 / 70; Pulse 91; Resp 18; Pulse Ox 98% on 3 lpm NC; kj2 06:32 BP 93 / 55; Pulse 88; Resp 18; Pulse Ox 97% on 3 lpm NC; kj2 07:28 BP 100 / 69; Pulse 84; Resp 17; Pulse Ox 95% on 3 lpm NC; rs5 07:41 BP 105 / 72; Pulse 86; Resp 17; Pulse Ox 96% 3 lpm ; rs5 00:33 Body Mass Index 28.25 (99.79 kg, 187.96 cm) kj2 Gibson Coma Score: 05:09 Eye Response: spontaneous(4). Motor Response: localizes pain(5). Verbal Response: sp4 inappropriate words(3). Total: 12. ED Course: 00:20 Patient arrived in ED. rv1 00:20 Jyotsna Koch, RAFA is Primary Nurse. kj2 00:22 Jhon Madrid MD is Attending Physician. sp4 00:24 Triage completed. kj2 00:28 Patient has correct armband on for positive identification. Placed in gown. Bed in low kj2 position. Call light in reach. Side rails up X 1. Adult w/ patient. Provided Education on: call light. 00:32 Arm band placed on Patient placed in an exam room, on a stretcher. EKG completed in kj2 triage. Results shown to MD. 00:40 ABG Sent. kj2 00:50 Inserted saline lock: 20 gauge in left antecubital area, using aseptic technique. Blood kj2 collected. Flushed with 10 mL NS. 01:08 Blood Culture Adult (2) Sent. kj2 01:08 Lactate w/ 2H reflex if indic. Sent. kj2 01:15 Chest Single View XRAY In Process Unspecified. EDMS 02:16 No provider procedures requiring assistance completed. kj2 03:11 CT Head Brain wo Cont In Process Unspecified. EDMS 03:11 CT Chest Abdomen Pelvis W/O Contrast In Process Unspecified. EDMS 05:08 Ethan De La Torre MD is Hospitalizing Provider. sp4 06:00 Urinalysis w/ reflexes Sent. kj2 07:45 Patient admitted, IV remains in place. rs5 Administered Medications: 01:08 Drug: NS 0.9% IV (30 ml/kg) 30 ml/kg IV at bolus once; Sepsis Protocol; to be given as kj2 a bolus over 90 minutes {Note: right forearm.} Route: IV; Rate: bolus; Site: left antecubital; 03:00 Follow up: IV Status: Completed infusion rs5 01:20 Drug: Cefepime IVPB 2 grams IVPB at 200 ml/hr once over 30 mins; (mix in NS 100 mL) kj2 Route: IVPB; Rate: 200 ml/hr; Infused Over: 30 mins; Site: left antecubital; 01:50 Follow up: Response: No adverse reaction kj2 02:14 Follow up: IV Status: Completed infusion; IV Intake: 100ml kj2 02:13 Drug: vancoMYCIN IVPB 2 grams IVPB at calculated rate once Route: IVPB; Rate: kj2 calculated rate; Site: left antecubital; 03:17 Follow up: IV Status: Completed infusion; IV Intake: 500ml kj2 02:13 Drug: Ondansetron IVP 4 mg IVP once; over 2 minutes Route: IVP; Site: right forearm; kj2 03:31 Follow up: Response: No adverse reaction; Nausea is decreased kj2 03:30 Drug: Acetaminophen PO 1000 mg PO once Route: PO; kj2 05:13 Follow up: Response: No adverse reaction; Pain is decreased kj2 05:12 Drug: Geodon IM 20 mg IM once Route: IM; Site: left vastus lateralis; kj2 05:59 Follow up: Response: No adverse reaction kj2 05:13 Drug: morphine IVP or IV 4 mg IVP once over 4 mins Route: IVP; Infused Over: 4 mins; kj2 Site: right forearm; 05:59 Follow up: Response: No adverse reaction; Pain is decreased kj2 06:32 CANCELLED (Physician Discretion): [id number] grams 100 ml IVPB once; (Note: Albumin 25% sp4 concentration) 07:28 Drug: Albumin IVPB 25 grams 100 ml IVPB once; (Note: Albumin 25% concentration) Volume: rs5 100 ml; Route: IVPB; Site: right antecubital; 07:41 Follow up: Response: No adverse reaction rs5 Medication: 00:31 VIS not applicable for this client. kj2 Intake: 02:14 IV: 100ml; Total: 100ml. kj2 03:17 IV: 500ml; Total: 600ml. kj2 Outcome: 05:08 Decision to Hospitalize by Provider. sp4 07:45 Admitted to Med/surg accompanied by tech, with chart, rs5 07:45 Condition: stable rs5 07:45 Instructed on the need for admit, Demonstrated understanding of instructions, 07:49 Patient left the ED. rs5 Signatures: Dispatcher [employer] Marzena Goldman rv1 Dallas Weber RN RN rs5 Jhon Madrid MD MD sp4 Jyotsna Koch RN RN kj2
[2024-09-14] MEDS ORDERED: ONDANSETRON 4 MG/2 ML VIAL IV PRN (05:29)
[2024-09-14] MEDS ORDERED: ACETAMINOPHEN 325 MG TABLET PO PRN (05:29)
--- NOTE | 2024-09-14 05:29 | P.HP ---
Certification for Inpatient Patient admitted to: Inpatient With expected LOS: >2 Midnights Practitioner: I am a practitioner with admitting privileges, knowledge of patient current condition, hospital course, and medical plan of care. Services: Services provided to patient in accordance with Admission requirements found in Title 42 Section 412.3 of the Code of Federal Regulations Patient History Date of Service: 09/14/24 Reason for admission: AMS History of Present Illness: 81-year-old male with past medical history of CAD, hypertension, hyperlipidemia, diabetes, advanced dementia, atrial fibrillation, who was brought to ER with altered mental status and nausea and vomiting. Patient has advanced dementia hence most of the history is obtained from the chart review and also talk to the family member at the bedside. Patient has advanced dementia. But he was acting different today. Did not notice any fever. Had an episode of nausea and vomiting. Denies any headache. No sick contacts. Patient was assessed in the ER was admitted for possible sepsis the patient noted to have leukocytosis. Possible source UTI Allergies codeine Adverse Reaction (Verified 09/30/21 08:15) Nausea/Vomiting Home medications list reviewed: Yes Home Medications: Antiox.mv No.10/Omeg3s/Lut/Haley [I-Caps with Lutein-[place] 3 Sfg] 1 each PO DAILY 08/29/21 Ezetimibe [Zetia*] 10 mg PO DAILY 08/29/21 Finasteride [Proscar*] 5 mg PO DAILY 08/29/21 Melatonin [Melatonin*] 3 mg PO BEDTIME 08/29/21 Metformin HCl 500 mg PO BID 08/29/21 Metoprolol Succinate [Toprol Xl*] 50 mg PO DAILY 08/29/21 Multivitamin with Folic Acid [One Daily Multivitamin Tablet] 400 mcg PO DAILY 08/29/21 Pravastatin Sodium 20 mg PO DAILY 08/29/21 Rivaroxaban [Xarelto] 20 mg PO DAILY 08/29/21 Tamsulosin [Flomax*] 0.4 mg PO BID 08/29/21 Zinc 50 mg PO DAILY 08/29/21 Escitalopram [Lexapro] 5 mg PO DAILY 09/27/21 LORazepam [Ativan] 0.5 mg PO BID PRN 09/27/21 Amox/Clavulanate [Augmentin 875-125 Tab] 875 mg PO BID #10 tab 09/30/21 Tramadol HCl/Acetaminophen [Ultracet Tablet] 1 each PO Q4H PRN #20 tablet 09/30/21 - Past Medical/Surgical History Diabetic: No Past Medical History: Reviewed- Non-Contributory -: BPH -: HTN -: cholesterol -: afib -: kidney stones Past Surgical History: Reviewed- Non-Contributory -: Triple Bypass surgery 2003 -: Left hand cyst removal -: cataract sx -: TONSILLECTOMY - Family History Family History: Reviewed- Non-Contributory - Social History Smoking Status: Never smoker Alcohol use: No CD- Drugs: No Caffeine use: No Review of Systems is unable to be obtained Physical Examination - Vital Signs Temperature: 98.9 F Blood Pressure: 136/72 Pulse: 90 Respirations: 18 Pulse Ox (%): 94 - Physical Exam General: Alert, Oriented x1, Demented HEENT: Atraumatic, Normocephalic Neck: Supple Respiratory: Clear to auscultation bilaterally, Normal air movement Cardiovascular: Regular rate/rhythm, Normal S1 S2 Capillary refill: <2 Seconds Gastrointestinal: Soft and benign, W/out hepatosplenomegaly Musculoskeletal: No clubbing Integumentary: No rashes Neurological: Other (Alert, Awake ., Confused , moving all limbs ), Dementia Lymphatics: No axilla or inguinal lymphadenopathy - Studies Laboratory Data (last 24 hrs) 09/14/24 09/14/24 09/14/24 00:28 00:28 00:28 WBC 28.90 H Hgb 12.2 L Hct 36.8 L Plt Count 141 L PT 40.8 H INR 3.79 APTT 42.3 H Sodium 134 L Potassium 4.2 BUN 23 H Creatinine 1.06 Glucose 181 H Total Bilirubin 2.2 H AST 13 L ALT 30 Alkaline Phosphatase 57 Assessment and Plan - Plan Acute encephalopathy complicated with dementia CT head negative for any acute changes Monitor neuro vital signs Possibly due to sepsis/UTI Sepsis possibly due to UTI Started on IV antibiotic Will obtain cultures Advanced dementia Supportive management Continue home medications Hypertension Antihypertensives titrated Continue home medications and titrate as needed Hyperlipidemia Continue statin Diabetes Insulin sliding scale Accu-Chek before every meal and at bedtime CAD status post CABG Monitor closely on telemetry Denies any chest pain at this time GI/DVT prophylaxis Advanced directive DNR Discharge Plan: Home Plan to discharge in: 48 Hours - Advance Directives Does patient have a Living Will: No Does patient have a Durable POA for Healthcare: No - Code Status/Comfort Care Code Status: Full Code Time Spent Managing Pts Care (In Minutes): 48
[2024-09-14] MEDS ORDERED: GLUCAGON 1 MG/VIAL IM PRN (05:43)
[2024-09-14] MEDS ORDERED: D10W 125 ML IV PRN (05:43)
[2024-09-14] MEDS: CEFTRIAXONE 1,000 MG in NA CHLORIDE 0.9% 50 ML IVPB ONE ×2 (06:00→12:52)
[2024-09-14 06:29] LABS: Specific Gravity 1.026 (1.005-1.030); Sqamous Epithelial <5 /HPF (None Seen); Urine Bacteria <20 /HPF (<20); Urine Bilirubin NEGATIVE (Negative); Urine Blood 3+ (OVER) (Negative); Urine Clarity Extremely Turbid (Clear); Urine Color Light-Orange (Yellow); Urine Culture Reflex Order REFLEXED; Urine Glucose NEGATIVE (Negative); Urine Ketones TRACE (Negative); Urine Microscopic Reflex YN ORDER UMIC; Urine Mucus Slight /HPF (None Seen); Urine Nitrite 1+ (Negative); Urine Protein 1+ (Negative); Urine RBC >50 /HPF (None Seen); Urine Urobilinogen Normal (Normal); Urine WBC >50 /HPF (<5); Urine pH 5.5 (5.0-7.0)
[2024-09-14] MEDS: ALBUMIN HUMAN 25% 100 ML IV ONE (07:13)
[2024-09-14] MEDS ORDERED: ALBUMIN HUMAN 25% 50 ML IV ONE ×2 (07:18→07:56)
[2024-09-14] MEDS: INSULIN REGULAR (HUMAN) 100 UNIT/ML SQ SCH (07:30)
[2024-09-14] MEDS: ENOXAPARIN 40 MG/0.4 ML SQ SCH (09:41)
[2024-09-14 11:38] VITALS: BMI 28.2
[2024-09-14] MEDS: PNEUMOCOCCAL VACCINE 0.5 ML IMVAC ONE (12:00)
[2024-09-14] MEDS: NA CHLORIDE 0.9% 1,000 ML IV SCH (12:52)
--- NOTE | 2024-09-14 15:47 | P.PN ---
Date of Service: 09/14/24 Patient seen and examined on rounds this morning. Had some agitation / altered menation, received brent last night slept through most of morning; this afternoon - giving thumbs up states he is normally not very verbal anymore. Mostly sits around at home, watches TV at times. Mostly dependent on her Can feed himself, but she helps with other ADLs continue IV antibiotic for UTI confirm home meds bedside swallow prior to advancing diet.
[2024-09-14 15:58] LABS: Specific Gravity 1.026 (1.005-1.030); Sqamous Epithelial <5 /HPF (None Seen); Urine Bacteria <20 /HPF (<20); Urine Bilirubin NEGATIVE (Negative); Urine Blood 3+ (OVER) (Negative); Urine Clarity Extremely Turbid (Clear); Urine Color Light-Orange (Yellow); Urine Crystals Unidentified Few /HPF (None Seen); Urine Culture Reflex Order REFLEXED; Urine Glucose NEGATIVE (Negative); Urine Ketones TRACE (Negative); Urine Microscopic Reflex YN ORDER UMIC; Urine Nitrite NEGATIVE (Negative); Urine Protein 1+ (Negative); Urine RBC >50 /HPF (None Seen); Urine Urobilinogen Normal (Normal); Urine WBC 20-50 /HPF (<5); Urine WBC Clump Rare /HPF (None Seen); Urine Yeast (Budding) Occasional /HPF (None Seen); Urine pH 5.5 (5.0-7.0)
[2024-09-14] MEDS: LORazepam 2 MG/ML VIAL IV PRN (19:58)
[2024-09-15 04:15] LABS: Absolute Basophils 0.1 K/uL (0-0.5); Absolute Eosinophils 0.3 K/uL (0-0.5); Absolute Lymphocytes (CBC) 1.1 K/uL (0.7-4.9); Absolute Monocytes 1.2 K/uL (0.1-1.3); Basophils % 0.7 % (0-1.3); Eosinophils % 1.9 % (0-4.4); Hematocrit 31.5 % (39.6-49.0); Hemoglobin 10.5 g/dL (13.6-17.9); MCH 31.1 pg (27.0-35.0); MCHC 33.3 g/dL (32.0-36.0); MCV 93.4 fL (80-100); MPV 12.1 fL (7.6-11.3); Monocytes % 8.6 % (3.3-12.3); Neutrophils % 80.8 % (41.7-73.7); Platelets 91 thou/uL (152-406); RBC Red Blood Cell Count 3.37 M/uL (4.33-5.43); Red Cell Distribution Width 17.6 % (12.1-15.2)
[2024-09-15 04:51] LABS: Albumin 3.1 g/dL (3.4-5.0); Albumin/Globulin Ratio 1.1 (1.1-1.8); Anion Gap 7.9 mEq/L (5.0-15.0); Bilirubin Total 1.6 mg/dL (0.2-1.0); Globulin 2.9 g/dL (2.3-3.5); Potassium 3.9 mEq/L (3.5-5.1)
[2024-09-15 05:02] LABS: Blood Morphology Comment NOT SEEN (NOT SEEN); Platelet Estimate ADEQ; Platelets, Giant NOTED; White Blood Cell Scan OK (OK)
[2024-09-15] MEDS ORDERED: WATER FOR INJ,STERILE 10 ML IM PRN (06:12)
[2024-09-15] MEDS: ZIPRASIDONE MESYLA 20 MG/VIAL IM ONE (06:12)
[2024-09-15] MEDS: HALOPERIDOL LACT 5 MG/ML INJ ONE (06:32)
[2024-09-15] MEDS: HALOPERIDOL LACT 5 MG/ML INJ IV ONE (06:38)
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
[2024-09-15] MEDS: CEFTRIAXONE 1,000 MG in NA CHLORIDE 0.9% 50 ML IVPB SCH (08:25)
[2024-09-15] MEDS: POLYETHYL GLY 3350 17 GM/DOSE PO SCH (14:13)
[2024-09-15 16:03] VITALS: BP 153/79; TEMP 97.6
--- NOTE | 2024-09-15 16:32 | RAD REPORT ---
EXAMINATION: ONE VIEW CHEST XR CLINICAL INDICATION: Male, 83 years old.,eval pulm edema/effusion; s/p IVF TECHNIQUE: Frontal chest projection is submitted. Examination is limited by patient positioning and t echnique. COMPARISON: 09/14/2024 FINDINGS: Decreased inspiratory effort with elevation of the right hemidiaphragm again seen. Stable cardiomegal y with sequelae median sternotomy. More pronounced central interstitial prominence and vascular congestion especially on the right. No pneumothorax or sizable effusion. Mediastinal contours are un changed. IMPRESSION: More pronounced central interstitial prominence and vascular congestion, concerning for CHF.
[2024-09-15] MEDS: RIVAROXABAN 20 MG TABLET PO SCH (17:16)
[2024-09-15] MEDS: MELATONIN 3 MG TABLET PO SCH (20:39)
[2024-09-15] MEDS: DOCUSATE NA 100 MG CAP PO SCH (20:39)
[2024-09-15] MEDS: TAMSULOSIN 0.4 MG SR CAP PO SCH (20:39)
[2024-09-15] MEDS ORDERED: TAMSULOSIN 0.4 MG SR CAP PO SCH (21:00)
[2024-09-15 21:28] VITALS: O2SAT 94
[2024-09-16] MEDS ORDERED: LORazepam 2 MG/ML VIAL IV ONE (00:08)
[2024-09-16] MEDS ORDERED: LEXAPRO 5 MG PO SCH (09:00)
[2024-09-16] MEDS ORDERED: METOPROLOL XL 50 MG TAB PO SCH (09:00)
--- NOTE | 2024-09-16 15:12 | EKG ---
Test Date: 2024-09-14 Test Time: 00:30:46 Radiology Special Procedure Tech: JOSE MEASUREMENT RESULTS: Intervals: Rate: 105 MS: QRSD: 146 QT: 392 QTc: 518 [place]: P: MS: QRS: 158 T: 26 INTERPRETIVE STATEMENTS: Atrial fibrillation Right bundle branch block Abnormal ECG Compared to ECG 01/24/2024 02:24:47 Ventricular premature complex(es) present Electronically Signed On 09-16-24 15:08:57 [employer] by Balbir Brand
--- NOTE | 2024-09-16 18:19 | P.PN ---
Date of Service: 09/16/24 I was notified by the floor nurse that patient was unresponsive and was not breathing. This was later confirmed by the patient's primary nurse. A few hours earlier, he had been medicated 0.5 mg of IV lorazepam for increased agitation. This controlled his symptoms. Prior to this, patient has not been getting vital signs or blood glucose check as he refused. I had this conversation with patient's . Also present was the supervisor hospitality house. The reason of patient's passing could not be explained.
== END 2024-09-16 07:00 | disposition expired | DRG 871 ==
LOC: ER 00:14 → 2ND 05:29
PROVIDERS: ADMIT Family Medicine; ATTEND Hospitalist
PROC: 4A033R1 Measurement of Arterial Saturation, Peripheral, Percutaneous Approach (ICD-10-PCS; principal; 2024-09-14)
DX: A41.9 Sepsis, unspecified organism (principal); G93.41 Metabolic encephalopathy; N39.0 Urinary tract infection, site not specified; F03.B11 Unspecified dementia, moderate, with agitation; F05 Delirium due to known physiological condition; I48.20 Chronic atrial fibrillation, unspecified; R65.20 Severe sepsis without septic shock; E11.9 Type 2 diabetes mellitus without complications; E78.5 Hyperlipidemia, unspecified; N40.0 Benign prostatic hyperplasia without lower urinary tract symptoms; I10 Essential (primary) hypertension; I25.10 Atherosclerotic heart disease of native coronary artery without angina pectoris; Z66 Do not resuscitate; Z88.5 Allergy status to narcotic agent; Z79.01 Long term (current) use of anticoagulants; Z79.899 Other long term (current) drug therapy
CPT/HCPCS: 36415; 36600; 70450; 71045; 71250; 74176; 80053; 81001; 82805; 82947; 83605; 83735; 85025; 85610; 85730; 87040; 87086; 87088; 93005; 94760; 96372; 99285; J0692; J0696; J1630; J1650; J2405; J3486; J7030; J7040; P9047